=== PATIENT | male | born 1945 | race Caucasian/White ===

== ENCOUNTER 2019-12-16 07:17 | Outpatient (CLI) | payer MEDICARE, SELFPAY ==
[2019-12-16 07:43] LABS: Basophils Absolute Auto 0.06 K/mm3 (0.00-0.10); Basophils Percent Auto 0.8 % (0.0-1.0); Eosinophils Absolute Auto 0.36 K/mm3 (0.02-0.50); Hematocrit 37.6 % (37.0-46.0); Hemoglobin 12.5 g/dL (12.4-15.3); Immature Granulocyte Absolute 0.04 K/mm3 (0.00-0.00); Immature Granulocyte Percent A 0.6 % (0.0-0.0); Lymphocytes Absolute Auto 1.31 K/mm3 (1.10-4.50); Lymphocytes Percent Auto 18.3 % (18.0-42.0); Mean Corpuscular HGB Conc 33.2 g/dL (32.0-36.0); Mean Corpuscular Hemoglobin 28.9 pg (27.0-31.0); Mean Platelet Volume 10.4 fl (8.7-11.0); Monocytes Percent Auto 9.8 % (2.0-11.0); Neutrophils Absolute Auto 4.7 K/mm3 (1.7-7.2); Neutrophils Percent Auto 65.5 % (50.0-70.0); Platelet Count Result 206 K/mm3 (150-420); Red Blood Count 4.32 M/mm3 (4.70-6.10); Red Cell Distribution Width 14.4 % (11.6-14.4); White Blood Count 7.2 K/mm3 (4.8-10.8)
[2019-12-16 08:23] LABS: Alanine Aminotransferase 27 U/L (16-63); Albumin Level 3.5 g/dL (3.4-5.0); Alkaline Phosphatase 86 U/L (46-116); Aspartate Amino Transferase 19 U/L (15-37); Bilirubin,Total 0.3 mg/dL (0.00-1.00); Blood Urea Nitrogen 47 mg/dL (7-18); Calcium 8.6 mg/dL (8.5-10.1); Carbon Dioxide 23 mmol/L (21-32); Chloride 109 mmol/L (98-108); Estimated Glomerular Filt Rate 30; Glucose 186 mg/dL (70-99); Osmolality Calculated 313 mOsm/kg (285-295); Sodium 143 mmol/L (136-145); Total Protein 6.4 g/dL (6.4-8.2)
[2019-12-16 09:16] LABS: Appearance Urine Clear (Clear); Bilirubin Urine Negative (Negative); Color Urine Yellow (Yellow); Glucose Urine UA Trace (Negative); Ketones Urine Negative (Negative); Leukocyte Esterase Ur Negative LEU/UL (Negative); Nitrate Urine Negative (Negative); Protein Urine 2+ (Negative); Specific Grav Ur 1.025 (1.010-1.020); Urobilinogen Urine 0.2 mg/dL (0.2-1.0)
[2019-12-16 09:22] LABS: Add Urine Microscopic? YES; Blood Urine Trace-Intact (Negative)
[2019-12-16 09:23] LABS: Bacteria Urine 1+ /hpf; Mucus Urine Few /lpf; RBC Urine 0-2 /hpf (0-2); Squamous Epithelial Cell Urine Occasional /hpf (Few); WBC Urine 0-3 /hpf (0-3)
== END 2019-12-16 07:18 | disposition home or self-care (01) ==
LOC: CHSLAB 07:20
PROVIDERS: PCP Internal Medicine; Visit Provider Internal Medicine
DX: I12.9 Hypertensive chronic kidney disease with stage 1 through stage 4 chronic kidney disease, or unspecified chronic kidney disease (principal); N18.9 Chronic kidney disease, unspecified
CPT/HCPCS: 36415; 80053; 81001; 85025

== ENCOUNTER 2020-01-06 15:14 | Outpatient (CLI) | payer MEDICARE, SELFPAY ==
--- NOTE | ~2020-01-06 | XR_ITS ---
EXAMINATION: XR wrist RT min 3V DATE: 01/06/2020 15:32 INDICATION: Right wrist pain and swelling. TECHNIQUE: 4 views of right wrist were obtained. COMPARISON: None. FINDINGS: Bone alignment is normal. No fracture. There is mild osteoarthritis of first carpometacarpa l joint. There are dystrophic calcifications in the radiocarpal compartment. IMPRESSION: 1. Mild osteoarthritis of first carpometacarpal joint. Reviewed, dictated and finalized at location A. GE SPECIALIST
== END 2020-01-06 15:15 | disposition home or self-care (01) ==
LOC: CHSIMG 15:16
PROVIDERS: PCP Internal Medicine; Visit Provider Internal Medicine
DX: M25.531 Pain in right wrist (principal); M25.431 Effusion, right wrist
CPT/HCPCS: 73110

== ENCOUNTER 2020-05-05 07:22 | Outpatient (CLI) | payer MEDICARE, SELFPAY ==
[2020-05-05 07:34] LABS: Basophils Absolute Auto 0.06 K/mm3 (0.00-0.10); Eosinophils Absolute Auto 0.33 K/mm3 (0.02-0.50); Eosinophils Percent Auto 5.3 % (1.0-6.0); Hematocrit 42.4 % (37.0-46.0); Immature Granulocyte Absolute 0.03 K/mm3 (0.00-0.00); Immature Granulocyte Percent A 0.5 % (0.0-0.0); Lymphocytes Absolute Auto 1.37 K/mm3 (1.10-4.50); Lymphocytes Percent Auto 22.1 % (18.0-42.0); Mean Corpuscular Hemoglobin 28.5 pg (27.0-31.0); Mean Corpuscular Volume 86.4 fL (78.0-102.0); Mean Platelet Volume 10.6 fl (8.7-11.0); Monocytes Absolute Auto 0.58 K/mm3 (0.10-0.90); Monocytes Percent Auto 9.3 % (2.0-11.0); Neutrophils Absolute Auto 3.8 K/mm3 (1.7-7.2); Neutrophils Percent Auto 61.8 % (50.0-70.0); Platelet Count Result 212 K/mm3 (150-420); Red Blood Count 4.91 M/mm3 (4.70-6.10); Red Cell Distribution Width 14.8 % (11.6-14.4); White Blood Count 6.2 K/mm3 (4.8-10.8)
[2020-05-05 08:23] LABS: Alanine Aminotransferase 45 U/L (16-63); Albumin Level 3.6 g/dL (3.4-5.0); Alkaline Phosphatase 93 U/L (46-116); Anion Gap 11.3 mmol/L (7-16); Aspartate Amino Transferase 30 U/L (15-37); Bilirubin,Total 0.3 mg/dL (0.00-1.00); Blood Urea Nitrogen 41 mg/dL (7-18); Calcium 8.8 mg/dL (8.5-10.1); Carbon Dioxide 27 mmol/L (21-32); Chloride 105 mmol/L (98-108); Cholesterol 134 mg/dL (0-200); Estimated Glomerular Filt Rate 30; Glucose 147 mg/dL (70-99); HDL Direct 35 mg/dL (40-60); LDL Cholesterol Calculated 80 mg/dL (<130); Osmolality Calculated 301 mOsm/kg (285-295); Potassium 4.3 mmol/L (3.5-5.1); Sodium 139 mmol/L (136-145); Total Protein 6.5 g/dL (6.4-8.2); Triglycerides 96 mg/dL (0-150)
== END 2020-05-05 07:23 | disposition home or self-care (01) ==
LOC: CHSLAB 07:24
PROVIDERS: PCP Internal Medicine; Visit Provider Internal Medicine
DX: E78.5 Hyperlipidemia, unspecified (principal); I10 Essential (primary) hypertension; E11.9 Type 2 diabetes mellitus without complications
CPT/HCPCS: 36415; 80053; 80061; 85025

== ENCOUNTER 2020-07-22 21:20 | Emergency (ER) | payer MEDICARE, SELFPAY ==
[2020-07-22 21:28] VITALS: BP 175/93; PULSE 79; RESP 20; TEMP 36.3; O2SAT 100
[2020-07-22 21:39] LABS: Glucose Point of Care 70 (65-105)
[2020-07-22 22:10] LABS: Appearance Urine Clear (Clear); Bilirubin Urine Negative (Negative); Color Urine Yellow (Yellow); Glucose Urine UA Negative (Negative); Ketones Urine Negative (Negative); Leukocyte Esterase Ur Negative (Negative); Nitrate Urine Negative (Negative); Protein Urine 2+ (Negative); Specific Grav Ur 1.015 (1.010-1.020); Urobilinogen Urine 0.2 mg/dL (0.2-1.0); pH Urine 5.5 (5.0-8.0)
[2020-07-22 22:13] LABS: Hematocrit 40.1 % (37.0-46.0); Hemoglobin 13.5 g/dL (12.4-15.3); Mean Corpuscular HGB Conc 33.7 g/dL (32.0-36.0); Mean Corpuscular Hemoglobin 29.9 pg (27.0-31.0); Mean Corpuscular Volume 88.9 fL (78.0-102.0); Mean Platelet Volume 10.4 fl (8.7-11.0); Platelet Count Result 229 K/mm3 (150-420); Red Blood Count 4.51 M/mm3 (4.70-6.10); Red Cell Distribution Width 14.6 % (11.6-14.4); White Blood Count 10.2 K/mm3 (4.8-10.8)
[2020-07-22 22:18] LABS: Add Urine Microscopic? YES; Blood Urine Trace-Intact (Negative); RBC Urine 0-2 /hpf (0-2); WBC Urine None seen /hpf (0-3)
[2020-07-22 22:19] LABS: Bacteria Urine None seen /hpf; Mucus Urine None seen /lpf; Squamous Epithelial Cell Urine Rare /hpf (Few)
[2020-07-22 22:32] VITALS: BP 173/92; PULSE 74; RESP 20; O2SAT 99
[2020-07-22 22:37] LABS: Alanine Aminotransferase 29 U/L (16-63); Alkaline Phosphatase 107 U/L (46-116); Anion Gap 11 mmol/L (8-16); Aspartate Amino Transferase 20 U/L (15-37); Bilirubin,Total 0.3 mg/dL (0.00-1.00); Blood Urea Nitrogen 56 mg/dL (7-18); Calcium 8.8 mg/dL (8.5-10.1); Carbon Dioxide 21 mmol/L (21-32); Chloride 105 mmol/L (98-108); Estimated CRCL calculation 25 ml/min; Estimated Glomerular Filt Rate 22; Glucose 101 mg/dL (70-99); Osmolality Calculated 299 mOsm/kg (285-295); Potassium 4.1 mmol/L (3.5-5.1); Sodium 137 mmol/L (136-145); Total Protein 7.5 g/dL (6.4-8.2)
--- NOTE | 2020-07-22 22:45 | ED.GENADULT ---
HPI - General Adult General Chief complaint: Altered Mental Status Stated complaint: confusion,low sugar Source: patient Mode of arrival: ambulatory Limitations: no limitations History of Present Illness HPI narrative: This is a 74-year-old male with a history of some diabetes on insulin, presents with a hypoglycemic episode with confusion initial blood sugar readings were in the 40s, was given glucose and brought up his blood glucose levels to 70. Currently no confusion has no nausea vomiting no shortness of breath no chest pain no fever chills no abdominal pain no diarrhea constipation. Patient with a history of diabetes, hypertension, and chronic kidney disease. Onset (ago): hour(s) Associated symptoms: denies other symptoms Related Data Home Medications Medication Instructions Recorded Confirmed allopurinol 100 mg tablet 100 mg PO BID tablet 03/17/20 07/22/20 amlodipine 10 mg tablet 15 mg PO QPM tablet 03/17/20 07/22/20 aspirin 81 mg tablet,delayed 81 mg PO QPM tablet 03/17/20 07/22/20 release carvedilol 25 mg tablet 25 mg PO BID tablet 03/17/20 07/22/20 finasteride 5 mg tablet 5 mg PO QAM tablet 03/17/20 07/22/20 furosemide 20 mg tablet 20 mg PO QAM tablet 03/17/20 07/22/20 insulin NPH-regular 70-30 U-100 See Rx Instructions SUB-Q DAILY ml 03/17/20 07/22/20 insulin 100 unit/mL subcutaneous pen lisinopril 20 1 tablet PO QAM tablet 03/17/20 07/22/20 mg-hydrochlorothiazide 25 mg tablet pravastatin 10 mg tablet 10 mg PO QPM tablet 03/17/20 07/22/20 Allergies Allergy/AdvReac Type Severity Reaction Status Date / Time oxycodone AdvReac Vomiting Verified 07/22/20 21:33 Review of Systems Review of Systems: All systems reviewed & are unremarkable except as noted in HPI and below PMFSH Past Medical History Medical History Chronic kidney disease (CKD) stage G3b/A3, moderately decreased glomerular filtration rate (GFR) between 30-44 mL/min/1.73 square meter and albuminuria creatinine ratio greater than 300 mg/g Diabetes mellitus type 2, controlled Essential hypertension Family History Family History Father Family history of diabetes mellitus in first degree relative Family history of heart disease in male family member before age 55 Sibling Family history of diabetes mellitus in first degree relative Social History Social History Smoking status: Former smoker Second hand tobacco smoke exposure: Yes Smoking end date: 11/05/00 Alcohol intake: current Drinks per week: 8 Substance use: never Additional living arrangements comments: ( feng) Additional occupation/education comments: [employer]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 [employer] Gender identity (if verbalized by the patient): Male Exam Const: General: no acute distress and alert Orientation/consciousness: patient oriented x3 HENMT: Head: normal to inspection Eyes: Conjunctivae: conjunctivae normal Pupils: Equal, round and reactive pupils present Neck: Neck: normal visual inspection, no lymphadenopathy and no meningeal signs Chest: Chest palpation & inspection: normal inspection of the chest and abnormal inspection of the chest Resp: Effort & Inspection: normal respiratory effort Auscultation: clear to auscultation bilaterally Cardio: Rate: regular rate Rhythm: regular rhythm GI: GI Palp: Yes Soft to palpation Auscultation: normal bowel sounds Back/Spine/Pelvis: Back: no CVA tenderness Skin: General skin exam: normal color Rashes: no rashes Neuro: General: patient oriented x3, moves all extremities and no meningeal signs Extrem: General: normal to inspection and no pedal edema Psych: Appearance: grossly normal Mental Status: mental status grossly normal Course Course Emergency Course: Patient received a.m. meal, sandwich along with some milk a
== END 2020-07-22 23:00 | disposition home or self-care (01) ==
PROVIDERS: Emergency Provider Emergency Medicine; PCP Internal Medicine
DX: E11.649 Type 2 diabetes mellitus with hypoglycemia without coma (principal); Z79.4 Long term (current) use of insulin; I12.9 Hypertensive chronic kidney disease with stage 1 through stage 4 chronic kidney disease, or unspecified chronic kidney disease; N18.3 Chronic kidney disease, stage 3 (moderate); Z87.891 Personal history of nicotine dependence
CPT/HCPCS: 36415; 80053; 81001; 85027; 99283

== ENCOUNTER 2021-01-03 07:34 | Outpatient (CLI) | payer MEDICARE, SELFPAY ==
[2021-01-03 08:01] LABS: Basophils Absolute Auto 0.09 K/mm3 (0.00-0.10); Basophils Percent Auto 1.4 % (0.0-1.0); Eosinophils Absolute Auto 0.32 K/mm3 (0.02-0.50); Eosinophils Percent Auto 4.8 % (1.0-6.0); Hematocrit 36.9 % (37.0-46.0); Hemoglobin 12.1 g/dL (12.4-15.3); Immature Granulocyte Absolute 0.05 K/mm3 (0.00-0.00); Immature Granulocyte Percent A 0.8 % (0.0-0.0); Lymphocytes Absolute Auto 1.52 K/mm3 (1.10-4.50); Mean Corpuscular HGB Conc 32.8 g/dL (32.0-36.0); Mean Corpuscular Hemoglobin 28.7 pg (27.0-31.0); Mean Corpuscular Volume 87.4 fL (78.0-102.0); Mean Platelet Volume 10.5 fl (8.7-11.0); Monocytes Absolute Auto 0.59 K/mm3 (0.10-0.90); Monocytes Percent Auto 8.9 % (2.0-11.0); Neutrophils Percent Auto 61.1 % (50.0-70.0); Platelet Count Result 184 K/mm3 (150-420); Red Blood Count 4.22 M/mm3 (4.70-6.10); Red Cell Distribution Width 14.6 % (11.6-14.4); White Blood Count 6.6 K/mm3 (4.8-10.8)
[2021-01-03 08:44] LABS: Alanine Aminotransferase 27 U/L (16-63); Albumin Level 3.5 g/dL (3.4-5.0); Alkaline Phosphatase 91 U/L (46-116); Anion Gap 11 mmol/L (8-16); Aspartate Amino Transferase 16 U/L (15-37); Bilirubin,Total 0.3 mg/dL (0.00-1.00); Blood Urea Nitrogen 54 mg/dL (7-18); Calcium 8.7 mg/dL (8.5-10.1); Carbon Dioxide 23 mmol/L (21-32); Chloride 106 mmol/L (98-108); Cholesterol 124 mg/dL (0-200); Estimated Glomerular Filt Rate 26; Glucose 178 mg/dL (70-99); HDL Direct 35 mg/dL (40-60); LDL Cholesterol Calculated 67 mg/dL (<130); Osmolality Calculated 308 mOsm/kg (285-295); Potassium 4.3 mmol/L (3.5-5.1); Sodium 140 mmol/L (136-145); Total Protein 6.2 g/dL (6.4-8.2); Triglycerides 109 mg/dL (0-150)
== END 2021-01-03 07:35 | disposition home or self-care (01) ==
LOC: CHSLAB 07:36
PROVIDERS: PCP Internal Medicine; Visit Provider Internal Medicine
DX: E11.9 Type 2 diabetes mellitus without complications (principal); I10 Essential (primary) hypertension; Z12.5 Encounter for screening for malignant neoplasm of prostate
CPT/HCPCS: 36415; 80053; 80061; 84153; 85025; G0103

== ENCOUNTER 2021-01-04 10:49 | Outpatient (CLI) | payer MEDICARE, SELFPAY ==
[2021-01-04 11:05] LABS: Hematocrit 39.9 % (37.0-46.0); Hemoglobin 13.4 g/dL (12.4-15.3); Immature Reticulocyte Fraction 13.4 % (2.0-16.52); Reticulocyte Hemoglobin Conten 33.5 pg (28.0-35.0); Reticulocyte Percent 1.99 % (0.50-1.50); Reticulocytes Absolute 0.09 M/mm3 (0.02-0.1)
[2021-01-04 11:59] LABS: Ferritin 34 ng/mL (26-388); Iron 67 ug/dL (65-175); Lactate Dehydrogenase 194 U/L (85-227); Percent Iron Saturation 18 % (12-57)
[2021-01-04 12:00] LABS: CRP < 0.5 mg/dL (0.0-0.9)
[2021-01-06 17:30] LABS: Erythropoietin (EPO) 15.1 mIU/mL (2.6-18.5)
[2021-01-07 16:57] LABS: Methylmalonic Acid 662 nmol/L (87-318)
[2021-01-08 07:28] LABS: Red Blood Cell Folate 577 ng/mL RBC (>280)
== END 2021-01-04 10:50 | disposition home or self-care (01) ==
LOC: CHSLAB 10:51
PROVIDERS: PCP Internal Medicine; Visit Provider Internal Medicine
DX: D64.9 Anemia, unspecified (principal)
CPT/HCPCS: 36415; 82668; 82728; 82747; 83540; 83550; 83615; 83921; 85014; 85018; 85046; 86140

== ENCOUNTER → 2021-02-28 04:11 | Outpatient (CLI) | payer MEDICARE, SELFPAY ==
[2021-02-28 19:57] LABS: SARS-CoV-2 RNA PCR Negative
== END ==
PROVIDERS: PCP Internal Medicine; Visit Provider Internal Medicine Gastroenterology
DX: Z01.812 Encounter for preprocedural laboratory examination (principal); Z20.822 Contact with and (suspected) exposure to COVID-19
CPT/HCPCS: C9803; U0003; U0005

== ENCOUNTER 2021-03-03 01:58 | Day surgery (SDC) | payer MEDICARE, SELFPAY ==
[2021-02-17 14:28] VITALS: BMI 30.7
--- NOTE | 2021-03-02 11:23 | WPDANESEPPF ---
Anes - Initial Pre Proc Eval Procedure: Operation Date: 03/03/21 08:45 Proposed Procedures p Colonoscopy - Brandon Edge MD Date/Time: 03/02/21 11:23 Surgeon: Brandon Edge MD Pre Op Diagnosis: positive cologuard Patient Data Age: 75 Gender: M Height: 1.8 m Weight: 100 kg Allergies Allergy/AdvReac Type Severity Reaction Status Date / Time oxycodone AdvReac Vomiting Verified 03/03/21 07:20 Home Medications Medication Instructions Recorded Confirmed Type allopurinol 100 mg tablet 100 mg PO BID tablet 03/17/20 02/17/21 History amlodipine 10 mg tablet 15 mg PO QPM tablet 03/17/20 02/17/21 History aspirin 81 mg tablet,delayed 81 mg PO QPM tablet 03/17/20 02/17/21 History release carvedilol 25 mg tablet 25 mg PO BID tablet 03/17/20 02/17/21 History finasteride 5 mg tablet 5 mg PO QAM tablet 03/17/20 02/17/21 History furosemide 20 mg tablet 20 mg PO QAM tablet 03/17/20 02/17/21 History lisinopril 20 1 tablet PO QAM tablet 03/17/20 02/17/21 History mg-hydrochlorothiazide 25 mg tablet pravastatin 10 mg tablet 10 mg PO QPM tablet 03/17/20 02/17/21 History blood sugar diagnostic #200 each 09/14/20 09/14/20 Rx lancets 28 gauge #200 each 09/14/20 09/14/20 Rx pen needle, diabetic 32 gauge x #200 each 09/21/20 Rx 5/32 insulin NPH-regular 70-30 U-100 See Rx Instructions SUB-Q DAILY 90 10/20/20 02/17/21 Rx insulin 100 unit/mL subcutaneous Days #60 ml pen B12 1,000 mcg PO DAILY 02/17/21 02/17/21 History Patient hx anesthesia problems: none Family hx anesthesia problems: none [facility] Past Medical History Medical History (Updated 03/02/21 @ 11:24 by Vj Rodriguez DO) Chronic kidney disease (CKD) stage G3b/A3, moderately decreased glomerular filtration rate (GFR) between 30-44 mL/min/1.73 square meter and albuminuria creatinine ratio greater than 300 mg/g Diabetes mellitus type 2, controlled Essential hypertension Hyperlipidemia Family History Family History Father Family history of diabetes mellitus in first degree relative Family history of heart disease in male family member before age 55 Sibling Family history of diabetes mellitus in first degree relative Social History Social History Smoking status: Former smoker Tobacco type: cigarettes Second hand tobacco smoke exposure: Yes Smoking end date: 11/05/00 Alcohol intake: current Drinks per week: 8 Alcohol use details: OCCATIONAL Substance use: never Living arrangements: with family Additional living arrangements comments: with his , Joselin 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s: No Anes - Eval Final PreProcedure Day of Procedure 03/02/21 11:23 Patient weight: obese Heart: regular rate and rhythm Lungs: clear to auscultation and normal air movement Airway: Mallampati scale class II Neurological: alert and oriented Last oral intake: >/= 8 hours ASA classification: III Emergent: no Anesthetic plan: proceed Anesthesia type and monitoring: general GIVS and standard monitoring Informed Consent: The patient's anesthetic plan and its attendant risks and benefits were discussed with the patient/family/POA. Questions were solicited and answers provided to the satisfaction of the patient/family/POA.
[2021-03-03 07:23] VITALS: BP 144/78; PULSE 84; RESP 18; TEMP 36.3; O2SAT 100; BMI 31.2
[2021-03-03] MEDS: LACTATED RINGERS 1,000 ML 150 ML IV CONT (07:39)
[2021-03-03 07:40] LABS: Glucose Point of Care 239 (65-105)
--- NOTE | 2021-03-03 08:11 | PM.HPGS ---
History of Present Illness History of Present Illness Consent: Risks, benefits, and alternatives have been discussed and questions answered. Patient agrees to proceed with procedure. Chief complaint: positive cologuard Narrative: Mert Corral is a 75 year old male Here for colon cancer screening. His last colonoscopy was 10 years ago. He recently did a cologuard test that was positive Review of Systems Review of Systems: All systems reviewed & are unremarkable except as noted in HPI and below PMFSH Past Medical History Medical History Chronic kidney disease (CKD) stage G3b/A3, moderately decreased glomerular filtration rate (GFR) between 30-44 mL/min/1.73 square meter and albuminuria creatinine ratio greater than 300 mg/g Diabetes mellitus type 2, controlled Essential hypertension Hyperlipidemia Family History Family History Father Family history of diabetes mellitus in first degree relative Family history of heart disease in male family member before age 55 Sibling Family history of diabetes mellitus in first degree relative Social History Social History Smoking status: Former smoker Tobacco type: cigarettes Second hand tobacco smoke exposure: Yes Smoking end date: 11/05/00 Alcohol intake: current Drinks per week: 8 Alcohol use details: OCCATIONAL Substance use: never Living arrangements: with family Additional living arrangements comments: with his Joselin 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s: No Meds Home Medications and Allergies Home Medications Medication Instructions Recorded Confirmed Type allopurinol 100 mg tablet 100 mg PO BID tablet 03/17/20 03/03/21 History amlodipine 10 mg tablet 15 mg PO QPM tablet 03/17/20 03/03/21 History aspirin 81 mg tablet,delayed 81 mg PO QPM tablet 03/17/20 03/03/21 History release carvedilol 25 mg tablet 25 mg PO BID tablet 03/17/20 03/03/21 History finasteride 5 mg tablet 5 mg PO QAM tablet 03/17/20 03/03/21 History furosemide 20 mg tablet 20 mg PO QAM tablet 03/17/20 03/03/21 History lisinopril 20 1 tablet PO QAM tablet 03/17/20 03/03/21 History mg-hydrochlorothiazide 25 mg tablet pravastatin 10 mg tablet 10 mg PO QPM tablet 03/17/20 03/03/21 History blood sugar diagnostic #200 each 09/14/20 09/14/20 Rx lancets 28 gauge #200 each 09/14/20 09/14/20 Rx pen needle, diabetic 32 gauge x #200 each 09/21/20 Rx 5/32 insulin NPH-regular 70-30 U-100 See Rx Instructions SUB-Q DAILY 90 10/20/20 03/03/21 Rx insulin 100 unit/mL subcutaneous Days #60 ml pen B12 1,000 mcg PO DAILY 02/17/21 03/03/21 History Allergies Allergy/AdvReac Type Severity Reaction Status Date / Time oxycodone AdvReac Vomiting Verified 03/03/21 07:20 Vital Signs Vital Signs - 24 hr 03/03/21 07:23 Temperature 36.3 C L Pulse Rate 84 Respiratory Rate 18 Blood Pressure 144/78 H Pulse Oximetry 100 Exam Const: General: alert Orientation/consciousness: patient oriented x3 Resp: Auscultation: clear to auscultation bilaterally Cardio: Rhythm: regular rhythm GI: GI Palp: Yes Soft to palpation and No Tenderness to palpation present (GI) Neuro: General: patient oriented x3 Assessment and Plan Assessment and plan (1) Positive colorectal cancer screening using Cologuard test: Code(s): R19.5 - Other fecal abnormalities Status: Acute Assessment and Plan: Colonoscopy with possible biopsy or polypectomy or cautery or injection of substances.
[2021-03-03 09:08] VITALS: BP 103/57; PULSE 60; RESP 25; O2SAT 93
[2021-03-03 09:18] VITALS: BP 113/57; PULSE 65; RESP 20; O2SAT 96
[2021-03-03 09:28] VITALS: BP 124/77; PULSE 71; RESP 20; O2SAT 98
[2021-03-03 09:29] LABS: Glucose Point of Care 243 (65-105)
== END 2021-03-03 09:47 | disposition home or self-care (01) ==
PROVIDERS: PCP Internal Medicine; Visit Provider Internal Medicine Gastroenterology
PROC: 0DJD8ZZ Inspection of Lower Intestinal Tract, Via Natural or Artificial Opening Endoscopic (ICD-10-PCS; CPT 45378; principal; 2021-03-03 08:45)
DX: Z12.11 Encounter for screening for malignant neoplasm of colon (principal); R19.5 Other fecal abnormalities; D12.2 Benign neoplasm of ascending colon; K63.5 Polyp of colon; D12.5 Benign neoplasm of sigmoid colon; Z79.82 Long term (current) use of aspirin; Z79.4 Long term (current) use of insulin; I12.9 Hypertensive chronic kidney disease with stage 1 through stage 4 chronic kidney disease, or unspecified chronic kidney disease; E78.5 Hyperlipidemia, unspecified; E11.22 Type 2 diabetes mellitus with diabetic chronic kidney disease; N18.32 Chronic kidney disease, stage 3b; Z87.891 Personal history of nicotine dependence; E66.9 Obesity, unspecified; Z68.31 Body mass index [BMI] 31.0-31.9, adult; K64.8 Other hemorrhoids; K57.30 Diverticulosis of large intestine without perforation or abscess without bleeding
CPT/HCPCS: 45385; 45381; 82948; 88305; J2704; J7120

== ENCOUNTER 2021-09-07 11:55 | Outpatient (CLI) | payer MEDICARE, SELFPAY ==
--- NOTE | ~2021-09-07 | XR_ITS ---
EXAMINATION: XR chest 2V DATE: 09/07/2021 12:44 INDICATION: Shortness of breath, systolic murmur TECHNIQUE: PA and lateral views of the chest are obtained. COMPARISON: 01/11/2017 FINDINGS: Cardiomegaly is noted. There is a mild diffuse interstitial pattern. Ragini B lines are not ed in the lung bases. Small pleural effusions are present. There is no pneumothorax. There are bridgi ng osteophytes at multiple levels in the spine, consistent with diffuse idiopathic skeletal hyperosto sis (DISH). IMPRESSION: 1. Cardiomegaly with mild pulmonary edema. Reviewed, dictated and finalized at location B.
[2021-09-07 12:13] LABS: Hematocrit 33.2 % (37.0-46.0); Hemoglobin 11.1 g/dL (12.4-15.3); Mean Corpuscular HGB Conc 33.4 g/dL (32.0-36.0); Mean Corpuscular Hemoglobin 28.1 pg (27.0-31.0); Mean Corpuscular Volume 84.1 fL (78.0-102.0); Mean Platelet Volume 10.2 fl (8.7-11.0); Platelet Count Result 198 K/mm3 (150-420); Red Blood Count 3.95 M/mm3 (4.70-6.10); Red Cell Distribution Width 14.8 % (11.6-14.4); White Blood Count 8.9 K/mm3 (4.8-10.8)
[2021-09-07 12:14] LABS: Add Urine Microscopic? NO; Appearance Urine Clear (Clear); Bilirubin Urine Negative (Negative); Blood Urine Negative (Negative); Color Urine Light Yellow (Yellow); Glucose Urine UA Negative (Negative); Ketones Urine Negative (Negative); Leukocyte Esterase Ur Negative (Negative); Nitrate Urine Negative (Negative); Protein Urine Negative (Negative); Specific Grav Ur 1.015 (1.010-1.020); Urobilinogen Urine 0.2 mg/dL (0.2-1.0); pH Urine 5.5 (5.0-8.0)
--- NOTE | 2021-09-07 12:25 | ECG_ITS ---
Measurements Intervals [place] Rate: 79 P: 24 MD: 255 QRS: -61 QRSD: 165 T: 99 QT: 441 QTc: 506 Interpretive Statements SINUS RHYTHM WITH FIRST DEGREE AV BLOCK VENTRICULAR COUPLET AND FREQUENT VENTRICULAR PREMATURE COMPLEXES RIGHT BUNDLE BRANCH BLOCK LEFT VENTRICULAR HYPERTROPHY AND ST-T CHANGE INFERIOR INFARCT, AGE INDETERMINATE BASELINE ARTIFACT- I, II, III, AVR, AVL, AVF, V4-V5 ABNORMAL ECG Electronically Signed On 09-07-2021 12:51:56 CDT by Jose Antonio Peralta D.O.
[2021-09-07 13:07] LABS: Alanine Aminotransferase 26 U/L (16-63); Albumin Level 3.1 g/dL (3.4-5.0); Alkaline Phosphatase 77 U/L (46-116); Anion Gap 14 mmol/L (8-16); Aspartate Amino Transferase 13 U/L (15-37); Bilirubin,Total 0.5 mg/dL (0.00-1.00); Blood Urea Nitrogen 70 mg/dL (7-18); Calcium 8.2 mg/dL (8.5-10.1); Carbon Dioxide 19 mmol/L (21-32); Chloride 105 mmol/L (98-108); Creatine Kinase 92 U/L (39-308); Estimated Glomerular Filt Rate 20; Glucose 189 mg/dL (70-99); NT Pro B Type Natriuretic Pept 13176 pg/mL (0-450); Osmolality Calculated 311 mOsm/kg (285-295); Potassium 4.4 mmol/L (3.5-5.1); Sodium 138 mmol/L (136-145); Thyroid Stimulating Hormone 6.76 uIU/mL (0.36-3.74); Total Protein 6.9 g/dL (6.4-8.2); Troponin I 23.1 ng/L (0.00-60.4)
== END 2021-09-07 11:56 | disposition home or self-care (01) ==
LOC: CHSLAB 11:59
PROVIDERS: PCP Internal Medicine; Visit Provider Internal Medicine
DX: R06.00 Dyspnea, unspecified (principal); R60.9 Edema, unspecified; R01.1 Cardiac murmur, unspecified
CPT/HCPCS: 36415; 71046; 80053; 81003; 82550; 82553; 83880; 84443; 84484; 85027; 93005

== ENCOUNTER 2021-09-09 07:32 | Outpatient (CLI) | payer MEDICARE, SELFPAY ==
[2021-09-09 08:53] LABS: Alanine Aminotransferase 21 U/L (16-63); Albumin Level 3.2 g/dL (3.4-5.0); Alkaline Phosphatase 73 U/L (46-116); Anion Gap 13 mmol/L (8-16); Aspartate Amino Transferase 11 U/L (15-37); Bilirubin,Total 0.5 mg/dL (0.00-1.00); Blood Urea Nitrogen 72 mg/dL (7-18); Calcium 8.8 mg/dL (8.5-10.1); Carbon Dioxide 20 mmol/L (21-32); Chloride 108 mmol/L (98-108); Estimated Glomerular Filt Rate 22; Glucose 98 mg/dL (70-99); NT Pro B Type Natriuretic Pept 12595 pg/mL (0-450); Osmolality Calculated 313 mOsm/kg (285-295); Potassium 4.3 mmol/L (3.5-5.1); Sodium 141 mmol/L (136-145); Total Protein 6.1 g/dL (6.4-8.2)
== END 2021-09-09 07:33 | disposition home or self-care (01) ==
LOC: CHSLAB 07:35
PROVIDERS: PCP Internal Medicine; Visit Provider Internal Medicine
DX: I50.9 Heart failure, unspecified (principal)
CPT/HCPCS: 36415; 80053; 83880

== ENCOUNTER 2021-09-13 10:29 | Outpatient (CLI) | payer MEDICARE, SELFPAY ==
[2021-09-13 10:44] LABS: Occult Blood Negative (Negative)
[2021-09-13 10:44] LABS: Occult Blood Negative (Negative)
[2021-09-13 10:44] LABS: Occult Blood Positive (Negative)
== END 2021-09-13 10:30 | disposition home or self-care (01) ==
LOC: CHSLAB 10:31
PROVIDERS: PCP Internal Medicine; Visit Provider Internal Medicine
DX: D64.9 Anemia, unspecified (principal); I50.9 Heart failure, unspecified
CPT/HCPCS: 82272

== ENCOUNTER 2021-09-15 07:34 | Outpatient (CLI) | payer MEDICARE, SELFPAY ==
[2021-09-15 07:47] LABS: Basophils Absolute Auto 0.09 K/mm3 (0.00-0.10); Eosinophils Percent Auto 4.4 % (1.0-6.0); Hematocrit 36.5 % (37.0-46.0); Hemoglobin 11.8 g/dL (12.4-15.3); Immature Granulocyte Absolute 0.06 K/mm3 (0.00-0.00); Immature Granulocyte Percent A 0.7 % (0.0-0.0); Lymphocytes Absolute Auto 0.96 K/mm3 (1.10-4.50); Lymphocytes Percent Auto 10.6 % (18.0-42.0); Mean Corpuscular HGB Conc 32.3 g/dL (32.0-36.0); Mean Corpuscular Hemoglobin 27.6 pg (27.0-31.0); Mean Corpuscular Volume 85.3 fL (78.0-102.0); Mean Platelet Volume 10.3 fl (8.7-11.0); Monocytes Absolute Auto 0.69 K/mm3 (0.10-0.90); Monocytes Percent Auto 7.6 % (2.0-11.0); Neutrophils Absolute Auto 6.9 K/mm3 (1.7-7.2); Neutrophils Percent Auto 75.7 % (50.0-70.0); Platelet Count Result 304 K/mm3 (150-420); Red Blood Count 4.28 M/mm3 (4.70-6.10); Red Cell Distribution Width 15.1 % (11.6-14.4); White Blood Count 9.1 K/mm3 (4.8-10.8)
[2021-09-15 09:15] LABS: Alanine Aminotransferase 30 U/L (16-63); Albumin Level 3.5 g/dL (3.4-5.0); Alkaline Phosphatase 100 U/L (46-116); Anion Gap 12 mmol/L (8-16); Aspartate Amino Transferase 15 U/L (15-37); Bilirubin,Total 0.4 mg/dL (0.00-1.00); Blood Urea Nitrogen 60 mg/dL (7-18); Calcium 8.9 mg/dL (8.5-10.1); Carbon Dioxide 22 mmol/L (21-32); Chloride 106 mmol/L (98-108); Estimated Glomerular Filt Rate 27; Glucose 164 mg/dL (70-99); NT Pro B Type Natriuretic Pept 11299 pg/mL (0-450); Osmolality Calculated 310 mOsm/kg (285-295); Potassium 4.4 mmol/L (3.5-5.1); Sodium 140 mmol/L (136-145); Total Protein 6.6 g/dL (6.4-8.2)
== END 2021-09-15 07:35 | disposition home or self-care (01) ==
LOC: CHSLAB 07:37
PROVIDERS: PCP Internal Medicine; Visit Provider Internal Medicine
DX: D64.9 Anemia, unspecified (principal); I50.9 Heart failure, unspecified
CPT/HCPCS: 36415; 80053; 83880; 85025

== ENCOUNTER 2021-09-20 12:09 | Outpatient (CLI) | payer MEDICARE, SELFPAY ==
[2021-09-20 12:56] LABS: Alanine Aminotransferase 20 U/L (16-63); Albumin Level 3.6 g/dL (3.4-5.0); Alkaline Phosphatase 89 U/L (46-116); Anion Gap 13 mmol/L (8-16); Aspartate Amino Transferase 13 U/L (15-37); Bilirubin,Total 0.5 mg/dL (0.00-1.00); Blood Urea Nitrogen 51 mg/dL (7-18); Calcium 9.2 mg/dL (8.5-10.1); Carbon Dioxide 23 mmol/L (21-32); Chloride 104 mmol/L (98-108); Estimated Glomerular Filt Rate 24; Glucose 147 mg/dL (70-99); NT Pro B Type Natriuretic Pept 10003 pg/mL (0-450); Osmolality Calculated 306 mOsm/kg (285-295); Potassium 3.8 mmol/L (3.5-5.1); Sodium 140 mmol/L (136-145); Total Protein 7.3 g/dL (6.4-8.2)
[2021-09-20 16:44] LABS: CRP < 0.5 mg/dL (0.0-0.9)
== END 2021-09-20 12:10 | disposition home or self-care (01) ==
LOC: CHSLAB 12:12
PROVIDERS: PCP Internal Medicine; Visit Provider Internal Medicine
DX: N18.30 Chronic kidney disease, stage 3 unspecified (principal); I50.9 Heart failure, unspecified; R06.00 Dyspnea, unspecified; R60.9 Edema, unspecified; R01.1 Cardiac murmur, unspecified
CPT/HCPCS: 36415; 80053; 83880; 86140

== ENCOUNTER 2021-09-28 07:46 | Outpatient (CLI) | payer MEDICARE, SELFPAY ==
[2021-09-28 08:48] LABS: Anion Gap 12 mmol/L (8-16); Blood Urea Nitrogen 57 mg/dL (7-18); Calcium 8.9 mg/dL (8.5-10.1); Carbon Dioxide 23 mmol/L (21-32); Chloride 107 mmol/L (98-108); Estimated Glomerular Filt Rate 22; Glucose 121 mg/dL (70-99); Osmolality Calculated 310 mOsm/kg (285-295); Potassium 4.5 mmol/L (3.5-5.1); Sodium 142 mmol/L (136-145)
[2021-09-30 09:08] LABS: Creatine Kinase 114 U/L (39-308)
== END 2021-09-28 07:47 | disposition home or self-care (01) ==
LOC: CHSLAB 07:48
PROVIDERS: PCP Internal Medicine; Visit Provider Internal Medicine Cardiovascular Disease
DX: I50.9 Heart failure, unspecified (principal)
CPT/HCPCS: 36415; 80048; 82550

== ENCOUNTER 2021-10-06 12:40 | Outpatient (CLI) | payer MEDICARE, SELFPAY ==
[2021-10-06 13:25] LABS: Anion Gap 12 mmol/L (8-16); Blood Urea Nitrogen 63 mg/dL (7-18); Calcium 8.4 mg/dL (8.5-10.1); Carbon Dioxide 22 mmol/L (21-32); Chloride 107 mmol/L (98-108); Estimated Glomerular Filt Rate 22; Glucose 208 mg/dL (70-99); Osmolality Calculated 316 mOsm/kg (285-295); Potassium 4.7 mmol/L (3.5-5.1); Sodium 141 mmol/L (136-145)
== END 2021-10-06 12:41 | disposition home or self-care (01) ==
LOC: CHSLAB 12:42
PROVIDERS: PCP Internal Medicine; Visit Provider Nurse Practitioner Adult Health
DX: I42.9 Cardiomyopathy, unspecified (principal)
CPT/HCPCS: 36415; 80048

== ENCOUNTER 2021-10-21 07:38 | Outpatient (CLI) | payer MEDICARE, SELFPAY ==
[2021-10-21 08:32] LABS: Alanine Aminotransferase 23 U/L (16-63); Albumin Level 3.6 g/dL (3.4-5.0); Alkaline Phosphatase 92 U/L (46-116); Anion Gap 11 mmol/L (8-16); Aspartate Amino Transferase 12 U/L (15-37); Bilirubin,Total 0.4 mg/dL (0.00-1.00); Blood Urea Nitrogen 65 mg/dL (7-18); Calcium 9.1 mg/dL (8.5-10.1); Carbon Dioxide 24 mmol/L (21-32); Chloride 105 mmol/L (98-108); Estimated Glomerular Filt Rate 22; Glucose 151 mg/dL (70-99); Osmolality Calculated 311 mOsm/kg (285-295); Potassium 4.1 mmol/L (3.5-5.1); Sodium 140 mmol/L (136-145); Total Protein 6.5 g/dL (6.4-8.2)
[2021-10-21 09:19] LABS: Thyroid Stimulating Hormone Reflex 12.45 u/IU/mL (0.36-3.74)
[2021-10-21 09:20] LABS: Free T4 Free Thyroxine Reflex 0.95 ng/dL (0.76-1.46)
== END 2021-10-21 07:39 | disposition home or self-care (01) ==
PROVIDERS: PCP Internal Medicine; Visit Provider Internal Medicine Cardiovascular Disease
DX: I50.42 Chronic combined systolic (congestive) and diastolic (congestive) heart failure (principal); I49.3 Ventricular premature depolarization
CPT/HCPCS: 36415; 80053; 84439; 84443

== ENCOUNTER 2021-11-02 14:41 | Outpatient (CLI) | payer MEDICARE, SELFPAY ==
[2021-11-02 16:03] LABS: Influenza A QL RT-PCR Negative (Negative); Influenza B QL RT-PCR Negative (Negative); SARS-CoV-2 RNA PCR Negative (Negative)
== END 2021-11-02 14:42 | disposition home or self-care (01) ==
LOC: CHSLAB 14:42
PROVIDERS: PCP Internal Medicine; Visit Provider Internal Medicine
DX: J06.9 Acute upper respiratory infection, unspecified (principal); Z20.822 Contact with and (suspected) exposure to COVID-19
CPT/HCPCS: 87502; C9803; U0003; U0005

== ENCOUNTER 2021-11-28 11:20 | Outpatient (CLI) | payer MEDICARE, SELFPAY ==
[2021-11-28 12:59] LABS: Free T3 1.88 pg/mL (2.18-3.98); Free T4 Free Thyroxine 0.86 ng/dL (0.76-1.46); Thyroid Stimulating Hormone 28.51 uIU/mL (0.36-3.74); Vitamin B12 1822 pg/mL (193-986)
[2021-11-30 15:42] LABS: Vitamin D 25 Hydroxy 13 ng/mL (30-100)
[2021-12-02 06:03] LABS: Thyroid Peroxidase Antibodies <1 IU/mL (<9)
== END 2021-11-28 11:21 | disposition home or self-care (01) ==
LOC: CHSLAB 11:23
PROVIDERS: PCP Internal Medicine; Visit Provider Nurse Practitioner Family
DX: E11.9 Type 2 diabetes mellitus without complications (principal); R79.89 Other specified abnormal findings of blood chemistry; Z79.899 Other long term (current) drug therapy
CPT/HCPCS: 36415; 82306; 82607; 84439; 84443; 84481; 86376

== ENCOUNTER 2022-01-18 08:14 | Outpatient (CLI) | payer MEDICARE, SELFPAY ==
[2022-01-18 09:50] LABS: Free T4 Free Thyroxine 1.52 ng/dL (0.76-1.46); Thyroid Stimulating Hormone 8.77 uIU/mL (0.36-3.74)
[2022-01-18 10:36] LABS: Alanine Aminotransferase 31 U/L (16-63); Albumin Level 3.5 g/dL (3.4-5.0); Alkaline Phosphatase 107 U/L (46-116); Anion Gap 13 mmol/L (8-16); Aspartate Amino Transferase 22 U/L (15-37); Bilirubin,Total 0.4 mg/dL (0.00-1.00); Blood Urea Nitrogen 52 mg/dL (7-18); Calcium 8.9 mg/dL (8.5-10.1); Carbon Dioxide 25 mmol/L (21-32); Chloride 104 mmol/L (98-108); Estimated Glomerular Filt Rate 19; Glucose 107 mg/dL (70-99); Osmolality Calculated 308 mOsm/kg (285-295); Sodium 142 mmol/L (136-145); Total Protein 6.5 g/dL (6.4-8.2)
== END 2022-01-18 08:15 | disposition home or self-care (01) ==
PROVIDERS: PCP Internal Medicine; Visit Provider Nurse Practitioner Family
DX: I50.23 Acute on chronic systolic (congestive) heart failure (principal); I34.0 Nonrheumatic mitral (valve) insufficiency; R06.02 Shortness of breath; R79.89 Other specified abnormal findings of blood chemistry
CPT/HCPCS: 36415; 80053; 84439; 84443

== ENCOUNTER 2022-03-02 09:00 | Outpatient (CLI) | payer MEDICARE, SELFPAY ==
[2022-03-02 09:47] LABS: Cholesterol 110 mg/dL (0-200); Free T4 Free Thyroxine 1.65 ng/dL (0.76-1.46); HDL Direct 44 mg/dL (40-60); LDL Cholesterol Calculated 48 mg/dL (<130); Thyroid Stimulating Hormone 4.36 uIU/mL (0.36-3.74); Triglycerides 88 mg/dL (0-150)
[2022-03-02 11:05] LABS: Creatinine Urine 78.93 mg/dL (40-278); Microalbumin Urine Random 243.9 mg/L
== END 2022-03-02 09:01 | disposition home or self-care (01) ==
LOC: CHSLAB 09:04
PROVIDERS: PCP Internal Medicine; Visit Provider Nurse Practitioner Family
DX: E03.9 Hypothyroidism, unspecified (principal); E11.9 Type 2 diabetes mellitus without complications
CPT/HCPCS: 36415; 80061; 82043; 84439; 84443

== ENCOUNTER 2022-03-27 07:21 | Outpatient (CLI) | payer MEDICARE, SELFPAY ==
--- NOTE | ~2022-03-27 | US_ITS ---
US retroperitoneal comp 03/27/2022 08:10 Procedure: Realtime transabdominal ultrasound of the kidneys and bladder. Indication: Chronic kidney disease stage IV Comparison: CT dated 10/28/2015 Findings: Renal echotexture is diffusely increased bilaterally with decreased cortical medullary diff erentiation, consistent with chronic medical renal disease. There are bilateral renal cysts the large st on the right measuring 3 cm in largest on the left measures 2.9 cm. The right kidney measures 9.9 cm and left kidney measures 10.3 cm. Bladder within normal limits. Impression: 1: Increased renal cortical echotexture with decreased corticomedullary differentiation, consistent w ith chronic renal disease. 2: Bilateral renal cysts. Reviewed, dictated and finalized at location A. Impression: 1: Increased renal cortical echotexture with decreased corticomedullary differe ntiation, consistent with chronic renal disease. 2: Bilateral renal cysts.
== END 2022-03-27 07:22 | disposition home or self-care (01) ==
LOC: CHSIMG 07:27
PROVIDERS: PCP Internal Medicine; Visit Provider Internal Medicine Nephrology
DX: N18.4 Chronic kidney disease, stage 4 (severe) (principal)
CPT/HCPCS: 76770

== ENCOUNTER 2022-03-28 09:17 | Outpatient (CLI) | payer MEDICARE, SELFPAY ==
[2022-03-28 09:42] LABS: Basophils Absolute Auto 0.07 K/mm3 (0.00-0.10); Basophils Percent Auto 0.8 % (0.0-1.0); Eosinophils Absolute Auto 0.26 K/mm3 (0.02-0.50); Eosinophils Percent Auto 2.8 % (1.0-6.0); Hematocrit 39.6 % (37.0-46.0); Hemoglobin 12.6 g/dL (12.4-15.3); Immature Granulocyte Absolute 0.04 K/mm3 (0.00-0.00); Immature Granulocyte Percent A 0.4 % (0.0-0.0); Lymphocytes Absolute Auto 0.86 K/mm3 (1.10-4.50); Lymphocytes Percent Auto 9.3 % (18.0-42.0); Mean Corpuscular HGB Conc 31.8 g/dL (32.0-36.0); Mean Corpuscular Hemoglobin 26.5 pg (27.0-31.0); Mean Corpuscular Volume 83.4 fL (78.0-102.0); Mean Platelet Volume 11.1 fl (8.7-11.0); Monocytes Absolute Auto 0.95 K/mm3 (0.10-0.90); Monocytes Percent Auto 10.3 % (2.0-11.0); Neutrophils Percent Auto 76.4 % (50.0-70.0); Platelet Count Result 234 K/mm3 (150-420); Red Blood Count 4.75 M/mm3 (4.70-6.10); Red Cell Distribution Width 16.9 % (11.6-14.4); White Blood Count 9.2 K/mm3 (4.8-10.8)
[2022-03-28 10:45] LABS: Albumin Level 3.7 g/dL (3.4-5.0); Anion Gap 12 mmol/L (8-16); Blood Urea Nitrogen 65 mg/dL (7-18); Calcium 9.1 mg/dL (8.5-10.1); Carbon Dioxide 24 mmol/L (21-32); Chloride 102 mmol/L (98-108); Estimated Glomerular Filt Rate 15; Glucose 162 mg/dL (70-99); Osmolality Calculated 308 mOsm/kg (285-295); Phosphorus 4.9 mg/dL (2.6-4.7); Potassium 4.2 mmol/L (3.5-5.1); Sodium 138 mmol/L (136-145)
[2022-03-28 11:08] LABS: Erythrocyte Sedimentation Rate 20 mm/hr (0-20)
[2022-03-28 11:25] LABS: Total Protein Urine Random 46.7 mg/dL (0.0-11.9); Ur Ttl Prot Creatinine Ratio 0.54 mg/mg (0-0.20)
[2022-03-28 11:28] LABS: Appearance Urine Clear (Clear); Bilirubin Urine Negative (Negative); Color Urine Light Yellow (Yellow); Glucose Urine UA 3+ (Negative); Ketones Urine Negative (Negative); Leukocyte Esterase Ur Negative LEU/UL (Negative); Nitrate Urine Negative (Negative); Protein Urine 1+ (Negative); Urobilinogen Urine 0.2 mg/dL (0.2-1.0)
[2022-03-28 11:32] LABS: Add Urine Microscopic? YES; Bacteria Urine None seen /hpf; Blood Urine Trace-Intact (Negative); RBC Urine None seen /hpf (0-2); WBC Urine None seen /hpf (0-3)
[2022-03-30 19:32] LABS: Kappa\\Lambda Light Chains 2.12 (0.26-1.65); Lambda Light Chain 32.8 mg/L (5.7-26.3)
[2022-03-31 10:47] LABS: Total Volume 24 Hour Urine 2400 ml; Urea Nitrogen 24 Hour Urine 0.3 g/Day (7-20)
[2022-03-31 12:01] LABS: Complement C3 118 mg/dL (82-185)
[2022-03-31 13:13] LABS: Parathyroid Intact 97 pg/mL (14-64)
[2022-03-31 19:17] LABS: Complement Total CH50 >60 U/mL (31-60)
[2022-04-09 08:57] LABS: Hepatitis B Surface Antibody Nonreactive
[2022-04-10 13:28] LABS: Albumin 68 %; Measured Kappa Chains 2.31 mg/dL (<2.00); Measured Lambda Chains <1.00 mg/dL (<2.00); Pro/Creat Ratio 578 mg/g creat (<=114); Total Kappa Chains 55.44 mg/24 h
[2022-04-13 13:58] LABS: Creat 24 Hr 1.79
== END 2022-03-28 09:18 | disposition home or self-care (01) ==
LOC: CHSLAB 09:20
PROVIDERS: PCP Internal Medicine; Visit Provider Internal Medicine Nephrology
DX: N18.4 Chronic kidney disease, stage 4 (severe) (principal)
CPT/HCPCS: 36415; 80069; 81001; 81050; 82570; 83883; 83970; 84156; 84540; 85025; 85652; 86038; 86160; 86162; 86334; 86335; 86706; 86790

== ENCOUNTER 2022-05-26 07:46 | Outpatient (CLI) | payer MEDICARE, SELFPAY ==
[2022-05-26 08:18] LABS: Basophils Percent Auto 1.3 % (0.0-1.0); Eosinophils Absolute Auto 0.29 K/mm3 (0.02-0.50); Eosinophils Percent Auto 3.7 % (1.0-6.0); Hematocrit 36.2 % (37.0-46.0); Hemoglobin 11.6 g/dL (12.4-15.3); Immature Granulocyte Absolute 0.03 K/mm3 (0.00-0.00); Immature Granulocyte Percent A 0.4 % (0.0-0.0); Lymphocytes Absolute Auto 1.13 K/mm3 (1.10-4.50); Lymphocytes Percent Auto 14.3 % (18.0-42.0); Mean Corpuscular Hemoglobin 26.4 pg (27.0-31.0); Mean Corpuscular Volume 82.5 fL (78.0-102.0); Mean Platelet Volume 11.4 fl (8.7-11.0); Monocytes Absolute Auto 0.83 K/mm3 (0.10-0.90); Monocytes Percent Auto 10.5 % (2.0-11.0); Neutrophils Absolute Auto 5.5 K/mm3 (1.7-7.2); Neutrophils Percent Auto 69.8 % (50.0-70.0); Platelet Count Result 211 K/mm3 (150-420); Red Blood Count 4.39 M/mm3 (4.70-6.10); Red Cell Distribution Width 16.6 % (11.6-14.4); White Blood Count 7.9 K/mm3 (4.8-10.8)
[2022-05-26 08:42] LABS: Albumin Level 3.5 g/dL (3.4-5.0); Anion Gap 9 mmol/L (8-16); Blood Urea Nitrogen 57 mg/dL (7-18); Calcium 8.8 mg/dL (8.5-10.1); Carbon Dioxide 26 mmol/L (21-32); Chloride 106 mmol/L (98-108); Estimated Glomerular Filt Rate 15; Free T4 Free Thyroxine 1.99 ng/dL (0.76-1.46); Glucose 109 mg/dL (70-99); Osmolality Calculated 308 mOsm/kg (285-295); Phosphorus 4.6 mg/dL (2.6-4.7); Potassium 4.2 mmol/L (3.5-5.1); Sodium 141 mmol/L (136-145); Thyroid Stimulating Hormone 2.37 uIU/mL (0.36-3.74)
== END 2022-05-26 07:47 | disposition home or self-care (01) ==
LOC: CHSLAB 07:48
PROVIDERS: PCP Internal Medicine; Visit Provider Nurse Practitioner Family
DX: N18.4 Chronic kidney disease, stage 4 (severe) (principal); E03.9 Hypothyroidism, unspecified
CPT/HCPCS: 36415; 80069; 84439; 84443; 85025

== ENCOUNTER 2022-06-24 08:37 | Emergency (ER) | payer MEDICARE, SELFPAY ==
[2022-06-24] VITALS (9 sets, daily range): BP systolic 139–163; BP diastolic 57–73; PULSE 46–61; RESP 18–22; TEMP 36.4–36.7; O2SAT 94–100
--- NOTE | ~2022-06-24 | XR_ITS ---
EXAMINATION: XR knee RT 2V DATE: 06/24/2022 09:19 INDICATION: Right knee injury and pain. TECHNIQUE: 2 views of right knee were obtained. COMPARISON: Right knee radiographs 02/26/2018 FINDINGS: Bone alignment is normal. No fracture. There is mild osteoarthritis of medial and patellofe moral compartments. There is chondrocalcinosis of the menisci. No knee joint effusion. IMPRESSION: 1. Mild right knee osteoarthritis. Reviewed, dictated and finalized at location A.
--- NOTE | ~2022-06-24 | XR_ITS ---
EXAMINATION: XR chest 1V portable DATE: 06/24/2022 09:19 INDICATION: Shortness of breath. TECHNIQUE: A single frontal view of the chest was obtained on 2 radiographs. COMPARISON: Chest 2 views 09/07/2021, CT abdomen and pelvis 10/28/2015 FINDINGS: There are airspace opacities in the lower lung zones. No pleural effusion or pneumothorax. The heart size is normal. IMPRESSION: 1. Airspace opacities in the lower lung zones, consistent with atelectasis versus pneumonia. Reviewed, dictated and finalized at location A. IMPRESSION: 1. Airspace opacities in the lower lung zones, consistent with atelectasis vers us pneumonia.
[2022-06-24 08:48] LABS: Glucose Point of Care 237 mg/dl (65-105)
--- NOTE | 2022-06-24 08:55 | ECG_ITS ---
Measurements Intervals [place] Rate: 49 P: 170 MI: 248 QRS: -60 QRSD: 174 T: 80 QT: 537 QTc: 490 Interpretive Statements SINUS BRADYCARDIA WITH FIRST DEGREE AV BLOCK RIGHT BUNDLE BRANCH BLOCK [120+ ms QRS DURATION, UPRIGHT V1, 40+ ms S IN I/aVL/V4/V5/V6] LEFT VENTRICULAR HYPERTROPHY AND ST-T CHANGE [VOLTAGE CRITERIA PLUS ST/T ABNORMALITY] INFERIOR MYOCARDIAL INFARCTION , PROBABLY OLD [40+ ms Q WAVE AND/OR ST/T ABNORMALITY IN II/aVF] COMPARED TO ECG 09/07/2021 12:31:09 SINUS BRADYCARDIA NOW PRESENT Electronically Signed On 06-24-2022 13:45:25 CDT by Chrissy Olsen M.D.
[2022-06-24] MEDS: FUROSEMIDE INJ 40 MG/4 ML VIAL IV PUSH (09:13)
[2022-06-24 09:27] LABS: Basophils Absolute Auto 0.07 K/mm3 (0.00-0.10); Eosinophils Absolute Auto 0.25 K/mm3 (0.02-0.50); Eosinophils Percent Auto 3.4 % (1.0-6.0); Hematocrit 29.6 % (37.0-46.0); Hemoglobin 9.5 g/dL (12.4-15.3); Immature Granulocyte Absolute 0.02 K/mm3 (0.00-0.00); Immature Granulocyte Percent A 0.3 % (0.0-0.0); Lymphocytes Absolute Auto 0.72 K/mm3 (1.10-4.50); Lymphocytes Percent Auto 9.8 % (18.0-42.0); Mean Corpuscular HGB Conc 32.1 g/dL (32.0-36.0); Mean Corpuscular Hemoglobin 26.6 pg (27.0-31.0); Mean Corpuscular Volume 82.9 fL (78.0-102.0); Mean Platelet Volume 11.3 fl (8.7-11.0); Monocytes Absolute Auto 0.91 K/mm3 (0.10-0.90); Monocytes Percent Auto 12.4 % (2.0-11.0); Neutrophils Absolute Auto 5.4 K/mm3 (1.7-7.2); Neutrophils Percent Auto 73.1 % (50.0-70.0); Platelet Count Result 192 K/mm3 (150-420); Red Blood Count 3.57 M/mm3 (4.70-6.10); Red Cell Distribution Width 17.2 % (11.6-14.4); White Blood Count 7.4 K/mm3 (4.8-10.8)
[2022-06-24 09:42] LABS: Partial Thromboplastin Time 28.1 SEC (23.90-30.70); Prothrombin Time 11.4 Seconds (9.50-12.10)
[2022-06-24 09:44] LABS: D Dimer 1.66 mg/L (0.19-0.50)
[2022-06-24 09:48] LABS: Lactic Acid Reflex 1.1 mmol/L (0.4-2.0)
[2022-06-24 09:49] LABS: Alanine Aminotransferase 43 U/L (16-63); Albumin Level 3.2 g/dL (3.4-5.0); Alkaline Phosphatase 99 U/L (46-116); Anion Gap 10 mmol/L (8-16); Aspartate Amino Transferase 19 U/L (15-37); Bilirubin,Total 0.5 mg/dL (0.00-1.00); Blood Urea Nitrogen 64 mg/dL (7-18); Calcium 8.6 mg/dL (8.5-10.1); Carbon Dioxide 21 mmol/L (21-32); Chloride 103 mmol/L (98-108); Estimated CRCL calculation 17 ml/min; Estimated Glomerular Filt Rate 14; Glucose 261 mg/dL (70-99); Magnesium 2.2 mg/dL (1.8-2.4); NT Pro B Type Natriuretic Pept 6562 pg/mL (0-450); Osmolality Calculated 305 mOsm/kg (285-295); Potassium 3.9 mmol/L (3.5-5.1); Sodium 134 mmol/L (136-145); Total Protein 6.3 g/dL (6.4-8.2); Troponin I 18.5 ng/L (0.00-60.4)
[2022-06-24 09:56] LABS: Occult Blood Negative (Negative)
--- NOTE | 2022-06-24 10:00 | ED.SOB ---
HPI - SOB/Dyspnea General Chief Complaint: Shortness of Breath/Dyspnea Stated Complaint: trouble breathing Time Seen by Provider: 06/24/22 08:40 Source: patient and family Mode of arrival: ambulatory Limitations: no limitations History of Present Illness HPI Narrative: this is a 76-year-old gentleman with a history of CHF chronic kidney disease hypertension diabetes and hypothyroidism, presents with his after he has been increasingly short of breath, the patient states that shortness of breath started approximately 1 week ago but has increased over the last 24hours and worsened over the last few hours. The patient denies having any chest pain there is no nausea vomiting no abdominal pain, no black tardy stools no diarrhea or constipation no fever chills. Patient has chronic kidney disease and has been following with Nephrology, had some blood test with his lambda light chains which showed that they were elevated. MD elicited complaint: shortness of breath Pertinent past history: congestive heart failure Onset (ago): day(s) Context: occurred during exertion Timing: constant Severity: moderate Exacerbating factors: lying flat and exertion Relieving factors: rest Known history of: congestive heart failure Associated symptoms: denies other symptoms Related Data Home Medications Medication Instructions Recorded Confirmed allopurinol 100 mg tablet 100 mg PO BID 03/17/20 06/24/22 aspirin 81 mg tablet,delayed 81 mg PO QPM 03/17/20 06/24/22 release (Adult Aspirin Regimen) finasteride 5 mg tablet 5 mg PO QAM 03/17/20 06/24/22 sacubitril 97 mg-valsartan 103 mg 1 tablet PO BID 11/28/21 06/24/22 tablet (Entresto) amiodarone 200 mg tablet 200 mg PO BID 02/28/22 06/24/22 amlodipine 5 mg tablet 5 mg PO .at bedtime 02/28/22 06/24/22 atorvastatin 40 mg tablet 40 mg PO DAILY 02/28/22 06/24/22 furosemide 20 mg tablet 20 mg PO .COMPLEX 02/28/22 06/24/22 insulin NPH-regular 70-30 U-100 22 unit subcut BIDWMEAL 05/30/22 06/24/22 insulin 100 unit/mL subcutaneous pen (Novolin 70-30 FlexPen U-100 Insulin) levothyroxine 150 mcg tablet 125 mcg PO DAILY 06/24/22 06/24/22 (Synthroid) Allergies Allergy/AdvReac Type Severity Reaction Status Date / Time oxycodone AdvReac Vomiting Verified 06/24/22 08:58 Review of Systems Review of Systems: All systems reviewed & are unremarkable except as noted in HPI and below PMFSH Past Medical History Medical History CHF (congestive heart failure) Chronic kidney disease (CKD) stage G3b/A3, moderately decreased glomerular filtration rate (GFR) between 30-44 mL/min/1.73 square meter and albuminuria creatinine ratio greater than 300 mg/g Diabetes mellitus type 2, controlled Essential hypertension Hyperlipidemia Hypothyroid Positive colorectal cancer screening using Cologuard test Type 2 diabetes mellitus Surgical History Surgical History History of foot surgery left spur Family History Family History Father Family history of diabetes mellitus in first degree relative Family history of heart disease in male family member before age 55 Sibling Family history of diabetes mellitus in first degree relative Social History Social History Smoking packs per day: 0.5 Smoking cigarettes per day: 10.0 Years smoked: 30 Smoking pack-years: 15.00 Smoking status: Former smoker Tobacco type: cigarettes Second hand tobacco smoke exposure: Yes Smoking end date: 11/05/00 Alcohol intake: current Alcohol use details: 2 beers 3-4 times per week Substance use: never Additional living arrangements comments: with his , Joselin 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
[2022-06-24 10:03] LABS: SARS-CoV-2 RNA PCR Negative (Negative)
[2022-06-24 10:48] LABS: Add Urine Microscopic? NO; Appearance Urine Clear (Clear); Bilirubin Urine Negative (Negative); Blood Urine Negative (Negative); Color Urine Light Yellow (Yellow); Glucose Urine UA Negative (Negative); Ketones Urine Negative (Negative); Leukocyte Esterase Ur Negative (Negative); Nitrate Urine Negative (Negative); Protein Urine Negative (Negative); Urobilinogen Urine 0.2 mg/dL (0.2-1.0)
== END 2022-06-24 12:25 | disposition short-term general hospital (02) ==
PROVIDERS: Emergency Provider Emergency Medicine; PCP Internal Medicine
DX: N17.9 Acute kidney failure, unspecified (principal); I50.9 Heart failure, unspecified; D64.9 Anemia, unspecified; Z20.822 Contact with and (suspected) exposure to COVID-19; M17.11 Unilateral primary osteoarthritis, right knee; E11.9 Type 2 diabetes mellitus without complications; I10 Essential (primary) hypertension; E78.5 Hyperlipidemia, unspecified; E03.9 Hypothyroidism, unspecified; Z87.891 Personal history of nicotine dependence
CPT/HCPCS: 36415; 71045; 73560; 80053; 81003; 82948; 83605; 83735; 83880; 84484; 85025; 85380; 85610; 85730; 93005; 96372; 99285; C9803; J1940; U0003; U0005

== ENCOUNTER 2022-06-24 14:54 | Inpatient (IN) | payer MEDICARE, SELFPAY ==
--- NOTE | ~2022-06-24 | US_ITS ---
EXAMINATION: US venous doppler [facility] DATE: 06/25/2022 08:54 INDICATION: Lower limb edema. TECHNIQUE: Grayscale ultrasound images without and with compression and Doppler ultrasound images of the bilateral lower extremity veins were obtained. COMPARISON: None. FINDINGS: The visualized portions of right common femoral vein, profunda (deep) femoral vein, femoral vein, pop liteal vein, peroneal veins, posterior tibial veins, and greater saphenous vein outflow are patent. The visualized portions of left common femoral vein, profunda femoral vein, femoral vein, popliteal v ein, peroneal veins, posterior tibial veins, and greater saphenous vein outflow are patent. IMPRESSION: 1. No deep venous thrombosis. Reviewed, dictated and finalized at location A.
--- NOTE | ~2022-06-24 | US_ITS ---
EXAMINATION: US renal BI DATE: 06/25/2022 08:54 INDICATION: Acute on chronic renal failure. TECHNIQUE: Multiple ultrasound grayscale images of the kidneys were obtained. COMPARISON: Ultrasound 03/27/2022 FINDINGS: The right kidney measures 9.0 x 6.2 x 5.0 cm. The left kidney measures 10.6 x 5.6 x 6.0 cm. The kidne ys demonstrate normal parenchymal echogenicity. There are cysts in the kidneys measuring up to 2.9 cm on the right. There is no hydronephrosis. The bladder is normal. IMPRESSION: 1. Normal kidney sizes. No hydronephrosis. Reviewed, dictated and finalized at location A.
--- NOTE | ~2022-06-24 | NM_ITS ---
EXAMINATION: NM pulmonary perfusion DATE: 06/26/2022 13:42 INDICATION: Shortness of breath. TECHNIQUE: 5.5 mCi Tc-99m MAA was administered intravenously for perfusion images. Scintigraphic shar ges of the chest were obtained. COMPARISON: Chest 2 views 06/26/2022 FINDINGS: Perfusion images show small defects. IMPRESSION: 1. Pulmonary embolism absent (low probability). Reviewed, dictated and finalized at location A.
--- NOTE | ~2022-06-24 | XR_ITS ---
EXAMINATION: XR chest 2V DATE: 06/26/2022 13:45 INDICATION: Shortness of breath. TECHNIQUE: Frontal and lateral views of the chest were obtained. COMPARISON: Chest single view 06/24/2022, chest 2 views 01/11/2017 FINDINGS: There is a diffuse interstitial pattern, consistent mild pulmonary edema. There are small p leural effusions. No pneumothorax. The heart size is normal. Partially visualized is a chronic sclero tic lesion in proximal left humerus, likely osteonecrosis or an enchondroma. IMPRESSION: 1. Mild pulmonary edema. 2. Small pleural effusions. Reviewed, dictated and finalized at location A.
--- NOTE | 2022-06-24 13:35 | ADMGEN ---
This patient, Mert Corral, was admitted to [address] [place] [address] Room 309-01. Patient/family oriented to hospital policies and general routines including ID bracelet, bed and alarms, visiting hours, pain management, procedures, bathroom and other care routines, personal items, smoking policy, room service/diet, and visiting hours. Information on how to activate the Rapid Response Team has been discussed. Patient/Family are encouraged to report perceived risks to care and to ask questions if they do not understand what they are told or what they should do.
[2022-06-24 14:00] VITALS: PULSE 49; O2SAT 97
[2022-06-24 14:10] VITALS: BMI 33.5
--- NOTE | 2022-06-24 14:51 | PM.IMHP ---
H&P: HPI History of Present Illness Date/Time: 06/24/22 14:51 Chief Complaint: Shortness of breath Narrative: This is a 76-year-old male patient has a history of hypertension, diabetes, congestive heart and chronic renal stage 3-4. The patient stated that he was just getting established with Dr. Nj saw him 2 months ago. Patient's chest x-ray was read as airspace opacities in the lower lung zones consistent with atelectasis versus pneumonia. The patient has no fever chills. Right knee x-ray was read as mild right knee osteoarthritis. D-dimers noted to be 1.66. His creatinine was noted to be 4.14 today a a month ago is 3.84. His GFR was 15 and now 14. Patient's blood sugar was 261 today. The patient stated that he ate a roll at home which may have caused m his sugar to spike. Last A1c was 6.8 on 05/30/2022. The patient stated that he was given Lasix and antibiotics at [facility]. The patient was a direct admit from [facility]. The patient is being admitted to inpatient status on 06/24/2022. Review of Systems Review of Systems: See HPI All systems reviewed & are unremarkable except as noted in HPI and below Constitutional: Constitutional: Reports as per HPI and Reports no additional constitutional complaints Eyes: Eyes: Reports as per HPI and Reports no additional eye complaints ENT: Reports system reviewed and no additional complaints, except as documented and Reports Normal hearing present Cardiovascular: Cardiovascular: Reports no additional cardiovascular complaints Respiratory: Respiratory: Reports no additional respiratory complaints and Reports no additional respiratory complaints Gastrointestinal: Gastrointestinal: Reports as per HPI and Reports no additional gastrointestinal complaints Musculoskeletal: Musculoskeletal: Reports no additional musculoskeletal complaints Integumentary/Breasts: Skin/Breast: Reports system reviewed and no additional complaints, except as docu and Reports as per HPI Neurologic: Reports system reviewed and no additional complaints, except as documented, Reports as per HPI and Reports Normal hearing present Psychiatric: Psychiatric: Reports no additional psychiatric complaints and Reports as per HPI Endocrine: Endocrine: Reports no additional endocrine complaints Hematologic/Lymphatic: Hematologic/Lymphatic: Reports no additional hematologic/lymphatic complaints Allergic/Immunologic: Allergic/Immunologic: Reports no additional allergic/immunologic complaints [facility] Past Medical History Medical History Abnormal thyroid blood test BPH (benign prostatic hyperplasia) CHF (congestive heart failure) Chronic kidney disease (CKD) stage G3b/A3, moderately decreased glomerular filtration rate (GFR) between 30-44 mL/min/1.73 square meter and albuminuria creatinine ratio greater than 300 mg/g Diabetes mellitus type 2, controlled Essential hypertension Hyperlipidemia Hypothyroid Positive colorectal cancer screening using Cologuard test Type 2 diabetes mellitus Surgical History Surgical History History of cataract extraction History of foot surgery left spur Family History Family History (Updated 06/24/22 @ 15:04 by Niharika Mendeita NP) Father Family history of diabetes mellitus in first degree relative Family history of heart disease in male family member before age 55 Sibling Family history of diabetes mellitus in first degree relative Mother Cancer Sibling No problems noted. Social History Social History (Updated 06/24/22 @ 15:17 by Niharika Mendieta NP) Social History: The patient lives with his Joselin who is the durable power surgical scrub technologist for healthcare. The patient has 3 children. The patient is retired from [employer]. The patient is a former smoker. He drinks 2-3 beers a day but does not drink every day. He does not use an
[2022-06-24 16:00] VITALS: BP 137/45; PULSE 49; RESP 20; TEMP 35.8; O2SAT 97
[2022-06-24 17:09] LABS: Immature Reticulocyte Fraction 27.2 % (3.0-15.9); Reticulocyte Hemoglobin Conten 27.5 pg (28.2-35.7); Reticulocyte Percent 2.28 % (0.7-4.3); Reticulocytes Absolute 0.08 B/L (32.2-175.7)
[2022-06-24 17:18] LABS: Bilirubin,Total 0.5 mg/dL (0.2-1.3); Lactate Dehydrogenase 200 U/L (120-246)
[2022-06-24 17:19] LABS: Iron 34 ug/dL (49-181)
[2022-06-24 17:23] LABS: Alanine Aminotransferase 41 U/L (6-50); Albumin Level 3.7 g/dL (3.5-5.1); Alkaline Phosphatase 97 U/L (38-126); Aspartate Amino Transferase 26 U/L (17-59); Bilirubin,Total 0.5 mg/dL (0.2-1.3); Creatine Kinase 113 U/L (55-170); Phosphorus 4.6 mg/dL (2.5-4.5)
[2022-06-24 17:29] LABS: Erythrocyte Sedimentation Rate 55 mm/hr (0-20)
[2022-06-24 17:50] LABS: Hepatitis B Surface Antigen Negative (Negative)
[2022-06-24 17:56] LABS: Hepatitis B Core IgM Result Negative (Negative)
[2022-06-24 17:58] VITALS: PULSE 54
[2022-06-24] MEDS: AMIODARONE HCL 200 MG TABLET PO (17:58)
[2022-06-24] MEDS: allopurinoL 100 MG TABLET PO (17:58)
[2022-06-24] MEDS: ASPIRIN 81 MG ENTERIC TABLET PO (17:58)
[2022-06-24] MEDS: FUROSEMIDE INJ 40 MG/4 ML VIAL IV PUSH (17:59)
[2022-06-24 18:01] LABS: HIV 1/2 Ab P24 Ag Result Negative (Negative)
[2022-06-24 18:03] LABS: Glucose Point of Care 151 mg/dl (65-105)
[2022-06-24 18:08] LABS: Hepatitis B Surface Anti Res Negative; Hepatitis C Virus Antibody Negative (Negative)
[2022-06-24 19:46] LABS: Complement C3 103 mg/dL (88-165); Percent Iron Saturation 9 % (20-50); Transferrin 245 mg/dL (206-381)
[2022-06-24 19:49] LABS: Folic Acid 9.2 ng/mL (2.76->20)
[2022-06-24 19:53] VITALS: BP 141/55; PULSE 53; RESP 17; TEMP 36.7; O2SAT 96
[2022-06-24 20:00] VITALS: PULSE 55
[2022-06-24] MEDS: amLODIPine BESYLATE 5 MG TABLET PO (20:52)
[2022-06-24 21:42] LABS: Creatinine Urine 33.8 mg/dL; Total Protein Urine Random 12 mg/dL; Ur Ttl Prot Creatinine Ratio 0.36 mg/mg (0-0.20)
[2022-06-24 21:46] LABS: Sodium Urine Random 94 meq/L
[2022-06-24 22:04] LABS: Eosinophil Urine None Seen % (None Seen)
[2022-06-24 23:33] VITALS: BP 142/51; PULSE 52; RESP 18; TEMP 37; O2SAT 95
[2022-06-25] VITALS (11 sets, daily range): BP systolic 137–158; BP diastolic 48–60; PULSE 53–62; RESP 18–22; TEMP 36.2–37.1; O2SAT 93–96
[2022-06-25] MEDS: LEVOTHYROXINE SODIUM 150 MCG TABLET PO (05:38)
[2022-06-25 06:03] LABS: Basophils Absolute Auto 0.1 K/mm3 (0.0-0.1); Eosinophils Absolute Auto 0.2 K/mm3 (0-0.3); Eosinophils Percent Auto 3.3 % (0-4.4); Hematocrit 30.4 % (42.0-52.0); Hemoglobin 9.5 g/dL (14.0-18.0); Immature Granulocyte Absolute 0.04 K/mm3 (0.00-0.031); Immature Granulocyte Percent A 0.6 % (0-0.5); Lymphocytes Absolute Auto 0.66 K/mm3 (0.9-3.2); Lymphocytes Percent Auto 9.2 % (18.3-44.2); Mean Corpuscular HGB Conc 31.3 g/dl (32-36); Mean Corpuscular Hemoglobin 26.1 pg (26-34); Mean Corpuscular Volume 83.5 fl (80-100); Mean Platelet Volume 11.9 fl (7.4-10.4); Monocytes Absolute Auto 0.7 K/mm3 (0.1-0.6); Monocytes Percent Auto 10.3 % (2.6-8.5); Neutrophils Absolute Auto 5.4 K/mm3 (1.3-6.7); Neutrophils Percent Auto 75.6 % (45.5-73.1); Platelet Count Result 203 k/mm3 (150-375); Red Blood Count 3.64 M/mm3 (4.6-6.20); Red Cell Distribution Width 17.4 % (11.5-14.5); White Blood Count 7.2 K/mm3 (4.5-10.0)
[2022-06-25 06:21] LABS: Alanine Aminotransferase 41 U/L (6-50); Albumin Level 3.3 g/dL (3.5-5.1); Alkaline Phosphatase 81 U/L (38-126); Anion Gap 9 mmol/L (8-16); Aspartate Amino Transferase 29 U/L (17-59); Bilirubin,Total 0.6 mg/dL (0.2-1.3); Blood Urea Nitrogen 62 mg/dL (9-20); Calcium 8.8 mg/dL (8.4-10.2); Carbon Dioxide 22 mmol/L (22-30); Chloride 105 mmol/L (98-107); Estimated CRCL calculation 18 ml/min; Estimated Glomerular Filt Rate 15; Glucose 167 mg/dL (65-110); Magnesium 2.1 mg/dL (1.6-2.3); Sodium 136 mmol/L (137-145)
[2022-06-25 06:26] LABS: Lactic Acid Reflex 0.6 mmol/L (0.7-2.0)
[2022-06-25 08:11] LABS: Glucose Point of Care 173 mg/dl (65-105)
[2022-06-25] MEDS: allopurinoL 100 MG TABLET PO ×2 (09:02→18:12)
[2022-06-25] MEDS: AMIODARONE HCL 200 MG TABLET PO ×2 (09:02→18:11)
[2022-06-25] MEDS: ATORVASTATIN 40 MG TABLET PO (09:04)
[2022-06-25] MEDS: ENOXAPARIN 30 MG/0.3 ML SYRINGE SUB-Q (09:04)
[2022-06-25] MEDS: CHOLECALCIFEROL 1,000 UNITS TABLET 5000 UNITS PO (09:04)
[2022-06-25] MEDS: FINASTERIDE 5 MG TABLET PO (09:04)
[2022-06-25] MEDS: FUROSEMIDE INJ 40 MG/4 ML VIAL IV PUSH ×2 (09:05→18:11)
[2022-06-25 10:04] LABS: IFOB Positive Control Positive; Immunochemical Fecal Occult Bl Negative (N)
--- NOTE | 2022-06-25 10:55 | PM.CNCAR ---
Assessment and Plan Assessment and plan (1) Congestive heart failure: Code(s): I50.9 - Heart failure, unspecified Status: Acute Assessment and Plan: Acute on chronic systolic and diastolic CHF. Nonischemic cardiomyopathy, EF 35-40% by PATRICE in October 2021. CXR did not look bad and pt not needing O2. No discrete aggravating factors, other than progressive cardiac and renal disease. Responding well to IV Lasix. Entresto had been titrated to the optimal dose, 97/103 mg b.i.d., now on hold due to some worsening of renal function. Hopefully that can be restarted Unfortunately the patient runs bradycardic so cannot add a beta-xavi. Cannot add spironolactone due to advanced chronic kidney disease. Farxiga may not be of much help with this degree of renal insufficiency. Perhaps can use the newer CHF agent, Verquvo? as OPT (2) Essential hypertension: Code(s): I10 - Essential (primary) hypertension Status: Acute Assessment and Plan: H/O HTN Running high here but off Entresto now. (3) Chronic kidney disease, stage 4 (severe): Code(s): N18.4 - Chronic kidney disease, stage 4 (severe) Status: Acute Assessment and Plan: Somewhat worse; Dr. Bowles seening pt. (4) Mitral regurgitation: Code(s): I34.0 - Nonrheumatic mitral (valve) insufficiency Status: Acute Assessment and Plan: H/O MR, thought to be only moderate by PATRICE 10/2021. (5) CAD (coronary artery disease): Code(s): I25.10 - Atherosclerotic heart disease of [place] coronary artery without angina pectoris Status: Acute Assessment and Plan: Mild CAD, asymptomatic. Cont ASA and atorvastatin. (6) PVCs (premature ventricular contractions): Code(s): I49.3 - Ventricular premature depolarization Status: Acute Assessment and Plan: H/O frequent PVCs, high PVC burden Improved w/ amiodarone Taking 200 mg BID, perhaps can reduce to 200 qd, will need to check w/ Dr. Hill (7) Bilateral carotid bruits: Code(s): R09.89 - Other specified symptoms and signs involving the circulatory and respiratory systems Status: Acute Assessment and Plan: Bilateral carotid bruits, asymptomatic. OPT carotid US? Cont ASA, atorvastatin. History of Present Illness History of Present Illness Consult date/time: 06/25/22 10:55 Reason For Visit: Acute on Chronic Renal Failure/CHF Narrative: Mert Corral is a 76-year-old male whom I was asked to see at the request of RUPALI Thornton for my advice and opinion regarding his CHF in consultation. He sees Dr. Hill for his chronic systolic and diastolic heart failure, cardiomyopathy EF 38%, mitral regurgitation, CAD. He was started on Entresto a few months ago. Mr Corral takes amiodarone for his frequent PVCs and significant PVC burden which may started in 2020. He also has CKD (Dr. Bowles), hypertension and diabetes and dyslipidemia. The patient has had progressive RODRÍGUEZ for the past week, [place] lower extremity edema and a 6 lb weight gain. He was transferred from [facility], for admission to [facility] 06/24/2022 with acute congestive heart failure. ProBNP was 6600, and his renal function was a bit worse, from a creatinine of 3.8 in May 06 4.1, and GFR of 14. He has been treated with furosemide 40 mg IV push b.i.d. with improvement of his dyspnea. His renal function has been stable. The patient states compliance with medications, low-salt diet, and no nonsteroidals. Denies any chest pain, palpitations, dizziness. The patient last saw Dr. Hill in April, with baseline RODRÍGUEZ. No changes were made with his medications. PATRICE in October 2021 showed EF 35-40%, mild LVH, mild to moderate LV enlargement, moderate MR. Cardiac catheterization in October 2021 showed mild to moderate CAD. Review of Systems Constitutional: Constitutional: Denies fever(s) Eyes: Eyes: Reports n
--- NOTE | 2022-06-25 11:19 | PM.IMPN ---
Progress Note: A&P Assessment and Plan (1) Systolic and diastolic CHF, acute on chronic: Code(s): I50.43 - Acute on chronic combined systolic (congestive) and diastolic (congestive) heart failure Status: Acute Assessment and Plan: 06/24: Admitted with suspected heart failure and worsening kidney failure, concerning for cardiorenal syndrome versus hypervolemia, started on IV diuresis 06/25: Cardiology consult pending, Nephrology consult pending, creatinine improving with diuresis, echo pending, continue IV diuresis, strict Is and Os, accurate daily standing weights (2) Chronic kidney disease, stage 4 (severe): Code(s): N18.4 - Chronic kidney disease, stage 4 (severe) Status: Acute Assessment and Plan: 06/24: Longstanding chronic kidney disease, baseline creatinine appears to be between 2 and 3, was admitted with a creatinine over 4 06/25: Improving with diuresis, creatinine down to 3.9 from 4.1 yesterday, suspect worsening renal failure was secondary to fluid overload, appreciate nephrology consultation, continue to hold Entresto for now (3) Anemia: Qualifiers: Anemia type: unspecified type Qualified Code(s): D64.9 - Anemia, unspecified Code(s): D64.9 - Anemia, unspecified Status: Inactive Assessment and Plan: 06/24: Hemoglobin 9.5, was 11.6 last month and 12.6 prior to that, fecal occult blood test was negative 06/25: Hemoglobin currently at 9.5 today which is the same as yesterday, unsure of etiology at this time-- ?renal failure, likely multifactorial, continue monitor (4) Diabetes mellitus type 2, controlled: Code(s): E11.9 - Type 2 diabetes mellitus without complications Status: Acute Assessment and Plan: 06/25: A1c was 6.8, fairly well controlled here, continue Accu-Cheks and sliding scale insulin (5) Essential hypertension: Code(s): I10 - Essential (primary) hypertension Status: Acute Assessment and Plan: 06/24: Norvasc, amiodarone, IV Lasix all given yesterday 06/25: Will hold Norvasc due to fluid overload and significant edema, continue amiodarone and IV Lasix (6) Hypothyroid: Code(s): E03.9 - Hypothyroidism, unspecified Status: Acute Assessment and Plan: Continue levothyroxine, TSH stable last month (7) Hyperlipidemia: Code(s): E78.5 - Hyperlipidemia, unspecified Status: Acute Assessment and Plan: Continue atorvastatin (8) BPH (benign prostatic hyperplasia): Code(s): N40.0 - Benign prostatic hyperplasia without lower urinary tract symptoms Status: Acute Assessment and Plan: Stable, continue finasteride Plan 06/24: Elevated D-dimer. I do a V/Q scan and venous Dopplers. Chest x-ray done in the ER did show opacities in lower lung zones concerning for atelectasis versus pneumonia, he was started on empiric antibiotics at [place]. These were not continued when patient was transferred [place]. Abnormality on chest x-ray was thought to be secondary to vascular congestion from heart failure. 06/25: Dopplers negative, V/Q scan pending. Do not suspect PE, suspect elevated D-dimer secondary to acute illness. Will continue to monitor off antibiotics. Additional Plan DVT prophylaxis with Lovenox GI prophylaxis not indicated Code status full code Subjective Date/time seen: 06/25/22 11:19 Review of Systems Review of Systems: All systems reviewed & are unremarkable except as noted in HPI and below Exam Narrative: General: No acute distress, alert and oriented per baseline HEENT: Atraumatic, normocephalic, mucous membranes moist CV: Regular rate and rhythm, S1, S2 Lungs: Clear to auscultation bilaterally, no rales or crackles noted, no wheezes, good air entry Abdomen: Soft, nontender, nondistended Extremities: Normal to inspection Skin: No rashes noted, no lesions or wounds seen Psych: Euthymic, normal affect Objective Data Vital Signs Vital Signs:
--- NOTE | 2022-06-25 11:30 | PM.CNNEP ---
Assessment and Plan Assessment and plan (1) Chronic kidney disease, stage 4 (severe): Code(s): N18.4 - Chronic kidney disease, stage 4 (severe) Status: Acute Assessment and Plan: the patient has chronic kidney disease. His creatinine has been elevated for years. In 2020 his creatinine was in the mid to high 2s. This year at his been in the threes. I saw him for the 1st time in March. We did screening tests look for other causes of kidney disease and serology plus immunofixation were all negative. Urinalysis is bland. Renal ultrasound was unremarkable. So it is felt that he has chronic kidney disease from diabetes and hypertension and possibly vascular disease as well. His creatinine seems to be about the same now as it was in March. Will continue low-protein diet, management of cholesterol, Arbs ( he is on entresto), blood pressure and sugar control. He also has avoiding large amounts of protein. (2) Diabetes mellitus type 2, controlled: Code(s): E11.9 - Type 2 diabetes mellitus without complications Status: Acute Assessment and Plan: Patient is on Accu-Cheks and sliding-scale insulin. this is being managed by the hospitalists. (3) Essential hypertension: Code(s): I10 - Essential (primary) hypertension Status: Acute Assessment and Plan: Blood pressure control is fair. His blood pressures ranging from 12/04 to about 150 for the most part. He is currently on amlodipine, and furosemide. His entresto was held. If this continues to be the case then perhaps a beta xavi might be a reasonable option. Robert inhibitor might be an option as well if his creatinine stays stable. His potassium has been okay. Consider getting rid of amlodipine because of his swelling. (4) Congestive heart failure: Code(s): I50.9 - Heart failure, unspecified Status: Acute Assessment and Plan: He is on diuretics. Cardiology is on the case. (5) Hypothyroid: Code(s): E03.9 - Hypothyroidism, unspecified Status: Acute Assessment and Plan: He is on levothyroxine (6) Hyperlipidemia: Code(s): E78.5 - Hyperlipidemia, unspecified Status: Acute Assessment and Plan: he was on atorvastatin as an outpatient. History of Present Illness Reason for Consult Consult date: 06/25/22 Chief Complaint Chief complaint: Acute on Chronic Renal Failure/CHF History of Present Illness Narrative: Mert is a very pleasant 76-year-old gentleman who has multiple medical problems including hypertension got diabetes, congestive heart failure, chronic kidney disease stage 4 with that GFR around 15, hypothyroidism, BPH, positive colo guard, and cataracts. The patient says he was well until about a week or 2 ago when he started noticing he was more short of breath. He also noted some swelling in his ankles. The shortness of breath continued and worsened as the week went by and also his swelling worsened this week as well. He said that he went out to mow his lawn and he was exhausted and short of breath after just the 1st strip so he stopped and rested. He then decided to come to the emergency room. He has diabetes. He does not have retinopathy. His sugars have been under pretty good control. His A1c was 6.8 last check. He has hypertension for a long time which has been under better pretty good control. he has a history of congestive heart failure. He has never had a heart attack. He sees Dr. Hill for this. Studies have shown mitral regurgitation, ejection fraction of 38%, and coronary disease. Review of Systems Constitutional: Constitutional: Reports no additional constitutional complaints Eyes: Eyes: Reports no additional eye complaints ENT: Reports system reviewed and no additional complaints, except as documented Cardiovascular: Cardiovascular: Reports no additional cardiovascular complaints Respiratory: Respiratory: Reports n
[2022-06-25 11:35] LABS: Glucose Point of Care 233 mg/dl (65-105)
[2022-06-25] MEDS: INSULIN ASPART (*BKC) 100 UNITS/ML SUB-Q (12:10)
[2022-06-25 16:17] LABS: Glucose Point of Care 178 mg/dl (65-105)
[2022-06-25] MEDS: ASPIRIN 81 MG ENTERIC TABLET PO (18:12)
[2022-06-25 20:27] LABS: Glucose Point of Care 206 mg/dl (65-105)
[2022-06-26] VITALS (9 sets, daily range): BP systolic 141–158; BP diastolic 55–76; PULSE 53–62; RESP 16–20; TEMP 36.4–37.1; O2SAT 93–96
--- NOTE | 2022-06-26 | ECHO_ITS ---
Patient Info Name: Mert Corral Age: 76 years : 1945 Gender: Male Ht: 71 in Wt: 240 lbs BSA: 2.37 m2 HR: 78 bpm BP: 158 / 72 mmHg Heart Rhythm: Bradycardia Technical Quality: Good Exam Date: 06/26/2022 10:30 AM Exam Location: [facility] Room: 309 Patient Status: Inpatient Admit Date: 06/24/2022 Staff Ordering Physician: Niharika Mendieta NP Credit Collection Specialist: Mayte Lopez RDCS Attending Provider: Zulma Aden DO Referring Physician: Anam PATHAK; Exam Type: CA echo doppler color flow Study Info Indications - chf sob Complete two-dimensional, color flow and Doppler transthoracic echocardiogram is performed. Summary 1. Complete two-dimensional, color flow and Doppler transthoracic echocardiogram is performed. 2. Left ventricular chamber dimension is moderately enlarged. 3. Left ventricular systolic function is moderately reduced, estimated at 35-40% with severe hypokinesis of the mid and basal inferior wall. 4. There is mildly increased left ventricular wall thickness. 5. Left ventricular septal wall motion is abnormal with septal motion related to bundle branch block. 6. The left ventricular diastolic function is grade II diastolic dysfunction. 7. Left atrial chamber dimension is severely enlarged. 8. There is no aortic valve stenosis. 9. There is mild to moderate mitral valve regurgitation. 10. There is moderate tricuspid valve regurgitation. 11. Severe pulmonary hypertension, estimated pulmonary arterial systolic pressure is 63 mmHg. Left Ventricle Left ventricular chamber dimension is moderately enlarged. Left ventricular systolic function is moderately reduced, estimated at 35-40% with severe hypokinesis of the mid and basal inferior wall. There is mildly increased left ventricular wall thickness. Left ventricular septal wall motion is abnormal with septal motion related to bundle branch block. The left ventricular diastolic function is grade II diastolic dysfunction. Right Ventricle Right ventricular chamber dimension is normal. Right ventricular systolic function is normal. Left Atria Left atrial chamber dimension is severely enlarged. Right Atria Right atrial chamber dimension is moderately enlarged. Aortic Valve The aortic valve is trileaflet. There is mild aortic valve sclerosis. There is no aortic valve stenosis. There is no aortic valve regurgitation. Pulmonic Valve The pulmonic valve is not well visualized. There is mild pulmonic regurgitation. Mitral Valve The mitral valve has normal leaflets. There is mild to moderate mitral valve regurgitation. The mitral valve annulus is mildly calcified. Tricuspid Valve The tricuspid valve leaflets are normal. There is moderate tricuspid valve regurgitation. Severe pulmonary hypertension, estimated pulmonary arterial systolic pressure is 63 mmHg. Pericardium/Pleural The pericardium appears normal. There is small pericardial effusion. Inferior Vena Cava Normal inferior vena cava with >50% collapse upon inspiration consistent with normal right atrial pressure, 5 mmHg. Aorta The aortic root size at the sinus of Valsalva is normal. Left Ventricular Outflow Tract Name Value Normal LVOT 2D
[2022-06-26] MEDS: LEVOTHYROXINE SODIUM 150 MCG TABLET PO (05:43)
[2022-06-26 06:58] LABS: Albumin Level 3.6 g/dL (3.5-5.1); Anion Gap 11 mmol/L (8-16); Blood Urea Nitrogen 60 mg/dL (9-20); Calcium 8.4 mg/dL (8.4-10.2); Carbon Dioxide 23 mmol/L (22-30); Chloride 104 mmol/L (98-107); Estimated CRCL calculation 18 ml/min; Estimated Glomerular Filt Rate 15; Glucose 200 mg/dL (65-110); Phosphorus 4.3 mg/dL (2.5-4.5); Potassium 3.6 mmol/L (3.4-5.0); Sodium 138 mmol/L (137-145)
--- NOTE | 2022-06-26 07:29 | PM.IMPN ---
Progress Note: A&P Assessment and Plan (1) Systolic and diastolic CHF, acute on chronic: Code(s): I50.43 - Acute on chronic combined systolic (congestive) and diastolic (congestive) heart failure Status: Acute Assessment and Plan: 06/24: Admitted with suspected heart failure and worsening kidney failure, concerning for cardiorenal syndrome versus hypervolemia, started on IV diuresis 06/25: Cardiology consult pending, Nephrology consult pending, creatinine improving with diuresis, echo pending, continue IV diuresis, strict Is and Os, accurate daily standing weights 06/26: Appreciate cardio recs re: diuresis and management of HF (2) Chronic kidney disease, stage 4 (severe): Code(s): N18.4 - Chronic kidney disease, stage 4 (severe) Status: Acute Assessment and Plan: 06/24: Longstanding chronic kidney disease, baseline creatinine appears to be between 2 and 3, was admitted with a creatinine over 4 06/25: Improving with diuresis, creatinine down to 3.9 from 4.1 yesterday, suspect worsening renal failure was secondary to fluid overload, appreciate nephrology consultation, continue to hold Entresto for now 06/26: Creat stable at 4 today (3) Anemia: Qualifiers: Anemia type: unspecified type Qualified Code(s): D64.9 - Anemia, unspecified Code(s): D64.9 - Anemia, unspecified Status: Inactive Assessment and Plan: 06/24: Hemoglobin 9.5, was 11.6 last month and 12.6 prior to that, fecal occult blood test was negative 06/25: Hemoglobin currently at 9.5 today which is the same as yesterday, unsure of etiology at this time-- ?renal failure, likely multifactorial, continue monitor 06/26: Hgb stable at 9.7 (4) Diabetes mellitus type 2, controlled: Code(s): E11.9 - Type 2 diabetes mellitus without complications Status: Acute Assessment and Plan: 06/25: A1c was 6.8, fairly well controlled here, continue Accu-Cheks and sliding scale insulin 06/26: Restart home 70/30 insulin at reduced dose, 22 at home, will restart at 15 u BIDWM, monitor, cont SSI (5) Essential hypertension: Code(s): I10 - Essential (primary) hypertension Status: Acute Assessment and Plan: 06/24: Norvasc, amiodarone, IV Lasix all given yesterday 06/25: Will hold Norvasc due to fluid overload and significant edema, continue amiodarone and IV Lasix 06/26: Cont to hold norvasc, would not restart at d/c due to edema and HF, BP still elevated, will defer to cardio + nephro for best regimen (6) Hypothyroid: Code(s): E03.9 - Hypothyroidism, unspecified Status: Acute Assessment and Plan: Continue levothyroxine, TSH stable last month (7) Hyperlipidemia: Code(s): E78.5 - Hyperlipidemia, unspecified Status: Acute Assessment and Plan: Continue atorvastatin (8) BPH (benign prostatic hyperplasia): Code(s): N40.0 - Benign prostatic hyperplasia without lower urinary tract symptoms Status: Acute Assessment and Plan: Stable, continue finasteride Plan 06/24: Elevated D-dimer. I do a V/Q scan and venous Dopplers. Chest x-ray done in the ER did show opacities in lower lung zones concerning for atelectasis versus pneumonia, he was started on empiric antibiotics at [place]. These were not continued when patient was transferred [place]. Abnormality on chest x-ray was thought to be secondary to vascular congestion from heart failure. 06/25: Dopplers negative, V/Q scan pending. Do not suspect PE, suspect elevated D-dimer secondary to acute illness. Will continue to monitor off antibiotics. 06/26: V/Q scan low probability for PE Additional Plan DVT prophylaxis with Lovenox GI prophylaxis not indicated Code status full code Subjective Date/time seen: 06/26/22 07:29 Interval history: at bedside, all questions answered. Patient states he feels much better than when he came in. Eager to go home soon. No overnight events noted. No chest pain
[2022-06-26 07:36] LABS: Glucose Point of Care 183 mg/dl (65-105)
[2022-06-26] MEDS: allopurinoL 100 MG TABLET PO ×2 (08:52→17:11)
[2022-06-26] MEDS: AMIODARONE HCL 200 MG TABLET PO ×2 (08:52→17:12)
[2022-06-26] MEDS: CHOLECALCIFEROL 1,000 UNITS TABLET 5000 UNITS PO (08:53)
[2022-06-26] MEDS: ENOXAPARIN 30 MG/0.3 ML SYRINGE SUB-Q (08:53)
[2022-06-26] MEDS: ATORVASTATIN 40 MG TABLET PO (08:53)
[2022-06-26] MEDS: FUROSEMIDE INJ 40 MG/4 ML VIAL IV PUSH ×2 (08:54→17:11)
[2022-06-26] MEDS: FINASTERIDE 5 MG TABLET PO (08:54)
[2022-06-26 09:25] LABS: Basophils Absolute Auto 0.1 K/mm3 (0.0-0.1); Basophils Percent Auto 0.9 % (0.2-1.2); Eosinophils Absolute Auto 0.2 K/mm3 (0-0.3); Eosinophils Percent Auto 2.6 % (0-4.4); Hematocrit 30.8 % (42.0-52.0); Hemoglobin 9.7 g/dL (14.0-18.0); Immature Granulocyte Absolute 0.04 K/mm3 (0.00-0.031); Immature Granulocyte Percent A 0.5 % (0-0.5); Lymphocytes Absolute Auto 0.66 K/mm3 (0.9-3.2); Lymphocytes Percent Auto 8.6 % (18.3-44.2); Mean Corpuscular HGB Conc 31.5 g/dl (32-36); Mean Corpuscular Hemoglobin 26.1 pg (26-34); Mean Corpuscular Volume 82.8 fl (80-100); Mean Platelet Volume 12.1 fl (7.4-10.4); Neutrophils Absolute Auto 5.7 K/mm3 (1.3-6.7); Neutrophils Percent Auto 74.4 % (45.5-73.1); Platelet Count Result 220 k/mm3 (150-375); Red Blood Count 3.72 M/mm3 (4.6-6.20); Red Cell Distribution Width 17.5 % (11.5-14.5); White Blood Count 7.7 K/mm3 (4.5-10.0)
[2022-06-26 09:38] LABS: Alanine Aminotransferase 43 U/L (6-50); Albumin Level 3.4 g/dL (3.5-5.1); Alkaline Phosphatase 88 U/L (38-126); Anion Gap 8 mmol/L (8-16); Aspartate Amino Transferase 28 U/L (17-59); Bilirubin,Total 0.6 mg/dL (0.2-1.3); Blood Urea Nitrogen 62 mg/dL (9-20); Calcium 8.5 mg/dL (8.4-10.2); Carbon Dioxide 24 mmol/L (22-30); Chloride 105 mmol/L (98-107); Estimated CRCL calculation 18 ml/min; Estimated Glomerular Filt Rate 15; Glucose 199 mg/dL (65-110); Potassium 3.6 mmol/L (3.4-5.0); Sodium 137 mmol/L (137-145)
[2022-06-26 11:16] LABS: Glucose Point of Care 278 mg/dl (65-105)
[2022-06-26] MEDS: INSULIN HUMAN ISOPHAN/REGULAR 70/30 (*BKC) 100 UNITS/ML 15 UNITS SUB-Q ×2 (11:41→17:13)
[2022-06-26] MEDS: INSULIN ASPART (*BKC) 100 UNITS/ML SUB-Q (11:42)
--- NOTE | 2022-06-26 13:15 | PCNSR ---
On 06/26/22, the student, Julia Schuler, provided care and completed [facility] documentation on this patient. I have reviewed the student's documentation and agree with the findings. Poornima Mars MS RD LDN
--- NOTE | 2022-06-26 13:16 | PM.PNCARD ---
Progress Note: A&P Assessment and Plan (1) Systolic and diastolic CHF, acute on chronic: Code(s): I50.43 - Acute on chronic combined systolic (congestive) and diastolic (congestive) heart failure Status: Acute Plan 76-year-old man with significant nonischemic cardiomyopathy presenting with shortness of breath and volume overload. He is breathing well now and has some mild rales that persist otherwise is not in any distress. Rather unfortunate that he has been taken off of Entresto which is a much more effective heart failure drug. I suppose I will start him on the combination of hydralazine and isosorbide today. Beta-xavi has been mention by his woodwind instrument repairer which would be reasonable if he was not so bradycardic. Prognosis is obviously adversely affected by the need to withdraw guideline directed medical therapy Christofer Frederick MD [facility] Subjective Date/time seen: Date of service: 06/26/22 13:16 Interval history: Follow-up visit in this 76-year-old man with significant nonischemic cardiomyopathy admitted with shortness of breath, volume overload and worsening renal function. Upon rounds today patient was sleeping head of the bed slightly elevated upon awakening he is feeling better and does not have any complaints. Long discussion with the patient about the decision to discontinue Entresto yesterday. He is more hypertensive now [address] Orta mention in her note it is difficult to see him tolerating a beta-xavi at this time given his bradycardia and conduction system disease. Exam Const: General: comfortable and no acute distress HENMT: Mouth: Yes moist mucous membranes Eyes: Sclera: sclerae normal Neck: Neck: supple and no JVD Resp: Effort & Inspection: normal respiratory effort Other: Fine crackles at the left base right hemithorax is clear Cardio: Rate: regular rate Rhythm: regular rhythm Other: PMI difficult to palpate no obvious cardiac murmur GI: GI Palp: Yes Soft to palpation Auscultation: normal bowel sounds Skin: General skin exam: normal color Neuro: Other: Alert and oriented x3 Extrem: Other: No significant pitting edema at this time Objective Data Vital Signs Vital Signs: Vital Signs - 24 hr 06/25/22 16:00 06/25/22 16:00 06/25/22 18:11 Temperature 36.2 C L Pulse Rate 55 L 56 L 57 L Respiratory Rate 20 Blood Pressure 150/57 H Pulse Oximetry 95 Oxygen Delivery 06/25/22 20:00 06/25/22 20:59 06/26/22 00:00 Temperature 36.7 C 37.1 C Pulse Rate 56 L 62 56 L Respiratory Rate 18 16 Blood Pressure 158/60 H 150/76 H Pulse Oximetry 96 96 Oxygen Delivery 06/26/22 00:00 06/26/22 04:17 06/26/22 04:00 Temperature 37.1 C Pulse Rate 58 L 62 53 L Respiratory Rate 18 Blood Pressure 158/72 H Pulse Oximetry 93 Oxygen Delivery 06/26/22 08:52 06/26/22 08:00 06/26/22 08:00 Temperature Pulse Rate 57 L 54 L Respiratory Rate Blood Pressure Pulse Oximetry Oxygen Delivery Room Air 06/26/22 12:00 Temperature Pulse Rate 61 Respiratory Rate Blood Pressure Pulse Oximetry Oxygen Delivery Intake/Output Intake/Output: Intake & Output 06/23/22 06/24/22 06/25/22 06/26/22 23:59 23:59 23:59 23:59 Intake Total 250 1750 990 Output Total 1350 2650 1150 Balance -1100 -900 -160 Meds/Results Medications: Active Medications Generic Name Dose Route Start Last Admin Trade Name Freq PRN Reason Stop Dose Admin Allopurinol 100 mg 06/24/22 17:00 06/26/22 08:52 Allopurinol 100 Mg Tablet PO 100 mg BID JOE Administration Amiodarone HCl 200 mg 06/24/22 17:00 06/26/22 08:52 Amiodarone Hcl 200 Mg Tablet PO 200 mg BID JOE Administration Aspirin 81 mg 06/24/22 18:00 06/25/22 18:12 Aspirin 81 Mg Enteric Tablet PO 81 mg QPM JOE Administration Atorvastatin Calcium 40 mg 06/25/22 09:00 06/26/22 08:53 Atorvastatin 40 Mg Tablet PO 40 mg DAILY S
--- NOTE | 2022-06-26 13:47 | PM.PNNEP ---
Progress Note: A&P Assessment and Plan (1) Chronic kidney disease, stage 4 (severe): Code(s): N18.4 - Chronic kidney disease, stage 4 (severe) Status: Acute Assessment and Plan: evidence of CKD that dates back for several years in 2020, his creatinine was running in the high 2ish range (2.7mg/dl) in January 2022, his creatinine was running in the 3.8mg/dl outpatient testing (renal ultrasound, urinalysis, serologies, SPE, UPE...etc) negative to date suspect etiology due to hypertension, diabetes, and possibly vascular disease. continue ongoing therapy as tolerated (low-protein diet, management of cholesterol, [place]-I/ARB therapy [on entresto], blood pressure and blood sugar control) (2) Congestive heart failure: Code(s): I50.9 - Heart failure, unspecified Status: Acute Assessment and Plan: Cardiology following on IV diuretics off entresto at this time (3) Essential hypertension: Code(s): I10 - Essential (primary) hypertension Status: Acute Assessment and Plan: fair control at this time follow trend of hemodynamics off entresto at this time substitute beta xavi versus attempt use of [place]/ARB (assuming kidney function and K+ stable) consider discontinuation of amlodipine given swelling issues (4) Diabetes mellitus type 2, controlled: Code(s): E11.9 - Type 2 diabetes mellitus without complications Status: Acute Assessment and Plan: on Accu-Cheks on SSI Will continue to follow. Subjective Date/time seen: 06/26/22 13:47 Chart reviewed - assuming care from Dr. Nj; no apparent distress voiced at the time of my visit; at bedside and we discussed the situation; overall, he feels significantly better than on admission; no issues/evetns overnight or earlier this morning. Exam Narrative: General: WD/WN male in NAD Heart: normal S1 and S2; no rub Lungs: clear to auscultation Abdomen: soft, nontender, nondistended, positive bowel sounds Extremities: no cyanosis or clubbing; no edema Skin: warm and dry Objective Data Vital Signs Vital Signs: Vital Signs Temp Pulse Resp BP Pulse Ox O2 Del Method 06/26/22 12:00 61 06/26/22 08:00 54 L 06/26/22 08:00 Room Air 06/26/22 08:52 57 L 06/26/22 04:00 53 L 06/26/22 04:17 37.1 C 62 18 158/72 H 93 06/26/22 00:00 58 L 06/26/22 00:00 37.1 C 56 L 16 150/76 H 96 06/25/22 20:59 36.7 C 62 18 158/60 H 96 06/25/22 20:00 56 L 06/25/22 18:11 57 L 06/25/22 16:00 36.2 C L 56 L 20 150/57 H 95 06/25/22 16:00 55 L Intake/Output Intake/Output: Intake & Output 06/23/22 06/24/22 06/25/22 06/26/22 23:59 23:59 23:59 23:59 Intake Total 250 1750 1290 Output Total 1350 2650 1350 Balance -1100 -900 -60 Meds/Results Medications: Active Medications Generic Name Dose Route Start Last Admin Trade Name Freq PRN Reason Stop Dose Admin Allopurinol 100 mg 06/24/22 17:00 06/26/22 08:52 Allopurinol 100 Mg Tablet PO 100 mg BID JOE Administration Amiodarone HCl 200 mg 06/24/22 17:00 06/26/22 08:52 Amiodarone Hcl 200 Mg Tablet PO 200 mg BID JOE Administration Aspirin 81 mg 06/24/22 18:00 06/25/22 18:12 Aspirin 81 Mg Enteric Tablet PO 81 mg QPM JOE Administration Atorvastatin Calcium 40 mg 06/25/22 09:00 06/26/22 08:53 Atorvastatin 40 Mg Tablet PO 40 mg DAILY JOE Administration Dextrose 12.5 gm 06/24/22 15:00 Dextrose 50% 25 Gm/50 Ml Syringe IV PUSH PRN PRN Hypoglycemia Protocol Enoxaparin Sodium 30 mg 06/25/22 09:00 06/26/22 08:53 Enoxaparin 30 Mg/0.3 Ml Syringe SUB-Q 30 mg DAILY JOE Administration Finasteride 5 mg 06/25/22 09:00 06/26/22 08:54 Finasteride 5 Mg Tablet PO 5 mg QAM JOE Administration Furosemide 40 mg 06/24/22 17:00 06/26/22 08:54 Furosemide Inj 40 Mg/4 Ml Vial IV PUSH 40 m
--- NOTE | 2022-06-26 13:47 | P.PNNP_ITS ---
Progress Note: A&P Assessment and Plan (1) Chronic kidney disease, stage 4 (severe): Code(s): N18.4 - Chronic kidney disease, stage 4 (severe) Status: Acute Assessment and Plan: * evidence of CKD that dates back for several years * in 2020, his creatinine was running in the high 2ish range (2.7mg/dl) * in January 2022, his creatinine was running in the 3.8mg/dl * outpatient testing (renal ultrasound, urinalysis, serologies, SPE, UPE...etc) negative to date * suspect etiology due to hypertension, diabetes, and possibly vascular disease. * continue ongoing therapy as tolerated (low-protein diet, management of ch olesterol, [place]-I/ARB therapy [on entresto], blood pressure and blood sugar control) (2) Congestive heart failure: Code(s): I50.9 - Heart failure, unspecified Status: Acute Assessment and Plan: * Cardiology following * on IV diuretics * off entresto at this time (3) Essential hypertension: Code(s): I10 - Essential (primary) hypertension Status: Acute Assessment and Plan: * fair control at this time * follow trend of hemodynamics * off entresto at this time * substitute beta xavi versus attempt use of [place]/ARB (assuming kidney function and K+ stable) * consider discontinuation of amlodipine given swelling issues (4) Diabetes mellitus type 2, controlled: Code(s): E11.9 - Type 2 diabetes mellitus without complications Status: Acute Assessment and Plan: * on Accu-Cheks * on SSI Will continue to follow. Subjective Date/time seen: 06/26/22 13:47 Chart reviewed - assuming care from Dr. Nj; no apparent distress voiced at the time of my visit; at bedside and we discussed the situation; overall, he feels significantly better than on admission; no issues/evetns overnight or earlier this morning. Exam 2 Narrative: General: WD/WN male in NAD Heart: normal S1 and S2; no rub Lungs: clear to auscultation Abdomen: soft, nontender, nondistended, positive bowel sounds Extremities: no cyanosis or clubbing; no edema Skin: warm and dry Objective Data Vital Signs Vital Signs: Vital Signs Temp Pulse Resp BP Pulse Ox O2 Del Method 06/26/22 12:00 61 06/26/22 08:00 54 L 06/26/22 08:00 Room Air 06/26/22 08:52 57 L 06/26/22 04:00 53 L 06/26/22 04:17 37.1 C 62 18 158/72 H 93 06/26/22 00:00 58 L 06/26/22 00:00 37.1 C 56 L 16 150/76 H 96 06/25/22 20:59 36.7 C 62 18 158/60 H 96 06/25/22 20:00 56 L 06/25/22 18:11 57 L 06/25/22 16:00 36.2 C L 56 L 20 150/57 H 95 06/25/22 16:00 55 L Intake/Output Intake/Output: Intake & Output 06/23/22 06/24/22 06/25/22 06/26/22 23:59 23:59 23:59 23:59 Intake Total 250 1750 1290 Output Total 1350 2650 1350 Balance -1100 -900 -60 Meds/Results Medications: Active Medications Generic Name Dose Route Start Last Admin Trade Name Jazmine PRN Reason Stop Dose Admin Allopurinol 100 mg 06/24/22 17:00 06/26/22 08:52 Allopurinol 100 Mg Tablet PO 100 mg BID JOE Administration Amiodarone HCl 200 mg 06/24/22 17:
[2022-06-26 16:21] LABS: Glucose Point of Care 193 mg/dl (65-105)
[2022-06-26] MEDS: hydrALAZINE HCL 25 MG TABLET PO ×2 (17:12→21:10)
[2022-06-26] MEDS: ASPIRIN 81 MG ENTERIC TABLET PO (17:13)
[2022-06-26 20:54] LABS: Glucose Point of Care 161 mg/dl (65-105)
[2022-06-27] VITALS (7 sets, daily range): BP systolic 132–170; BP diastolic 47–70; PULSE 58–63; RESP 18; TEMP 36.6–37.1; O2SAT 91–97
[2022-06-27] MEDS: LEVOTHYROXINE SODIUM 150 MCG TABLET PO (06:00)
[2022-06-27 06:40] LABS: Basophils Absolute Auto 0.1 K/mm3 (0.0-0.1); Eosinophils Absolute Auto 0.2 K/mm3 (0-0.3); Eosinophils Percent Auto 1.9 % (0-4.4); Hematocrit 33.6 % (42.0-52.0); Hemoglobin 10.5 g/dL (14.0-18.0); Immature Granulocyte Absolute 0.07 K/mm3 (0.00-0.031); Immature Granulocyte Percent A 0.7 % (0-0.5); Lymphocytes Absolute Auto 0.86 K/mm3 (0.9-3.2); Lymphocytes Percent Auto 8.2 % (18.3-44.2); Mean Corpuscular HGB Conc 31.3 g/dl (32-36); Mean Corpuscular Hemoglobin 25.7 pg (26-34); Mean Corpuscular Volume 82.4 fl (80-100); Mean Platelet Volume 11.5 fl (7.4-10.4); Monocytes Absolute Auto 1.1 K/mm3 (0.1-0.6); Neutrophils Absolute Auto 8.2 K/mm3 (1.3-6.7); Neutrophils Percent Auto 78.2 % (45.5-73.1); Platelet Count Result 250 k/mm3 (150-375); Red Blood Count 4.08 M/mm3 (4.6-6.20); Red Cell Distribution Width 17.4 % (11.5-14.5); White Blood Count 10.5 K/mm3 (4.5-10.0)
[2022-06-27 07:05] LABS: Albumin Level 3.9 g/dL (3.5-5.1); Anion Gap 12 mmol/L (8-16); Blood Urea Nitrogen 60 mg/dL (9-20); Calcium 9.4 mg/dL (8.4-10.2); Carbon Dioxide 24 mmol/L (22-30); Chloride 101 mmol/L (98-107); Estimated CRCL calculation 19 ml/min; Estimated Glomerular Filt Rate 16; Glucose 181 mg/dL (65-110); Phosphorus 4.2 mg/dL (2.5-4.5); Potassium 3.9 mmol/L (3.4-5.0); Sodium 137 mmol/L (137-145)
--- NOTE | 2022-06-27 07:42 | PM.IMPN ---
Progress Note: A&P Assessment and Plan (1) Systolic and diastolic CHF, acute on chronic: Code(s): I50.43 - Acute on chronic combined systolic (congestive) and diastolic (congestive) heart failure Status: Acute Assessment and Plan: Echo from 06/26 showed EF of 35-40%, severe hypokinesis mid and basal inferior wall, grade 2 diastolic dysfunction, severe pulmonary hypertension 06/24: Admitted with suspected heart failure and worsening kidney failure, concerning for cardiorenal syndrome versus hypervolemia, started on IV diuresis 06/25: Cardiology consult pending, Nephrology consult pending, creatinine improving with diuresis, echo pending, continue IV diuresis, strict Is and Os, accurate daily standing weights, Entresto discontinued due to renal failure 06/26: Appreciate cardio recs re: diuresis and management of HF 06/27: Continue amiodarone 200 mg p.o. twice daily, Lasix 40 mg IV twice daily, hydralazine 25 mg q.6 started yesterday, isosorbide 30 mg daily started yesterday, will discuss with nephrology requirements to safely be able to restart Entresto as this is the far better medication for his heart failure Update: Cardiology consultation states patient will be switched to oral Lasix today and anticipate discharge in the next 24-48 hours. Not able to safely restart Entresto at this point. Could continue to monitor kidney function on outpatient basis to evaluate if patient is stable enough to restart Entresto to lower dose in the future. . (2) Chronic kidney disease, stage 4 (severe): Code(s): N18.4 - Chronic kidney disease, stage 4 (severe) Status: Acute Assessment and Plan: 06/24: Longstanding chronic kidney disease, baseline creatinine appears to be between 2 and 3, was admitted with a creatinine over 4 06/25: Improving with diuresis, creatinine down to 3.9 from 4.1 yesterday, suspect worsening renal failure was secondary to fluid overload, appreciate nephrology consultation, continue to hold Entresto for now 06/26: Creat stable at 4 today 06/27: Creatinine improved to 3.8 today, BUN stable at 60, GFR consistently between 15 and 16, creatinine clearance between 17 and 19, will confirm with Nephrology whether we can restart Entresto safely at any point in the future . (3) Anemia: Qualifiers: Anemia type: unspecified type Qualified Code(s): D64.9 - Anemia, unspecified Code(s): D64.9 - Anemia, unspecified Status: Inactive Assessment and Plan: 06/24: Hemoglobin 9.5, was 11.6 last month and 12.6 prior to that, fecal occult blood test was negative 06/25: Hemoglobin currently at 9.5 today which is the same as yesterday, unsure of etiology at this time-- ?renal failure, likely multifactorial, continue monitor 06/26: Hgb stable at 9.7 . (4) Diabetes mellitus type 2, controlled: Code(s): E11.9 - Type 2 diabetes mellitus without complications Status: Acute Assessment and Plan: 06/25: A1c was 6.8, fairly well controlled here, continue Accu-Cheks and sliding scale insulin 06/26: Restart home 70/30 insulin at reduced dose, 22 at home, will restart at 15 u BIDWM, monitor, cont SSI 06/27: Controlled on slightly lower dose of insulin, will discharge on home dose expecting diet change . (5) Essential hypertension: Code(s): I10 - Essential (primary) hypertension Status: Acute Assessment and Plan: 06/24: Norvasc, amiodarone, IV Lasix all given yesterday 06/25: Will hold Norvasc due to fluid overload and significant edema, continue amiodarone and IV Lasix 06/26: Cont to hold norvasc, would not restart at d/c due to edema and HF, BP still elevated, will defer to cardio + nephro for best regimen 06/27: Continue IV diuresis, defer doses to Cardiology and Nephrology, continue amiodarone, cannot tolerate a beta-xavi, would like to restart Entresto if possible, started on Imdur and hydralazine yesterday . (6) Hypothyroid: Code(s): E03.9 - Hypothyroidism, unspec
[2022-06-27 07:57] LABS: Glucose Point of Care 202 mg/dl (65-105)
[2022-06-27] MEDS: allopurinoL 100 MG TABLET PO ×2 (08:22→17:07)
[2022-06-27] MEDS: AMIODARONE HCL 200 MG TABLET PO ×2 (08:22→17:07)
[2022-06-27] MEDS: ATORVASTATIN 40 MG TABLET PO (08:22)
[2022-06-27] MEDS: ENOXAPARIN 30 MG/0.3 ML SYRINGE SUB-Q (08:22)
[2022-06-27] MEDS: CHOLECALCIFEROL 1,000 UNITS TABLET 5000 UNITS PO (08:22)
[2022-06-27] MEDS: ISOSORBIDE MONONITRATE 30 MG TAB.ER.24H PO (08:23)
[2022-06-27] MEDS: FUROSEMIDE INJ 40 MG/4 ML VIAL IV PUSH (08:23)
[2022-06-27] MEDS: INSULIN ASPART (*BKC) 100 UNITS/ML SUB-Q ×3 (08:23→17:07)
[2022-06-27] MEDS: hydrALAZINE HCL 25 MG TABLET PO ×4 (08:23→22:03)
[2022-06-27] MEDS: FINASTERIDE 5 MG TABLET PO (08:23)
[2022-06-27] MEDS: INSULIN HUMAN ISOPHAN/REGULAR 70/30 (*BKC) 100 UNITS/ML 15 UNITS SUB-Q ×2 (08:24→17:07)
--- NOTE | 2022-06-27 09:18 | PM.PNCARD ---
Progress Note: A&P Assessment and Plan (1) Systolic and diastolic CHF, acute on chronic: Code(s): I50.43 - Acute on chronic combined systolic (congestive) and diastolic (congestive) heart failure Status: Acute Assessment and Plan: Significant nonischemic cardiomyopathy with EF 35 - 40%. Grade II diastolic dysfunction. Presenting with shortness of breath and volume overload. Improved with IV furosemide, will shift him to p.o. furosemide today May require higher maintenance dose of furosemide at time of discharge Unfortunately was taken off Entresto because of his renal function. He was shifted to a regimen of hydralazine and isosorbide as an alternative. Could add beta xavi if he were not so bradycardic. Consider addition of Verquvo as outpatient Low sodium diet Accurate intake and output Daily weights CHF counseling Anticipate d/c in 24 - 48 hours from cardiac standpoint. Subjective Date/time seen: 06/27/22 09:18 Cardiology follow up for CHF Feeling better today. His lower extremity edema has resolved. Still has some shortness of breath but this has improved significantly. Complaining of some nausea. Review of Systems Review of Systems: All systems reviewed & are unremarkable except as noted in HPI and below Exam Const: General: comfortable and no acute distress HENMT: Mouth: Yes moist mucous membranes Eyes: Sclera: sclerae normal Neck: Neck: supple and no JVD Resp: Effort & Inspection: normal respiratory effort Auscultation: crackles (base) on the left, no rales, no rhonchi and no wheezes Cardio: Rate: regular rate Rhythm: regular rhythm Heart sounds: no murmurs GI: Auscultation: normal bowel sounds Skin: General skin exam: normal color Neuro: Other: Alert and oriented x3 Extrem: Other: No significant pitting edema at this time Objective Data Vital Signs Vital Signs: Vital Signs - 24 hr 06/26/22 12:00 06/26/22 16:00 06/26/22 16:00 Temperature 36.4 C L Pulse Rate 61 56 L 53 L Respiratory Rate 18 Blood Pressure 141/56 H Pulse Oximetry 96 06/26/22 17:12 06/26/22 20:00 06/27/22 00:00 Temperature 36.7 C 37.1 C Pulse Rate 59 L 59 L 63 Respiratory Rate 20 18 Blood Pressure 157/55 H 132/47 L Pulse Oximetry 96 91 06/26/22 20:00 06/27/22 00:00 06/27/22 04:00 Temperature Pulse Rate 58 L 59 L 60 Respiratory Rate Blood Pressure Pulse Oximetry 06/27/22 04:00 Temperature 37.1 C Pulse Rate 63 Respiratory Rate 18 Blood Pressure 160/70 H Pulse Oximetry 97 Intake/Output Intake/Output: Intake & Output 06/24/22 06/25/22 06/26/22 06/27/22 23:59 23:59 23:59 23:59 Intake Total 250 1750 2130 650 Output Total 1350 2650 1550 1050 Balance -1100 -900 580 -400 Meds/Results Medications: Active Medications Generic Name Dose Route Start Last Admin Trade Name Freq PRN Reason Stop Dose Admin Allopurinol 100 mg 06/24/22 17:00 06/27/22 08:22 Allopurinol 100 Mg Tablet PO 100 mg BID JOE Administration Amiodarone HCl 200 mg 06/24/22 17:00 06/27/22 08:22 Amiodarone Hcl 200 Mg Tablet PO 200 mg BID JOE Administration Aspirin 81 mg 06/24/22 18:00 06/26/22 17:13 Aspirin 81 Mg Enteric Tablet PO 81 mg QPM JOE Administration Atorvastatin Calcium 40 mg 06/25/22 09:00 06/27/22 08:22 Atorvastatin 40 Mg Tablet PO 40 mg DAILY JOE Administration Dextrose 12.5 gm 06/24/22 15:00 Dextrose 50% 25 Gm/50 Ml Syringe IV PUSH PRN PRN Hypoglycemia Protocol Enoxaparin Sodium 30 mg 06/25/22 09:00 06/27/22 08:22 Enoxaparin 30 Mg/0.3 Ml Syringe SUB-Q 30 mg DAILY JOE Administration Finasteride 5 mg 06/25/22 09:00 06/27/22 08:23 Finasteride 5 Mg Tablet PO 5 mg QAM JOE Administration Furosemide 40 mg 06/24/22 17:00 06/27/22 08:23 Furosemide Inj 40 Mg/4 Ml Vial IV PUSH 40 mg BID JOE Administration Glucagon 1 mg 06/24/22 15:00 Glucagon For Inj
[2022-06-27 11:34] LABS: Glucose Point of Care 262 mg/dl (65-105)
[2022-06-27 15:13] LABS: Osmolality, Urine 312 mOsm/kg (50-1200)
[2022-06-27 15:53] LABS: Soluble Transferrin Receptor 2.74 mg/L (0.76-1.76)
[2022-06-27 16:31] LABS: Glucose Point of Care 239 mg/dl (65-105)
[2022-06-27] MEDS: ASPIRIN 81 MG ENTERIC TABLET PO (17:07)
[2022-06-27] MEDS: FUROSEMIDE 40 MG TABLET PO (17:07)
[2022-06-27 21:56] LABS: Albumin 3.1 g/dL (3.8-4.8); Albumin 3.2 g/dL (3.8-4.8); Alpha 1 Globulin 0.4 g/dL (0.2-0.3); Alpha 2 Globulin 0.8 g/dL (0.5-0.9); Beta 1 Globulin 0.4 g/dL (0.4-0.6); Gamma Globulin 0.6 g/dL (0.8-1.7); Protein, Total 5.6 g/dL (6.1-8.1)
[2022-06-27 23:36] LABS: Haptoglobin 168 mg/dL (43-212)
[2022-06-28] VITALS (11 sets, daily range): BP systolic 134–159; BP diastolic 46–64; PULSE 56–64; RESP 16–18; TEMP 36.3–37.2; O2SAT 93–97
[2022-06-28] MEDS: LEVOTHYROXINE SODIUM 150 MCG TABLET PO (06:52)
[2022-06-28 07:00] LABS: Basophils Absolute Auto 0.1 K/mm3 (0.0-0.1); Basophils Percent Auto 0.9 % (0.2-1.2); Eosinophils Absolute Auto 0.2 K/mm3 (0-0.3); Hematocrit 30.1 % (42.0-52.0); Hemoglobin 9.5 g/dL (14.0-18.0); Immature Granulocyte Absolute 0.04 K/mm3 (0.00-0.031); Immature Granulocyte Percent A 0.5 % (0-0.5); Lymphocytes Absolute Auto 0.65 K/mm3 (0.9-3.2); Lymphocytes Percent Auto 8.6 % (18.3-44.2); Mean Corpuscular HGB Conc 31.6 g/dl (32-36); Mean Corpuscular Hemoglobin 26.2 pg (26-34); Mean Corpuscular Volume 83.1 fl (80-100); Mean Platelet Volume 11.1 fl (7.4-10.4); Monocytes Absolute Auto 0.8 K/mm3 (0.1-0.6); Monocytes Percent Auto 10.7 % (2.6-8.5); Neutrophils Absolute Auto 5.8 K/mm3 (1.3-6.7); Neutrophils Percent Auto 76.3 % (45.5-73.1); Platelet Count Result 203 k/mm3 (150-375); Red Blood Count 3.62 M/mm3 (4.6-6.20); Red Cell Distribution Width 17.5 % (11.5-14.5); White Blood Count 7.6 K/mm3 (4.5-10.0)
[2022-06-28 07:09] LABS: Albumin Level 3.5 g/dL (3.5-5.1); Anion Gap 10 mmol/L (8-16); Blood Urea Nitrogen 58 mg/dL (9-20); Calcium 8.5 mg/dL (8.4-10.2); Carbon Dioxide 24 mmol/L (22-30); Chloride 104 mmol/L (98-107); Estimated CRCL calculation 21 ml/min; Estimated Glomerular Filt Rate 18; Glucose 163 mg/dL (65-110); Potassium 3.5 mmol/L (3.4-5.0); Sodium 138 mmol/L (137-145)
[2022-06-28] MEDS: INSULIN HUMAN ISOPHAN/REGULAR 70/30 (*BKC) 100 UNITS/ML 15 UNITS SUB-Q (08:21)
[2022-06-28 08:31] LABS: Glucose Point of Care 173 mg/dl (65-105)
[2022-06-28] MEDS: FINASTERIDE 5 MG TABLET PO (08:44)
[2022-06-28] MEDS: hydrALAZINE HCL 25 MG TABLET PO ×4 (08:45→20:39)
[2022-06-28] MEDS: ISOSORBIDE MONONITRATE 30 MG TAB.ER.24H PO (08:45)
[2022-06-28] MEDS: allopurinoL 100 MG TABLET PO ×2 (08:46→16:56)
[2022-06-28] MEDS: ENOXAPARIN 30 MG/0.3 ML SYRINGE SUB-Q (08:47)
[2022-06-28] MEDS: CHOLECALCIFEROL 1,000 UNITS TABLET 5000 UNITS PO (08:47)
[2022-06-28] MEDS: ATORVASTATIN 40 MG TABLET PO (08:47)
[2022-06-28] MEDS: AMIODARONE HCL 200 MG TABLET PO ×2 (08:48→16:56)
[2022-06-28] MEDS: FUROSEMIDE 40 MG TABLET PO ×2 (08:50→16:57)
--- NOTE | 2022-06-28 10:45 | P.PNNP_ITS ---
Progress Note: A&P Assessment and Plan (1) Chronic kidney disease, stage 4 (severe): Code(s): N18.4 - Chronic kidney disease, stage 4 (severe) Status: Acute Assessment and Plan: * stable at this time * evidence of CKD that dates back for several years * in 2020, his creatinine was running in the high 2ish range (2.7mg/dl) * in January 2022, his creatinine was running in the 3.8mg/dl * outpatient testing (renal ultrasound, urinalysis, serologies, SPE, UPE...etc) negative to date * suspect etiology due to hypertension, diabetes, and possibly vascular disease. * continue ongoing therapy as tolerated (low-protein diet, management of cholesterol, [place]-I/ARB therapy [if can tolerated], blood pressure and blood sugar control) (2) Congestive heart failure: Code(s): I50.9 - Heart failure, unspecified Status: Acute Assessment and Plan: * Cardiology following * on IV diuretics - switching to oral lasix today * off entresto at this time (3) Essential hypertension: Code(s): I10 - Essential (primary) hypertension Status: Acute Assessment and Plan: * fair control at this time * follow trend of hemodynamics * off entresto at this time * substitute beta xavi versus attempt use of [place]/ARB (assuming kidney function and K+ stable) * currently on hydralazine and nitrates (4) Diabetes mellitus type 2, controlled: Code(s): E11.9 - Type 2 diabetes mellitus without complications Status: Acute Assessment and Plan: * on Accu-Cheks * on SSI Will continue to follow. Subjective Date/time seen: 06/27/22 10:45 Seems to be doing reasonably well at the time of my visit; lower extremity edema significantly better but still reports some mild shortness of breath; no other acute issues/events overnight or earlier this morning; renal function remains relatively stable at this time. Exam Narrative: General: WD/WN male in NAD Heart: normal S1 and S2; no rub Lungs: clear to auscultation Abdomen: soft, nontender, nondistended, positive bowel sounds Extremities: no cyanosis or clubbing; no edema Skin: warm and dry Objective Data Vital Signs Vital Signs: Vital Signs Temp Pulse Resp BP Pulse Ox O2 Del Method 06/27/22 09:57 Room Air 06/27/22 04:00 37.1 C 63 18 160/70 H 97 06/27/22 04:00 60 06/27/22 00:00 59 L 06/26/22 20:00 58 L 06/27/22 00:00 37.1 C 63 18 132/47 L 91 06/26/22 20:00 36.7 C 59 L 20 157/55 H 96 06/26/22 17:12 59 L 06/26/22 16:00 53 L 06/26/22 16:00 36.4 C L 56 L 18 141/56 H 96 06/26/22 12:00 61 Intake/Output Intake/Output: Intake & Output 06/24/22 06/25/22 06/26/22 06/27/22 23:59 23:59 23:59 23:59 Intake Total 250 1750 2130 850 Output Total 1350 2650 1550 1050 Balance -1100 -900 580 -200 Meds/Results Medications: Active Medications Generic Name Dose Route Start Last Admin Trade Name Jazmine PRN Reason Stop Dose Admin Allopurinol 100 mg 06/24/22 17:00 06/27/22 08:22 Allopurinol 100 Mg Tablet PO 100 mg BID JOE Administration Amiodarone HCl 200 mg 06/24/22 17:00 06/27/22 08:22
--- NOTE | 2022-06-28 10:45 | PM.PNNEP ---
Progress Note: A&P Assessment and Plan (1) Chronic kidney disease, stage 4 (severe): Code(s): N18.4 - Chronic kidney disease, stage 4 (severe) Status: Acute Assessment and Plan: stable at this time evidence of CKD that dates back for several years in 2020, his creatinine was running in the high 2ish range (2.7mg/dl) in January 2022, his creatinine was running in the 3.8mg/dl outpatient testing (renal ultrasound, urinalysis, serologies, SPE, UPE...etc) negative to date suspect etiology due to hypertension, diabetes, and possibly vascular disease. continue ongoing therapy as tolerated (low-protein diet, management of cholesterol, OR[place]O-I/ARB therapy [if can tolerated], blood pressure and blood sugar control) (2) Congestive heart failure: Code(s): I50.9 - Heart failure, unspecified Status: Acute Assessment and Plan: Cardiology following on IV diuretics - switching to oral lasix today off entresto at this time (3) Essential hypertension: Code(s): I10 - Essential (primary) hypertension Status: Acute Assessment and Plan: fair control at this time follow trend of hemodynamics off entresto at this time substitute beta xavi versus attempt use of [place]/ARB (assuming kidney function and K+ stable) currently on hydralazine and nitrates (4) Diabetes mellitus type 2, controlled: Code(s): E11.9 - Type 2 diabetes mellitus without complications Status: Acute Assessment and Plan: on Accu-Cheks on SSI Will continue to follow. Subjective Date/time seen: 06/27/22 10:45 Seems to be doing reasonably well at the time of my visit; lower extremity edema significantly better but still reports some mild shortness of breath; no other acute issues/events overnight or earlier this morning; renal function remains relatively stable at this time. Exam Narrative: General: WD/WN male in NAD Heart: normal S1 and S2; no rub Lungs: clear to auscultation Abdomen: soft, nontender, nondistended, positive bowel sounds Extremities: no cyanosis or clubbing; no edema Skin: warm and dry Objective Data Vital Signs Vital Signs: Vital Signs Temp Pulse Resp BP Pulse Ox O2 Del Method 06/27/22 09:57 Room Air 06/27/22 04:00 37.1 C 63 18 160/70 H 97 06/27/22 04:00 60 06/27/22 00:00 59 L 06/26/22 20:00 58 L 06/27/22 00:00 37.1 C 63 18 132/47 L 91 06/26/22 20:00 36.7 C 59 L 20 157/55 H 96 06/26/22 17:12 59 L 06/26/22 16:00 53 L 06/26/22 16:00 36.4 C L 56 L 18 141/56 H 96 06/26/22 12:00 61 Intake/Output Intake/Output: Intake & Output 06/24/22 06/25/22 06/26/22 06/27/22 23:59 23:59 23:59 23:59 Intake Total 250 1750 2130 850 Output Total 1350 2650 1550 1050 Balance -1100 -900 580 -200 Meds/Results Medications: Active Medications Generic Name Dose Route Start Last Admin Trade Name Freq PRN Reason Stop Dose Admin Allopurinol 100 mg 06/24/22 17:00 06/27/22 08:22 Allopurinol 100 Mg Tablet PO 100 mg BID JOE Administration Amiodarone HCl 200 mg 06/24/22 17:00 06/27/22 08:22 Amiodarone Hcl 200 Mg Tablet PO 200 mg BID JOE Administration Aspirin 81 mg 06/24/22 18:00 06/26/22 17:13 Aspirin 81 Mg Enteric Tablet PO 81 mg QPM JOE Administration Atorvastatin Calcium 40 mg 06/25/22 09:00 06/27/22 08:22 Atorvastatin 40 Mg Tablet PO 40 mg DAILY JOE Administration Dextrose 12.5 gm 06/24/22 15:00 Dextrose 50% 25 Gm/50 Ml Syringe IV PUSH PRN PRN Hypoglycemia Protocol Enoxaparin Sodium 30 mg 06/25/22 09:00 06/27/22 08:22 Enoxaparin 30 Mg/0.3 Ml Syringe SUB-Q 30 mg DAILY JOE Administration Finasteride 5 mg 06/25/22 09:00 06/27/22 08:23 Finasteride 5 Mg Tablet PO 5 mg QAM JOE Administration Furosemide 40 mg 06/27/22 17:00 Furosemide 40 Mg Tablet PO BID [facility] Glucagon 1 mg 0
[2022-06-28 11:34] LABS: Glucose Point of Care 199 mg/dl (65-105)
[2022-06-28 12:58] LABS: Strep DNASE B Antibody <95
[2022-06-28 13:14] LABS: Complement Total CH50 >60 U/mL (31-60)
--- NOTE | 2022-06-28 13:26 | PM.PNNEP ---
Progress Note: A&P Assessment and Plan (1) Chronic kidney disease, stage 4 (severe): Code(s): N18.4 - Chronic kidney disease, stage 4 (severe) Status: Acute Assessment and Plan: stable if not better at this time evidence of CKD that dates back for several years in 2020, his creatinine was running in the high 2ish range (2.7mg/dl) in January 2022, his creatinine was running in the 3.8mg/dl outpatient testing (renal ultrasound, urinalysis, serologies, SPE, UPE...etc) negative to date suspect etiology due to hypertension, diabetes, and possibly vascular disease. continue ongoing therapy as tolerated (low-protein diet, management of cholesterol, [place]-I/ARB therapy [if can tolerated], blood pressure and blood sugar control) (2) Congestive heart failure: Code(s): I50.9 - Heart failure, unspecified Status: Acute Assessment and Plan: acute on chronic systolic dysfunction Cardiology following on oral diuretic therapy off entresto at this time (3) Essential hypertension: Code(s): I10 - Essential (primary) hypertension Status: Acute Assessment and Plan: fair control at this time follow trend of hemodynamics off entresto at this time consider substituting beta xavi versus attempt use of [place]/ARB (assuming kidney function and K+ stable) currently on hydralazine and nitrates (4) Diabetes mellitus type 2, controlled: Code(s): E11.9 - Type 2 diabetes mellitus without complications Status: Acute Assessment and Plan: on Accu-Cheks on SSI Will continue to follow. Subjective Date/time seen: 06/28/22 13:26 Continues to do well at the time of my visit; swelling/edema appears to have resolved and breathing continues to improve even after transitioning to oral diuretic therapy; no apparent distress voiced currently; no other complaints to report; at bedside and discussed the situation. Exam Narrative: General: WD/WN male in NAD Heart: normal S1 and S2; no rub Lungs: clear to auscultation Abdomen: soft, nontender, nondistended, positive bowel sounds Extremities: no cyanosis or clubbing; no edema Skin: warm and intact Objective Data Vital Signs Vital Signs: Vital Signs Temp Pulse Resp BP Pulse Ox O2 Del Method 06/28/22 08:00 Room Air 06/28/22 08:48 62 06/28/22 04:00 36.6 C 57 L 18 134/46 L 94 06/28/22 04:00 56 L 06/28/22 00:00 57 L 06/28/22 00:00 37.2 C 63 18 159/64 H 93 06/27/22 20:00 58 L 18 97 Room Air 06/27/22 20:00 59 L 06/27/22 20:00 36.6 C 58 L 18 147/57 H 97 Intake/Output Intake/Output: Intake & Output 06/25/22 06/26/22 06/27/22 06/28/22 23:59 23:59 23:59 23:59 Intake Total 1750 2130 1330 490 Output Total 2650 1550 1750 1680 Balance -900 295 -060 -6532 Meds/Results Medications: Active Medications Generic Name Dose Route Start Last Admin Trade Name Freq PRN Reason Stop Dose Admin Allopurinol 100 mg 06/24/22 17:00 06/28/22 16:56 Allopurinol 100 Mg Tablet PO 100 mg BID JOE Administration Amiodarone HCl 200 mg 06/24/22 17:00 06/28/22 16:56 Amiodarone Hcl 200 Mg Tablet PO 200 mg BID JOE Administration Aspirin 81 mg 06/24/22 18:00 06/28/22 16:58 Aspirin 81 Mg Enteric Tablet PO 81 mg QPM JOE Administration Atorvastatin Calcium 40 mg 06/25/22 09:00 06/28/22 08:47 Atorvastatin 40 Mg Tablet PO 40 mg DAILY JOE Administration Dextrose 12.5 gm 06/24/22 15:00 Dextrose 50% 25 Gm/50 Ml Syringe IV PUSH PRN PRN Hypoglycemia Protocol Enoxaparin Sodium 30 mg 06/25/22 09:00 06/28/22 08:47 Enoxaparin 30 Mg/0.3 Ml Syringe SUB-Q 30 mg DAILY JOE Administration Finasteride 5 mg 06/25/22 09:00 06/28/22 08:44 Finasteride 5 Mg Tablet PO 5 mg QAM JOE Administration Furosemide 40 mg 06/27/22 17:00 06/28/22 16:57 Furosemide 40 Mg Tablet PO 40 mg BID S
--- NOTE | 2022-06-28 13:26 | P.PNNP_ITS ---
Progress Note: A&P Assessment and Plan (1) Chronic kidney disease, stage 4 (severe): Code(s): N18.4 - Chronic kidney disease, stage 4 (severe) Status: Acute Assessment and Plan: * stable if not better at this time * evidence of CKD that dates back for several years * in 2020, his creatinine was running in the high 2ish range (2.7mg/dl) * in January 2022, his creatinine was running in the 3.8mg/dl * outpatient testing (renal ultrasound, urinalysis, serologies, SPE, UPE...etc) negative to date * suspect etiology due to hypertension, diabetes, and possibly vascular disease. * continue ongoing therapy as tolerated (low-protein diet, management of cholesterol, [place]-I/ARB therapy [if can tolerated], blood pressure and blood sugar control) (2) Congestive heart failure: Code(s): I50.9 - Heart failure, unspecified Status: Acute Assessment and Plan: * acute on chronic systolic dysfunction * Cardiology following * on oral diuretic therapy * off entresto at this time (3) Essential hypertension: Code(s): I10 - Essential (primary) hypertension Status: Acute Assessment and Plan: * fair control at this time * follow trend of hemodynamics * off entresto at this time * consider substituting beta xavi versus attempt use of [place]/ARB (assuming kidney function and K+ stable) * currently on hydralazine and nitrates (4) Diabetes mellitus type 2, controlled: Code(s): E11.9 - Type 2 diabetes mellitus without complications Status: Acute Assessment and Plan: * on Accu-Cheks * on SSI Will continue to follow. Subjective Date/time seen: 06/28/22 13:26 Continues to do well at the time of my visit; swelling/edema appears to have resolved and breathing continues to improve even after transitioning to oral diuretic therapy; no apparent distress voiced currently; no other complaints to report; at bedside and discussed the situation. Exam Narrative: General: WD/WN male in NAD Heart: normal S1 and S2; no rub Lungs: clear to auscultation Abdomen: soft, nontender, nondistended, positive bowel sounds Extremities: no cyanosis or clubbing; no edema Skin: warm and intact Objective Data Vital Signs Vital Signs: Vital Signs Temp Pulse Resp BP Pulse Ox O2 Del Method 06/28/22 08:00 Room Air 06/28/22 08:48 62 06/28/22 04:00 36.6 C 57 L 18 134/46 L 94 06/28/22 04:00 56 L 06/28/22 00:00 57 L 06/28/22 00:00 37.2 C 63 18 159/64 H 93 06/27/22 20:00 58 L 18 97 Room Air 06/27/22 20:00 59 L 06/27/22 20:00 36.6 C 58 L 18 147/57 H 97 Intake/Output Intake/Output: Intake & Output 06/25/22 06/26/22 06/27/22 06/28/22 23:59 23:59 23:59 23:59 Intake Total 1750 2130 1330 490 Output Total 2650 1550 1750 1680 Balance -900 421 -420 1190 Meds/Results Medications: Active Medications Generic Name Dose Route Start Last Admin Trade Name Freq PRN Reason Stop Dose Admin Allopurinol 100 mg 06/24/22 17:00 06/28/22 16:56 Allopurinol 100 Mg Tablet PO 100 mg BID JOE Administration Amiodarone HCl 200 mg 06/24/22 17:00 06/28/22 16:56
[2022-06-28 14:45] LABS: Anti Streptolysin O Screen <50 IU/mL (<200)
[2022-06-28 15:06] LABS: ANCA Screen Negative (Negative)
--- NOTE | 2022-06-28 15:51 | PM.IMPN ---
Progress Note: A&P Assessment and Plan (1) Systolic and diastolic CHF, acute on chronic: Code(s): I50.43 - Acute on chronic combined systolic (congestive) and diastolic (congestive) heart failure Status: Acute Assessment and Plan: Echo from 06/26 showed EF of 35-40%, severe hypokinesis mid and basal inferior wall, grade 2 diastolic dysfunction, severe pulmonary hypertension 06/24: Admitted with suspected heart failure and worsening kidney failure, concerning for cardiorenal syndrome versus hypervolemia, started on IV diuresis 06/25: Cardiology consult pending, Nephrology consult pending, creatinine improving with diuresis, echo pending, continue IV diuresis, strict Is and Os, accurate daily standing weights, Entresto discontinued due to renal failure 06/26: Appreciate cardio recs re: diuresis and management of HF 06/27: Continue amiodarone 200 mg p.o. twice daily, Lasix 40 mg IV twice daily, hydralazine 25 mg q.6 started yesterday, isosorbide 30 mg daily started yesterday, will discuss with nephrology requirements to safely be able to restart Entresto as this is the far better medication for his heart failure Update: Cardiology consultation states patient will be switched to oral Lasix today and anticipate discharge in the next 24-48 hours. Not able to safely restart Entresto at this point. Could continue to monitor kidney function on outpatient basis to evaluate if patient is stable enough to restart Entresto to lower dose in the future. . (2) Chronic kidney disease, stage 4 (severe): Code(s): N18.4 - Chronic kidney disease, stage 4 (severe) Status: Acute Assessment and Plan: 06/24: Longstanding chronic kidney disease, baseline creatinine appears to be between 2 and 3, was admitted with a creatinine over 4 06/25: Improving with diuresis, creatinine down to 3.9 from 4.1 yesterday, suspect worsening renal failure was secondary to fluid overload, appreciate nephrology consultation, continue to hold Entresto for now 06/26: Creat stable at 4 today 06/27: Creatinine improved to 3.8 today, BUN stable at 60, GFR consistently between 15 and 16, creatinine clearance between 17 and 19, will confirm with Nephrology whether we can restart Entresto safely at any point in the future 06/28: patient Cr 3.4 today, will continue to monitor to ensure further improvement prior to discharge (3) Anemia: Qualifiers: Anemia type: unspecified type Qualified Code(s): D64.9 - Anemia, unspecified Code(s): D64.9 - Anemia, unspecified Status: Inactive Assessment and Plan: 06/24: Hemoglobin 9.5, was 11.6 last month and 12.6 prior to that, fecal occult blood test was negative 06/25: Hemoglobin currently at 9.5 today which is the same as yesterday, unsure of etiology at this time-- ?renal failure, likely multifactorial, continue monitor 06/28: Hgb stable . (4) Diabetes mellitus type 2, controlled: Code(s): E11.9 - Type 2 diabetes mellitus without complications Status: Acute Assessment and Plan: 06/25: A1c was 6.8, fairly well controlled here, continue Accu-Cheks and sliding scale insulin 06/26: Restart home 70/30 insulin at reduced dose, 22 at home, will restart at 15 u BIDWM, monitor, cont SSI 06/27: Controlled on slightly lower dose of insulin, will discharge on home dose expecting diet change 06/28: slightly uncontrolled, will increase NPH to 18 BID. Check A1c (5) Essential hypertension: Code(s): I10 - Essential (primary) hypertension Status: Acute Assessment and Plan: 06/24: Norvasc, amiodarone, IV Lasix all given yesterday 06/25: Will hold Norvasc due to fluid overload and significant edema, continue amiodarone and IV Lasix 06/26: Cont to hold norvasc, would not restart at d/c due to edema and HF, BP still elevated, will defer to cardio + nephro for best regimen 06/27: Continue IV diuresis, defer doses to Cardiology and Nephrology, continue amiodarone, cannot tolerate a beta-block
--- NOTE | 2022-06-28 16:36 | PM.PNCARD ---
Progress Note: A&P Assessment and Plan (1) Systolic and diastolic CHF, acute on chronic: Code(s): I50.43 - Acute on chronic combined systolic (congestive) and diastolic (congestive) heart failure Status: Acute Assessment and Plan: Significant nonischemic cardiomyopathy with EF 35 - 40%. Grade II diastolic dysfunction. Presenting with shortness of breath and volume overload. Off Entresto due to advanced renal failure. He was shifted to a regimen of hydralazine and isosorbide as an alternative. Could add beta xavi if he were not so bradycardic. Consider addition of Verquvo as outpatient Low sodium diet Accurate intake and output Daily weights Patient doing well at this time. Responded diuretic therapy. Continue Lasix 40 mg p.o. b.i.d. Disposition per hospitalist service. Follow up as an outpatient within 2 weeks with Cardiology. (2) Chronic kidney disease, stage 4 (severe): Code(s): N18.4 - Chronic kidney disease, stage 4 (severe) Status: Acute Assessment and Plan: Acute on chronic renal failure. Appreciate Nephrology involvement and recommendations. Slow improvement overall. (3) CAD (coronary artery disease): Code(s): I25.10 - Atherosclerotic heart disease of elim ira coronary artery without angina pectoris Status: Acute Assessment and Plan: No anginal symptoms. Continue medical therapy. Aspirin, statin. (4) Essential hypertension: Code(s): I10 - Essential (primary) hypertension Status: Acute Assessment and Plan: Elevated but stable overall. (5) Diabetes mellitus type 2, controlled: Code(s): E11.9 - Type 2 diabetes mellitus without complications Status: Acute Assessment and Plan: Management per primary service. Subjective Date/time seen: Date of service: 06/28/22 16:36 Interval history: Follow-up visit in this 76-year-old man with significant nonischemic cardiomyopathy admitted with shortness of breath, volume overload and worsening renal function. Patient states he feels much better. Breathing much improved, denies dizziness lightheadedness with ambulation. Edema much improved as well. Denies chest pain, palpitations. at bedside. He has no specific complaints at this time. Review of Systems Review of Systems: All systems reviewed & are unremarkable except as noted in HPI and below Constitutional: Constitutional: Reports as per HPI and Reports no additional constitutional complaints Eyes: Eyes: Reports as per HPI and Reports no additional eye complaints ENT: Reports system reviewed and no additional complaints, except as documented and Reports as per HPI Cardiovascular: Cardiovascular: Reports as per HPI and Reports no additional cardiovascular complaints Respiratory: Respiratory: Reports as per HPI and Reports no additional respiratory complaints Gastrointestinal: Gastrointestinal: Reports as per HPI and Reports no additional gastrointestinal complaints Genitourinary: Genitourinary: Reports no additional male genitourinary complaints and Reports as per HPI Musculoskeletal: Musculoskeletal: Reports no additional musculoskeletal complaints and Reports as per HPI Integumentary/Breasts: Skin/Breast: Reports system reviewed and no additional complaints, except as docu and Reports as per HPI Neurologic: Reports system reviewed and no additional complaints, except as documented and Reports as per HPI Psychiatric: Psychiatric: Reports no additional psychiatric complaints and Reports as per HPI Endocrine: Endocrine: Reports no additional endocrine complaints and Reports as per HPI Hematologic/Lymphatic: Hematologic/Lymphatic: Reports no additional hematologic/lymphatic complaints and Reports as per HPI Allergic/Immunologic: Allergic/Immunologic: Reports no additional allergic/immunologic complaints and Reports as per HPI Exam Narrative: Alert and oriented x3, sitting upright in bed breathing comfort
[2022-06-28 16:46] LABS: SM Antibody <1.0; SM/RNP Antibody <1.0
[2022-06-28] MEDS: ASPIRIN 81 MG ENTERIC TABLET PO (16:58)
[2022-06-28] MEDS: INSULIN ASPART (*BKC) 100 UNITS/ML SUB-Q (17:00)
[2022-06-28] MEDS: INSULIN HUMAN ISOPHAN/REGULAR 70/30 (*BKC) 100 UNITS/ML 18 UNITS SUB-Q (17:01)
[2022-06-28 17:02] LABS: Glucose Point of Care 203 mg/dl (65-105)
[2022-06-28 19:09] LABS: Anti Glomerular Basement Memb <1.0 AI (<1.0)
[2022-06-29] VITALS: PULSE 58
[2022-06-29 04:00] VITALS: PULSE 62
[2022-06-29] MEDS: LEVOTHYROXINE SODIUM 150 MCG TABLET PO (05:38)
[2022-06-29 05:52] VITALS: BP 149/51; PULSE 66; RESP 16; TEMP 36.5; O2SAT 92
[2022-06-29 06:47] LABS: Basophils Absolute Auto 0.1 K/mm3 (0.0-0.1); Basophils Percent Auto 0.6 % (0.2-1.2); Eosinophils Absolute Auto 0.3 K/mm3 (0-0.3); Eosinophils Percent Auto 3.4 % (0-4.4); Hematocrit 30.7 % (42.0-52.0); Hemoglobin 9.7 g/dL (14.0-18.0); Immature Granulocyte Absolute 0.05 K/mm3 (0.00-0.031); Immature Granulocyte Percent A 0.6 % (0-0.5); Lymphocytes Absolute Auto 0.75 K/mm3 (0.9-3.2); Lymphocytes Percent Auto 9.4 % (18.3-44.2); Mean Corpuscular HGB Conc 31.6 g/dl (32-36); Mean Corpuscular Hemoglobin 26.4 pg (26-34); Mean Corpuscular Volume 83.4 fl (80-100); Monocytes Absolute Auto 0.8 K/mm3 (0.1-0.6); Neutrophils Absolute Auto 6.1 K/mm3 (1.3-6.7); Platelet Count Result 208 k/mm3 (150-375); Red Blood Count 3.68 M/mm3 (4.6-6.20); Red Cell Distribution Width 17.7 % (11.5-14.5)
[2022-06-29 07:07] LABS: Alanine Aminotransferase 76 U/L (6-50); Albumin Level 3.4 g/dL (3.5-5.1); Alkaline Phosphatase 86 U/L (38-126); Anion Gap 10 mmol/L (8-16); Aspartate Amino Transferase 40 U/L (17-59); Bilirubin,Total 0.6 mg/dL (0.2-1.3); Blood Urea Nitrogen 54 mg/dL (9-20); Calcium 8.9 mg/dL (8.4-10.2); Carbon Dioxide 25 mmol/L (22-30); Chloride 101 mmol/L (98-107); Estimated CRCL calculation 20 ml/min; Estimated Glomerular Filt Rate 17; Glucose 161 mg/dL (65-110); Hemoglobin A1C 6.9 % (<5.7); Potassium 3.4 mmol/L (3.4-5.0); Sodium 136 mmol/L (137-145)
[2022-06-29 08:00] VITALS: PULSE 66; RESP 16; O2SAT 92
[2022-06-29 08:58] LABS: Glucose Point of Care 174 mg/dl (65-105)
[2022-06-29] MEDS: CHOLECALCIFEROL 1,000 UNITS TABLET 5000 UNITS PO (10:01)
[2022-06-29] MEDS: ATORVASTATIN 40 MG TABLET PO (10:01)
[2022-06-29] MEDS: ISOSORBIDE MONONITRATE 30 MG TAB.ER.24H PO (10:01)
[2022-06-29] MEDS: AMIODARONE HCL 200 MG TABLET PO (10:01)
[2022-06-29] MEDS: hydrALAZINE HCL 25 MG TABLET PO (10:01)
[2022-06-29] MEDS: allopurinoL 100 MG TABLET PO (10:02)
[2022-06-29] MEDS: FUROSEMIDE 40 MG TABLET PO (10:02)
[2022-06-29] MEDS: ENOXAPARIN 30 MG/0.3 ML SYRINGE SUB-Q (10:02)
[2022-06-29] MEDS: FINASTERIDE 5 MG TABLET PO (10:02)
[2022-06-29] MEDS: INSULIN HUMAN ISOPHAN/REGULAR 70/30 (*BKC) 100 UNITS/ML 18 UNITS SUB-Q (10:04)
--- NOTE | 2022-06-29 10:25 | PM.DS ---
DS: Admitting Diagnosis Discharge Date 06/29/22 Admitting Diagnosis HF Exacerbation, MARTITA on CKD DS: Summary Hospital Course Reason for hospitalization: HF Exacerbation, MARTITA on CKD Hospital Course: 76 yo M history of hypertension, diabetes, congestive heart and chronic renal stage 3-4. Presented 06/24 as transfer from [place] due to HF vs PNA. Low suspicion of PNA, however HF was noted. PE ruled out with negative LE doppler study and V/Q scan showing low probablity of PE. Patient started on aggressive IV diuresis, cardiology consulted. ECHO done that showed EF of 35-40%, severe hypokinesis mid and basal inferior wall, grade 2 diastolic dysfunction, severe pulmonary hypertension. Due to patient current GFR, patient was switched off of his entresto and started on imdur and hydralazine, which he tolerated well. Patient had also presented with and MARTITA on CKD, which has improved and tapered off at around 3.4. 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 He was discharged with resolution of his HF exacerbation and improvement in renal function. Time Spent with Patient Time attestation: Total time spent providing and/or coordinating discharge services: Exam Const: General: comfortable and no acute distress HENMT: Mouth: Yes moist mucous membranes Eyes: Sclera: sclerae normal Neck: Neck: supple and no JVD Resp: Effort & Inspection: normal respiratory effort Auscultation: crackles (base) on the left, no rales, no rhonchi and no wheezes Cardio: Rate: regular rate Rhythm: regular rhythm Heart sounds: no murmurs GI: Auscultation: normal bowel sounds Skin: General skin exam: normal color Neuro: Other: Alert and oriented x3 Extrem: Other: No significant pitting edema at this time DS: Data Data Completed and Pending Labs on day of discharge: Labs from last 24 hours 06/29/22 06/29/22 06/29/22 08:15 06:21 06:21 WBC 8.0 RBC 3.68 L Hgb 9.7 L Hct 30.7 L MCV 83.4 MCH 26.4 MCHC 31.6 L RDW 17.7 H Plt Count 208 MPV 11.0 H Immature Gran % (Auto) 0.6 H Neut % (Auto) 76.0 H Lymph % (Auto) 9.4 L [place] % (Auto) 10.0 H Eos % (Auto) 3.4 Baso % (Auto) 0.6 Lymph # (Auto) 0.75 L [place] # (Auto) 0.8 H Eos # (Auto) 0.3 Baso # (Auto) 0.1 Abs Immat Gran (auto) 0.05 H Absolute Neuts (auto) 6.1 Absolute Nucleated RBC 0.0 Nucleated RBC % 0.0 Sodium Potassium Chloride Carbon Dioxide Anion Gap BUN Creatinine Estim Creat Clear Calc Estimated GFR Glucose POC Capillary Glucose 174 H Hemoglobin A1c 6.9 H Calcium Total Bilirubin AST ALT Alkaline Phosphatase Total Protein Albumin Serum Immunofixation ANCA Screen Sm ([place]) Antibody SM/STILL OPERATOR WHISKEY IgG Antibody [id number] Glomerular Base Memb Ab Tot Complement (CH50) Anti-Streptolysin Scrn 06/29/22 06/28/22 06/28/22 06:21 16:58 11:25 WBC RBC Hgb Hct MCV MCH MCHC RDW Plt Count MPV Immature Gran % (Auto) Neut % (Auto) Lymph % (Auto) [place] % (Auto) Eos % (Auto) Baso % (Auto) Lymph # (Auto) [place] # (Auto) Eos # (Auto) Baso # (Auto) Abs Immat Gran (auto) Absolute Neuts (auto) Absolute Nucleated RBC Nucleated RBC % Sodium 136 L Potassium 3.4 Chloride 101 Carbon Dioxide 25 Anion Gap 10 BUN 54 H Creatinine 3.60 H Estim Creat Clear Calc 20 Estimated GFR 17 L Glucose 161 H POC Capillary Glucose 203 H 199 H Hemoglobin A1c Calcium 8.9 Total Bilirubin 0.6 AST 40 ALT 76 H Alkaline Phosphatase 86 Total Protein 6.0 L Albumin 3.4 L Serum Immunofixation ANCA Screen Sm ([place]) Antibody SM/STILL OPERATOR WHISKEY IgG Antibody [id number] Glomerular Base Memb Ab Tot Complement (CH50) Anti-Streptolysin Scrn 06/24/22 06/24/22 06/24/22 16:52 16
[2022-06-29 11:18] LABS: Glucose Point of Care 240 mg/dl (65-105)
[2022-06-29 13:09] LABS: Glucose Point of Care 208 mg/dl (65-105)
[2022-06-29 15:35] LABS: Chloride Rand Ur 101 mmol/L (32-290); Chloride/Creatinine Rand Ur 326 (23-275); Creatinine Random Urine 31 mg/dL (20-320)
[2022-06-30 04:27] LABS: Total Protein/Creatinine Ratio 226 mg/g creat (22-128)
[2022-06-30 14:55] LABS: Cryoglobulin, QL Negative (Negative)
== END 2022-06-29 12:01 | disposition home or self-care (01) | DRG 291 ==
PROVIDERS: Internal Medicine Nephrology; Nurse Practitioner; Admitting Provider Student in an Organized Health Care Education/Training Program; PCP Internal Medicine; Visit Provider Internal Medicine
DX: I13.0 Hypertensive heart and chronic kidney disease with heart failure and stage 1 through stage 4 chronic kidney disease, or unspecified chronic kidney disease (principal); I50.43 Acute on chronic combined systolic (congestive) and diastolic (congestive) heart failure; N18.4 Chronic kidney disease, stage 4 (severe); N17.9 Acute kidney failure, unspecified; E11.22 Type 2 diabetes mellitus with diabetic chronic kidney disease; M17.11 Unilateral primary osteoarthritis, right knee; N40.0 Benign prostatic hyperplasia without lower urinary tract symptoms; E78.5 Hyperlipidemia, unspecified; E03.9 Hypothyroidism, unspecified; D64.9 Anemia, unspecified; I42.8 Other cardiomyopathies; I34.0 Nonrheumatic mitral (valve) insufficiency; I25.10 Atherosclerotic heart disease of native coronary artery without angina pectoris; I49.3 Ventricular premature depolarization; R09.89 Other specified symptoms and signs involving the circulatory and respiratory systems; Z87.891 Personal history of nicotine dependence
CPT/HCPCS: 36415; 71046; 76775; 78580; 80053; 80069; 80076; 82247; 82248; 82274; 82436; 82550; 82570; 82595; 82607; 82728; 82746; 82948; 83010; 83036; 83520; 83540; 83550; 83605; 83615; 83735; 83930; 83935; 84100; 84155; 84156; 84165; 84166; 84238; 84300; 84443; 84466; 85025; 85046; 85652; 85999; 86036; 86038; 86060; 86140; 86160; 86162; 86215; 86225; 86235; 86334; 86335; 86703; 86705; 86706; 86803; 86880; 87077; 87086; 87088; 87186; 87340; 93306; 93970; 97161; A9270; A9540; G0432; J1650; J1815; J1940

== ENCOUNTER 2022-07-06 12:11 | Outpatient (CLI) | payer MEDICARE, SELFPAY ==
[2022-07-06 12:28] LABS: Basophils Absolute Auto 0.08 K/mm3 (0.00-0.10); Basophils Percent Auto 0.9 % (0.0-1.0); Eosinophils Absolute Auto 0.27 K/mm3 (0.02-0.50); Hematocrit 34.9 % (37.0-46.0); Hemoglobin 11.2 g/dL (12.4-15.3); Immature Granulocyte Absolute 0.04 K/mm3 (0.00-0.00); Immature Granulocyte Percent A 0.5 % (0.0-0.0); Lymphocytes Absolute Auto 0.75 K/mm3 (1.10-4.50); Lymphocytes Percent Auto 8.4 % (18.0-42.0); Mean Corpuscular HGB Conc 32.1 g/dL (32.0-36.0); Mean Corpuscular Hemoglobin 26.1 pg (27.0-31.0); Mean Corpuscular Volume 81.4 fL (78.0-102.0); Mean Platelet Volume 10.7 fl (8.7-11.0); Monocytes Absolute Auto 1.04 K/mm3 (0.10-0.90); Monocytes Percent Auto 11.7 % (2.0-11.0); Neutrophils Absolute Auto 6.7 K/mm3 (1.7-7.2); Neutrophils Percent Auto 75.5 % (50.0-70.0); Platelet Count Result 269 K/mm3 (150-420); Red Blood Count 4.29 M/mm3 (4.70-6.10); Red Cell Distribution Width 17.2 % (11.6-14.4); White Blood Count 8.9 K/mm3 (4.8-10.8)
[2022-07-06 12:52] LABS: Alanine Aminotransferase 87 U/L (16-63); Albumin Level 3.7 g/dL (3.4-5.0); Alkaline Phosphatase 128 U/L (46-116); Anion Gap 11 mmol/L (8-16); Aspartate Amino Transferase 47 U/L (15-37); Bilirubin,Total 0.5 mg/dL (0.00-1.00); Blood Urea Nitrogen 51 mg/dL (7-18); Calcium 9.4 mg/dL (8.5-10.1); Carbon Dioxide 26 mmol/L (21-32); Chloride 94 mmol/L (98-108); Estimated Glomerular Filt Rate 17; Glucose 147 mg/dL (70-99); Magnesium 2.6 mg/dL (1.8-2.4); NT Pro B Type Natriuretic Pept 9635 pg/mL (0-450); Osmolality Calculated 288 mOsm/kg (285-295); Potassium 3.2 mmol/L (3.5-5.1); Sodium 131 mmol/L (136-145); Total Protein 7.4 g/dL (6.4-8.2)
== END 2022-07-06 12:12 | disposition home or self-care (01) ==
LOC: CHSLAB 12:14
PROVIDERS: PCP Internal Medicine; Visit Provider Internal Medicine
DX: I50.9 Heart failure, unspecified (principal); N18.4 Chronic kidney disease, stage 4 (severe)
CPT/HCPCS: 36415; 80053; 83735; 83880; 85025

== ENCOUNTER 2022-07-19 08:39 | Outpatient (CLI) | payer MEDICARE, SELFPAY ==
[2022-07-19 08:49] LABS: Basophils Absolute Auto 0.09 K/mm3 (0.00-0.10); Basophils Percent Auto 1.1 % (0.0-1.0); Eosinophils Absolute Auto 0.26 K/mm3 (0.02-0.50); Eosinophils Percent Auto 3.1 % (1.0-6.0); Hematocrit 34.9 % (37.0-46.0); Immature Granulocyte Absolute 0.07 K/mm3 (0.00-0.00); Immature Granulocyte Percent A 0.8 % (0.0-0.0); Lymphocytes Absolute Auto 1.14 K/mm3 (1.10-4.50); Lymphocytes Percent Auto 13.4 % (18.0-42.0); Mean Corpuscular HGB Conc 31.5 g/dL (32.0-36.0); Mean Corpuscular Hemoglobin 25.8 pg (27.0-31.0); Mean Corpuscular Volume 81.7 fL (78.0-102.0); Monocytes Absolute Auto 1.09 K/mm3 (0.10-0.90); Monocytes Percent Auto 12.9 % (2.0-11.0); Neutrophils Absolute Auto 5.8 K/mm3 (1.7-7.2); Neutrophils Percent Auto 68.7 % (50.0-70.0); Platelet Count Result 273 K/mm3 (150-420); Red Blood Count 4.27 M/mm3 (4.70-6.10); Red Cell Distribution Width 16.8 % (11.6-14.4); White Blood Count 8.5 K/mm3 (4.8-10.8)
[2022-07-19 09:02] LABS: Creatinine Urine 81.94 mg/dL (40-278); Total Protein Urine Random 78.7 mg/dL (0.0-11.9); Ur Ttl Prot Creatinine Ratio 0.96 mg/mg (0-0.20)
[2022-07-19 09:26] LABS: Albumin Level 3.6 g/dL (3.4-5.0); Anion Gap 10 mmol/L (8-16); Blood Urea Nitrogen 53 mg/dL (7-18); Calcium 9.3 mg/dL (8.5-10.1); Carbon Dioxide 27 mmol/L (21-32); Chloride 101 mmol/L (98-108); Estimated Glomerular Filt Rate 17; Glucose 152 mg/dL (70-99); Osmolality Calculated 303 mOsm/kg (285-295); Phosphorus 4.5 mg/dL (2.6-4.7); Potassium 3.7 mmol/L (3.5-5.1); Sodium 138 mmol/L (136-145)
[2022-07-23 11:52] LABS: Parathyroid Intact 123 pg/mL (14-64)
== END 2022-07-19 08:40 | disposition home or self-care (01) ==
PROVIDERS: PCP Internal Medicine; Visit Provider Internal Medicine Nephrology
DX: N18.4 Chronic kidney disease, stage 4 (severe) (principal)
CPT/HCPCS: 36415; 80069; 82570; 83970; 84156; 85025

== ENCOUNTER 2022-07-24 11:12 | Outpatient (CLI) | payer MEDICARE, SELFPAY ==
--- NOTE | ~2022-07-24 | XR_ITS ---
EXAMINATION: XR chest 2V 07/24/2022 11:32 INDICATION: Acute on chronic systolic CHF PROCEDURE: 2 view chest COMPARISON: Comparison to multiple prior studies sequentially, with oldest reviewed study dated 07/2017. FINDINGS: The lungs are clear. The cardiomediastinal silhouette is within normal limits. There are no pleural effusions. There is no pneumothorax suspected. There is diffuse idiopathic skeletal hyperostosis (DISH) of the thoracic spine. IMPRESSION: 1: NO ACUTE CARDIOPULMONARY DISEASE. Reviewed, dictated and finalized at location A.
== END 2022-07-24 11:13 | disposition home or self-care (01) ==
LOC: CHSIMG 11:16
PROVIDERS: PCP Internal Medicine; Visit Provider Nurse Practitioner Adult Health
DX: I50.23 Acute on chronic systolic (congestive) heart failure (principal); Z01.818 Encounter for other preprocedural examination
CPT/HCPCS: 71046

== ENCOUNTER 2022-09-08 14:09 | Outpatient (CLI) | payer MEDICARE, SELFPAY ==
--- NOTE | 2022-09-08 15:12 | ECHO_ITS ---
Patient Info Name: Mert Corral Age: 77 years : 1945 Gender: Male Ht: 71 in Wt: 215 lbs BSA: 2.23 m2 HR: 70 bpm BP: 154 / 67 mmHg Technical Quality: Good Exam Date: 09/08/2022 2:24 PM Exam Location: [facility] [place] Patient Status: Outpatient Admit Date: 09/08/2022 Staff Ordering Physician: Jerardo Hill MD Rib Sawyer: Neal Mcclure, TONI, RT Attending Provider: Jerardo Hill MD Exam Type: CA echo doppler color flow Study Info Indications I50.42 - Chronic combined systolic (congestive) and diastolic (congestive) heart failure Complete two-dimensional, color flow and Doppler transthoracic echocardiogram is performed. Strain analysis performed. Summary 1. Complete two-dimensional, color flow and Doppler transthoracic echocardiogram is performed. 2. Left ventricular chamber dimension is severely enlarged. 3. There is mildly increased left ventricular wall thickness. 4. Left ventricular systolic function is severely globally reduced, estimated at 25-30%. 5. Entire posterior wall and entire lateral wall are severely hypokinetic to akinetic. 6. The left ventricular diastolic function is grade III diastolic dysfunction. 7. E/e' 30 is significantly elevated. 8. Global longitudinal strain is abnormal at -7.5%. 9. Left atrial chamber dimension is moderately enlarged. 10. Right atrial chamber dimension is moderately enlarged. 11. There is moderate mitral valve regurgitation. 12. There is mild to moderate tricuspid valve regurgitation. 13. Severe pulmonary hypertension, estimated pulmonary arterial systolic pressure is 75 mmHg. 14. There is trace pulmonic regurgitation. 15. Dilated inferior vena cava with >50% collapse upon inspiration consistent with elevated right atrial pressure, 10 mmHg. 16. There is trivial pericardial effusion. Left Ventricle E/e' 30 is significantly elevated. Global longitudinal strain is abnormal at -7.5%. Left ventricular systolic function is severely globally reduced, estimated at 25-30%. Entire posterior wall and entire lateral wall are severely hypokinetic to akinetic. Left ventricular chamber dimension is severely enlarged. There is mildly increased left ventricular wall thickness. The left ventricular diastolic function is grade III diastolic dysfunction. Right Ventricle Right ventricular systolic function is normal and with normal TAPSE 1.8 cm. Right ventricular chamber dimension is normal. Left Atria Left atrial chamber dimension is moderately enlarged. Right Atria Right atrial chamber dimension is moderately enlarged. Aortic Valve The aortic valve is trileaflet. There is no aortic valve stenosis. There is no aortic valve regurgitation. Pulmonic Valve There is trace pulmonic regurgitation. Mitral Valve There is no mitral valve stenosis. There is moderate mitral valve regurgitation. Tricuspid Valve There is mild to moderate tricuspid valve regurgitation. Severe pulmonary hypertension, estimated pulmonary arterial systolic pressure is 75 mmHg. Pericardium/Pleural There is trivial pericardial effusion. Inferior Vena Cava Dilated inferior vena cava with >50% collapse upon inspiration consistent with elevated right atrial pressure, 10 mmHg. Aorta The aortic root size at the sinus of Valsalva is normal. Left Ventricular Outflow Tract Name Value Normal
== END 2022-09-08 14:10 | disposition home or self-care (01) ==
LOC: CHSIMG 14:12
PROVIDERS: PCP Internal Medicine; Visit Provider Internal Medicine Cardiovascular Disease
DX: I50.42 Chronic combined systolic (congestive) and diastolic (congestive) heart failure (principal); I34.0 Nonrheumatic mitral (valve) insufficiency
CPT/HCPCS: 93306

== ENCOUNTER 2022-09-19 09:59 | Emergency (ER) | payer MEDICARE, SELFPAY ==
--- NOTE | ~2022-09-19 | XR_ITS ---
EXAMINATION: XR chest 1V portable DATE: 09/19/2022 10:41 INDICATION: Shortness of breath TECHNIQUE: Portable AP upright view of the chest was obtained. COMPARISON: 07/24/2022 FINDINGS: Increasing opacities in the bilateral lower lung zones. No pneumothorax or definitive pleural effusio n. The cardiomediastinal silhouette is within normal limits for AP technique. There are bridging oste ophytes at multiple levels in the spine, consistent with diffuse idiopathic skeletal hyperostosis (DI SH). IMPRESSION: 1. Opacities in the bilateral lower lung zones which could represent atelectasis, pneumonia, pulmonar y edema or small bilateral posterior layering pleural effusions. Reviewed, dictated and finalized at location B. 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 Opacities in the bilateral lower lung zones which could represent atelectasi s, pneumonia, pulmonary edema or small bilateral posterior layering pleural eff usions.
[2022-09-19 10:00] VITALS: BP 146/70; PULSE 67; RESP 28; TEMP 36.6; O2SAT 97
[2022-09-19 10:10] VITALS: PULSE 67
--- NOTE | 2022-09-19 10:16 | ED.SOB ---
HPI - SOB/Dyspnea General Chief Complaint: Shortness of Breath/Dyspnea Stated Complaint: SOB Time Seen by Provider: 09/19/22 10:08 Source: patient History of Present Illness HPI Narrative: 77-year-old male with a history of diabetes mellitus, hypothyroidism, gout, BPH, CKD, coronary artery disease systolic and diastolic CHF with an EF of 25-30%, mitral regurgitation, PVCs, pulmonary hypertension presents to the ER with -- worsening shortness of breath for the past 1 week. no paroxysmal nocturnal dyspnea. -- increasing leg swelling -- weight gain of 1 lb MD elicited complaint: shortness of breath Pertinent past history: congestive heart failure and diabetes Onset (ago): day(s) ( started 7 days ago) Severity: moderate Exacerbating factors: nothing Relieving factors: nothing Known history of: congestive heart failure and diabetes Treatment prior to arrival: none Related Data Home Medications Medication Instructions Recorded Confirmed allopurinol 100 mg tablet 100 mg PO BID 03/17/20 09/19/22 aspirin 81 mg tablet,delayed 81 mg PO QPM 03/17/20 09/19/22 release (Adult Aspirin Regimen) finasteride 5 mg tablet 5 mg PO QAM 03/17/20 09/19/22 amiodarone 200 mg tablet 200 mg PO BID 02/28/22 09/19/22 atorvastatin 40 mg tablet 40 mg PO DAILY 02/28/22 09/19/22 insulin NPH-regular 70-30 U-100 20 unit subcut BIDWMEAL 07/18/22 09/19/22 insulin 100 unit/mL subcutaneous pen (Novolin 70-30 FlexPen U-100 Insulin) carvedilol 25 mg tablet 25 mg PO DAILY 09/19/22 09/19/22 vericiguat 5 mg tablet (Verquvo) 5 mg PO DAILY 09/19/22 09/19/22 Allergies Allergy/AdvReac Type Severity Reaction Status Date / Time latex Allergy Rash Verified 09/19/22 11:29 oxycodone AdvReac Vomiting Verified 09/12/22 13:25 Review of Systems Review of Systems: All systems reviewed & are unremarkable except as noted in HPI and below Constitutional: Constitutional: Reports as per HPI and Reports no additional constitutional complaints Eyes: Eyes: Reports as per HPI and Reports no additional eye complaints ENT: Reports system reviewed and no additional complaints, except as documented and Reports as per HPI Cardiovascular: Cardiovascular: Reports as per HPI and Reports no additional cardiovascular complaints Respiratory: Respiratory: Reports as per HPI and Reports dyspnea Gastrointestinal: Gastrointestinal: Reports as per HPI and Reports no additional gastrointestinal complaints Genitourinary: Genitourinary: Reports no additional male genitourinary complaints and Reports as per HPI Musculoskeletal: Musculoskeletal: Reports no additional musculoskeletal complaints and Reports as per HPI Integumentary/Breasts: Skin/Breast: Reports system reviewed and no additional complaints, except as docu and Reports as per HPI Neurologic: Reports system reviewed and no additional complaints, except as documented and Reports as per HPI Psychiatric: Psychiatric: Reports no additional psychiatric complaints and Reports as per HPI Endocrine: Endocrine: Reports no additional endocrine complaints and Reports as per HPI Hematologic/Lymphatic: Hematologic/Lymphatic: Reports no additional hematologic/lymphatic complaints and Reports as per HPI Allergic/Immunologic: Allergic/Immunologic: Reports no additional allergic/immunologic complaints and Reports as per HPI [facility] Past Medical History Medical History Abnormal thyroid blood test BPH (benign prostatic hyperplasia) CHF (congestive heart failure) Chronic kidney disease (CKD) stage G3b/A3, moderately decreased glomerular filtration rate (GFR) between 30-44 mL/min/1.73 square meter and albuminuria creatinine ratio greater than 300 mg/g Chronic kidney disease, stage 4 (severe) Congestive heart failure Diabetes mellitus type 2, controlled Essential hypertension Hyperlipidemia Hypothyroid Positive colorectal cancer screening using Cologuard test Type 2 diabetes mellitus
--- NOTE | 2022-09-19 10:31 | ECG_ITS ---
Measurements Intervals [place] Rate: 61 P: 26 KS: 249 QRS: -64 QRSD: 192 T: 101 QT: 498 QTc: 503 Interpretive Statements SINUS RHYTHM WITH FIRST DEGREE AV BLOCK LEFT AXIS DEVIATION RIGHT BUNDLE BRANCH BLOCK LEFT VENTRICULAR HYPERTROPHY AND ST-T CHANGE INFERIOR INFARCT, AGE INDETERMINATE ABNORMAL ECG COMPARED TO ECG 06/24/2022 09:02:48 SINUS RHYTHM NOW PRESENT Electronically Signed On 09-19-2022 10:44:13 PLUGMAN by Jose Antonio Peralta D.O.
[2022-09-19 10:51] LABS: Basophils Absolute Auto 0.05 K/mm3 (0.00-0.10); Basophils Percent Auto 0.7 % (0.0-1.0); Eosinophils Absolute Auto 0.15 K/mm3 (0.02-0.50); Eosinophils Percent Auto 2.1 % (1.0-6.0); Hematocrit 30.6 % (37.0-46.0); Hemoglobin 9.1 g/dL (12.4-15.3); Immature Granulocyte Absolute 0.03 K/mm3 (0.00-0.00); Immature Granulocyte Percent A 0.4 % (0.0-0.0); Lymphocytes Absolute Auto 0.53 K/mm3 (1.10-4.50); Lymphocytes Percent Auto 7.3 % (18.0-42.0); Mean Corpuscular HGB Conc 29.7 g/dL (32.0-36.0); Mean Corpuscular Hemoglobin 22.8 pg (27.0-31.0); Mean Corpuscular Volume 76.5 fL (78.0-102.0); Mean Platelet Volume 10.8 fl (8.7-11.0); Monocytes Absolute Auto 0.71 K/mm3 (0.10-0.90); Monocytes Percent Auto 9.7 % (2.0-11.0); Neutrophils Absolute Auto 5.8 K/mm3 (1.7-7.2); Neutrophils Percent Auto 79.8 % (50.0-70.0); Platelet Count Result 235 K/mm3 (150-420); Red Cell Distribution Width 17.4 % (11.6-14.4); White Blood Count 7.3 K/mm3 (4.8-10.8)
[2022-09-19 11:00] VITALS: BP 132/66; PULSE 62; PULSE 68; RESP 20; O2SAT 97
[2022-09-19 11:05] LABS: INR 1.1
[2022-09-19 11:23] LABS: Alanine Aminotransferase 58 U/L (16-63); Albumin Level 2.9 g/dL (3.4-5.0); Alkaline Phosphatase 103 U/L (46-116); Anion Gap 12 mmol/L (8-16); Aspartate Amino Transferase 33 U/L (15-37); Bilirubin,Total 0.6 mg/dL (0.00-1.00); Blood Urea Nitrogen 48 mg/dL (7-18); Calcium 8.9 mg/dL (8.5-10.1); Carbon Dioxide 25 mmol/L (21-32); Chloride 105 mmol/L (98-108); Estimated Glomerular Filt Rate 17; Glucose 149 mg/dL (70-99); NT Pro B Type Natriuretic Pept 19323 pg/mL (0-450); Osmolality Calculated 309 mOsm/kg (285-295); Potassium 3.1 mmol/L (3.5-5.1); Sodium 142 mmol/L (136-145); Thyroid Stimulating Hormone 0.47 uIU/mL (0.36-3.74); Total Protein 6.4 g/dL (6.4-8.2); Troponin I 32.3 ng/L (0.00-60.4); Uric Acid 6.1 mg/dL (3.5-7.2)
[2022-09-19 11:27] LABS: Influenza A QL RT-PCR Negative (Negative); Influenza B QL RT-PCR Negative (Negative); SARS-CoV-2 RNA PCR Negative (Negative)
[2022-09-19 11:36] LABS: Appearance Urine Clear (Clear); Bilirubin Urine Negative (Negative); Blood Urine Negative (Negative); Glucose Urine UA Negative (Negative); Ketones Urine Negative (Negative); Leukocyte Esterase Ur Negative (Negative); Nitrate Urine Negative (Negative); Protein Urine Trace (Negative); Urobilinogen Urine 0.2 mg/dL (0.2-1.0)
[2022-09-19 11:41] LABS: Add Urine Microscopic? YES; Bacteria Urine None seen /hpf; Color Urine Light Yellow (Yellow); RBC Urine None seen /hpf (0-2); Squamous Epithelial Cell Urine Rare /hpf (Few); WBC Urine None seen /hpf (0-3)
[2022-09-19 11:42] VITALS: BP 148/60; PULSE 60; PULSE 71; RESP 20; TEMP 36.2; O2SAT 98
[2022-09-19] MEDS: POTASSIUM CHLORIDE 20 MEQ TABLET 40 MEQ PO (12:27)
[2022-09-19] MEDS: FUROSEMIDE INJ 20 MG/2 ML VIAL IV PUSH (12:29)
[2022-09-19 12:41] VITALS: BP 131/60; PULSE 74; RESP 18; TEMP 36.5; O2SAT 97
== END 2022-09-19 12:50 | disposition home or self-care (01) ==
PROVIDERS: Emergency Provider Internal Medicine Critical Care Medicine; PCP Internal Medicine
DX: E87.70 Fluid overload, unspecified (principal); I50.9 Heart failure, unspecified; N18.9 Chronic kidney disease, unspecified; Z20.822 Contact with and (suspected) exposure to COVID-19; E11.9 Type 2 diabetes mellitus without complications; I12.9 Hypertensive chronic kidney disease with stage 1 through stage 4 chronic kidney disease, or unspecified chronic kidney disease; E03.9 Hypothyroidism, unspecified; Z87.891 Personal history of nicotine dependence
CPT/HCPCS: 36415; 71045; 80053; 81001; 83735; 83880; 84443; 84484; 84550; 85025; 85610; 87636; 93005; 96374; 99284; A9270; J1940

== ENCOUNTER 2022-09-25 14:15 | Outpatient (CLI) | payer MEDICARE, SELFPAY ==
[2022-09-25 14:28] LABS: Basophils Absolute Auto 0.07 K/mm3 (0.00-0.10); Basophils Percent Auto 0.9 % (0.0-1.0); Eosinophils Absolute Auto 0.17 K/mm3 (0.02-0.50); Eosinophils Percent Auto 2.2 % (1.0-6.0); Hemoglobin 9.7 g/dL (12.4-15.3); Immature Granulocyte Absolute 0.04 K/mm3 (0.00-0.00); Immature Granulocyte Percent A 0.5 % (0.0-0.0); Lymphocytes Absolute Auto 0.81 K/mm3 (1.10-4.50); Lymphocytes Percent Auto 10.3 % (18.0-42.0); Mean Corpuscular HGB Conc 29.4 g/dL (32.0-36.0); Mean Corpuscular Hemoglobin 22.2 pg (27.0-31.0); Mean Corpuscular Volume 75.7 fL (78.0-102.0); Mean Platelet Volume 10.3 fl (8.7-11.0); Monocytes Absolute Auto 0.84 K/mm3 (0.10-0.90); Monocytes Percent Auto 10.7 % (2.0-11.0); Neutrophils Percent Auto 75.4 % (50.0-70.0); Platelet Count Result 246 K/mm3 (150-420); Red Blood Count 4.36 M/mm3 (4.70-6.10); Red Cell Distribution Width 17.6 % (11.6-14.4); White Blood Count 7.9 K/mm3 (4.8-10.8)
[2022-09-25 16:10] LABS: Alanine Aminotransferase 47 U/L (16-63); Albumin Level 3.3 g/dL (3.4-5.0); Alkaline Phosphatase 122 U/L (46-116); Anion Gap 11 mmol/L (8-16); Aspartate Amino Transferase 26 U/L (15-37); Bilirubin,Total 0.5 mg/dL (0.00-1.00); Blood Urea Nitrogen 50 mg/dL (7-18); Calcium 8.8 mg/dL (8.5-10.1); Carbon Dioxide 28 mmol/L (21-32); Chloride 104 mmol/L (98-108); Estimated Glomerular Filt Rate 16; Glucose 215 mg/dL (70-99); Magnesium 2.1 mg/dL (1.8-2.4); Osmolality Calculated 315 mOsm/kg (285-295); Phosphorus 3.9 mg/dL (2.6-4.7); Potassium 4.4 mmol/L (3.5-5.1); Sodium 143 mmol/L (136-145); Total Protein 6.5 g/dL (6.4-8.2)
[2022-09-26 09:21] LABS: Immature Reticulocyte Fraction 35.1 % (2.0-16.52); Reticulocyte Hemoglobin Conten 21.5 pg (28.0-35.0); Reticulocyte Percent 1.64 % (0.50-1.50); Reticulocytes Absolute 0.07 M/mm3 (0.02-0.1)
[2022-09-26 10:20] LABS: Ferritin 25 ng/mL (26-388); Iron 18 ug/dL (65-175); Percent Iron Saturation 4 % (12-57)
== END 2022-09-25 14:16 | disposition home or self-care (01) ==
LOC: CHSLAB 14:18
PROVIDERS: PCP Internal Medicine; Visit Provider Internal Medicine
DX: I50.9 Heart failure, unspecified (principal); D64.9 Anemia, unspecified
CPT/HCPCS: 36415; 80053; 82728; 83540; 83550; 83735; 83880; 84100; 85025; 85046

== ENCOUNTER 2022-09-29 11:03 | Outpatient (CLI) | payer MEDICARE, SELFPAY ==
[2022-09-29 11:18] LABS: Occult Blood Negative (Negative)
[2022-09-29 11:19] LABS: Occult Blood Positive (Negative)
[2022-09-29 11:19] LABS: Occult Blood Negative (Negative)
== END 2022-09-29 11:04 | disposition home or self-care (01) ==
LOC: CHSLAB 11:06
PROVIDERS: PCP Internal Medicine; Visit Provider Internal Medicine
DX: D64.9 Anemia, unspecified (principal)
CPT/HCPCS: 82272

== ENCOUNTER 2022-10-03 08:20 | Outpatient (CLI) | payer MEDICARE, SELFPAY ==
[2022-10-03] MEDS: IRON SUCROSE COMPLEX 500 MG in SODIUM CHLORIDE 0.9% IV 250 ML 62.5 MG IVPB (08:30)
[2022-10-03 08:41] VITALS: BMI 29.9
[2022-10-03 08:44] VITALS: BP 135/67; PULSE 78; RESP 14; TEMP 36.3; O2SAT 96
--- NOTE | 2022-10-03 12:32 | PC.NURSE ---
Patient here for IV Venofer infusion. Education given. All concerns voiced. IV Venofer administered. SEE MAR. Tolerated well. Safe exit of hospital.
== END 2022-10-03 08:21 | disposition home or self-care (01) ==
LOC: CHSTREATRM 08:23
PROVIDERS: PCP Internal Medicine; Visit Provider Internal Medicine
DX: D50.9 Iron deficiency anemia, unspecified (principal)
CPT/HCPCS: 96365; 96366; J1756; J7050

== ENCOUNTER 2022-10-16 07:34 | Outpatient (CLI) | payer MEDICARE, SELFPAY ==
[2022-10-16 08:03] LABS: Hematocrit 33.5 % (37.0-46.0); Hemoglobin 9.8 g/dL (12.4-15.3); Immature Platelet Fraction Pct 2.6 % (1.0-7.0); Mean Corpuscular HGB Conc 29.3 g/dL (32.0-36.0); Mean Corpuscular Hemoglobin 22.1 pg (27.0-31.0); Mean Corpuscular Volume 75.6 fL (78.0-102.0); Mean Platelet Volume 10.8 fl (8.7-11.0); Platelet Count Result 192 K/mm3 (150-420); Red Blood Count 4.43 M/mm3 (4.70-6.10); Red Cell Distribution Width 21.6 % (11.6-14.4); White Blood Count 5.1 K/mm3 (4.8-10.8)
[2022-10-16 08:13] LABS: Creatinine Urine 43.11 mg/dL (40-278); Total Protein Urine Random 15.9 mg/dL (0.0-11.9); Ur Ttl Prot Creatinine Ratio 0.37 mg/mg (0-0.20)
[2022-10-16 08:29] LABS: Band Neutrophils Percent 0 % (0-6); Eosinophils Absolute Manual 0.05 K/mm3 (0.02-0.5); Eosinophils Percent Manual 1 % (1-6); Lymphocytes Absolute Manual 0.61 K/mm3 (1.1-4.5); Lymphocytes Percent Manual 12 % (18-44); Monocytes Absolute Manual 0.56 K/mm3 (0.1-0.90); Monocytes Percent Manual 11 % (3-9); Neutrophils Absolute Manual 3.87 K/mm3 (1.3-6.7); Neutrophils Percent Manual 76 % (46-73); Platelet Estimate Adequate (Adequate); Total Cells Counted 100
[2022-10-16 08:36] LABS: Alanine Aminotransferase 69 U/L (16-63); Albumin Level 3.1 g/dL (3.4-5.0); Alkaline Phosphatase 124 U/L (46-116); Anion Gap 10 mmol/L (8-16); Aspartate Amino Transferase 50 U/L (15-37); Bilirubin,Total 0.6 mg/dL (0.00-1.00); Blood Urea Nitrogen 62 mg/dL (7-18); Calcium 9.1 mg/dL (8.5-10.1); Carbon Dioxide 30 mmol/L (21-32); Chloride 101 mmol/L (98-108); Estimated Glomerular Filt Rate 15; Glucose 100 mg/dL (70-99); NT Pro B Type Natriuretic Pept 29014 pg/mL (0-450); Osmolality Calculated 309 mOsm/kg (285-295); Phosphorus 4.8 mg/dL (2.6-4.7); Potassium 3.2 mmol/L (3.5-5.1); Sodium 141 mmol/L (136-145)
[2022-10-21 15:02] LABS: Parathyroid Intact 96 pg/mL (14-64)
== END 2022-10-16 07:35 | disposition home or self-care (01) ==
PROVIDERS: PCP Internal Medicine; Visit Provider Internal Medicine Nephrology
DX: I50.43 Acute on chronic combined systolic (congestive) and diastolic (congestive) heart failure (principal)
CPT/HCPCS: 36415; 80053; 82570; 83880; 83970; 84100; 84156; 85025; 85055

== ENCOUNTER 2022-11-02 08:16 | Outpatient (CLI) | payer MEDICARE, SELFPAY ==
[2022-11-02 08:25] VITALS: BMI 29.9
[2022-11-02 08:34] VITALS: BP 154/63; PULSE 64; RESP 14; TEMP 36.4; O2SAT 97
[2022-11-02] MEDS: ACETAMINOPHEN 325 MG TABLET 650 MG PO (08:44)
[2022-11-02] MEDS: diphenhydrAMINE HCl INJ 50 MG/ML VIAL 25 MG IV PUSH (08:44)
--- NOTE | 2022-11-02 09:27 | PC.NURSE ---
Patient here for IV Iron infusion. Education given. All Concerns answered. Pre meds and IV Iron infusion administered see MAR. Tolerated well. Safe exit of hospital with .
[2022-11-03 06:12] LABS: Occult Blood Positive (Negative)
== END 2022-11-02 08:17 | disposition home or self-care (01) ==
PROVIDERS: PCP Internal Medicine; Visit Provider Internal Medicine Cardiovascular Disease
DX: D50.9 Iron deficiency anemia, unspecified (principal)
CPT/HCPCS: 82272; 96365; 96375; A9270; J1200; J1439; J7050

== ENCOUNTER 2022-11-08 10:01 | Outpatient (CLI) | payer MEDICARE, SELFPAY ==
[2022-11-08 10:28] LABS: Creatinine Urine 102.25 mg/dL (40-278); Total Protein Urine Random 28.9 mg/dL (0.0-11.9); Ur Ttl Prot Creatinine Ratio 0.28 mg/mg (0-0.20)
[2022-11-08 10:42] LABS: Albumin Level 3.3 g/dL (3.4-5.0); Anion Gap 6 mmol/L (8-16); Blood Urea Nitrogen 97 mg/dL (7-18); Calcium 9.2 mg/dL (8.5-10.1); Carbon Dioxide 35 mmol/L (21-32); Chloride 95 mmol/L (98-108); Estimated Glomerular Filt Rate 14; Glucose 181 mg/dL (70-99); Osmolality Calculated 317 mOsm/kg (285-295); Phosphorus 4.1 mg/dL (2.6-4.7); Sodium 136 mmol/L (136-145)
[2022-11-08 11:09] LABS: Basophils Absolute Auto 0.06 K/mm3 (0.00-0.10); Basophils Percent Auto 0.7 % (0.0-1.0); Eosinophils Absolute Auto 0.18 K/mm3 (0.02-0.50); Eosinophils Percent Auto 2.2 % (1.0-6.0); Hematocrit 39.6 % (37.0-46.0); Hemoglobin 12.2 g/dL (12.4-15.3); Immature Granulocyte Percent A 1.2 % (0.0-0.0); Immature Platelet Fraction Pct 2.9 % (1.0-7.0); Lymphocytes Absolute Auto 0.85 K/mm3 (1.10-4.50); Lymphocytes Percent Auto 10.2 % (18.0-42.0); Mean Corpuscular HGB Conc 30.8 g/dL (32.0-36.0); Mean Corpuscular Hemoglobin 23.2 pg (27.0-31.0); Mean Corpuscular Volume 75.4 fL (78.0-102.0); Monocytes Absolute Auto 0.91 K/mm3 (0.10-0.90); Neutrophils Absolute Auto 6.2 K/mm3 (1.7-7.2); Neutrophils Percent Auto 74.7 % (50.0-70.0); Platelet Count Result 237 K/mm3 (150-420); Red Blood Count 5.25 M/mm3 (4.70-6.10); Red Cell Distribution Width 23.5 % (11.6-14.4); White Blood Count 8.3 K/mm3 (4.8-10.8)
[2022-11-08 13:36] LABS: Potassium 2.3 mmol/L (3.5-5.1)
[2022-11-08 16:16] LABS: Alanine Aminotransferase 424 U/L (16-63); Alkaline Phosphatase 163 U/L (46-116); Aspartate Amino Transferase 201 U/L (15-37); Bilirubin Direct 0.6 mg/dL (0-0.2); Total Protein 6.4 g/dL (6.4-8.2)
[2022-11-10 20:19] LABS: Parathyroid Intact 110 pg/mL (14-64)
== END 2022-11-08 10:02 | disposition home or self-care (01) ==
PROVIDERS: PCP Internal Medicine; Visit Provider Internal Medicine Nephrology
DX: N18.4 Chronic kidney disease, stage 4 (severe) (principal)
CPT/HCPCS: 36415; 80069; 80076; 82570; 83970; 84156; 85025; 85055

== ENCOUNTER 2022-11-10 09:24 | Outpatient (CLI) | payer MEDICARE, SELFPAY ==
[2022-11-10 10:14] LABS: Alanine Aminotransferase 292 U/L (16-63); Albumin Level 3.1 g/dL (3.4-5.0); Alkaline Phosphatase 151 U/L (46-116); Anion Gap 7 mmol/L (8-16); Aspartate Amino Transferase 119 U/L (15-37); Bilirubin,Total 0.8 mg/dL (0.00-1.00); Blood Urea Nitrogen 88 mg/dL (7-18); Carbon Dioxide 34 mmol/L (21-32); Chloride 94 mmol/L (98-108); Estimated Glomerular Filt Rate 15; Glucose 230 mg/dL (70-99); Magnesium 2.3 mg/dL (1.8-2.4); NT Pro B Type Natriuretic Pept 9950 pg/mL (0-450); Osmolality Calculated 313 mOsm/kg (285-295); Phosphorus 3.7 mg/dL (2.6-4.7); Potassium 2.8 mmol/L (3.5-5.1); Sodium 135 mmol/L (136-145); Total Protein 6.1 g/dL (6.4-8.2)
== END 2022-11-10 09:25 | disposition home or self-care (01) ==
LOC: CHSLAB 09:27
PROVIDERS: PCP Internal Medicine; Visit Provider Internal Medicine
DX: I50.9 Heart failure, unspecified (principal); N18.30 Chronic kidney disease, stage 3 unspecified; D64.9 Anemia, unspecified
CPT/HCPCS: 36415; 80053; 83735; 83880; 84100

== ENCOUNTER 2022-11-14 07:14 | Outpatient (CLI) | payer MEDICARE, SELFPAY ==
--- NOTE | ~2022-11-14 | US_ITS ---
EXAMINATION: US right upper quadrant DATE: 11/14/2022 07:45 INDICATION: Abnormal liver function tests. TECHNIQUE: Multiple grayscale and Doppler ultrasound images of the abdomen were obtained. COMPARISON: CT abdomen and pelvis 10/28/2015 FINDINGS: The pancreas is obscured by bowel gas. The liver is normal without focal lesion. There is n ormal flow in main portal vein. The gallbladder is normal in size and contains gallstones. No gallbla dder wall thickening or sonographic Mcclure sign. The common duct is normal and measures 6 mm. There i s a 2.1 cm cyst in right kidney. IMPRESSION: 1. Cholelithiasis. No evidence of acute cholecystitis. 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
[2022-11-14 07:33] LABS: Basophils Absolute Auto 0.04 K/mm3 (0.00-0.10); Basophils Percent Auto 0.5 % (0.0-1.0); Eosinophils Absolute Auto 0.15 K/mm3 (0.02-0.50); Eosinophils Percent Auto 1.9 % (1.0-6.0); Hematocrit 37.7 % (37.0-46.0); Hemoglobin 11.7 g/dL (12.4-15.3); Immature Granulocyte Absolute 0.09 K/mm3 (0.00-0.00); Immature Granulocyte Percent A 1.1 % (0.0-0.0); Immature Platelet Fraction Pct 2.6 % (1.0-7.0); Lymphocytes Absolute Auto 0.91 K/mm3 (1.10-4.50); Lymphocytes Percent Auto 11.3 % (18.0-42.0); Mean Corpuscular Hemoglobin 24.2 pg (27.0-31.0); Mean Corpuscular Volume 78.1 fL (78.0-102.0); Mean Platelet Volume 11.5 fl (8.7-11.0); Monocytes Absolute Auto 1.01 K/mm3 (0.10-0.90); Monocytes Percent Auto 12.6 % (2.0-11.0); Neutrophils Absolute Auto 5.8 K/mm3 (1.7-7.2); Neutrophils Percent Auto 72.6 % (50.0-70.0); Platelet Count Result 203 K/mm3 (150-420); Red Blood Count 4.83 M/mm3 (4.70-6.10); Red Cell Distribution Width 25.4 % (11.6-14.4)
[2022-11-14 08:32] LABS: Alanine Aminotransferase 132 U/L (16-63); Albumin Level 3.1 g/dL (3.4-5.0); Alkaline Phosphatase 139 U/L (46-116); Anion Gap 9 mmol/L (8-16); Aspartate Amino Transferase 50 U/L (15-37); Bilirubin,Total 0.8 mg/dL (0.00-1.00); Blood Urea Nitrogen 66 mg/dL (7-18); Calcium 8.9 mg/dL (8.5-10.1); Carbon Dioxide 31 mmol/L (21-32); Chloride 98 mmol/L (98-108); Estimated Glomerular Filt Rate 20; Glucose 131 mg/dL (70-99); NT Pro B Type Natriuretic Pept 14397 pg/mL (0-450); Osmolality Calculated 307 mOsm/kg (285-295); Sodium 138 mmol/L (136-145); Total Protein 6.1 g/dL (6.4-8.2)
== END 2022-11-14 07:15 | disposition home or self-care (01) ==
LOC: CHSIMG 07:16
PROVIDERS: PCP Internal Medicine; Visit Provider Internal Medicine
DX: R79.89 Other specified abnormal findings of blood chemistry (principal); I50.9 Heart failure, unspecified; N18.30 Chronic kidney disease, stage 3 unspecified; D64.9 Anemia, unspecified; K80.20 Calculus of gallbladder without cholecystitis without obstruction
CPT/HCPCS: 36415; 76705; 80053; 83735; 83880; 85025; 85055

== ENCOUNTER 2022-11-20 07:48 | Outpatient (CLI) | payer MEDICARE, SELFPAY ==
[2022-11-20 08:45] LABS: SARS-CoV-2 RNA PCR Negative (Negative)
[2022-11-20 08:54] LABS: Albumin Level 2.7 g/dL (3.4-5.0); Anion Gap 12 mmol/L (8-16); Blood Urea Nitrogen 44 mg/dL (7-18); Calcium 8.7 mg/dL (8.5-10.1); Carbon Dioxide 27 mmol/L (21-32); Chloride 101 mmol/L (98-108); Estimated Glomerular Filt Rate 22; Glucose 105 mg/dL (70-99); Osmolality Calculated 301 mOsm/kg (285-295); Phosphorus 3.9 mg/dL (2.6-4.7); Potassium 3.6 mmol/L (3.5-5.1); Sodium 140 mmol/L (136-145)
[2022-11-20 16:25] LABS: Alanine Aminotransferase 56 U/L (16-63); Alkaline Phosphatase 97 U/L (46-116); Aspartate Amino Transferase 23 U/L (15-37); Bilirubin Direct 0.3 mg/dL (0-0.2); Bilirubin,Total 0.6 mg/dL (0.00-1.00); Total Protein 5.8 g/dL (6.4-8.2)
== END 2022-11-20 07:49 | disposition home or self-care (01) ==
PROVIDERS: Internal Medicine Cardiovascular Disease; PCP Internal Medicine; Visit Provider Internal Medicine Nephrology
DX: N18.4 Chronic kidney disease, stage 4 (severe) (principal); Z01.812 Encounter for preprocedural laboratory examination; Z20.822 Contact with and (suspected) exposure to COVID-19
CPT/HCPCS: 36415; 80069; 80076; U0003; U0005

== ENCOUNTER 2022-11-27 15:49 | Outpatient (CLI) | payer MEDICARE, SELFPAY ==
[2022-11-27 16:04] LABS: Basophils Absolute Auto 0.06 K/mm3 (0.00-0.10); Eosinophils Absolute Auto 0.15 K/mm3 (0.02-0.50); Eosinophils Percent Auto 2.5 % (1.0-6.0); Hematocrit 37.6 % (37.0-46.0); Hemoglobin 11.4 g/dL (12.4-15.3); Immature Granulocyte Absolute 0.04 K/mm3 (0.00-0.00); Immature Granulocyte Percent A 0.7 % (0.0-0.0); Lymphocytes Percent Auto 11.4 % (18.0-42.0); Mean Corpuscular HGB Conc 30.3 g/dL (32.0-36.0); Mean Corpuscular Hemoglobin 25.1 pg (27.0-31.0); Mean Corpuscular Volume 82.8 fL (78.0-102.0); Mean Platelet Volume 10.2 fl (8.7-11.0); Monocytes Absolute Auto 0.62 K/mm3 (0.10-0.90); Monocytes Percent Auto 10.1 % (2.0-11.0); Neutrophils Absolute Auto 4.6 K/mm3 (1.7-7.2); Neutrophils Percent Auto 74.3 % (50.0-70.0); Platelet Count Result 221 K/mm3 (150-420); Red Blood Count 4.54 M/mm3 (4.70-6.10); Red Cell Distribution Width 28.4 % (11.6-14.4); White Blood Count 6.1 K/mm3 (4.8-10.8)
[2022-11-27 16:51] LABS: Alanine Aminotransferase 28 U/L (16-63); Albumin Level 2.9 g/dL (3.4-5.0); Alkaline Phosphatase 103 U/L (46-116); Anion Gap 10 mmol/L (8-16); Aspartate Amino Transferase 18 U/L (15-37); Bilirubin,Total 0.4 mg/dL (0.00-1.00); Blood Urea Nitrogen 34 mg/dL (7-18); Calcium 8.5 mg/dL (8.5-10.1); Carbon Dioxide 26 mmol/L (21-32); Chloride 106 mmol/L (98-108); Estimated Glomerular Filt Rate 21; Glucose 158 mg/dL (70-99); Magnesium 1.9 mg/dL (1.8-2.4); NT Pro B Type Natriuretic Pept > 35000 pg/mL (0-450); Osmolality Calculated 304 mOsm/kg (285-295); Potassium 4.1 mmol/L (3.5-5.1); Prostate Specific Antigen 3.1 ng/mL (< OR = 4.0); Sodium 142 mmol/L (136-145); Total Protein 5.9 g/dL (6.4-8.2)
== END 2022-11-27 15:50 | disposition home or self-care (01) ==
LOC: CHSLAB 15:51
PROVIDERS: Internal Medicine; PCP Internal Medicine; Visit Provider Internal Medicine
DX: N39.0 Urinary tract infection, site not specified (principal); I50.9 Heart failure, unspecified; N18.4 Chronic kidney disease, stage 4 (severe); N40.1 Benign prostatic hyperplasia with lower urinary tract symptoms
CPT/HCPCS: 36415; 80053; 83735; 83880; 84153; 85025

== ENCOUNTER 2022-12-04 02:34 | Day surgery (SDC) | payer MEDICARE, SELFPAY ==
[2022-11-21 10:18] VITALS: BMI 28.5
--- NOTE | 2022-12-01 15:18 | PM.HPGS ---
History of Present Illness History of Present Illness Consent: Risks, benefits, and alternatives have been discussed and questions answered. Patient agrees to proceed with procedure. Chief complaint: NEHA Narrative: Mert Corral is a 77 year old male Referred for investigation of iron deficiency anemia. Because iron level was down to 18, he has recently received 2 iron infusions. He denies indigestion nausea or vomiting or other gastrointestinal symptoms at this time Review of Systems Review of Systems: All systems reviewed & are unremarkable except as noted in HPI and below PMFSH Past Medical History Medical History Abnormal thyroid blood test BPH (benign prostatic hyperplasia) CHF (congestive heart failure) Chronic kidney disease (CKD) stage G3b/A3, moderately decreased glomerular filtration rate (GFR) between 30-44 mL/min/1.73 square meter and albuminuria creatinine ratio greater than 300 mg/g Chronic kidney disease, stage 4 (severe) Congestive heart failure Diabetes mellitus type 2, controlled Essential hypertension Hyperlipidemia Hypothyroid Positive colorectal cancer screening using Cologuard test Type 2 diabetes mellitus Surgical History Surgical History History of cataract extraction History of foot surgery left spur Family History Family History Father Family history of diabetes mellitus in first degree relative Family history of heart disease in male family member before age 55 Sibling Family history of diabetes mellitus in first degree relative Mother Cancer Sibling No problems noted. Social History Social History Social History: The patient lives with his Joselin who is the durable power patent attorney for healthcare. The patient has 3 children. The patient is retired from [employer]. The patient is a former smoker. He drinks 2-3 beers a day but does not drink every day. He does not use any marijuana or illicit drugs. 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s: No Meds Home Medications and Allergies Home Medications Medication Instructions Recorded Confirmed Type allopurinol 100 mg tablet 100 mg PO BID 03/17/20 11/21/22 History aspirin 81 mg tablet,delayed 81 mg PO QPM 03/17/20 11/21/22 History release (Adult Aspirin Regimen) finasteride 5 mg tablet 5 mg PO QAM 03/17/20 11/21/22 History lancets 28 gauge (TRUEplus Lancets) #200 ea 07/25/21 11/02/22 Rx cholecalciferol (vitamin D3) 125 125 mcg PO DAILY #90 caps 02/28/22 11/21/22 Rx mcg (5,000 unit) capsule insulin NPH-regular 70-30 U-100 20 unit subcut BIDWMEAL 07/18/22 11/21/22 History insulin 100 unit/mL subcutaneous pen (Novolin 70-30 FlexPen U-100 Insulin) levothyroxine 150 mcg tablet 150 mcg PO DAILY 90 days #90 tabs 08/31/22 11/21/22 Rx (Synthroid) pen needle, diabetic 32 gauge x #200 ea 09/04/22 11/02/22 Rx 5/32 (Pen Needle) vericiguat 5 mg tablet (Verquvo) 10 mg PO DAILY 09/19/22 11/21/22 History blood sugar diagnostic (True #200 ea 11/02/22 Rx Metrix Glucose Test Strip) carvedilol 6.25 mg tablet 6.25 mg PO BID 11/21/22 11/21/22 History doc
[2022-12-04 09:08] VITALS: BP 167/70; PULSE 66; RESP 18; TEMP 36.2; O2SAT 99; BMI 29.1
[2022-12-04] MEDS: LACTATED RINGERS 1,000 ML 150 ML IV CONT (09:20)
[2022-12-04 09:26] LABS: Glucose Point of Care 120 mg/dl (65-105)
--- NOTE | 2022-12-04 10:01 | WPDANESEPPF ---
Anes - Initial Pre Proc Eval Procedure: Operation Date: 12/04/22 10:30 Proposed Procedures p Esophagogastroduodenoscopy - Brandon Edge MD Date/Time: 12/04/22 10:01 Surgeon: Brandon Edge MD Pre Op Diagnosis: NEHA Patient Data Age: 77 Gender: M Height: 1.8 m Weight: 94.7 kg Last Vital Signs Temp 97.1 F L 12/04/22 09:08 Pulse 66 12/04/22 09:08 Resp 18 12/04/22 09:08 BP 167/70 H 12/04/22 09:08 Pulse Ox 99 12/04/22 09:08 O2 Del Method Room Air 12/04/22 09:08 Allergies Allergy/AdvReac Type Severity Reaction Status Date / Time latex Allergy Rash Verified 11/21/22 10:19 oxycodone AdvReac Vomiting Verified 11/21/22 10:19 Home Medications Medication Instructions Recorded Confirmed Type allopurinol 100 mg tablet 100 mg PO BID 03/17/20 11/21/22 History aspirin 81 mg tablet,delayed 81 mg PO QPM 03/17/20 11/21/22 History release (Adult Aspirin Regimen) finasteride 5 mg tablet 5 mg PO QAM 03/17/20 11/21/22 History lancets 28 gauge (TRUEplus Lancets) #200 ea 07/25/21 11/02/22 Rx cholecalciferol (vitamin D3) 125 125 mcg PO DAILY #90 caps 02/28/22 11/21/22 Rx mcg (5,000 unit) capsule insulin NPH-regular 70-30 U-100 20 unit subcut BIDWMEAL 07/18/22 11/21/22 History insulin 100 unit/mL subcutaneous pen (Novolin 70-30 FlexPen U-100 Insulin) levothyroxine 150 mcg tablet 150 mcg PO DAILY 90 days #90 tabs 08/31/22 11/21/22 Rx (Synthroid) pen needle, diabetic 32 gauge x #200 ea 09/04/22 11/02/22 Rx 5/32 (Pen Needle) vericiguat 5 mg tablet (Verquvo) 10 mg PO DAILY 09/19/22 11/21/22 History blood sugar diagnostic (True #200 ea 11/02/22 Rx Metrix Glucose Test Strip) carvedilol 6.25 mg tablet 6.25 mg PO BID 11/21/22 11/21/22 History docusate sodium 100 mg capsule 100 mg PO BID 11/21/22 11/21/22 History furosemide 40 mg tablet 40 mg PO DAILY 11/21/22 11/21/22 History isosorbide 20 mg-hydralazine 37.5 1 tablet PO TID 11/21/22 11/21/22 History mg tablet potassium chloride 10 mEq 10 meq PO BID 11/21/22 11/21/22 History tablet,extended release ciprofloxacin HCl 250 mg tablet 250 mg PO BID 12/04/22 12/04/22 History Laboratory Tests 12/04/22 09:19 POC Capillary Glucose 120 mg/dl H mg/dl (65-105) Patient hx anesthesia problems: none Family hx anesthesia problems: none Results Review: All pre-operative results and documents have been reviewed as part of the pre-operative evaluation. [facility] Past Medical History Medical History Abnormal thyroid blood test BPH (benign prostatic hyperplasia) CHF (congestive heart failure) Chronic kidney disease (CKD) stage G3b/A3, moderately decreased glomerular filtration rate (GFR) between 30-44 mL/min/1.73 square meter and albuminuria creatinine ratio greater than 300 mg/g Chronic kidney disease, stage 4 (severe) Congestive heart failure Diabetes mellitus type 2, controlled Essential hypertension Hyperlipidemia Hypothyroid Positive colorectal cancer screening using Cologuard test Type 2 diabetes mellitus Surgical History Surgical History History of cataract extraction History of foot surgery left spur Family History Family History Father Family history of diabetes mellitus in first degree relative Family history of heart disease in male family member before age 55 Sibling Family history of diabetes mellitus in first degree relative Mother Cancer Sibling No problems noted. Social History Social History Social History: The patient lives with his Joselin who is the durable power ip attorney for healthcare. The patient has 3 children. The patient is retired from [employer]. The patient is a former smoker. He drinks 2-3 beers a day but does not drink every day. He does
[2022-12-04] MEDS: BENZOCAINE (*SP) 60 ML SPRAY CAN (HURRICAINE) 1 SPRAY MUCOUS MEM (10:26)
[2022-12-04 10:39] VITALS: BP 149/85; PULSE 58; RESP 20; O2SAT 96
[2022-12-04 10:49] VITALS: BP 152/77; PULSE 59; RESP 23; O2SAT 96
[2022-12-04 10:59] VITALS: BP 152/68; PULSE 61; RESP 17; O2SAT 97
[2022-12-04 11:00] LABS: Glucose Point of Care 111 mg/dl (65-105)
== END 2022-12-04 11:12 | disposition home or self-care (01) ==
PROVIDERS: PCP Internal Medicine; Visit Provider Internal Medicine Gastroenterology
PROC: 0DJ08ZZ Inspection of Upper Intestinal Tract, Via Natural or Artificial Opening Endoscopic (ICD-10-PCS; CPT 43235; principal; 2022-12-04 10:30)
DX: D50.9 Iron deficiency anemia, unspecified (principal); K22.2 Esophageal obstruction; K29.70 Gastritis, unspecified, without bleeding; I13.0 Hypertensive heart and chronic kidney disease with heart failure and stage 1 through stage 4 chronic kidney disease, or unspecified chronic kidney disease; I50.9 Heart failure, unspecified; E11.22 Type 2 diabetes mellitus with diabetic chronic kidney disease; N18.4 Chronic kidney disease, stage 4 (severe); E78.5 Hyperlipidemia, unspecified; E03.9 Hypothyroidism, unspecified; N40.0 Benign prostatic hyperplasia without lower urinary tract symptoms; Z87.891 Personal history of nicotine dependence; E66.9 Obesity, unspecified; Z68.29 Body mass index [BMI] 29.0-29.9, adult; Z79.82 Long term (current) use of aspirin; Z79.4 Long term (current) use of insulin
CPT/HCPCS: 43239; 82948; 87081; 88305; J2704; J7120

== ENCOUNTER 2023-01-03 18:01 | Outpatient (CLI) | payer MEDICARE, SELFPAY ==
[2023-01-03 18:13] LABS: Basophils Absolute Auto 0.07 K/mm3 (0.00-0.10); Eosinophils Percent Auto 2.9 % (1.0-6.0); Hematocrit 39.4 % (37.0-46.0); Hemoglobin 12.3 g/dL (12.4-15.3); Immature Granulocyte Absolute 0.05 K/mm3 (0.00-0.00); Immature Granulocyte Percent A 0.7 % (0.0-0.0); Lymphocytes Absolute Auto 0.82 K/mm3 (1.10-4.50); Lymphocytes Percent Auto 11.9 % (18.0-42.0); Mean Corpuscular HGB Conc 31.2 g/dL (32.0-36.0); Mean Corpuscular Hemoglobin 26.6 pg (27.0-31.0); Mean Corpuscular Volume 85.1 fL (78.0-102.0); Mean Platelet Volume 10.7 fl (8.7-11.0); Monocytes Absolute Auto 0.62 K/mm3 (0.10-0.90); Neutrophils Absolute Auto 5.1 K/mm3 (1.7-7.2); Neutrophils Percent Auto 74.5 % (50.0-70.0); Platelet Count Result 202 K/mm3 (150-420); Red Blood Count 4.63 M/mm3 (4.70-6.10); Red Cell Distribution Width 21.8 % (11.6-14.4); White Blood Count 6.9 K/mm3 (4.8-10.8)
[2023-01-03 18:52] LABS: Alanine Aminotransferase 19 U/L (16-63); Albumin Level 3.1 g/dL (3.4-5.0); Alkaline Phosphatase 120 U/L (46-116); Anion Gap 9 mmol/L (8-16); Aspartate Amino Transferase 15 U/L (15-37); Bilirubin,Total 0.6 mg/dL (0.00-1.00); Blood Urea Nitrogen 45 mg/dL (7-18); Carbon Dioxide 29 mmol/L (21-32); Chloride 104 mmol/L (98-108); Estimated Glomerular Filt Rate 20; Glucose 201 mg/dL (70-99); Magnesium 1.9 mg/dL (1.8-2.4); NT Pro B Type Natriuretic Pept > 35000 pg/mL (0-450); Osmolality Calculated 311 mOsm/kg (285-295); Phosphorus 3.4 mg/dL (2.6-4.7); Potassium 3.8 mmol/L (3.5-5.1); Sodium 142 mmol/L (136-145); Thyroid Stimulating Hormone 0.85 uIU/mL (0.36-3.74); Total Protein 6.2 g/dL (6.4-8.2)
== END 2023-01-03 18:02 | disposition home or self-care (01) ==
LOC: CHSLAB 18:04
PROVIDERS: PCP Internal Medicine; Visit Provider Internal Medicine Endocrinology, Diabetes & Metabolism
DX: I50.9 Heart failure, unspecified (principal); E11.9 Type 2 diabetes mellitus without complications
CPT/HCPCS: 36415; 80053; 83735; 83880; 84100; 84439; 84443; 85025

== ENCOUNTER 2023-01-08 07:24 | Outpatient (CLI) | payer MEDICARE, SELFPAY ==
[2023-01-08 07:54] LABS: Basophils Absolute Auto 0.07 K/mm3 (0.00-0.10); Basophils Percent Auto 1.1 % (0.0-1.0); Eosinophils Absolute Auto 0.21 K/mm3 (0.02-0.50); Eosinophils Percent Auto 3.4 % (1.0-6.0); Hematocrit 38.1 % (37.0-46.0); Hemoglobin 12.1 g/dL (12.4-15.3); Immature Granulocyte Absolute 0.03 K/mm3 (0.00-0.00); Immature Granulocyte Percent A 0.5 % (0.0-0.0); Immature Platelet Fraction Pct 3.5 % (1.0-7.0); Lymphocytes Absolute Auto 0.91 K/mm3 (1.10-4.50); Lymphocytes Percent Auto 14.8 % (18.0-42.0); Mean Corpuscular HGB Conc 31.8 g/dL (32.0-36.0); Mean Platelet Volume 11.3 fl (8.7-11.0); Monocytes Absolute Auto 0.71 K/mm3 (0.10-0.90); Monocytes Percent Auto 11.5 % (2.0-11.0); Neutrophils Absolute Auto 4.2 K/mm3 (1.7-7.2); Neutrophils Percent Auto 68.7 % (50.0-70.0); Platelet Count Result 173 K/mm3 (150-420); Red Blood Count 4.48 M/mm3 (4.70-6.10); Red Cell Distribution Width 21.2 % (11.6-14.4); White Blood Count 6.2 K/mm3 (4.8-10.8)
[2023-01-08 08:39] LABS: Alanine Aminotransferase 8 U/L (16-63); Alkaline Phosphatase 111 U/L (46-116); Anion Gap 9 mmol/L (8-16); Aspartate Amino Transferase 21 U/L (15-37); Bilirubin,Total 0.7 mg/dL (0.00-1.00); Blood Urea Nitrogen 46 mg/dL (7-18); Carbon Dioxide 29 mmol/L (21-32); Chloride 103 mmol/L (98-108); Estimated Glomerular Filt Rate 19; Glucose 137 mg/dL (70-99); Osmolality Calculated 305 mOsm/kg (285-295); Phosphorus 3.8 mg/dL (2.6-4.7); Potassium 3.6 mmol/L (3.5-5.1); Sodium 141 mmol/L (136-145)
[2023-01-08 09:04] LABS: Creatinine Urine 89.26 mg/dL (40-278); Total Protein Urine Random 189.2 mg/dL (0.0-11.9); Ur Ttl Prot Creatinine Ratio 2.12 mg/mg (0-0.20)
[2023-01-12 13:56] LABS: Parathyroid Intact 144 pg/mL (14-64)
== END 2023-01-08 07:25 | disposition home or self-care (01) ==
PROVIDERS: PCP Internal Medicine; Visit Provider Internal Medicine Nephrology
DX: N18.4 Chronic kidney disease, stage 4 (severe) (principal); I10 Essential (primary) hypertension; D64.9 Anemia, unspecified; I50.9 Heart failure, unspecified
CPT/HCPCS: 36415; 80053; 82570; 83880; 83970; 84100; 84156; 85025; 85055

== ENCOUNTER 2023-01-16 08:25 | Outpatient (CLI) | payer MEDICARE, SELFPAY ==
[2023-01-16 09:25] LABS: Anion Gap 10 mmol/L (8-16); Blood Urea Nitrogen 52 mg/dL (7-18); Carbon Dioxide 33 mmol/L (21-32); Chloride 101 mmol/L (98-108); Estimated Glomerular Filt Rate 17; Glucose 105 mg/dL (70-99); NT Pro B Type Natriuretic Pept > 35000 pg/mL (0-450); Osmolality Calculated 312 mOsm/kg (285-295); Potassium 3.6 mmol/L (3.5-5.1); Sodium 144 mmol/L (136-145)
[2023-01-16 10:57] LABS: Calcium 9.3 mg/dL (8.5-10.1)
== END 2023-01-16 08:26 | disposition home or self-care (01) ==
LOC: CHSLAB 08:28
PROVIDERS: PCP Internal Medicine; Visit Provider Nurse Practitioner Adult Health
DX: I50.23 Acute on chronic systolic (congestive) heart failure (principal)
CPT/HCPCS: 36415; 80048; 83880

== ENCOUNTER 2023-03-20 07:25 | Outpatient (CLI) | payer MEDICARE, SELFPAY ==
[2023-03-20 08:30] LABS: Anion Gap 11 mmol/L (8-16); Blood Urea Nitrogen 58 mg/dL (7-18); Calcium 9.1 mg/dL (8.5-10.1); Carbon Dioxide 27 mmol/L (21-32); Chloride 101 mmol/L (98-108); Estimated Glomerular Filt Rate 16; Glucose 160 mg/dL (70-99); Osmolality Calculated 307 mOsm/kg (285-295); Potassium 4.1 mmol/L (3.5-5.1); Sodium 139 mmol/L (136-145)
== END 2023-03-20 07:26 | disposition home or self-care (01) ==
LOC: CHSLAB 07:29
PROVIDERS: PCP Internal Medicine; Visit Provider Internal Medicine
DX: I42.9 Cardiomyopathy, unspecified (principal)
CPT/HCPCS: 36415; 80048

== ENCOUNTER 2023-04-03 09:06 | Outpatient (CLI) | payer MEDICARE, SELFPAY ==
[2023-04-03 09:24] LABS: Hematocrit 36.7 % (37.0-46.0); Hemoglobin 11.4 g/dL (12.4-15.3); Mean Corpuscular HGB Conc 31.1 g/dL (32.0-36.0); Mean Corpuscular Hemoglobin 25.9 pg (27.0-31.0); Mean Corpuscular Volume 83.2 fL (78.0-102.0); Mean Platelet Volume 10.5 fl (8.7-11.0); Platelet Count Result 153 K/mm3 (150-420); Red Blood Count 4.41 M/mm3 (4.70-6.10); Red Cell Distribution Width 19.2 % (11.6-14.4)
[2023-04-03 10:06] LABS: Albumin Level 3.2 g/dL (3.4-5.0); Anion Gap 12 mmol/L (8-16); Blood Urea Nitrogen 62 mg/dL (7-18); Calcium 8.9 mg/dL (8.5-10.1); Carbon Dioxide 25 mmol/L (21-32); Chloride 104 mmol/L (98-108); Estimated Glomerular Filt Rate 19; Glucose 200 mg/dL (70-99); Osmolality Calculated 315 mOsm/kg (285-295); Potassium 3.6 mmol/L (3.5-5.1); Sodium 141 mmol/L (136-145)
[2023-04-03 10:42] LABS: Free T4 Free Thyroxine 1.88 ng/dL (0.76-1.46); Thyroid Stimulating Hormone 0.74 uIU/mL (0.36-3.74); Vitamin B12 417 pg/mL (193-986)
[2023-04-03 11:16] LABS: Creatinine Urine 58.82 mg/dL (40-278); Total Protein Urine Random 78.6 mg/dL (0.0-11.9); Ur Ttl Prot Creatinine Ratio 1.34 mg/mg (0-0.20)
[2023-04-07 21:38] LABS: Parathyroid Intact 141 pg/mL (14-64)
[2023-04-08 05:19] LABS: Vitamin D 25 Hydroxy 97 ng/mL (30-100)
== END 2023-04-03 09:07 | disposition home or self-care (01) ==
PROVIDERS: Nurse Practitioner Family; PCP Internal Medicine; Visit Provider Internal Medicine Nephrology
DX: E55.9 Vitamin D deficiency, unspecified (principal); E11.9 Type 2 diabetes mellitus without complications; N18.4 Chronic kidney disease, stage 4 (severe); I10 Essential (primary) hypertension
CPT/HCPCS: 36415; 80069; 82306; 82570; 82607; 83970; 84156; 84439; 84443; 85027

== ENCOUNTER 2023-05-28 08:54 | Outpatient (CLI) | payer MEDICARE, SELFPAY ==
[2023-05-28 09:51] LABS: Prostate Specific Antigen 1.9 ng/mL (< OR = 4.0)
== END 2023-05-28 08:55 | disposition home or self-care (01) ==
LOC: CHSLAB 08:56
PROVIDERS: PCP Internal Medicine; Visit Provider Urology
DX: C61 Malignant neoplasm of prostate (principal)
CPT/HCPCS: 36415; 84153

== ENCOUNTER 2023-08-14 08:48 | Outpatient (CLI) | payer MEDICARE, SELFPAY ==
[2023-08-14 09:12] LABS: Hemoglobin 12.8 g/dL (12.4-15.3); Mean Corpuscular HGB Conc 30.5 g/dL (32.0-36.0); Mean Corpuscular Hemoglobin 26.8 pg (27.0-31.0); Mean Corpuscular Volume 88.1 fL (78.0-102.0); Mean Platelet Volume 11.4 fl (8.7-11.0); Platelet Count Result 173 K/mm3 (150-420); Red Blood Count 4.77 M/mm3 (4.70-6.10); Red Cell Distribution Width 17.3 % (11.6-14.4); White Blood Count 6.4 K/mm3 (4.8-10.8)
[2023-08-14 09:36] LABS: Albumin Level 3.9 g/dL (3.4-5.0); Anion Gap 15 mmol/L (8-16); Blood Urea Nitrogen 87 mg/dL (7-18); Calcium 9.5 mg/dL (8.5-10.1); Carbon Dioxide 21 mmol/L (21-32); Chloride 105 mmol/L (98-108); Estimated Glomerular Filt Rate 18; Glucose 89 mg/dL (70-99); Osmolality Calculated 317 mOsm/kg (285-295); Phosphorus 4.8 mg/dL (2.6-4.7); Potassium 3.8 mmol/L (3.5-5.1); Sodium 141 mmol/L (136-145)
[2023-08-14 12:46] LABS: Creatinine Urine 72.83 mg/dL (40-278); Total Protein Urine Random 28.7 mg/dL (0.0-11.9); Ur Ttl Prot Creatinine Ratio 0.39 mg/mg (0-0.20)
[2023-08-16 12:19] LABS: Vitamin D 25 Hydroxy 77 ng/mL (30-100)
[2023-08-16 19:35] LABS: Parathyroid Intact 141 pg/mL (14-64)
== END 2023-08-14 08:49 | disposition home or self-care (01) ==
LOC: CHSLAB 08:50
PROVIDERS: PCP Internal Medicine; Visit Provider Internal Medicine Nephrology
DX: E55.9 Vitamin D deficiency, unspecified (principal); N18.4 Chronic kidney disease, stage 4 (severe)
CPT/HCPCS: 36415; 80069; 82306; 82570; 83970; 84156; 85027

== ENCOUNTER 2023-10-17 09:43 | Outpatient (CLI) | payer MEDICARE, SELFPAY ==
[2023-10-17 10:44] LABS: Albumin Level 3.5 g/dL (3.4-5.0); Anion Gap 4 mmol/L (8-16); Blood Urea Nitrogen 66 mg/dL (7-18); Calcium 9.1 mg/dL (8.5-10.1); Carbon Dioxide 33 mmol/L (21-32); Chloride 101 mmol/L (98-108); Estimated Glomerular Filt Rate 18; Glucose 217 mg/dL (70-99); Osmolality Calculated 312 mOsm/kg (285-295); Phosphorus 5.2 mg/dL (2.6-4.7); Sodium 138 mmol/L (136-145)
== END 2023-10-17 09:44 | disposition home or self-care (01) ==
LOC: CHSLAB 09:45
PROVIDERS: PCP Internal Medicine; Visit Provider Internal Medicine Nephrology
DX: N18.4 Chronic kidney disease, stage 4 (severe) (principal)
CPT/HCPCS: 36415; 80069

== ENCOUNTER 2023-12-25 08:17 | Outpatient (CLI) | payer MEDICARE, SELFPAY ==
[2023-12-25 10:37] LABS: Hematocrit 44.5 % (37.0-46.0); Hemoglobin 13.6 g/dL (12.4-15.3); Mean Corpuscular HGB Conc 30.6 g/dL (32.0-36.0); Mean Corpuscular Hemoglobin 25.7 pg (27.0-31.0); Mean Platelet Volume 10.7 fl (8.7-11.0); Platelet Count Result 181 K/mm3 (150-420); Red Cell Distribution Width 16.2 % (11.6-14.4); White Blood Count 6.4 K/mm3 (4.8-10.8)
[2023-12-25 10:45] LABS: Albumin Level 3.3 g/dL (3.4-5.0); Anion Gap 12 mmol/L (8-16); Blood Urea Nitrogen 56 mg/dL (7-18); Calcium 9.2 mg/dL (8.5-10.1); Carbon Dioxide 27 mmol/L (21-32); Chloride 105 mmol/L (98-108); Estimated Glomerular Filt Rate 26; Glucose 136 mg/dL (70-99); Osmolality Calculated 315 mOsm/kg (285-295); Potassium 3.8 mmol/L (3.5-5.1); Sodium 144 mmol/L (136-145)
[2023-12-25 10:46] LABS: Creatinine Urine 51.96 mg/dL (40-278); Total Protein Urine Random 43.2 mg/dL (0.0-11.9); Ur Ttl Prot Creatinine Ratio 0.83 mg/mg (0-0.20)
[2023-12-28 14:57] LABS: Parathyroid Intact 241 pg/mL (14-64)
[2023-12-29 02:03] LABS: Vitamin D 25 Hydroxy 85 ng/mL (30-100)
== END 2023-12-25 08:18 | disposition home or self-care (01) ==
LOC: CHSLAB 08:18
PROVIDERS: PCP Internal Medicine; Visit Provider Internal Medicine Nephrology
DX: I10 Essential (primary) hypertension (principal); E55.9 Vitamin D deficiency, unspecified; N18.4 Chronic kidney disease, stage 4 (severe)
CPT/HCPCS: 36415; 80069; 82306; 82570; 83970; 84156; 85027

== ENCOUNTER 2024-04-25 07:48 | Outpatient (CLI) | payer MEDICARE, SELFPAY ==
[2024-04-25 07:59] LABS: Hematocrit 40.5 % (37.0-46.0); Hemoglobin 12.9 g/dL (12.4-15.3); Mean Corpuscular HGB Conc 31.9 g/dL (32-36); Mean Corpuscular Hemoglobin 26.3 pg (27.0-31.0); Mean Corpuscular Volume 82.7 fL (78.0-102.0); Mean Platelet Volume 9.6 fl (8.7-11.0); Platelet Count Result 169 K/mm3 (150-420); Red Cell Distribution Width 17.5 % (11.6-14.4)
[2024-04-25 08:26] LABS: Albumin Level 3.4 g/dL (3.4-5.0); Anion Gap 10 mmol/L (4-12); Blood Urea Nitrogen 55 mg/dL (7-18); Calcium 8.7 mg/dL (8.5-10.1); Carbon Dioxide 25 mmol/L (21-32); Chloride 106 mmol/L (98-108); Estimated Glomerular Filt Rate 23; Glucose 167 mg/dL (70-99); Osmolality Calculated 311 mOsm/kg (285-295); Phosphorus 5.2 mg/dL (2.6-4.7); Sodium 141 mmol/L (136-145)
[2024-04-25 10:18] LABS: Uric Acid 5.3 mg/dL (3.5-7.2)
[2024-04-26 11:13] LABS: Parathyroid Intact 380 pg/mL (16-77)
[2024-04-27 09:04] LABS: Vitamin D 25 Hydroxy 89 ng/mL (30-100)
== END 2024-04-25 07:49 | disposition home or self-care (01) ==
PROVIDERS: PCP Internal Medicine; Visit Provider Internal Medicine Nephrology
DX: N18.4 Chronic kidney disease, stage 4 (severe) (principal); E55.9 Vitamin D deficiency, unspecified
CPT/HCPCS: 36415; 80069; 82306; 83970; 84550; 85027

== ENCOUNTER 2024-09-01 07:56 | Outpatient (CLI) | payer MEDICARE, SELFPAY ==
[2024-09-01 08:40] LABS: Hematocrit 45.7 % (37.0-46.0); Hemoglobin 14.2 g/dL (12.4-15.3); Mean Corpuscular HGB Conc 31.1 g/dL (32-36); Mean Corpuscular Hemoglobin 25.3 pg (27.0-31.0); Mean Corpuscular Volume 81.5 fL (78.0-102.0); Mean Platelet Volume 10.8 fl (8.7-11.0); Platelet Count Result 180 K/mm3 (150-420); Red Blood Count 5.61 M/mm3 (4.70-6.10); Red Cell Distribution Width 19.5 % (11.6-14.4); White Blood Count 6.5 K/mm3 (4.8-10.8)
[2024-09-01 08:59] LABS: Creatinine Urine 55.74 mg/dL (40-278); Total Protein Urine Random 43.1 mg/dL (0.0-11.9); Ur Ttl Prot Creatinine Ratio 0.77 mg/mg (0-0.20)
[2024-09-01 09:14] LABS: Albumin Level 3.5 g/dL (3.4-5.0); Anion Gap 13 mmol/L (4-12); Blood Urea Nitrogen 54 mg/dL (7-18); Calcium 9.2 mg/dL (8.5-10.1); Carbon Dioxide 28 mmol/L (21-32); Chloride 103 mmol/L (98-108); Estimated Glomerular Filt Rate 27; Glucose 149 mg/dL (70-99); Osmolality Calculated 315 mOsm/kg (285-295); Phosphorus 5.2 mg/dL (2.6-4.7); Potassium 3.7 mmol/L (3.5-5.1); Sodium 144 mmol/L (136-145)
[2024-09-02 17:18] LABS: Parathyroid Intact 219 pg/mL (16-77)
[2024-09-03 08:03] LABS: Vitamin D 25 Hydroxy 104 ng/mL (30-100)
== END 2024-09-01 07:57 | disposition home or self-care (01) ==
PROVIDERS: PCP Internal Medicine; Visit Provider Internal Medicine Nephrology
DX: N18.4 Chronic kidney disease, stage 4 (severe) (principal); E55.9 Vitamin D deficiency, unspecified; Z68.31 Body mass index [BMI] 31.0-31.9, adult
CPT/HCPCS: 36415; 80069; 82306; 82570; 83970; 84156; 85027

== ENCOUNTER 2024-09-05 20:34 | Emergency (ER) | payer MEDICARE, SELFPAY ==
--- NOTE | ~2024-09-05 | CT_ITS ---
CT soft tissue neck wo con Ordering provider: Elvin Caba MD History: 79 years Male with . left neck LN (Renal Disease patient) LEFT SIDE NECK SWELLING . Comparison: None. Technique: CT soft tissues neck was performed without contrast. . Automated exposure control and ite rative reconstruction technique were employed. The dose-length product was 719.35 mGy-cm. Findings: LOWER HEAD: The visualized brain parenchyma, optic globes/orbits and mastoids are normal. The visua lized paranasal sinuses are well aerated. SALIVARY GLANDS: Enlarged left submandibular gland with a stones seen in the duct. Surrounding fat st randing is seen. Other Salivary glands are normal. THYROID: Normal. SUPRAHYOID DEEP SPACES: Parapharyngeal lymph nodes are noted with the largest measures 8 mm. CAROTID ARTERIES: Normal. JUGULAR VEINS: Normal. TONSILS: Normal. ORAL CAVITY: Partially obscured by dental amalgam but normal as visualized. PHARYNX, LARYNX AND TRACHEA: Patent and normal. No prevertebral soft tissue swelling. SUPERFICIAL SOFT TISSUES: Normal. No lymphadenopathy or neck mass. THORACIC INLET/VISUALIZED UPPER CHEST: Cardiomegaly. Large Right pleural effusion. Minimal left pleur al effusion. Tiny nodule in the right upper lobe. Minimal pericardial effusion. SKELETAL: Age appropriate degenerative changes. IMPRESSION: 1. two Stones in the left submandibular duct with inflammatory changes in the gland and with fat str anding around the gland suggestive of sialoadenitis.. 2. Cardiomegaly with bilateral pleural effusion and minimal pericardial effusion. Reviewed, dictated and finalized at location A. IMPRESSION: 1. two Stones in the left submandibular duct with inflammatory changes in the gland and with fat stranding around the gland suggestive of sialoadenitis.. 2. Cardiomegaly with bilateral pleural effusion and minimal pericardial effusi on.
[2024-09-05 20:45] VITALS: BP 155/87; PULSE 77; RESP 18; TEMP 36.6; O2SAT 98
--- NOTE | 2024-09-05 21:46 | ED.GENADULT ---
HPI - General Adult General Chief complaint: Skin/Abscess/Foreign Body Stated complaint: abscess unspecified Source: patient and family Mode of arrival: ambulatory Limitations: no limitations History of Present Illness HPI narrative: Patient is an 79-year-old male with a left neck mass felt this evening. He is not sure if it was there prior but he did feel it tonight while eating dinner. He came to the ER to see what that may be in his left neck area. Onset (ago): hour(s) (2) Location: neck ( Left side) Radiation: non-radiation Severity: mild Severity scale (1-10): 1 Quality: aching Pain Consistency: intermittent Relieving factors: none Exacerbating factors: movement Associated symptoms: denies other symptoms Treatments prior to arrival: none Related Data Home Medications Medication Instructions Recorded Confirmed allopurinol 100 mg tablet 100 mg PO BID 03/17/20 09/05/24 finasteride 5 mg tablet 5 mg PO QAM 03/17/20 09/05/24 vericiguat 5 mg tablet (Verquvo) 10 mg PO DAILY 09/19/22 09/05/24 isosorbide 20 mg-hydralazine 37.5 1 tablet PO TID 11/21/22 09/05/24 mg tablet furosemide 20 mg tablet 60 mg PO BID 04/10/23 09/05/24 potassium chloride 10 mEq 20 meq PO BID 04/10/23 09/05/24 tablet,extended release (Klor-Con) atorvastatin 40 mg tablet 40 mg PO HS 09/10/23 09/05/24 empagliflozin 10 mg tablet 10 mg PO DAILY 09/10/23 09/05/24 (Jardiance) vit C 250 mg-E 90 mg-zinc 40 1 tablet PO QAM AND QPM 12/20/23 09/05/24 mg-copper 1 ge-brffrs-ucqbor chew tablet (PreserVision AREDS-2) cholecalciferol (vitamin D3) 125 125 mcg PO DAILY 09/05/24 09/05/24 mcg (5,000 unit) tablet (Vitamin D3) insulin aspar prot-insulin aspart 22 unit subcut BID 09/05/24 09/05/24 100 unit/mL (70-30) subcutaneous pen (Novolog Mix 70-30FlexPen U-100) Allergies Allergy/AdvReac Type Severity Reaction Status Date / Time latex Allergy Rash Verified 07/16/24 09:28 oxycodone AdvReac Vomiting Verified 07/16/24 09:28 Review of Systems Review of Systems: All systems reviewed & are unremarkable except as noted in HPI and below Constitutional: Constitutional: Reports no additional constitutional complaints Eyes: Eyes: Reports no additional eye complaints ENT: Reports system reviewed and no additional complaints, except as documented Cardiovascular: Cardiovascular: Reports no additional cardiovascular complaints Respiratory: Respiratory: Reports no additional respiratory complaints Gastrointestinal: Gastrointestinal: Reports no additional gastrointestinal complaints Genitourinary: Genitourinary: Reports no additional male genitourinary complaints Musculoskeletal: Musculoskeletal: Reports no additional musculoskeletal complaints Integumentary/Breasts: Skin/Breast: Reports system reviewed and no additional complaints, except as docu Neurologic: Reports system reviewed and no additional complaints, except as documented Psychiatric: Psychiatric: Reports no additional psychiatric complaints Endocrine: Endocrine: Reports no additional endocrine complaints Hematologic/Lymphatic: Hematologic/Lymphatic: Reports no additional hematologic/lymphatic complaints Allergic/Immunologic: Allergic/Immunologic: Reports no additional allergic/immunologic complaints PMFSH Past Medical History Medical History Abnormal thyroid blood test BPH (benign prostatic hyperplasia) CHF (congestive heart failure) Chronic kidney disease (CKD) stage G3b/A3, moderately decreased glomerular filtration rate (GFR) between 30-44 mL/min/1.73 square meter and albuminuria creatinine ratio greater than 300 mg/g Chronic kidney disease, stage 4 (severe) Congestive heart failure Diabetes mellitus type 2, controlled Essential hypertension Eye problem 2022, blood behind something Hyperlipidemia Hypothyroid Positive colorectal cancer screening using Cologuard test Type 2 diabetes mellitus Surgical History Surgical History History of cataract extraction History of foot surgery left spur Family History Family History Father Family history of diabetes mellitus in first degree relative Family history of heart disease in male family member before age 55 Sibling Family history of diabetes mellitus in first degree relative Mother Cancer Sibling No problems noted. Social History Social History Social History: The patient lives with his Joselin who is the durable power regulatory attorney for healthcare. The patient has 3 children. The patient is retired from [employer]. The patient is a former smoker. He drinks 2-3 beers a day but does not drink every day. He does not use any marijuana or illicit drugs. Code status full code Smoking packs per day: 0.5 Smoking cigarettes per day: 10.0 Years smoked: 30 Smoking pack-years: 15.00 Smoking status: Former smoker Tobacco type: cigarettes Second hand tobacco smoke exposure: Yes Alcohol intake: former Alcohol use details: 2 beers 3-4 times per week. Last drink June 29, 2022. 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s: No Exam Const: General: healthy appearing Nutritional Appearance: well nourished Orientation/consciousness: patient oriented x3 HENMT: Head: normal to inspection Ears: external ears normal Face/Nose/Sinus: Normal external nose present Eyes: Conjunctivae: conjunctivae normal Pupils: Equal, round and reactive pupils present EOM: EOMs intact bilaterally Neck: Neck: normal visual inspection, lymphadenopathy noted, no meningeal signs and lymphadenopathy Other: left submandibular area has a moderately sized lymph node that is slightly tender but appears to be fixed in space Chest: Chest palpation & inspection: normal inspection of the chest Resp: Effort & Inspection: normal respiratory effort and not labored Auscultation: clear to auscultation bilaterally and no crackles Cardio: Rate: regular rate Rhythm: regular rhythm Heart sounds: no murmurs GI: Inspection: non-distended GI Palp: Yes Soft to palpation and No Tenderness to palpation present (GI) Auscultation: normal bowel sounds : General: Yes bladder normal to palpation Back/Spine/Pelvis: Back: no CVA tenderness Skin: General skin exam: normal color Rashes: no rashes Wounds: no wounds Neuro: General: patient oriented x3 Cranial nerves: Yes Nystagmus not present Speech: normal speech Gait exam (Neuro): Normal gait present Extrem: General: normal to inspection Psych: Mental Status: mental status grossly normal Affect: normal affect Attitude: cooperative Course Vital Signs Vital signs: Vital Signs Temperature 36.6 C 09/05/24 20:45 Pulse Rate 77 09/05/24 20:45 Respiratory Rate 18 09/05/24 20:45 Blood Pressure 155/87 H 09/05/24 20:45 Pulse Oximetry 98 09/05/24 20:45 Oxygen Delivery Room Air 09/05/24 20:45 Temperature 36.6 C 09/05/24 20:45 Pulse Rate 98 09/05/24 21:49 Respiratory Rate 18 09/05/24 21:49 Blood Pressure 146/73 H 09/05/24 21:49 Pulse Oximetry 98 09/05/24 21:49 Oxygen Delivery Room Air 09/05/24 21:49 Medical Decision Making MDM Narrative Medical decision making narrative: patient is an 79-year-old male with a left neck mass. We will go ahead and do a CT scan plain as he is a renal patient and we cannot use dye. He is going to need an ultrasound as an outpatient to further evaluate this area. Vital Signs Vital Signs: Vital Signs Temperature 36.6 C 09/05/24 20:45 Pulse Rate 77 09/05/24 20:45 Respiratory Rate 18 09/05/24 20:45 Blood Pressure 155/87 H 09/05/24 20:45 Pulse Oximetry 98 09/05/24 20:45 Oxygen Delivery Room Air 09/05/24 20:45 Temperature 36.6 C 09/05/24 20:45 Pulse Rate 98 09/05/24 21:49 Respiratory Rate 18 09/05/24 21:49 Blood Pressure 146/73 H 09/05/24 21:49 Pulse Oximetry 98 09/05/24 21:49 Oxygen Delivery Room Air 09/05/24 21:49 Imaging Data Attestation: I personally reviewed and interpreted this imaging study as follows: Radiologist's impression: CT scan of the soft tissue neck without contrast shows IMPRESSION: 1. two Stones in the left submandibular duct with inflammatory changes in the gland and with fat stranding around the gland suggestive of sialoadenitis.. 2. Cardiomegaly with bilateral pleural effusion and minimal pericardial effusion. (KNOWN CHF patient) Discharge Plan Discharge Clinical Impression: Sialoadenitis Patient Disposition: Home, Self-Care Condition: Stable Instructions: Antibiotic Form, Sialoadenitis (ED) Additional Instructions: please follow-up with primary doctor in the next week. Please use sour candies to stimulate secretions orally. This will help move the stones. Prescriptions: New amoxicillin-pot clavulanate [Augmentin] 500-125 mg tablet 1 tablet PO BID 10 Days Qty: 20 0RF No Action Verquvo 5 mg Tablet 10 mg PO DAILY Rx Instructions: must administer with a meal/food cholecalciferol (vitamin D3) [Vitamin D3] 125 mcg (5,000 unit) Tablet 125 mcg PO DAILY insulin asp prt-insulin aspart [Novolog Mix 70-30FlexPen U-100] 100 unit/mL (70-30) insulin pen 22 unit subcut BID allopurinol 100 mg tablet 100 mg PO BID finasteride 5 mg tablet 5 mg PO QAM furosemide 20 mg tablet 60 mg PO BID potassium chloride [Klor-Con 10] 10 mEq tablet extended release 20 meq PO BID Jardiance 10 mg tablet 10 mg PO DAILY atorvastatin 40 mg tablet 40 mg PO HS PreserVision AREDS-2 250-90-40-1 mg tablet,chewable 1 tablet PO QAM AND QPM isosorbide-hydralazine 20-37.5 mg tablet 1 tablet PO TID (DME) pen needle, diabetic [Pen Needle] 32 gauge x 5/32 needle See Rx Instructions .ROUTE .MEDSUPPLY Qty: 200 1RF Rx Instructions: Use with insulin (Novolin 70/30) injections 2 times daily (DME) lancets [TRUEplus Lancets] 28 gauge misc See Rx Instructions .ROUTE .MEDSUPPLY Qty: 300 3RF Rx Instructions: Use to check BS 3 times daily (DME) True Metrix Glucose Test Strip Strip See Rx Instructions .ROUTE .MEDSUPPLY Qty: 300 3RF Rx Instructions: Use to check BS 3 times daily levothyroxine [Synthroid] 150 mcg tablet 150 mcg PO DAILY 90 Days Qty: 90 1RF carvedilol 12.5 mg tablet 12.5 mg PO Q12H Qty: 180 3RF Rx Instructions: must administer with a meal/food Follow-up/Referrals: Robert Taylor MD [Primary Care Provider] - Time of Disposition: 23:34
[2024-09-05 21:49] VITALS: BP 146/73; PULSE 98; RESP 18; O2SAT 98
[2024-09-05] MEDS: AMOXICILLIN/CLAVULANATE K 875-125 MG TAB 1 TABLET PO (23:33)
[2024-09-05 23:41] VITALS: BP 140/86; PULSE 74; RESP 18; TEMP 36.6; O2SAT 98
== END 2024-09-05 23:41 | disposition home or self-care (01) ==
PROVIDERS: Emergency Provider Emergency Medicine; PCP Internal Medicine
DX: K11.20 Sialoadenitis, unspecified (principal); I13.0 Hypertensive heart and chronic kidney disease with heart failure and stage 1 through stage 4 chronic kidney disease, or unspecified chronic kidney disease; I50.9 Heart failure, unspecified; N18.32 Chronic kidney disease, stage 3b; E11.22 Type 2 diabetes mellitus with diabetic chronic kidney disease; E03.9 Hypothyroidism, unspecified; Z79.899 Other long term (current) drug therapy; Z79.4 Long term (current) use of insulin; Z87.891 Personal history of nicotine dependence
CPT/HCPCS: 70490; 99284; A9270

== ENCOUNTER 2024-12-31 08:08 | Outpatient (CLI) | payer MEDICARE, SELFPAY ==
--- OUTSIDE RECORDS SUMMARY | 2024-12-31 08:20 | XMS_ITS | Referral Summary ---
Author Organization [facility] [address] [place] [address] [address] [facility] [address] [place] [address] Care Team Providers Care Senior Software Development Engineer Name Role Phone Robert Taylor MD Primary Care Provider [phone] Jerardo Hill MD Unavailable Joan Villalta RN Unavailable Unavaila ble Encounters Date Type Department Care Team Description 12/15/2024 Documentation [facility] Medical [facility] Cardiology [address] [facility] [address] [place] [address] Katia Butler MA 12/05/2024 Telephone [facility] Cardiology [address] [place] [address] [address] [place] [address] Jerardo Hill MD Prior Auth 10/08/2024 9:45 AM HOME HEALTH CARE PHYSICIAN Office Visit [facility] Cardiology [address] [place] [address] [address] [place] [address] Jerardo Hill MD Chronic combined systolic and diastolic congestive heart failure (CMS/HCC) ([facility]) (Primary Dx); Nonrheumatic mitral valve regurgitation; Mild CAD; CKD (chronic kidney disease) stage 4, GFR 15-29 ml/min (CMS/HCC) (HCC) from Last 3 Months Allergies Active Allergy Reactions Criticality Noted Date Comments Latex Rash Medium 08/04/2022 Oxycodone Other (See comments) Low 09/14/2021 makes me crazy Medications allopurinoL (ZYLOPRIM) 100 mg tablet Take 1 tablet (100 mg total) by mouth 2 (two) times a day 06/21/20 21 Active finasteride (PROSCAR) 5 mg tablet Take 1 tablet (5 mg total) by mouth daily 08/06/20 21 Active insulin NPH-insulin regular 70/30 (HumuLIN 70/30,NovoLIN 70/30) 100 unit/mL vial for injection Inject under the skin 18 units a.m. and 16 units p.m. Active True Metrix Glucose Test Strip strip 09/30/20 21 Active TRUEplus Lancets 28 gauge misc 08/11/20 21 Active BD Natalia 2nd Gen Pen Needle 32 gauge x 5/32 needle 07/25/20 21 Active cholecalciferol (VITAMIN D-3) 5,000 unit capsule TAKE 1 CAPSULE BY MOUTH EVERY DAY. START AFTER FINISHED WITH WEEKLY DOSING 02/29/20 22 Active levothyroxine (SYNTHROID) 150 mcg tablet Take 1 tablet (150 mcg total) by mouth daily 01/20/20 22 Active metOLazone (ZAROXOLYN) 2.5 mg tabletIndicatio ns:Acute on chronic systolic congestive heart failure (CMS/HCC) (HCC) Take 1 tablet (2.5 mg total) by mouth daily Take 30-60 minutes before morning dose of furosemide. 90 tablet 01/13/20 23 Active carvediloL (COREG) 12.5 mg tablet Take 1 tablet (12.5 mg total) by mouth 2 (two) times a day with meals Active Verquvo 10 mg tablet TAKE 1 TABLET BY MOUTH EVERY DAY 90 tablet 3 04/28/20 24 Active potassium chloride ER 20 mEq CR tablet TAKE 1 TABLET BY MOUTH TWICE A DAY 180 tablet 3 04/28/20 24 Active furosemide (LASIX) 20 mg tabletIndicatio ns:Cardiomyopat hy, unspecified type (HCC) Take 3 tablets (60 mg total) by mouth 2 (two) times a day 540 tablet 1 07/14/20 24 025 Active vit A/vit C/vit E/zinc/copper (ICAPS AREDS ORAL) Take by mouth Active calcitRIOL (ROCALTROL) 0.25 mcg capsule Take by mouth daily 09/17/20 24 Active aspirin 81 mg enteric coated tablet Take 1 tablet (81 mg total) by mouth daily 30 tablet 11 10/08/20 24 025 Active isosorbide-hydr ALAZINE (BIDIL) 20-37.5 mg per tablet TAKE 1 TABLET BY MOUTH THREE TIMES A DAY 270 tablet 3 10/14/20 24 Active atorvastatin (LIPITOR) 40 mg tablet TAKE 1 TABLET BY MOUTH IN THE EVENING 90 tablet 3 12/01/19 25 Active Jardiance 10 mg tablet TAKE 1 TABLET BY MOUTH EVERY DAY 30 tablet 9 12/25/19 25 Active empagliflozin (JARDIANCE) 10 mg tablet Take 1 tablet (10 mg total) by mouth daily 30 tablet 11 09/05/20 23 025 Discontinued Hospital, Clinic, or Other Facility Administered Medication Ordered Dose Route Frequency Start Date End Date Status perflutren protein-a (OPTISON) 3 mL in sodium chloride 0.9% 8 mL syringe 1 - 8 mL IV Once in imaging 02/13/2023 Active Active Problems Problem Noted Date Diagnosed Date CKD stage 4 due to type 2 diabetes mellitus ([facility]) 02/15/2023 Shortness of breath 10/06/2021 Acute on chronic systolic co ngestive heart failure ([facility]) 10/06/2021 Overview (10/07/2021): Added automatically from request for surgery [id number] Nonrheumatic mitral valve regurgitation 10/06/20 Overview (10/07/2021): Added automatically from request for surgery [id number] Social History Tobacco Use Types Packs/Day Years Used Date Smoking Tobacco: Former Cigarettes Smokeless Tobacco: Never Tobacco Cessation:Counseling Given: Not Answered AUDIT-C Answer Date Recorded Q1: How often do you have a drink containing alcohol? Never 11/23/2022 Q2: How many drinks containi ng alcohol do you have on a typical day when you are drinking? Patient does not drink Q3: How often do you have si x or more drinks on one occasion? Never 11/23/2022 Personal Safety Answer Date Recorded Getting School Help Needed Denies 10/25 Sex and Gender Information Value Date Recorded Sex Assigned at Not on file Legal Sex Male 12:20 AM HOME HEALTH CARE PHYSICIAN Gender Identity Not on file Sexual Orientation Not on file Last Filed Vital Signs Vital Sign Reading Time Taken Comments Blood Pressure 134/82 10/08/2024 9:28 AM HOME HEALTH CARE PHYSICIAN Pulse 74 10/08/2024 9:28 AM HOME HEALTH CARE PHYSICIAN Temperature 36.7 C (98 F) 11/23/2022 9:20 AM HOME HEALTH CARE PHYSICIAN Respiratory Rate 98 06/21/2023 9:54 AM CDT Oxygen Saturation 99% 10/08/2024 9:28 AM HOME HEALTH CARE PHYSICIAN Inhaled Oxygen Concentration - - Weight 93.8 kg (206 lb 12.8 oz) 10/08/2024 9:28 AM HOME HEALTH CARE PHYSICIAN Height 180.3 cm (5' 11 ) 10/08/2024 9:28 AM HOME HEALTH CARE PHYSICIAN Body Mass Index 28.84 10/08/2024 9:28 AM HOME HEALTH CARE PHYSICIAN Plan of Treatment Not on file Procedures Procedure Name Priority Date/Time Associated Diagnosis Comments POCT LIPID PANEL Routine 2023 1:12 PM CDT Lipid screening EGFR Routine 02/13/2023 10:01 AM CDT Nonrheumatic mitral valve regurgitation HEMOGLOBIN A1C Routine 02/13/2023 10:01 AM CDT Nonrheumatic mitral valve regurgitation Anemia, unspecified type History of anemia from Last 3 Months or Most Recently Relevant to Health Maintenance Results * POCT lipid panel (2023 1:12 PM CDT) Cholesterol, POC 117 mg/dL HDL, POC 37 mg/dL Triglycerides, POC 71 mg/dL LDL Cholesterol POC 65 mg/dL Chol/HDL Ratio, POC 1.8 Non-HDL Cholesterol, POC 80 mg/dL Cholesterol Total, POC 117 mg/dL Capillary blood 2023 1 :12 PM CDT us Jerardo Hill MD POINT OF CARE TEST ORDERABLES Fi nal Result * eGFR (02/13/2023 10:01 AM CDT) eGFR 19 mL/min/1. 73 m2 SHANDA TANG Comment: Interpretive Data Reference Interval Normal >/= 90 mL/min/1.73m2 Mildly decreased* 60 - 89 mL/min/1.73m2 Mildly to moderately decreased 45 - 59 mL/min/1.73m2 Moderately to severely decreased 30 - 44 mL/min/1.73m2 Severely decreased 15 - 29 mL/min/1.73m2 Kidney Failure < 15 mL/min/1.73m2 *Relative to young adult level Estimated glomerular filtration rate is determined by the 2020 CKD-EPI equation recommended by the National Kidney Foundation (A Unifying Approach to GFR Estimation: Recommendations of the NKF-ASK Task Force on Reassessing the Inclusion of Race in Diagnosing Kidney Disease, JASN 2020). The CKD-EPI equation should not be used for patients with unstable renal function and has not been validated in children and those over 70. Current interpretive data was last reviewed 2021. Blood 02/13/2023 10:0 1 AM CDT 02/13/2023 1:03 PM CDT Amada Ramos MD LAB BLOOD ORDERABLES Final Res ult Performing Organization Address [facility] de Phone Number [facility] [address] [place], [place] [phone] * (ABNORMAL) Hemoglobin A1c (02/13/2023 10:01 AM CDT) Hgb A1C 6.8(H) 4.0 - 5.6 % SHANDA TANG Estimated Average Glucose 148 mg/dL SHANDA TANG Comment: The ADA recommends reporting an estimated Average Glucose (eAG) with all Hemoglobin A1c results using the equation derived from a study of 507 normal and diabetic adults. Minority populations were underrepresented and children were not included. (Diabetes Care 31:3062-4524, 2008). The eAG is not equivalent to a fasting glucose. Blood 02/13/2023 10:0 1 AM CDT 02/13/2023 1:03 PM CDT Amada Ramos MD LAB BLOOD ORDERABLES Final Res ult Performing Organization Address [facility] Co de Phone Number [facility] [address] [place], [place] [phone] from Last 3 Months or Most Recently Relevant to Health Maintenance Insurance MEDICARE [facility] MEDICARE [facility] MEDICARE BLUE CROSS MEDICARE SUPPLEMENT [facility] MEDICARE Advance Directives For more information, please contact: [phone] * Full Code (Latest Code Status on File) Date Activated Date Inactivated Comments 10/06/2021 11:50 PM 10/08/2021 11:18 PM Care Teams Senior Software Development Engineer Relationship Specialty Start Date End Date Robert Taylor MD PCP - General Internal Medicine 09/09/21 Jerardo Hill MD [address] [facility] [address] [place], [place] [id number] Consulting Physician Cardiology 01/19/23 Joan Villalta, glass block bender Failure Coordinator 03/13/23
--- OUTSIDE RECORDS SUMMARY | 2024-12-31 08:20 | XMS_ITS | Clinical Summary ---
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 (CMS /HCC) 02/15/2023 Shortness of breath 10/06/2021 Acute on chronic systolic co ngestive heart failure (CMS/HCC) 10/06/2021 Overview (10/07/2021): Added automatically from request for surgery [id number] Nonrheumatic mitral valve regurgitation 10/06/20 Overview (10/07/2021): Added automatically from request for surgery [id number] Encounters Date Type Department Care Team Description 12/15/2024 Documentation [facility] Medical [facility] Cardiology [address] [place] [phone] Katia Butler MA 12/05/2024 Telephone [facility] Cardiology [address] [facility] [address] [place] [phone] Jerardo Hill MD Prior Auth 10/08/2024 9:45 AM DIRECT CARE SPECIALIST Office Visit [facility] Cardiology [address] [facility] [address] [place] [phone] Jerardo Hill MD Chronic combined systolic and diastolic congestive heart failure (CMS/HCC) (HCC) (Primary Dx); Nonrheumatic mitral valve regurgitation; Mild CAD; CKD (chronic kidney disease) stage 4, GFR 15-29 ml/min (CMS/HCC) (HCC) from Last 3 Months Surgical History Surgery Date Site/Laterality Comments COLONOSCOPY FOOT SURGERY CATARACT EXTRACTION Medical History Medical History Date Comments Hypertension Obese Heart murmur Heart failure (HCC) Diabetes (HCC) Enlarged prostate Cancer (CMS/HCC) (HCC) Prostate HLD (hyperlipidemia) CKD (chronic kidney disease) stage 4, GFR 15-29 ml/min (CMS/HCC) (HCC) Family History Medical History Relation Name Comments Cancer Brother Diabetes Brother Heart attack Brother Hypertension Brother Hypertension Daughter Diabetes Father Happy Heart attack Father Happy Sudden Cardiac Father Happy Cancer Mother Sweetheart Hypertension Mother Sweetheart Cancer Sister Diabetes Sister Heart attack Sister Hypertension Sister Hypertension Son Relation Name Status Comments Brother Daughter Father Happy Mother Sweetheart Sister Son Social History Tobacco Use Types Packs/Day Years [...] on file Legal Sex Male 12:20 AM DIRECT CARE SPECIALIST Gender Identity Not on file Sexual Orientation Not on file Obstetrics History Last Filed Vital Signs Vital Sign Reading Time Taken Comments Blood Pressure 134/82 10/08/2024 9:28 AM DIRECT CARE SPECIALIST Pulse 74 10/08/2024 9:28 AM DIRECT CARE SPECIALIST Temperature 36.7 C (98 F) 11/23/2022 9:20 AM DIRECT CARE SPECIALIST Respiratory Rate 98 06/21/2023 9:54 AM CDT Oxygen Saturation 99% 10/08/2024 9:28 AM DIRECT CARE SPECIALIST Inhaled Oxygen Concentration - - Weight 93.8 kg (206 lb 12.8 oz) 10/08/2024 9:28 AM DIRECT CARE SPECIALIST Height 180.3 cm (5' 11 ) 10/08/2024 9: 28 AM DIRECT CARE SPECIALIST Body Mass Index 28.84 10/08/2024 9:28 AM DIRECT CARE SPECIALIST Plan of Treatment Health Maintenance Due Date Last Done Comments Albumin Creatinine Ratio, Urine 1944 Depression Screening 1945 Dilated Eye Exam 1944 Foot Exam 1944 Hepatitis B Screening 1962 Well Visit 65+ 2009 DTaP/Tdap/Td Vaccine (2 - Td or Tdap) 05/29/2023 05/29/2013 Hemoglobin A1C 08/15/2023 02/13/2023 Fall Risk Assessment 11/23/2023 11/23/2022 eGFR 02/14/2024 02/13/2023, 0302/2023, 10/21/2021, Additional history exists Covid-19 Vaccine ( - 2023-2 5 season) 2024 08/05/2021, 12/28/2020, 12/07/2020 Influenza Vaccine (#1) 2024 2, 09/02/2021, 07/20/2020, Additional history exists Lipid Panel 2024 2023, 12/0 05/2022, 09/14/2021 Zoster Vaccine Completed 10/13/2019, 07/15/2019 Pneumococcal vaccine 65+ Completed 020, 07/27/2016, 12/05/2012 Procedures Procedure Name Priority Date/Time Associated Diagnosis [...] Capillary blood 2023 1 :12 PM CDT Jerardo Hill MD POINT OF CARE TEST [...] ORDERABLES Final Res ult Performing Organization Address [facility] Co de Phone Number SHANDA FLORESCH [phone] [address] [address] * (ABNORMAL) Hemoglobin A1c (02/13/2023 10:01 AM CDT) Hgb A1C 6.8(H) 4.0 - 5.6 % SHANDA TANG Estimated Average Glucose 148 mg/dL SHANDA TANG Comment: The ADA recommends reporting an estimated Average Glucose (eAG) with all Hemoglobin A1c results using the equation derived from a study of 507 normal and diabetic adults. Minority populations were underrepresented and children were not included. (Diabetes Care 31:7207-5599, 2008). The eAG is not equivalent to a fasting glucose. Blood 02/13/2023 10:0 1 AM CDT 02/13/2023 1:03 PM CDT Amada Ramos MD LAB BLOOD ORDERABLES Final Res ult Performing Organization Address [facility] Co de Phone Number SHANDA FLORESCH [phone] [address] [place], [place] [phone] from Last 3 Months or Most Recently Relevant to Health Maintenance Insurance MEDICARE [facility] MEDICARE [facility] MEDICARE BLUE CROSS MEDICARE SUPPLEMENT [facility] MEDICARE Advance Directives For more information, please contact: [phone] * Full Code (Latest Code Status on File) Date Activated Date Inactivated Comments 10/06/2021 11:50 PM 10/08/2021 11:18 PM Care Teams Concessions Manager Relationship Specialty Start Date End Date Robert Taylor MD PCP - General Internal Medicine 09/09/21 Jerardo Hill MD [address] [place] [phone] Consulting Physician Cardiology 01/19/23 Joan Villalta, basket maker Failure Coordinator 03/13/23
--- OUTSIDE RECORDS SUMMARY | 2024-12-31 08:20 | XMS_ITS | Encounter Summary ---
Author Organization [facility] Healthcare Address [address] [place] [address] Care Team Providers Care Spares Scheduler Name Role Phone Robert Taylor MD Primary Care Provider [phone] Jerardo Hill MD Unavailable Joan Villalta RN Unavailable Unavaila ble Encounter Details Date Type Department Care Team (Late st Contact Info) Description 12/25/2023 Orders Only [facility] Health Information Management [address] [place] [phone] Scanning, Provider Social History Tobacco Use Types Packs/Day Years Used Date Smoking Tobacco: Former Cigarettes Smokeless Tobacco: Never AUDIT-C Answer Date Recorded Q1: How often [...] on file 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 Gender Identity Not on file Sexual Orientation Not on file documented as of this encounter Plan of Treatment Not on file documented as of this encounter Procedures Procedure Name Priority Date/Time Associated Diagnosis Comments SCAN - LABS 12/25/2023 documented in this encounter Results * SCAN - LABS (12/25/2023) us Provider Scanning Final Result documented in this encounter Visit Diagnoses Not on filedocumented in this encounter Care Teams Spares Scheduler Relationship Specialty Start Date End Date Robert Taylor MD PCP - General Internal Medicine 09/09/21 Jerardo Hill MD [address] [facility] [address] [place] [address] Consulting Physician Cardiology 01/19/23 Joan Villalta, thermal technician Failure Coordinator 03/13/23 documented as of this encounter
--- OUTSIDE RECORDS SUMMARY | 2024-12-31 08:20 | XMS_ITS | Clinical Summary ---
Author Organization [facility] Address [address] [place] [phone] Phone Care Team Providers Care Granulator Machine Operator Name Role Phone Robert Taylor MD Primary Care Provider [phone] Allergies Active Allergy Reactions Criticality Noted Date Comments Oxycodone Other (see comments) Low 09/14/2021 unspecified Medications Medication Sig Dispensed Refills Start Date End Date Status allopurinol (ZYLOPRIM) 100 MG tablet 06/21/2021 Active amiodarone (PACERONE) 200 MG tablet Take 200 mg by mouth 2 (two) times a day 01/22/2022 Active aspirin (ST HARVEY) 81 MG EC tablet Take 81 mg by mouth daily Active atorvastatin (LIPITOR) 40 MG tablet TAKE 1 TABLET BY MOUTH EVERY DAY AT NIGHT 01/25/2022 Active Cholecalciferol (Vitamin D3) 125 MCG (5000 UT) capsule TAKE 1 CAPSULE BY MOUTH EVERY DAY. START AFTER FINISHED WITH WEEKLY DOSING 02/28/2022 Active finasteride (PROSCAR) 5 MG tablet Take 5 mg by mouth 1 (one) time each day 02/09/2022 Active True Metrix Blood Glucose Test test strip USE TO CHECK BLOOD SUGAR TWICE DAILY 01/02/2022 Active insulin NPH-insulin regular (NovoLIN) (70-30) 100 UNIT/ML injection Inject under the skin Active Insulin Pen Needle (BD Pen Needle Natalia 2nd Gen) 32G X 4 MM misc 07/25/2021 Active TRUEplus Lancets 28G misc 08/11/2021 Active carvedilol (COREG) 6.25 MG tablet Take 6.25 mg by mouth 2 (two) times a day with meals 07/18/2022 Active furosemide (LASIX) 40 MG tablet Take 40 mg by mouth 2 (two) times a day 07/16/2022 Active levothyroxine (SYNTHROID) 150 MCG tablet Take 150 mcg by mouth 1 (one) time each day 07/06/2022 Active potassium chloride (KLOR-CON) 10 MEQ CR tablet Take 10 mEq by mouth 1 (one) time each day 10/19/2022 Active isosorbide-hydrALAZIN E (BIDIL) 20-37.5 MG per tablet Take 1 tablet by mouth in the morning and 1 tablet at noon and 1 tablet in the evening. 10/12/2022 Active Vericiguat 10 MG tablet Take by mouth Active metOLazone (ZAROXOLYN) 2.5 MG tablet Take 2.5 mg by mouth 1 (one) time each day Active Active Problems Problem Noted Date Diagnosed Date Chronic kidney disease, Stage IV (severe) 2021 Acute on chronic systolic congestive heart failu re 10/06/2021 Overview (03/16/2022): Added automatically from request for surgery [id number] Immunizations Name Administration Dates Next Due Influenza TIV (IM) 09/04/2022 Pneumococcal Conjugate 07/06/2020 Family History Medical History Relation Comments Kidney disease Sister Relation Status Comments Sister Social History Tobacco Use Types Packs/Day Years Used Date Smoking Tobacco: Former Smokeless Tobacco: Never Alcohol Use Standard Drinks/Week Comments Yes 14 (1 standard drink = 0.6 oz pu re alcohol) Sex and Gender Information Value Date Recorded Sex Assigned at Not on file Gender Identity Not on file Sexual Orientation Not on file Last Filed Vital Signs Vital Sign Reading Time Taken Comments Blood Pressure 142/70 10/25/2022 11:42 AM TALENT SOLUTIONS MANAGER Pulse 72 10/25/2022 11:42 AM TALENT SOLUTIONS MANAGER Temperature 36.7 C (98 F) 10/25/2022 11:42 AM TALENT SOLUTIONS MANAGER Respiratory Rate - - Oxygen Saturation - - Inhaled Oxygen Concentration - - Weight 93.9 kg (207 lb) 10/25/2022 11:42 AM TALENT SOLUTIONS MANAGER Height 180.3 cm (5' 11 ) 10/25/2022 11:42 AM TALENT SOLUTIONS MANAGER Body Mass Index 28.87 10/25/2022 11:42 AM TALENT SOLUTIONS MANAGER Plan of Treatment Health Maintenance Due Date Last Done Comments Pneumococcal PPSV23/PCV13 65 + Years / High and Highest Risk (1 of 4 - PCV) 1950 Influenza Vaccine (#1) 2024 09/04/2022 Care Teams Granulator Machine Operator Relationship Specialty Start Date End Date Robert Taylor MD [address] [place] [address] PCP - General Internal Medicine 03/23/22
--- OUTSIDE RECORDS SUMMARY | 2024-12-31 08:20 | XMS_ITS | Clinical Summary ---
Author Organization [facility] Address [address] [place] [address] Care Team Providers Care Locker Attendant Name Role Phone Robert Taylor MD Primary Care Provider [phone] Allergies Active Allergy Reactions Criticality Noted Date Comments Latex Rash Low 08/04/2022 Oxycodone Other (see comment) 08/04/2022 makes me crazy Medications allopurinol (ZYLOPRIM) 100 MG tabletIndication s:Gout Take 100 mg by mouth 2 (two) times daily. Indications: Gout Active amiodarone (PACERONE) 200 MG tabletIndication s:Atrial Fibrillation Take 200 mg by mouth 2 (two) times daily. Indications: Atrial Fibrillation Active atorvastatin (LIPITOR) 40 MG tabletIndication s:Hyperlipidemia Take 40 mg by mouth nightly at bedtime. Indications: High Amount of Fats in the Blood Active hydrALAZINE (APRESOLINE) 25 MG tabletIndication s:Altered Blood Pressure Take 25 mg by mouth 4 (four) times daily. Indications: Changes in Blood Pressure Active isosorbide mononitrate ER (IMDUR) 30 MG 24 hr tabletIndication s:Altered Blood Pressure Take 30 mg by mouth daily. Indications: Changes in Blood Pressure Active furosemide (LASIX) 40 MG tabletIndication s:Diuretic Therapy Take 40 mg by mouth 2 (two) times daily. Indications: Treatment with Diuretic Therapy Active finasteride (PROSCAR) 5 MG tabletIndication s:Benign Prostatic Hypertrophy Take 5 mg by mouth daily. Indications: Benign Enlargement of Prostate Active aspirin EC (ECOTRIN) 81 MG tabletIndication s:Anticoagulant Therapy Take 81 mg by mouth daily. Indications: Anticoagulant Therapy On hold for surgery Active levothyroxine (SYNTHROID) 150 MCG tabletIndication s:Hypothyroidism Take 150 mcg by mouth every morning. Indications: Underactive Thyroid Active cholecalciferol (VITAMIN D3) 125 MCG (5000 UT) TabIndications:N utritional Support Take 5,000 Units by mouth daily. Indications: Nutritional Support Active carvedilol (COREG) 6.25 MG tabletIndication s:Altered Blood Pressure Take 6.25 mg by mouth 2 (two) times daily. Indications: Changes in Blood Pressure Active insulin NPH-insulin regular (NOVOLIN/HUMULIN 70/30) (70-30) 100 UNIT/ML injectionIndicat ions:Diabetes Mellitus Inject into the skin see administration instructions. Indications: Diabetes 20 units in am and 20 units in pm Active Active Problems No known active problems Family History Medical History Relation Comments Heart Disease Father Cancer Mother Relation Status Comments Father Mother Social History Tobacco Use Types Packs/Day Years Used Date Smoking Tobacco: Former Cigarettes Q uit: 1994 Smokeless Tobacco: Never Alcohol Use Standard Drinks/Week Comments Yes 0 (1 standard drink = 0.6 oz pur e alcohol) rarely Sex and Gender Information Value Date Recorded Sex Assigned at Not on file Legal Sex Male 9:48 AM CDT Gender Identity Not on file Sexual Orientation Not on file Last Filed Vital Signs Vital Sign Reading Time Taken Comments Blood Pressure 166/73 08/04/2022 9:00 AM CDT Pulse 58 08/04/2022 9:00 AM CDT Temperature 36.5 C (97.7 F) 08/04/2022 8:05 AM CDT Respiratory Rate 18 08/04/2022 9:00 AM CDT Oxygen Saturation 97% 08/04/2022 9:00 AM CDT Inhaled Oxygen Concentration - - Weight 97.5 kg (215 lb) 07/31/2022 2:42 PM CDT Height 180.3 cm (5' 11 ) 07/31/2022 2:42 PM CDT Body Mass Index 29.99 07/31/2022 2:42 PM CDT Plan of Treatment Health Maintenance Due Date Last Done Comments Annual Medicare Wellness Visit 2009 RSV Immunization or 60+ Years (1 - 1-dose 75+ series) 2019 DTaP, Tdap and Td Vaccines (2 - Td or Tdap) 05/29/2023 05/29/2013 COVID-19 Vaccine (5 - 2024-25 season) 2024 07/25/2022, 08/05/2021, 12/28/2020, Additional history exists Influenza Adult (#1) 2024 07/20/2020, 08/07/2019, 07/16/2017, Additional history exists Pneumococcal Vaccine: 65+ Years Completed 07/27/2016, 12/05/2012 Zoster Vaccines Completed 10/13/2019, 07/15/2019 Meningococcal B Vaccine Aged Out No l onger eligible based on patient's age to complete this topic Meningococcal Vaccine Aged Out No layla jose eligible based on patient's age to complete this topic RSV Immunizations Under 20 Months Aged Out No longer eligible based on patient's age to complete this topic Insurance MEDICARE [facility] Care Teams Locker Attendant Relationship Specialty Start Date End Date Robert Taylor MD [address] [place] [phone] PCP - General INTERNAL MEDICINE 08/03/22
--- OUTSIDE RECORDS SUMMARY | 2024-12-31 08:20 | XMS_ITS | Encounter Summary ---
Author Organization [facility] Healthcare Address [address] [place] [address] Care Team Providers Care Last Inserter Name Role Phone Robert Taylor MD Primary Care Provider [phone] Jerardo Hill MD Unavailable Joan Villalta RN Unavailable Unavaila ble Reason for Visit * Reason Onset Date Comments Prior Auth 12/05/2024 Encounter Details Date Type Department Care Team (Late st Contact Info) Description 12/05/2024 Telephone [facility] Medical Group Cardiology [address] [place] [address] Jerardo Hill MD [address] [place] [id number] Prior Auth Social History Tobacco Use Types Packs/Day Years [...] on file Legal Sex 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 Please advise. Thank you. MAKER documented in this encounter Plan of Treatment Not on file documented as of this encounter Visit Diagnoses Not on filedocumented in this encounter Care Teams Last Inserter Relationship Specialty Start Date End Date Robert Taylor MD PCP - General Internal Medicine 09/09/21 Jerardo Hill MD [address] [facility] [address] [place] [address] Consulting Physician Cardiology 01/19/23 Joan Villalta, plastic tile setter Failure Coordinator 03/13/23 documented as of this encounter
[2024-12-31 08:36] LABS: Hemoglobin 13.7 g/dL (12.4-15.3); Mean Corpuscular HGB Conc 31.9 g/dL (32-36); Mean Corpuscular Hemoglobin 27.3 pg (27.0-31.0); Mean Corpuscular Volume 85.8 fL (78.0-102.0); Mean Platelet Volume 11.4 fl (8.7-11.0); Platelet Count Result 155 K/mm3 (150-420); Red Blood Count 5.01 M/mm3 (4.70-6.10); Red Cell Distribution Width 18.4 % (11.6-14.4); White Blood Count 6.8 K/mm3 (4.8-10.8)
[2024-12-31 09:47] LABS: Alanine Aminotransferase 40 U/L (16-63); Albumin Level 3.4 g/dL (3.4-5.0); Alkaline Phosphatase 140 U/L (46-116); Anion Gap 15 mmol/L (4-12); Aspartate Amino Transferase 24 U/L (15-37); Bilirubin,Total 0.7 mg/dL (0.00-1.00); Blood Urea Nitrogen 74 mg/dL (7-18); Calcium 9.2 mg/dL (8.5-10.1); Carbon Dioxide 24 mmol/L (21-32); Chloride 104 mmol/L (98-108); Cholesterol 82 mg/dL (0-200); Estimated Glomerular Filt Rate 20; Free T4 Free Thyroxine 1.45 ng/dL (0.76-1.46); Glucose 151 mg/dL (70-99); HDL Direct 39 mg/dL (40-60); LDL Cholesterol Calculated 29 mg/dL (<130); Osmolality Calculated 320 mOsm/kg (285-295); Phosphorus 6.2 mg/dL (2.6-4.7); Potassium 3.8 mmol/L (3.5-5.1); Sodium 143 mmol/L (136-145); Thyroid Stimulating Hormone 0.04 uIU/mL (0.36-3.74); Total Protein 6.3 g/dL (6.4-8.2); Triglycerides 70 mg/dL (0-150); Vitamin B12 450 pg/mL (193-986)
[2024-12-31 12:07] LABS: Creatinine Urine 28.51 mg/dL (40-278); Total Protein Urine Random 36.4 mg/dL (0.0-11.9); Ur Ttl Prot Creatinine Ratio 1.28 mg/mg (0-0.20)
[2024-12-31 12:17] LABS: Creatinine Urine 29.81 mg/dL (40-278)
[2024-12-31 12:18] LABS: MALB Creatinine Ratio 386.1 mg/g (0-30); Microalbumin Urine Random 115.1 mg/L
[2025-01-02 14:28] LABS: Parathyroid Intact 258 pg/mL (16-77)
== END 2024-12-31 08:09 | disposition home or self-care (01) ==
LOC: CHSLAB 08:10
PROVIDERS: Internal Medicine Nephrology; PCP Internal Medicine; Visit Provider Nurse Practitioner Family
DX: E55.9 Vitamin D deficiency, unspecified (principal); E11.22 Type 2 diabetes mellitus with diabetic chronic kidney disease; N18.4 Chronic kidney disease, stage 4 (severe); I10 Essential (primary) hypertension; Z68.31 Body mass index [BMI] 31.0-31.9, adult
CPT/HCPCS: 36415; 80053; 80061; 82043; 82306; 82570; 82607; 83970; 84100; 84156; 84439; 84443; 85027

== ENCOUNTER 2025-05-12 06:52 | Outpatient (CLI) | payer MEDICARE, SELFPAY ==
--- OUTSIDE RECORDS SUMMARY | 2025-05-12 06:55 | XMS_ITS | Clinical Summary ---
Author Organization [facility] Address [address] [place] [phone] Phone Care Team Providers Care Handbell Choir Director Name Role Phone Robert Taylor MD Primary Care Provider [phone] Allergies Active Allergy Reactions Criticality Noted Date Comments Oxycodone Other (see comments) Low 09/14/2021 unspecified Medications allopurinol (ZYLOPRIM) 100 MG tablet 06/21/2021 Active [...] 1 (one) time each day 10/19/2022 Active isosorbide-hydr ALAZINE (BIDIL) 20-37.5 MG per tablet Take 1 [...] (03/16/2022): Added automatically from request for surgery [id number] Immunizations Immunization Administration Dates Next Due Influenza TIV (IM) [...] at Not on file Legal Sex Male 1:21 PM MDT Gender Identity Not on file Sexual Orientation Not on file Last Filed Vital Signs Vital Sign Reading Time Taken Comments Blood Pressure 142/70 10/25/2022 11:42 AM PAPER ROLLER Pulse 72 10/25/2022 11:42 AM PAPER ROLLER Temperature 36.7 C (98 F) 10/25/2022 11:42 AM PAPER ROLLER Respiratory Rate - - Oxygen Saturation - - Inhaled Oxygen Concentration - - Weight 93.9 kg (207 lb) 10/25/2022 11:42 AM PAPER ROLLER Height 180.3 cm (5' 11) 10/25/2022 11:42 AM PAPER ROLLER Body Mass Index 28.87 10/25/2022 11:42 AM PAPER ROLLER Plan of Treatment Health Maintenance Due Date Last Done Comments Pneumococcal PPSV23/PCV13 65 + Years / Low and Medium Risk (1 of 2 - PCV) 1994 Influenza Vaccine (#1) 2025 09/04/2022 Insurance MEDICARE [facility] Care Teams Handbell Choir Director Relationship Specialty Start Date End Date Robert Taylor MD [address] [place] [phone] PCP - General Internal Medicine 03/23/22
--- OUTSIDE RECORDS SUMMARY | 2025-05-12 06:55 | XMS_ITS | Clinical Summary ---
Author Organization [facility] Address [address] [place] [address] Care Team Providers Care Associate Professor Of Theology Name Role Phone Robert Taylor MD Primary Care Provider [phone] Allergies Active Allergy Reactions Criticality Noted Date [...] 2:42 PM CDT Height 180.3 cm (5' 11) 07/31/2022 2:42 PM CDT Body Mass Index 29.99 07/31/2022 2:42 PM CDT Plan of Treatment Health Maintenance Due Date Last Done Comments Annual Medicare Wellness Visit 2009 RSV Immunization or 60+ Years (1 - 1-dose 75+ series) 2019 DTaP, Tdap and Td Vaccines (2 - Td or Tdap) 05/29/2023 05/29/2013 COVID-19 Vaccine (5 - 2024-25 season) 2024 07/25/2022, 08/05/2021, 12/28/2020, Additional history exists Pneumococcal Vaccine: 50+ Years Completed 07/27/2016, 12/05/2012 Zoster Vaccines Completed 10/13/2019, 07/15/2019 Meningococcal B Vaccine Aged Out No l onger eligible based on patient's age to complete this topic Meningococcal Vaccine Aged Out No layla jose eligible based on patient's age to complete this topic RSV Immunizations Under 20 Months Aged Out No longer eligible based on patient's age to complete this topic Insurance MEDICARE [facility] Care Teams Associate Professor Of Theology Relationship Specialty Start Date End Date Robert Taylor MD [address] [place] [address] PCP - General INTERNAL MEDICINE 08/03/22
--- OUTSIDE RECORDS SUMMARY | 2025-05-12 06:55 | XMS_ITS | Clinical Summary ---
Author Organization [facility] Address [address] [place] [address] Care Team Providers Care Photographic Enlarger Operator Name Role Phone Robert Taylor MD Primary Care Provider [phone] Source Comments [facility],non-owned Affiliates and Associated Physician Practices is amultiple site organization consisting of ambulatory clinics and hospital sitesin [place], [place], [place] and [place]. This disclosure is being madepursuant to the Care Everywhere program and may not contain all information available regarding this patient. Last updated 18.[facility] Allergies Active Allergy Reactions Criticality Noted Date Comments Latex Rash Medium 08/04/2022 Oxycodone Other,Vomiting Low 09/14/2021 unspecified makes me crazy Medications * Be aware that medications may not be up to date on this document. Alwaysverify current medications with the patient. allopurinol (Zyloprim) 100 MG tablet Take 1 (one) tablet by mouth 2 times daily Active atorvastatin (Lipitor) 40 MG tablet Take 1 (one) tablet by mouth every evening Active calcitriol (Rocaltrol) 0.25 MCG capsule Take 1 (one) capsule by mouth once daily Active Jardiance 10 MG tablet Take 1 (one) tablet by mouth once daily 5 Active finasteride (Proscar) 5 MG tablet Take 1 (one) tablet by mouth once daily Active carvedilol (Coreg) 12.5 MG tablet Take 1 (one) tablet by mouth 2 times daily with morning and evening meal Active Cholecalcifero l 125 MCG (5000 UT) Take 1 (one) tablet by mouth once daily Active isosorbide-hyd rALAZINE (Bidil) 20-37.5 MG tablet Take 1 (one) tablet by mouth 3 times daily Active levothyroxine (Synthroid) 150 MCG tablet Take 1 (one) tablet by mouth daily before breakfast Active potassium chloride ER (K-TAB) 20 MEQ tablet Take 1 (one) tablet by mouth 2 times daily Active Verquvo 10 MG TABS Take 1 tablet by mouth once daily Active insulin isophane & reg, human, 70/30 (HumuLIN;NovoL IN 70/30) vial Inject 22 (twenty two) Units subcutaneously 2 times daily, before breakfast and supper Inject under the skin 22 units a.m. and 22 units p.m Active furosemide (Lasix) 20 MG tablet Take 6 (six) tablets by mouth once daily Takes three tablets in the morning and three at noon Active Multiple Vitamins-[place] als (EYE HEALTH AREDS 2 PO) Take 1 tablet by mouth 2 times daily Active Encounters Date Type Department Care Team Description 05/07/2025 Orders Only [facility] - ENT [address] [place] [phone] Demarcus Fung MD Squamous cell carcinoma, ear, right 05/07/2025 Telephone [facility] - Dermatology [address], [facility] [address] [place] [phone] Tegan Davey MD Appointment 05/06/2025 Telephone [facility] [address] [place] [phone] Demarcus Fung MD Question 04/28/2025 3:00 PM CDT Office Visit [facility] [address] [place] [phone] Demarcus Fung MD Squamous cell carcinoma, ear, right (Primary Dx) 04/28/2025 Travel 04/17/2025 Telephone [facility] - ENT [address] [place] [phone] Tereso Vaca MD Referral from Last 3 Months Immunizations Immunization Administration Dates Next Due INFLUENZA VACCINE, TRIV. (AF LURIA, FLUZONE TRIVALENT; 6MO+) (IIV3) 09/04/2022 COVID PFIZER BIVALENT 12Y+ 30mcg/0.3ML Covid Pfizer primary monoval ent 12+ yr 0.3mL Purple cap 08/05/2021,12/28/2020,12/07/2020 INFLUENZA VACCINE, ADJUVANTE D, QUADR. (FLUAD QUADRIVALENT; 65Y+) (AIIV4) 10/05/2023,08/13/2022 INFLUENZA VACCINE, ADJUVANTE D, TRIV. (FLUAD TRIVALENT; 65Y+) (AIIV3) 12/26/2024 INFLUENZA VACCINE, HIGH-DOSE , QUADR. (FLUZONE HIGH-DOSE QUADRIVALENT; 65Y+), 0.7 ML (HD-IIV4) 09/02/2021 INFLUENZA VACCINE, HIGH-DOSE , TRIV. (FLUZONE HIGH-DOSE TRIVALENT; 65Y+) (HD-IIV3) 08/26/2013,08/23/2012 INFLUENZA VACCINE, QUADR. (A FLURIA, FLUZONE QUADRIVALENT; 6MO+) (IIV4) 07/16/2017,08/26/2015,08/29/2014 INFLUENZA VACCINE, QUADR. (F LUZONE; FLULAVAL; FLUARIX; AFLURIA QUADRIVALENT; 6MO+), 0.5 ML (IIV4) 07/20/2020,08/07/2019,08/17/2016 PNEUMOCOCCAL PCV20 CONJ VAC IM 01/12/2025 PNEUMOCOCCAL PCV7 CONJ, PEDS 07/06/2020 PNEUMOCOCCAL PPV VACCINE 12/05/2012 Pneumococcal Pcv13 Conj 07/27/2016 RSV AREXVY 60YR+ 0.5ML 01/22/2024 TDAP, HISTORIC VACCINE 12/26/2024,01/22/2024, Zoster Hzv Vacc Recombinant Inj Im 10/13/2019, Social History Tobacco Use Types Packs/Day Years Used Date Smoking Tobacco: Never Smokeless Tobacco: Never Tobacco Cessation:Counseling Given: Not Answered Alcohol Use Standard Drinks/Week Comments Never 0 (1 standard drink = 0.6 oz pur e alcohol) Sex and Gender Information Value Date Recorded Sex Assigned at Not on file Legal Sex Male 10:45 AM CDT Gender Identity Not on file Sexual Orientation Not on file Last Filed Vital Signs Vital Sign Reading Time Taken Comments Blood Pressure 137/73 04/28/2025 2:13 PM CDT Pulse 74 04/28/2025 2:13 PM CDT Temperature - - Respiratory Rate - - Oxygen Saturation - - Inhaled Oxygen Concentration - - Weight 91.2 kg (201 lb) 04/28/2025 2:13 PM CDT Height 180.3 cm (5' 11) 04/28/2025 2:13 PM CDT Body Mass Index 28.03 04/28/2025 2:13 PM CDT Plan of Treatment Health Maintenance Due Date Last Done Comments MEDICARE AWV 12 MONTHS 1945 COVID-19 VACCINE ( season) 2024 07/25/2022, 08/05/2021, 12/28/2020, Additional history exists DEPRESSION SCREENING 11/05/2024 INFLUENZA VACCINE (#1) 2025 , 10/05/2023, 09/04/2022, Additional history exists DTAP/TDAP/TD VACCINES (4 - Td or Tdap) 12/26/2034 12/26/2024, 01/22/2024, 05/29/2013 ZOSTER VACCINE Completed 10/13/2019, 07/15/2019 Respiratory Syncytial Virus (RSV) Vaccine Pt: or over 60 yrs Completed 01/22/2024 PNEUMOCOCCAL VACCINE 50+ Completed 025, 07/27/2016, 12/05/2012 HEPATITIS B VACCINE Aged Out No longe r eligible based on patient's age to complete this topic HIB VACCINE Aged Out No longer eligi ble based on patient's age to complete this topic HPV VACCINE Aged Out No longer eligi ble based on patient's age to complete this topic MENINGOCOCCAL (Group B) VACCINE SHARED DECISION-MAKING Aged Out No longer eligible based on patient's age to complete this topic MENINGOCOCCAL GROUPS A/C/Y/W VACCINE Aged Out No longer eligible based on patient's age to complete this topic Insurance MEDICARE [facility] Care Teams Photographic Enlarger Operator Relationship Specialty Start Date End Date Robert Taylor MD [address] [place] [address] PCP - General 04/28/21
--- OUTSIDE RECORDS SUMMARY | 2025-05-12 06:55 | XMS_ITS | Clinical Summary ---
Author Organization [facility] [address] Address [address] [place] [address] Care Team Providers Care Education Specialist Name Role Phone Robert Taylor MD Primary Care Provider [phone] Jerardo Hill MD Unavailable Joan Villalta RN Unavailable Unavaila ble Allergies Active Allergy Reactions Criticality Noted Date Comments Latex Rash Medium 08/04/2022 Oxycodone Other (See comments) Low 09/14/2021 makes me crazy Medications allopurinoL (ZYLOPRIM) 100 mg tablet Take 1 tablet (100 mg total) by mouth 2 (two) times a day 1 Active finasteride (PROSCAR) 5 mg tablet Take 1 tablet (5 mg total) by mouth daily 1 Active True Metrix Glucose Test Strip strip 1 Active TRUEplus Lancets 28 gauge misc 1 Active BD Natalia 2nd Gen Pen Needle 32 gauge x 5/32 needle 1 Active cholecalciferol (VITAMIN D-3) 5,000 unit capsule TAKE 1 CAPSULE BY MOUTH EVERY DAY. START AFTER FINISHED WITH WEEKLY DOSING 2 Active levothyroxine (SYNTHROID) 150 mcg tablet Take 1 tablet (150 mcg total) by mouth daily 2 Active metOLazone (ZAROXOLYN) 2.5 mg tabletIndicatio ns:Acute on chronic systolic congestive heart failure (HCC) Take 1 tablet (2.5 mg total) by mouth daily Take 30-60 minutes before morning dose of furosemide. 90 tablet 3 Active Additional Information Patient not taking.Reported on 05/06/2025 carvediloL (COREG) 12.5 mg tablet Take 1 tablet (12.5 mg total) by mouth 2 (two) times a day with meals Active Verquvo 10 mg tablet TAKE 1 TABLET BY MOUTH EVERY DAY 90 tablet 3 4 Active potassium chloride ER 20 mEq CR tablet TAKE 1 TABLET BY MOUTH TWICE A DAY 180 tablet 3 4 Active vit A/vit C/vit E/zinc/copper (ICAPS AREDS ORAL) Take by mouth Active calcitRIOL (ROCALTROL) 0.25 mcg capsule Take by mouth daily 4 Active isosorbide-hydr ALAZINE (BIDIL) 20-37.5 mg per tablet TAKE 1 TABLET BY MOUTH THREE TIMES A DAY 270 tablet 3 4 Active atorvastatin (LIPITOR) 40 mg tablet TAKE 1 TABLET BY MOUTH IN THE EVENING 90 tablet 3 5 Active Jardiance 10 mg tablet TAKE 1 TABLET BY MOUTH EVERY DAY 30 tablet 9 5 Active furosemide (LASIX) 20 mg tabletIndicatio ns:Cardiomyopat hy, unspecified type (HCC) TAKE 3 TABLETS BY MOUTH 2 TIMES A DAY. 540 tablet 1 5 Active insulin NPH-insulin regular 70/30 (HumuLIN 70/30,NovoLIN 70/30) 100 unit/mL vial for injection Inject under the skin Active aspirin 81 mg enteric coated tablet Take 1 tablet (81 mg total) by mouth daily 30 tablet 11 5 026 Active insulin NPH-insulin regular 70/30 (HumuLIN 70/30,NovoLIN 70/30) 100 unit/mL vial for injection Inject under the skin 18 units a.m. and 16 units p.m. 025 Discontin ued(Patie nt Reported) aspirin 81 mg enteric coated tablet Take 1 tablet (81 mg total) by mouth daily 30 tablet 11 4 025 Discontin ued(Alter cathy therapy) Hospital, Clinic, or Other Facility Administered Medication Ordered Dose Route Frequency Start Date End Date Status perflutren protein-a (OPTISON) 3 mL in sodium chloride 0.9% 8 mL syringe 1 - 8 mL IV Once in imaging 02/13/2023 Active Active Problems Problem Noted Date Diagnosed Date CKD stage 4 due to type 2 diabetes mellitus 02/03 Shortness of breath 10/06/2021 Acute on chronic systolic congestive heart failu re 10/06/2021 Overview (10/07/2021): Added automatically from request for surgery [id number] Nonrheumatic mitral valve regurgitation 10/06/20 Overview (10/07/2021): Added automatically from request for surgery [id number] Encounters Date Type Department Care Team Description 05/06/2025 11:00 AM CDT Office Visit [facility] Cardiology [address] [place] [address] Jerardo Hill MD Chronic combined systolic and diastolic congestive heart failure (HCC) (Primary Dx); Nonrheumatic mitral valve regurgitation; Mild CAD; CKD (chronic kidney disease) stage 4, GFR 15-29 ml/min (HCC) from Last 3 Months Surgical History Surgery Date Site/Laterality Comments COLONOSCOPY FOOT SURGERY CATARACT EXTRACTION Medical History Medical History Date Comments Hypertension Obese Heart murmur Heart failure (HCC) Diabetes (HCC) Enlarged prostate Cancer (HCC) Prostate HLD (hyperlipidemia) CKD (chronic kidney disease) stage 4, GFR 15-29 ml/min (HCC) Family History Medical History Relation Name [...] on file Legal Sex Male 12:20 AM FITTING ROOM ATTENDANT Gender Identity Not on file Sexual Orientation Not on file Obstetrics History Last Filed Vital Signs Vital Sign Reading Time Taken Comments Blood Pressure 134/70 05/06/2025 11:08 AM CDT Pulse 72 05/06/2025 11:08 AM CDT Temperature 36.7 C (98 F) 11/23/2022 9:20 AM FITTING ROOM ATTENDANT Respiratory Rate 98 06/21/2023 9:54 AM CDT Oxygen Saturation 98% 05/06/2025 11:08 AM CDT Inhaled Oxygen Concentration - - Weight 91.7 kg (202 lb 1.6 oz) 05/06/2025 11:08 AM CDT Height 180.3 cm (5' 11) 05/06/2025 11:08 AM CDT Body Mass Index 28.19 05/06/2025 11:08 AM CDT Plan of Treatment Health Maintenance Due Date Last Done Comments Albumin Creatinine Ratio, Urine 1945 Depression Screening 1945 Dilated Eye Exam 1944 Foot Exam 1945 Hepatitis B Screening 1962 Well Visit 65+ 2009 Hemoglobin A1C 08/15/2023 02/13/2023 Fall Risk Assessment 11/23/2023 11/23/2022 eGFR 02/14/2024 02/13/2023, 01/03, 10/21/2021, Additional history exists Covid-19 Vaccine (4 - 2023-2 5 season) 2024 08/05/2021, 12/28/2020, 12/07/2020 Lipid Panel 2024 2023, 12/0 05/2022, 09/14/2021 Influenza Vaccine (#1) 2025 , 09/04/2022, 09/02/2021, Additional history exists DTaP/Tdap/Td Vaccine (4 - Td or Tdap) 12/26/2034 12/26/2024, 01/22/2024, 05/29/2013 Zoster Vaccine Completed 10/13/2019, 07/15/2019 Pneumococcal vaccine [...] Ramos MD LAB BLOOD ORDERABLES Final Res t Performing Organization Address [facility] de Phone Number [facility] [address] [facility] [employer] [place] [address] * (ABNORMAL) Hemoglobin A1c (02/13/2023 10:01 AM CDT) Hgb A1C 6.8(H) 4.0 - 5.6 % SHANDA TANG Estimated Average Glucose 148 mg/dL SHANDA TANG Comment: The ADA recommends reporting an estimated Average Glucose (eAG) with all Hemoglobin A1c results using the equation derived from a study of 507 normal and diabetic adults. Minority populations were underrepresented and children were not included. (Diabetes Care 31:2574-0003, 2008). The eAG is not equivalent to a fasting glucose. Blood 02/13/2023 10:0 1 AM CDT 02/13/2023 1:03 PM CDT Amada Ramos MD LAB BLOOD ORDERABLES Final Res t Performing Organization Address [facility] Phone [facility] [address] [facility] [employer] [place] [address] from Last 3 Months or Most Recently Relevant to Health Maintenance Insurance MEDICARE [facility] MEDICARE [facility] MEDICARE BLUE CROSS MEDICARE SUPPLEMENT [facility] MEDICARE Advance Directives For more information, please contact: [phone] * Full Code (Latest Code Status on File) Date Activated Date Inactivated Comments 10/06/2021 11:50 PM 10/08/2021 11:18 PM Care Teams Education Specialist Relationship Specialty Start Date End Date Robert Taylor MD PCP - General Internal Medicine 09/09/21 Jerardo Hill MD [address] [address] Consulting Physician Cardiology 01/19/23 Joan Villalta, jewelry salesperson Failure Coordinator 03/13/23
--- OUTSIDE RECORDS SUMMARY | 2025-05-12 06:55 | XMS_ITS | Referral Summary ---
Author Organization [facility] [address] [facility] [address] Address [address] [place] [address] Care Team Providers Care Field Service Representative Name Role Phone Robert Taylor MD Primary Care Provider [phone] Jerardo Hill MD Unavailable Joan Villalta RN Unavailable Unavaila ble Encounters Date Type Department Care Team Description 05/06/2025 11:00 AM CDT Office Visit [facility] Cardiology [address] [place] [address] Jerardo Hill MD Chronic combined systolic and diastolic congestive heart failure (HCC) (Primary Dx); Nonrheumatic mitral valve regurgitation; Mild CAD; CKD (chronic kidney disease) stage 4, GFR 15-29 ml/min (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 Gender Identity Not on file Sexual Orientation Not on file Last Filed Vital Signs Vital Sign Reading Time Taken Comments Blood Pressure 134/70 05/06/2025 11:08 AM CDT Pulse 72 05/06/2025 11:08 AM CDT Temperature 36.7 C (98 F) 11/23/2022 9:20 AM FOOTWEAR SALES REPRESENTATIVE Respiratory Rate 98 06/21/2023 9:54 AM CDT Oxygen Saturation 98% 05/06/2025 11:08 AM CDT Inhaled Oxygen Concentration - - Weight 91.7 kg (202 lb 1.6 oz) 05/06/2025 11:08 AM CDT Height 180.3 cm (5' 11) 05/06/2025 11:08 AM CDT Body Mass Index 28.19 05/06/2025 11:08 AM CDT Plan of Treatment Not on file Procedures [...] CDT) eGFR 19 mL/min/1. 73 m2 SHANDA FLORESWCH Comment: Interpretive Data Reference Interval Normal >/= [...] of Race in Diagnosing Kidney Disease, JASN 202). The CKD-EPI equation should not be used for patients with unstable renal function and has not been validated in children and those over 70. Current interpretive data was last reviewed 2021. Blood 02/13/2023 10:0 1 AM CDT 02/13/2023 1:03 PM CDT Amada Ramos MD LAB BLOOD ORDERABLES Final Res ult Performing Organization Address [facility] de Phone Number SHANDA FLORESCH [address] [email or web address] [address] * (ABNORMAL) Hemoglobin A1c (02/13/2023 [...] and children were not included. (Diabetes Care 31:8523-2107, 2008). The eAG is not equivalent to a fasting glucose. Blood 02/13/2023 10:0 1 AM CDT 02/13/2023 1:03 PM CDT us Amada Ramos MD LAB BLOOD ORDERABLES Final Res ult Performing Organization Address [facility] Co de Phone Number SHANDA FLORESCH [address] [email or web address] [place], [place] [id number] from Last 3 Months or Most Recently Relevant to Health Maintenance Insurance [facility]IC[facility] MEDICARE BLUE CROSS MEDICARE SUPPLEMENT [facility] [place] [address] Advance Directives For more information, please contact: [phone] * Full Code (Latest Code Status on File) Date Activated Date Inactivated Comments 10/06/2021 11:50 PM 10/08/2021 11:18 PM Care Teams Field Service Representative Relationship Specialty Start Date End Date Robert Taylor MD PCP - General Internal Medicine 09/09/21 Jerardo Hill MD [address] [facility] [address] [place] [address] Consulting Physician Cardiology 01/19/23 Joan Villalta, chronic manager Failure Coordinator 03/13/23
[2025-05-12 07:15] LABS: Hematocrit 42.1 % (37.0-46.0); Hemoglobin 13.4 g/dL (12.4-15.3); Mean Corpuscular HGB Conc 31.8 g/dL (32-36); Mean Corpuscular Hemoglobin 28.0 pg (27.0-31.0); Mean Corpuscular Volume 87.9 fL (78.0-102.0); Platelet Count Result 168 K/mm3 (150-420); Red Blood Count 4.79 M/mm3 (4.70-6.10); White Blood Count 7.1 K/mm3 (4.8-10.8)
[2025-05-12 07:21] LABS: Total Protein Urine Random 40 mg/dL; Ur Ttl Prot Creatinine Ratio 0.74 mg/mg (0-0.20)
[2025-05-12 07:50] LABS: Albumin Level 3.8 g/dL (3.5-5.1); Anion Gap 9 mmol/L (4-12); Blood Urea Nitrogen 56 mg/dL (9-20); Calcium 9.3 mg/dL (8.4-10.2); Carbon Dioxide 24 mmol/L (22-30); Chloride 106 mmol/L (98-107); Estimated Glomerular Filt Rate 22; Glucose 85 mg/dL (65-110); Osmolality Calculated 302 mOsm/kg (285-295); Potassium 3.6 mmol/L (3.4-5.0); Sodium 139 mmol/L (137-145)
== END 2025-05-12 06:53 | disposition home or self-care (01) ==
LOC: CHSLAB 06:54
PROVIDERS: PCP Internal Medicine; Visit Provider Internal Medicine Nephrology
DX: E55.9 Vitamin D deficiency, unspecified (principal); N18.4 Chronic kidney disease, stage 4 (severe)
CPT/HCPCS: 36415; 80069; 82306; 82570; 84156; 85027

== ENCOUNTER 2025-09-08 08:34 | Outpatient (CLI) | payer MEDICARE, SELFPAY ==
[2025-09-08 08:56] LABS: Hematocrit 39.9 % (37.0-46.0); Hemoglobin 12.5 g/dL (12.4-15.3); Mean Corpuscular HGB Conc 31.3 g/dL (32-36); Mean Corpuscular Hemoglobin 27.2 pg (27.0-31.0); Mean Corpuscular Volume 86.7 fL (78.0-102.0); Platelet Count Result 167 K/mm3 (150-420); Red Blood Count 4.60 M/mm3 (4.70-6.10); White Blood Count 7.2 K/mm3 (4.8-10.8)
--- OUTSIDE RECORDS SUMMARY | 2025-09-08 09:01 | XMS_ITS | Clinical Summary ---
Author Organization [facility] Address [address] [place] [address] Phone Care Team Providers Care Mobile Homes Repairer Name Role Phone Robert Taylor MD Primary Care Provider [phone] Allergies Active Allergy Reactions Criticality Noted Date [...] (03/16/2022): Added automatically from request for surgery [id number] Immunizations Immunization Administration Dates Next Due Influenza [...] Comments Blood Pressure 142/70 10/25/2022 11:42 AM LEGAL ADVISOR Pulse 72 10/25/2022 11:42 AM LEGAL ADVISOR Temperature 36.7 C (98 F) 10/25/2022 11:42 AM LEGAL ADVISOR Respiratory Rate - - Oxygen Saturation - - Inhaled Oxygen Concentration - - Weight 93.9 kg (207 lb) 10/25/2022 11:42 AM LEGAL ADVISOR Height 180.3 cm (5' 11) 10/25/2022 11:42 AM LEGAL ADVISOR Body Mass Index 28.87 10/25/2022 11:42 AM LEGAL ADVISOR Plan of Treatment Health Maintenance Due Date Last Done Comments Pneumococcal PPSV23/PCV13 65 + Years / Low and Medium Risk (1 of 2 - PCV) 1994 Influenza Vaccine (#1) 2025 09/04/2022 Insurance MEDICARE [facility] Care Teams Mobile Homes Repairer Relationship Specialty Start Date End Date Robert Taylor MD [address] [place] [id number] PCP - General Internal Medicine 03/23/22
--- OUTSIDE RECORDS SUMMARY | 2025-09-08 09:01 | XMS_ITS | Clinical Summary ---
Author Organization [facility] Address [address] [place] [address] Care Team Providers Care Web Project Manager Name Role Phone Robret Taylor MD Primary Care Provider [phone] Source Comments [facility],non-owned Affiliates and Associated Physician Practices is amultiple site organization consisting of ambulatory clinics and hospital sitesin [place], [place], [place] and [place]. This disclosure is being madepursuant to the Care Everywhere program and may not contain all information available regarding this patient. Last updated 18.[facility] Allergies Active Allergy Reactions Criticality Noted Date [...] in the morning and three at noon 5 Active Multiple Vitamins-[place] als (EYE HEALTH AREDS 2 PO) Take 1 tablet by mouth 2 times daily Active Immunizations Immunization Administration Dates Next Due INFLUENZA VACCINE, TRIV. (AF LURIA, FLUZONE TRIVALENT; 6MO+) (IIV3) 09/04/2022 COVDartfish BIVALENT 12Y+ 30mcg/0.3ML 2 CovTeamwork Retail primary monoval ent 12+ yr 0.3mL Purple [...] Done Comments MEDICARE AWV 12 MONTHS 1945 DEPRESSION SCREENING 11/05/2024 COVID-19 VACCINE (2024- season) 2025 07/25/2022, 08/05/2021, 12/28/2020, Additional history exists INFLUENZA VACCINE (#1) 2025 , 10/05/2023, 09/04/2022, [...] age to complete this topic Insurance MEDICARE [facility] ([address] [address] Care Teams Web Project Manager Relationship Specialty Start Date End Date Robert Taylor MD [address] [place] [address] PCP - General 04/28/21
--- OUTSIDE RECORDS SUMMARY | 2025-09-08 09:01 | XMS_ITS | Clinical Summary ---
Author Organization [facility] [address] Address [address] [place] [address] Care Team Providers Care Information Clerk Brokerage Name Role Phone Robert Taylor MD Primary Care Provider [phone] Jerardo Hill MD Unavailable Joan Villalta RN Unavailable Unavaila Kristi Lazcano Unavailable Unavailable Allergies Active Allergy Reactions Criticality Noted Date [...] daily 2 Active metOLazone (ZAROXOLYN) 2.5 mg tabletIndication s:Acute on chronic systolic congestive heart failure (HCC) Take 1 tablet (2.5 mg total) by mouth daily Take 30-60 minutes before morning dose of furosemide. 90 tablet 3 Active Additional Information Patient not taking.Reported on 05/06/2025 carvediloL (COREG) 12.5 mg tablet Take 1 tablet (12.5 mg total) by mouth 2 (two) times a day with meals Active vit A/vit C/vit E/zinc/copper (ICAPS AREDS ORAL) Take by mouth Active calcitRIOL (ROCALTROL) 0.25 mcg capsule Take by mouth daily 4 Active atorvastatin (LIPITOR) 40 mg tablet TAKE 1 TABLET BY MOUTH IN THE EVENING 90 tablet 3 5 Active Jardiance 10 mg tablet TAKE 1 TABLET BY MOUTH EVERY DAY 30 tablet 9 5 Active insulin NPH-insulin regular 70/30 (HumuLIN 70/30,NovoLIN 70/30) 100 unit/mL vial for injection Inject under the skin Active aspirin 81 mg enteric coated tablet Take 1 tablet (81 mg total) by mouth daily 30 tablet 11 5 05/06/20 26 Active potassium chloride ER 20 mEq CR tablet Take 1 tablet (20 mEq total) by mouth 2 (two) times a day 180 tablet 3 5 Active Verquvo 10 mg tablet TAKE 1 TABLET BY MOUTH EVERY DAY 90 tablet 3 5 Active furosemide (LASIX) 20 mg tabletIndication s:Cardiomyopathy , unspecified type (HCC) TAKE 3 TABLETS BY MOUTH 2 TIMES A DAY. 540 tablet 1 5 Active isosorbide-hydrA LAZINE (BIDIL) 20-37.5 mg per tablet TAKE 1 TABLET BY MOUTH THREE TIMES A DAY 270 tablet 3 5 Active Hospital, Clinic, or Other Facility Administered Medication [...] (10/07/2021): Added automatically from request for surgery [id number] Nonrheumatic mitral valve regurgitation 10/06/20 21 Overview (10/07/2021): Added automatically from request for surgery [id number] Surgical History Surgery Date Site/Laterality Comments COLONOSCOPY FOOT SURGERY CATARACT EXTRACTION Medical History Medical History Date Comments Hypertension Obese Heart murmur Heart failure Diabetes Enlarged prostate Cancer (HCC) Prostate HLD (hyperlipidemia) [...] on file Legal Sex Male 12:20 AM 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 Gender Identity Not on file Sexual Orientation Not on file Last Filed Vital Signs Vital Sign Reading Time Taken Comments Blood Pressure 134/70 05/06/2025 11:08 AM CDT Pulse 72 05/06/2025 11:08 AM CDT Temperature 36.7 C (98 F) 11/23/2022 9:20 AM 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 Respiratory Rate 98 06/21/2023 9:54 AM CDT [...] 02/14/2024 02/13/2023, 01/03, 10/21/2021, Additional history exists Lipid Panel 2024 2023, 05/2022, 09/14/2021 Covid-19 Vaccine ( - 2024-2 6 season) 2025 08/05/2021, 12/28/2020, 12/07/2020 Influenza Vaccine (#1) 2025 , 09/04/2022, 09/02/2021, [...] MD LAB BLOOD ORDERABLES Final Res ult SHANDA FLORESCH [address] [facility]. Department [place] [employer] [place] [address] * (ABNORMAL) Hemoglobin A1c (02/13/2023 [...] and children were not included. (Diabetes Care 31:4121-2834, 2008). The eAG is not equivalent to a fasting glucose. Blood 02/13/2023 10:0 1 AM CDT 02/13/2023 1:03 PM CDT us Amada Ramos MD LAB BLOOD ORDERABLES Final Res ult [facility]ANDA FLORESW[facility] [address] [facility]. [facility] [place] [address] from Last 3 Months or Most Recently Relevant to Health Maintenance Insurance MEDICARE [facility], 1928–1983 MEDICARE FORMERLY [facility], 1928–1983 MEDICARE BLUE CROSS MEDICARE SUPPLEMENT FORMERLY [facility], 1928–1983 MEDICARE Advance Directives For more information, please contact: [phone] * Full Code (Latest Code Status on File) Date Activated Date Inactivated Comments 10/06/2021 11:50 PM 10/08/2021 11:18 PM Care Teams Information Clerk Brokerage Relationship Specialty Start Date End Date Robert Taylor MD PCP - General Internal Medicine 09/09/21 Jerardo Hill MD [address] [facility] [address] [place] [address] Consulting Physician Cardiology 01/19/23 Joan Villalta, screening specialist Failure Coordinator 03/13/23 Kristi Odom Primary Cigarette Stamper 07/23/25
[2025-09-08 09:21] LABS: Albumin Level 4.1 g/dL (3.5-5.1); Anion Gap 11 mmol/L (4-12); Blood Urea Nitrogen 63 mg/dL (9-20); Calcium 9.8 mg/dL (8.4-10.2); Carbon Dioxide 25 mmol/L (22-30); Chloride 105 mmol/L (98-107); Estimated Glomerular Filt Rate 16; Glucose 172 mg/dL (65-110); Osmolality Calculated 314 mOsm/kg (285-295); Potassium 4.0 mmol/L (3.4-5.0); Sodium 141 mmol/L (137-145)
[2025-09-08 10:33] LABS: Total Protein Urine Random 100 mg/dL; Ur Ttl Prot Creatinine Ratio 1.54 mg/mg (0-0.20)
[2025-09-09 08:34] LABS: Parathyroid Intact 195.8 (7.5-53.5)
== END 2025-09-08 08:35 | disposition home or self-care (01) ==
PROVIDERS: PCP Internal Medicine; Visit Provider Internal Medicine Nephrology
DX: N18.4 Chronic kidney disease, stage 4 (severe) (principal); I12.9 Hypertensive chronic kidney disease with stage 1 through stage 4 chronic kidney disease, or unspecified chronic kidney disease
CPT/HCPCS: 36415; 80069; 82570; 83970; 84156; 85027

== ENCOUNTER 2025-10-21 16:40 | Emergency (ER) | payer MEDICARE, SELFPAY ==
[2025-10-21] VITALS (51 sets, daily range): BP systolic 113–175; BP diastolic 67–108; PULSE 41–88; RESP 18–32; TEMP 36.1–36.4; O2SAT 89–98
--- NOTE | ~2025-10-21 | XR_ITS ---
EXAMINATION: XR chest 1V portable COMPARISON: No comparisons available. HISTORY: Shortness of breath FINDINGS: Moderate pulmonary venous congestion Small basilar infiltrates No pneumothorax. Moderate cardiomegaly. Mediastinal and hilar contours are within normal limits. Bony thorax no acute abnormality. Miscellaneous: None Impression: CHF Reviewed, dictated and finalized at location [facility] Impression: CHF
--- NOTE | 2025-10-21 17:01 | ED.SOB ---
HPI - SOB/Dyspnea General Chief Complaint: Shortness of Breath/Dyspnea Stated Complaint: Shortness of breath Time Seen by Provider: 10/21/25 17:01 Source: patient and family Mode of arrival: ambulatory Limitations: no limitations History of Present Illness HPI Narrative: 80 years old white male came from home by private car with his complaining of chronic intermittent shortness of breath got worse today worse with exertion, better laying still. He denies any fever chills nausea vomiting diarrhea constipation or chest pain. Patient had similar symptoms secondary to congestive heart failure. History of diabetes hypertension hyperlipidemia CHF and leaking valve. Currently on baby aspirin once a day. Patient does not smoke or drink or use drugs. Related Data Home Medications ?Medication ?Instructions ?Recorded ?Confirmed ?Last Taken ?Type allopurinol 100 mg tablet 100 mg PO BID 03/17/20 10/22/25 10/21/25 History finasteride 5 mg tablet 5 mg PO QAM 03/17/20 10/22/25 10/21/25 History vericiguat 5 mg tablet (Verquvo) 10 mg PO DAILY 09/19/22 10/22/25 10/21/25 History isosorbide 20 mg-hydralazine 37.5 1 tablet PO TID 11/21/22 10/22/25 10/21/25 History mg tablet furosemide 20 mg tablet 60 mg PO BID 04/10/23 10/22/25 10/21/25 History atorvastatin 40 mg tablet 40 mg PO HS 09/10/23 10/22/25 10/21/25 History empagliflozin 10 mg tablet 10 mg PO DAILY 09/10/23 10/22/25 10/21/25 History (Jardiance) vit C 250 mg-E 90 mg-zinc 40 1 tablet PO QAM AND QPM 12/20/23 10/22/25 10/21/25 History mg-copper 1 we-mnahvc-ubtuyv chew tablet (PreserVision AREDS-2) cholecalciferol (vitamin D3) 125 125 mcg PO DAILY 09/05/24 10/22/25 10/21/25 History mcg (5,000 unit) tablet (Vitamin D3) insulin aspar prot-insulin aspart 22 unit subcut BID 09/05/24 10/22/25 10/21/25 History 100 unit/mL (70-30) subcutaneous pen (Novolog Mix 70-30FlexPen U-100) aspirin 81 mg tablet 81 mg PO DAILY 05/19/25 10/22/25 10/21/25 History potassium chloride 20 mEq 20 meq PO BID 10/21/25 10/22/25 10/22/25 History tablet,extended release(part/cryst) vericiguat 10 mg tablet (Verquvo) 10 mg PO DAILY 10/21/25 10/22/25 10/21/25 History Allergies Allergy/AdvReac Type Severity Reaction Status Date / Time latex Allergy Rash Verified 10/22/25 00:03 oxycodone AdvReac Vomiting Verified 10/22/25 00:03 Review of Systems Review of Systems: All systems reviewed & are unremarkable except as noted in HPI and below PMFSH Past Medical History Medical History (Updated 10/22/25 @ 11:48 by Alia Villa MD) Chronic kidney disease, stage 4 (severe) Dietary counseling and surveillance Dietary counseling and surveillance Neoplasm of ear Eye problem 2022, blood behind something Congestive heart failure Chronic kidney disease, stage 4 (severe) BPH (benign prostatic hyperplasia) CHF (congestive heart failure) Type 2 diabetes mellitus Hypothyroid Abnormal thyroid blood test Positive colorectal cancer screening using Cologuard test Hyperlipidemia Chronic kidney disease (CKD) stage G3b/A3, moderately decreased glomerular filtration rate (GFR) between 30-44 mL/min/1.73 square meter and albuminuria creatinine ratio greater than 300 mg/g Diabetes mellitus type 2, controlled Essential hypertension Surgical History Surgical History History of ear surgery right ear History of cataract extraction History of foot surgery left spur Family History Family History Father Family history of diabetes mellitus in first degree relative Family history of heart disease in male family member before age 55 Sibling Family history of diabetes mellitus in first degree relative Mother Cancer Sibling No problems noted. Social History Social History Social History: The patient lives with his Joselin who is the durable power attorney at law for healthcare. The patient has 3 children. The patient is retired from [employer]. The patient is a former smoker. He drinks 2-3 beers a day but does not drink every day. He does not use any marijuana or illicit drugs. Code status full code Smoking packs per day: 0.5 Smoking cigarettes per day: 10.0 Years smoked: 30 Smoking pack-years: 15.00 Smoking status: Former smoker Tobacco type: cigarettes Second hand tobacco smoke exposure: No Smoking end date: 10/05/00 Alcohol intake: former Alcohol use details: 2 beers 3-4 times per week. Last drink June 29, 2022. 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s: No Exam Narrative: General appearance: Well-developed, well-nourished, slight labored breathing Skin: Normal color Head: Normocephalic, nontraumatic Eyes: Clear conjunctiva ENT: Oropharynx normal, ears normal, nose normal Neck: Supple, nontender Chest and respiratory: Airway patent, slight labored breathing, no accessory muscle use, slight diminution of air entry bilaterally Heart: Regular rate/rhythm Abdomen: Soft, nontender, no organomegaly, quiet bowel sounds Musculoskeletal: Normal range of motion, nontender back Neurologic: Alert and oriented ?3, PHOTOENGRAVER APPRENTICE is normal as tested, no gross motor deficit Course Consultations Hospitalist: Time of Consult: 21:16 I have discussed the care of this patient with the following provider: Niharika/nurse practitioner/hospitalist. Accepted patient transfer Vital Signs Vital signs: Vital Signs Temperature 36.4 C 10/21/25 17:02 Pulse Rate 41 L 10/21/25 17:02 Respiratory Rate 28 H 10/21/25 17:02 Blood Pressure 155/97 H 10/21/25 17:02 Pulse Oximetry 98 10/21/25 17:02 Oxygen Delivery Room Air 10/21/25 17:02 Temperature 36.1 C L 10/21/25 22:46 Pulse Rate 85 10/21/25 22:54 Respiratory Rate 24 H 10/21/25 21:46 Blood Pressure 173/98 H 10/21/25 22:46 Pulse Oximetry 95 10/21/25 22:46 Oxygen Delivery Room Air 10/21/25 22:46 MDM MDM Narrative Medical decision making narrative: Patient came with shortness of breath similar to his previous history of congestive heart failure Vital signs: Blood pressure 155/97, heart rate 41, respiration 28 otherwise within normal limit Physical examination: Slight labored breathing, diminution of air entry bilaterally at the bases Differential diagnosis: Congestive heart failure, pneumonia, pleural effusion, coronary artery disease, electrolyte imbalance, dehydration Blood workup today includes CBC, CMP, coags, troponin showed a BUN 62, creatinine 3.7, magnesium 2.6, troponin 0.069, pro BnP more than 30,000 Chest x-ray showed CHF EKG showed Differential Diagnosis Differential Diagnosis: As above Medical Records I have reviewed the following patient records and this information was taken into consideration when formulating the assessment and plan.: previous labs, previous ER visits, previous hospitalizations and previous clinic visits Lab Data 10/21/25 17:19 10/21/25 17:19 Labs: Lab Results 10/21/25 10/21/25 10/21/25 Range/Units 17:19 21:48 22:11 WBC 8.3 (4.8-10.8) K/mm3 RBC 4.76 (4.70-6.10) M/mm3 Hgb 12.7 (12.4-15.3) g/dL Hct 41.0 (37.0-46.0) % MCV 86.1 (78.0-102.0) fL MCH 26.7 L (27.0-31.0) pg MCHC 31.0 L (32-36) g/dL RDW 18.6 H (11.6-14.4) % Plt Count 170 (150-420) K/mm3 MPV 11.5 H (8.7-11.0) fl Immature Gran % (Auto) 0.5 H (0.0-0.0) % Neut % (Auto) 79.3 H (50.0-70.0) % Lymph % (Auto) 6.0 L (18.0-42.0) % Pratt % (Auto) 12.7 H (2.0-11.0) % Eos % (Auto) 0.8 L (1.0-6.0) % Baso % (Auto) 0.7 (0.0-1.0) % Lymph # (Auto) 0.50 L (1.10-4.50) K/mm3 Pratt # (Auto) 1.05 H (0.10-0.90) K/mm3 Eos # (Auto) 0.07 (0.02-0.50) K/mm3 Baso # (Auto) 0.06 (0.00-0.10) K/mm3 Abs Immat Gran (auto) 0.04 H (0.00-0.00) K/mm3 Absolute Neuts (auto) 6.55 (1.70-7.20) K/mm3 Absolute Nucleated RBC 0.00 (0.00-0.00) K/mm3 Nucleated RBC % 0.0 (0-0.0) % PT 12.3 H (9.50-12.1) Seconds INR 1.1 APTT 28.1 (23.9-30.70) Sec Sodium 138 (137-145) mmol/L Potassium 4.4 (3.4-5.0) mmol/L Chloride 106 (98-107) mmol/L Carbon Dioxide 18 L (22-30) mmol/L Anion Gap 14 H (4-12) mmol/L BUN 62 H (9-20) mg/dL Creatinine 3.71 H (0.7-1.3) mg/dL Estim Creat Clear Calc 15 ml/min Estimated GFR 16 L (59 - ) Glucose 211 H (65-110) mg/dL POC Capillary Glucose 214 H (65-105) mg/dl Calculated Osmolality 309 H (285-295) mOsm/kg Calcium 9.7 (8.4-10.2) mg/dL Magnesium 2.6 H (1.6-2.3) mg/dL Total Bilirubin 0.9 (0.2-1.3) mg/dL AST 22 (17-59) U/L ALT 18 (6-50) U/L Alkaline Phosphatase 99 (38-126) U/L Troponin I 0.069 H* 0.084 H* D (0.000-0.034) ng/mL NT-Pro-B Natriuret Pep > 89800 H (19.9-100) pg/mL Total Protein 7.1 (6.3-8.2) g/dL Albumin 4.4 (3.5-5.1) g/dL ABG Data ABG results: 10/21/25 17:19 Puncture Site Right radial ABG pH 7.46 H ABG pCO2 27.6 L ABG pO2 69.3 L ABG HCO3 19.2 L ABG O2 Saturation 93.2 L ABG Base Excess -3.2 L Oxyhemoglobin 92.3 L O2 Delivery Device Room air O2 Liters/Min 0.0 Imaging Data Radiologist's impression: ITS Impressions Chest X-Ray 10/21/25 17:25 Impression: CHF ECG Data EKG #1: Attestation: I personally reviewed and interpreted this ECG as follows: ECG completion date: 10/21/25 Prior ECG tracings: not available for review Interpretation: Normal sinus rhythm at 76 beats per minute, premature complexes, interventricular conduction delay, left ventricular hypertrophy and ST-T changes, inferior infarct, age indeterminate, abnormal EKG, no previous EKG available for comparison Critical Care Time Critical Care Time Critical Care Time: Yes Time Type: Intermittent Initial evaluation, discuss w/ involved parties, attempting to gather old records: 10 minutes Documenting medical record: 5 minutes Review of results (EKG's, labs, imaging): 5 minutes Serial repeat bedside evaluation: 10 minutes Discussing case with multiple memebers of the care team and consultants: 5 minutes Total Critical Care Time: 35 Discharge Plan Discharge Clinical Impression: CHF (congestive heart failure), Non-STEMI (non-ST elevated myocardial infarction), CKD (chronic kidney disease) Patient Disposition: Acute Care [facility] Condition: Guarded Prognosis Additional Instructions: Transferred to [facility] Patient Language: Lithuanian Prescriptions: No Action Verquvo 5 mg Tablet 10 mg PO DAILY Rx Instructions: must administer with a meal/food cholecalciferol (vitamin D3) [Vitamin D3] 125 mcg (5,000 unit) Tablet 125 mcg PO DAILY insulin asp prt-insulin aspart [Novolog Mix 70-30FlexPen U-100] 100 unit/mL (70-30) insulin pen 22 unit subcut BID potassium chloride 20 mEq tablet,ER particles/crystals 20 meq PO BID Verquvo 10 mg tablet 10 mg PO DAILY allopurinol 100 mg tablet 100 mg PO BID finasteride 5 mg tablet 5 mg PO QAM furosemide 20 mg tablet 60 mg PO BID Jardiance 10 mg tablet 10 mg PO DAILY atorvastatin 40 mg tablet 40 mg PO HS aspirin 81 mg tablet 81 mg PO DAILY PreserVision AREDS-2 250-90-40-1 mg tablet,chewable 1 tablet PO QAM AND QPM sevelamer carbonate 800 mg tablet 800 mg PO TID Qty: 90 3RF Rx Instructions: must administer with a meal/food isosorbide-hydralazine 20-37.5 mg tablet 1 tablet PO TID (DME) lancets [TRUEplus Lancets] 28 gauge misc See Rx Instructions .ROUTE .MEDSUPPLY Qty: 300 3RF Rx Instructions: Use to check BS 3 times daily (DME) pen needle, diabetic [Pen Needle] 32 gauge x 5/32 needle See Rx Instructions .ROUTE .MEDSUPPLY Qty: 300 1RF Rx Instructions: Use with insulin (Novolin 70/30) injections 2 times daily (DME) True Metrix Glucose Test Strip Strip See Rx Instructions .ROUTE .MEDSUPPLY Qty: 300 3RF Rx Instructions: Use to check BS 3 times daily carvedilol 12.5 mg tablet See Rx Instructions .ROUTE .COMPLEX Qty: 180 3RF Dose Instruction: TAKE 1 TABLET BY MOUTH EVERY 12 HOURS WITH FOOD Rx Instructions: TAKE 1 TABLET BY MOUTH EVERY 12 HOURS WITH FOOD calcitriol 0.25 mcg capsule See Rx Instructions .ROUTE .COMPLEX Qty: 90 3RF Dose Instruction: TAKE 1 CAPSULE BY MOUTH EVERY DAY Rx Instructions: TAKE 1 CAPSULE BY MOUTH EVERY DAY calcium acetate(phosphat bind) 667 mg tablet See Rx Instructions .ROUTE .COMPLEX Qty: 270 3RF Dose Instruction: TAKE 1 TABLET 3 TIMES DAILY WITH MEALS Rx Instructions: TAKE 1 TABLET 3 TIMES DAILY WITH MEALS levothyroxine [Synthroid] 150 mcg tablet 150 mcg PO DAILY Qty: 90 1RF Rx Instructions: take 6 days a week skip Sundays Follow-up/Referrals: UNKNOWN,DOCTOR [Non-Staff]
--- NOTE | 2025-10-21 17:02 | ECG_ITS ---
Test Date: 2025-10-21 17:29:50 Measurements Intervals [place] Rate: 76 P: 165 FL: 225 QRS: -62 QRSD: 178 T: 118 QT: 440 QTc: 497 Interpretive Statements SINUS RHYTHM WITH MARKEDFIRST DEGREE AV BLOCK WITH OCCASIONAL ATRIAL PREMATURE COMPLEXES INTRAVENTRICULAR CONDUCTION DELAY LEFT VENTRICULAR HYPERTROPHY AND ST-T CHANGE INFERIOR INFARCT, AGE INDETERMINATE ABNORMAL ECG No previous ECG available for comparison Electronically Signed On 10-21-2025 18:26:22 CRIB TENDER by Jose Antonio Peralta D.O.
--- NOTE | 2025-10-21 17:05 | PC.NURSE ---
Cardio-pulmonary paged for EKG.
[2025-10-21 17:23] LABS: Hematocrit 41.0 % (37.0-46.0); Hemoglobin 12.7 g/dL (12.4-15.3); Immature Granulocyte Percent A 0.5 % (0.0-0.0); Lymphocytes Absolute Auto 0.50 K/mm3 (1.10-4.50); Mean Corpuscular HGB Conc 31.0 g/dL (32-36); Mean Corpuscular Hemoglobin 26.7 pg (27.0-31.0); Mean Corpuscular Volume 86.1 fL (78.0-102.0); Nucleated Red Blood Cells Absolute Auto 0.00 K/mm3 (0.00-0.00); Nucleated Red Blood Cells Perc 0.0 % (0-0.0); Platelet Count Result 170 K/mm3 (150-420); Red Blood Count 4.76 M/mm3 (4.70-6.10); White Blood Count 8.3 K/mm3 (4.8-10.8)
[2025-10-21 17:34] LABS: Alanine Aminotransferase 18 U/L (6-50); Albumin Level 4.4 g/dL (3.5-5.1); Alkaline Phosphatase 99 U/L (38-126); Anion Gap 14 mmol/L (4-12); Aspartate Amino Transferase 22 U/L (17-59); Bilirubin,Total 0.9 mg/dL (0.2-1.3); Blood Urea Nitrogen 62 mg/dL (9-20); Calcium 9.7 mg/dL (8.4-10.2); Carbon Dioxide 18 mmol/L (22-30); Chloride 106 mmol/L (98-107); Estimated CRCL calculation 15 ml/min; Estimated Glomerular Filt Rate 16; Glucose 211 mg/dL (65-110); Magnesium 2.6 mg/dL (1.6-2.3); Osmolality Calculated 309 mOsm/kg (285-295); Potassium 4.4 mmol/L (3.4-5.0); Sodium 138 mmol/L (137-145); Total Protein 7.1 g/dL (6.3-8.2)
[2025-10-21 17:37] LABS: INR 1.1; Partial Thromboplastin Time 28.1 Sec (23.9-30.70); Prothrombin Time 12.3 Seconds (9.50-12.1)
[2025-10-21 17:41] LABS: HCO3 ABG 19.2 mmol/L (23-29); Oxygen Saturation ABG 93.2 % (95-97); PCO2 ABG 27.6 mmHg (35-45); PO2 ABG 69.3 mmHg (75-85)
[2025-10-21 17:42] LABS: Liters per Minute 0.0 LPM; Modified Allen's Test Pass; Site Drawn RIGHT RADIAL
[2025-10-21 17:46] LABS: NT Pro B Type Natriuretic Pept > 30000 pg/mL (19.9-100)
[2025-10-21 17:48] LABS: Troponin I 0.069 ng/mL (0.000-0.034)
[2025-10-21] MEDS: FUROSEMIDE INJ 40 MG/4 ML VIAL 60 MG IV PUSH (18:00)
--- OUTSIDE RECORDS SUMMARY | 2025-10-21 18:27 | XMS_ITS | Clinical Summary ---
Author Organization [facility] Address [address] [place] [id number] Phone Care Team Providers Care Production Worker Name Role Phone Robert Taylor MD Primary Care Provider [phone] Allergies Active Allergy Reactions Criticality Noted Date [...] (03/16/2022): Added automatically from request for surgery [id number] Immunizations Immunization Administration Dates Next Due Influenza [...] Comments Blood Pressure 142/70 10/25/2022 11:42 AM ENGINEERING CONSULTANT Pulse 72 10/25/2022 11:42 AM ENGINEERING CONSULTANT Temperature 36.7 C (98 F) 10/25/2022 11:42 AM ENGINEERING CONSULTANT Respiratory Rate - - Oxygen Saturation - - Inhaled Oxygen Concentration - - Weight 93.9 kg (207 lb) 10/25/2022 11:42 AM ENGINEERING CONSULTANT Height 180.3 cm (5' 11) 10/25/2022 11:42 AM ENGINEERING CONSULTANT Body Mass Index 28.87 10/25/2022 11:42 AM ENGINEERING CONSULTANT Plan of Treatment Health Maintenance Due Date Last Done Comments Pneumococcal PPSV23/PCV13 65 + Years / Low and Medium Risk (1 of 2 - PCV) 1994 Influenza Vaccine (#1) 2025 09/04/2022 Insurance MEDICARE [facility] Care Teams Production Worker Relationship Specialty Start Date End Date Robert Taylor MD [address] [place] [id number] PCP - General Internal Medicine 03/23/22
--- OUTSIDE RECORDS SUMMARY | 2025-10-21 18:28 | XMS_ITS | Clinical Summary ---
Author Organization [facility] [address] Address [address] [place] [address] Care Team Providers Care Analytics Lead Name Role Phone Robert Taylor MD Primary Care Provider [phone] Jerardo Hill MD Unavailable Joan Villalta RN [...] total) by mouth daily 08/06/20 21 Active True Metrix Glucose Test Strip strip 09/30/20 21 Active TRUEplus Lancets 28 gauge misc 08/11/20 21 Active BD Natalia 2nd Gen Pen Needle 32 gauge x 32 needle 07/25/20 21 Active cholecalciferol (VITAMIN D-3) [...] of furosemide. 90 tablet 01/13/20 23 Active Additional Information Patient not taking.Reported on 05/06/2025 carvediloL (COREG) 12.5 mg tablet Take 1 tablet (12.5 mg total) by mouth 2 (two) times a day with meals Active vit A/vit C/vit E/zinc/copper (ICAPS AREDS ORAL) Take by mouth Active calcitRIOL (ROCALTROL) 0.25 mcg capsule Take by mouth daily 09/17/20 24 Active atorvastatin (LIPITOR) 40 mg tablet TAKE 1 TABLET BY MOUTH IN THE EVENING 90 tablet 3 12/01/19 25 Active Jardiance 10 mg tablet TAKE 1 TABLET BY MOUTH EVERY DAY 30 tablet 9 12/25/19 25 Active insulin NPH-insulin regular 70/30 (HumuLIN 70/30,NovoLIN 70/30) 100 unit/mL vial for injection Inject under the skin Active aspirin 81 mg enteric coated tablet Take 1 tablet (81 mg total) by mouth daily 30 tablet 11 05/06/20 25 026 Active potassium chloride ER 20 mEq CR tablet Take 1 tablet (20 mEq total) by mouth 2 (two) times a day 180 tablet 3 05/22/20 25 Active Verquvo 10 mg tablet TAKE 1 TABLET BY MOUTH EVERY DAY 90 tablet 3 06/15/20 25 Active isosorbide-hydr ALAZINE (BIDIL) 20-37.5 mg per tablet TAKE 1 TABLET BY MOUTH THREE TIMES A DAY 270 tablet 3 08/03/20 25 Active furosemide (LASIX) 20 mg tabletIndicatio ns:Cardiomyopat hy, unspecified type (HCC) TAKE 3 TABLETS BY MOUTH 2 TIMES A DAY. 540 tablet 1 10/07/20 25 Active furosemide (LASIX) 20 mg tabletIndicatio ns:Cardiomyopat hy, unspecified type (HCC) TAKE 3 TABLETS BY MOUTH 2 TIMES A DAY. 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 [address] [facility]. [place] [place] [address] * (ABNORMAL) Hemoglobin A1c (02/13/2023 10:01 AM CDT) Hgb A1C 6.8(H) 4.0 - 5.6 % SHANDA TANG Estimated Average Glucose 148 mg/dL SHANDA TANG Comment: The ADA recommends reporting an estimated Average Glucose (eAG) with all Hemoglobin A1c results using the equation derived from a study of 507 normal and diabetic adults. Minority populations were underrepresented and children were not included. (Diabetes Care 31:2227-9630, 2008). The eAG is not equivalent to a fasting glucose. Blood 02/13/2023 10:0 1 AM CDT 02/13/2023 1:03 PM CDT us Amada Ramos MD LAB BLOOD ORDERABLES Final Res ult SHANDA FLORESCH [address] [facility]. [place] [address] from Last 3 Months or Most Recently Relevant to Health Maintenance Insurance MEDICARE [facility] MEDICARE [facility] MEDICARE BLUE CROSS MEDICARE SUPPLEMENT [facility] MEDICARE Advance Directives For more information, please contact: [phone] * Full Code (Latest Code Status on File) Date Activated Date Inactivated Comments 10/06/2021 11:50 PM 10/08/2021 11:18 PM Care Teams Analytics Lead Relationship Specialty Start Date End Date Robert Taylor MD PCP - General Internal Medicine 09/09/21 Jerardo Hill MD [address] [facility] [address] [place] [address] Consulting Physician Cardiology 01/19/23 Joan Villalta, fish straightener Failure Coordinator 03/13/23 Kristi Odom Primary Sanding Machine Tender Automatic 07/23/25
--- OUTSIDE RECORDS SUMMARY | 2025-10-21 18:29 | XMS_ITS | Clinical Summary ---
Author Organization [facility] Address [address] [place] [address] Care Team Providers Care Frozen Meat Cutter Name Role Phone Robert Taylor MD Primary Care Provider [phone] Allergies Active Allergy Reactions Criticality Noted Date [...] Tdap) 05/29/2023 05/29/2013 COVID-19 Vaccine (5 - 2025-26 season) 2025 07/25/2022, 08/05/2021, 12/28/2020, Additional history exists Influenza Adult (#1) 2025 07/20/2020, 08/07/2019, 07/16/2017, Additional history exists Pneumococcal Vaccine: 50+ Years Completed 07/27/2016, 12/05/2012 Zoster Vaccines Completed 10/13/2019, 07/15/2019 Hepatitis A Vaccines Aged Out No long er eligible based on patient's age to complete this topic Meningococcal B Vaccine Aged Out No l onger eligible based on patient's age to complete this topic Meningococcal Vaccine Aged Out No layla jose eligible based on patient's age to complete this topic RSV Immunizations Under 20 Months Aged Out No longer eligible based on patient's age to complete this topic Insurance MEDICARE [facility] Care Teams Frozen Meat Cutter Relationship Specialty Start Date End Date Robert Taylor MD [address] [place] [address] PCP - General INTERNAL MEDICINE 08/03/22
--- OUTSIDE RECORDS SUMMARY | 2025-10-21 18:29 | XMS_ITS | Clinical Summary ---
Author Organization [facility] Address [address] [place] [address] Care Team Providers Care Document Restorer Name Role Phone Robert Taylor MD Primary Care Provider [phone] Source Comments [facility],non-owned Affiliates and Associated Physician Practices is amultiple site organization consisting of ambulatory clinics and hospital sitesin [place], [place], [place] and [place]. This disclosure is being madepursuant to the Care Everywhere program and may not contain all information available regarding this patient. Last updated 18.[facility] Allergies Active Allergy Reactions Criticality Noted [...] and three at noon 5 Active Multiple Vitamins-[place] als (EYE HEALTH AREDS 2 PO) Take 1 tablet by mouth 2 times daily Active Immunizations Immunization Administration Dates Next Due INFLUENZA VACCINE, TRIV. (AF LURIA, FLUZONE TRIVALENT; 6MO+) (IIV3) 09/04/2022 [email or web address] BIVALENT 12Y+ 30mcg/0.3ML 2 CovDestineer primary monoval ent 12+ yr 0.3mL Purple [...] to complete this topic Insurance MEDICARE [facility] Address: [facility] [id number] [place] [address] (Home[address] [id number] Care Teams Document Restorer Relationship Specialty Start Date End Date Robert Taylor MD [address] [place] [address] PCP - General 04/28/21
--- NOTE | 2025-10-21 19:07 | PC.NURSE ---
Handoff report given to JENNY Jacques.
--- NOTE | 2025-10-21 19:35 | PC.NURSE ---
PT AWAKE AND ALERT RESTING ON STRETCHER WITH FAMILY AT BEDSIDE. UPDATE PROVIDED. CALL LIGHT WITHIN REACH.
--- NOTE | 2025-10-21 21:25 | PC.NURSE ---
PT UPDATE PROVIDED. PT SPOUSE AND DAUGHTER REMAIN AT BEDSIDE HOWEVER HEADING HOME TO GET PT MED LIST FOR CONFIRMATION OF NIGHT TIME MEDICATIONS DUE.
--- NOTE | 2025-10-21 22:05 | ECG_ITS ---
Test Date: 2025-10-21 22:04:00 Measurements Intervals [place] Rate: 88 P: 158 CO: 208 QRS: -60 QRSD: 177 T: 123 QT: 444 QTc: 538 Interpretive Statements SINUS RHYTHM WITH MARKED FIRST DEGREE AV BLOCK WITH FREQUENT VENTRICULAR PREMATURE COMPLEXES WITH OCCASIONAL SUPRAVENTRICULAR PREMATURE COMPLEXES LEFT AXIS DEVIATION RIGHT BUNDLE BRANCH BLOCK LEFT VENTRICULAR HYPERTROPHY AND ST-T CHANGE INFERIOR INFARCT, AGE INDETERMINATE] CONSIDER ANTEROSEPTAL INFARCT, AGE INDETERMINATE BASELINE ARTIFACT- I, III, AVR ABNORMAL ECG Compared to ECG 10/21/2025 17:29:50 MORE ATRIAL AND VENTRICULAR PREMATURE COMPLEXES NOW PRESENT Electronically Signed On 10-22-2025 06:23:[address] PAINTER HELPER by Jose Antonio Peralta D.O.
[2025-10-21 22:18] LABS: Troponin I 0.084 ng/mL (0.000-0.034)
--- NOTE | 2025-10-21 22:37 | PC.NURSE ---
PT RESTING. UPDATE PROVIDED TO PT AND HIS FAMILY - SPOUSE AND DAUGHTER, BOTH AT BEDSIDE.
[2025-10-21] MEDS: POTASSIUM CHLORIDE 20 MEQ ER TABLET PO (22:55)
--- NOTE | 2025-10-22 02:25 | PM.IMHP2 ---
H&P: HPI History of Present Illness Date/Time: 10/22/25 02:25 Chief Complaint: Shortness of breath Narrative: This is an 80-year-old male patient who has a history of hyperlipidemia, CHF, hypertension, diabetes, and chronic kidney disease. The patient receives most his care from [facility]. The the patient went to [facility] via private vehicle. He stated that he felt that his abdomen was distended and that he was more short of breath with exertion over the last 2 days. Patient stated that he was more short of breath with minimal exertion. He denied any fever, chills, nausea, vomiting or diarrhea. His white count was within normal limits. His H&H was within normal limits. Platelets are within normal limits. ABGs shows some hypoxia. This is BUN was 62 creatinine 3.71 with a GFR of 16 which appears to be is baseline. His blood glucose was 211 and a point of care capillary glucose was 214. Magnesium was normal at 2.6. [facility] Past Medical History Medical History Neoplasm of ear Eye problem 2022, blood behind something Congestive heart failure Chronic kidney disease, stage 4 (severe) BPH (benign prostatic hyperplasia) CHF (congestive heart failure) Type 2 diabetes mellitus Hypothyroid Abnormal thyroid blood test Positive colorectal cancer screening using Cologuard test Hyperlipidemia Chronic kidney disease (CKD) stage G3b/A3, moderately decreased glomerular filtration rate (GFR) between 30-44 mL/min/1.73 square meter and albuminuria creatinine ratio greater than 300 mg/g Diabetes mellitus type 2, controlled Essential hypertension Surgical History Surgical History History of ear surgery right ear History of cataract extraction History of foot surgery left spur Family History Family History Father Family history of diabetes mellitus in first degree relative Family history of heart disease in male family member before age 55 Sibling Family history of diabetes mellitus in first degree relative Mother Cancer Sibling No problems noted. Social History Social History Social History: The patient lives with his Joselin who is the durable power bankruptcy attorney for healthcare. The patient has 3 children. The patient is retired from [employer]. The patient is a former smoker. He drinks 2-3 beers a day but does not drink every day. He does not use any marijuana or illicit drugs. Code status full code Smoking packs per day: 0.5 Smoking cigarettes per day: 10.0 Years smoked: 30 Smoking pack-years: 15.00 Smoking status: Former smoker Tobacco type: cigarettes Second hand tobacco smoke exposure: No Smoking end date: 10/05/00 Alcohol intake: former Alcohol use details: 2 beers 3-4 times per week. Last drink June 29, 2022. 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s: No Meds Home Medications and Allergies Home Medications ?Medication ?Instructions ?Recorded ?Confirmed ?Type allopurinol 100 mg tablet 100 mg PO BID 03/17/20 10/22/25 History finasteride 5 mg tablet 5 mg PO QAM 03/17/20 10/22/25 History vericiguat 5 mg tablet (Verquvo) 10 mg PO DAILY 09/19/22 10/22/25 History isosorbide 20 mg-hydralazine 37.5 1 tablet PO TID 11/21/22 10/22/25 History mg tablet furosemide 20 mg tablet 60 mg PO BID 04/10/23 10/22/25 History atorvastatin 40 mg tablet 40 mg PO HS 09/10/23 10/22/25 History empagliflozin 10 mg tablet 10 mg PO DAILY 09/10/23 10/22/25 History (Jardiance) lancets 28 gauge (TRUEplus Lancets) #300 ea 11/22/23 10/22/25 Rx vit C 250 mg-E 90 mg-zinc 40 1 tablet PO QAM AND QPM 12/20/23 10/22/25 History mg-copper 1 yl-oieuiw-eaiaps chew tablet (PreserVision AREDS-2) cholecalciferol (vitamin D3) 125 125 mcg PO DAILY 09/05/24 10/22/25 History mcg (5,000 unit) tablet (Vitamin D3) insulin aspar prot-insulin aspart 22 unit subcut BID 09/05/24 10/22/25 History 100 unit/mL (70-30) subcutaneous pen (Novolog Mix 70-30FlexPen U-100) pen needle, diabetic 32 gauge x #300 ea 10/13/24 10/22/25 Rx 5/32 (Pen Needle) blood sugar diagnostic (True #300 ea 01/14/25 10/22/25 Rx Metrix Glucose Test Strip) aspirin 81 mg tablet 81 mg PO DAILY 05/19/25 10/22/25 History carvedilol 12.5 mg tablet See Rx Instructions .Route 08/12/25 10/22/25 Rx .COMPLEX #180 tabs calcitriol 0.25 mcg capsule See Rx Instructions .Route 08/31/25 10/22/25 Rx .COMPLEX #90 caps calcium acetate(phosphat bind) 667 See Rx Instructions .Route 09/11/25 10/22/25 Rx mg tablet .COMPLEX #270 tabs sevelamer carbonate 800 mg tablet 800 mg PO TID #90 tabs 09/15/25 10/22/25 Rx levothyroxine 150 mcg tablet 150 mcg PO DAILY #90 tabs 10/07/25 10/22/25 Rx (Synthroid) potassium chloride 20 mEq 20 meq PO BID 10/21/25 10/22/25 History tablet,extended release(part/cryst) vericiguat 10 mg tablet (Verquvo) 10 mg PO DAILY 10/21/25 10/22/25 History Allergies Allergy/AdvReac Type Severity Reaction Status Date / Time latex Allergy Rash Verified 10/22/25 00:03 oxycodone AdvReac Vomiting Verified 10/22/25 00:03 Vital Signs Vital Signs - 24 hr 10/21/25 17:02 10/21/25 17:13 10/21/25 17:14 Temperature 97.6 F Pulse Rate 41 L 74 72 Respiratory Rate 28 H 27 H Blood Pressure 155/97 H Pulse Oximetry 98 97 Oxygen Delivery Room Air 10/21/25 17:14 10/21/25 17:15 10/21/25 17:30 Temperature Pulse Rate 76 75 Respiratory Rate 26 H 18 Blood Pressure Pulse Oximetry 96 93 Oxygen Delivery Room Air 10/21/25 17:45 10/21/25 18:00 10/21/25 18:03 Temperature Pulse Rate 74 76 74 Respiratory Rate 30 H 21 H 27 H Blood Pressure 158/82 H Pulse Oximetry 94 98 97 Oxygen Delivery 10/21/25 18:15 10/21/25 18:16 10/21/25 18:30 Temperature Pulse Rate 80 74 71 Respiratory Rate 20 28 H 30 H Blood Pressure 159/88 H Pulse Oximetry 97 98 97 Oxygen Delivery 10/21/25 18:32 10/21/25 18:45 10/21/25 18:46 Temperature Pulse Rate 77 77 77 Respiratory Rate 26 H 22 H 30 H Blood Pressure 162/96 H Pulse Oximetry 97 97 Oxygen Delivery 10/21/25 18:47 10/21/25 19:00 10/21/25 19:01 Temperature Pulse Rate 75 74 76 Respiratory Rate 21 H 32 H 30 H Blood Pressure 175/81 H Pulse Oximetry 96 95 92 Oxygen Delivery 10/21/25 19:15 10/21/25 19:17 10/21/25 19:30 Temperature Pulse Rate 75 71 76 Respiratory Rate 20 31 H 28 H Blood Pressure 162/93 H Pulse Oximetry 97 97 97 Oxygen Delivery 10/21/25 19:31 10/21/25 19:45 10/21/25 19:46 Temperature Pulse Rate 84 75 77 Respiratory Rate 28 H 25 H 27 H Blood Pressure 151/84 H 155/73 H Pulse Oximetry 96 96 95 Oxygen Delivery 10/21/25 20:00 10/21/25 20:01 10/21/25 20:15 Temperature Pulse Rate 77 79 75 Respiratory Rate 28 H 19 22 H Blood Pressure 164/67 H Pulse Oximetry 97 97 97 Oxygen Delivery 10/21/25 20:16 10/21/25 20:30 10/21/25 20:31 Temperature Pulse Rate 76 78 76 Respiratory Rate 30 H 27 H 25 H Blood Pressure 158/85 H 166/99 H Pulse Oximetry 98 97 96 Oxygen Delivery Room Air 10/21/25 20:32 10/21/25 20:45 10/21/25 20:46 Temperature Pulse Rate 78 82 83 Respiratory Rate 27 H 26 H 23 H Blood Pressure 156/89 H Pulse Oximetry 95 98 97 Oxygen Delivery 10/21/25 21:00 10/21/25 21:01 10/21/25 21:15 Temperature 97.4 F L Pulse Rate 78 78 79 Respiratory Rate 26 H 28 H 30 H Blood Pressure 167/72 H Pulse Oximetry 95 93 93 Oxygen Delivery Room Air 10/21/25 21:16 10/21/25 21:17 10/21/25 21:30 Temperature Pulse Rate 88 76 80 Respiratory Rate 23 H 31 H 29 H Blood Pressure 113/77 Pulse Oximetry 92 93 89 L Oxygen Delivery 10/21/25 21:32 10/21/25 21:45 10/21/25 21:46 Temperature Pulse Rate 77 78 80 Respiratory Rate 26 H 28 H 24 H Blood Pressure 166/88 H 158/86 H Pulse Oximetry 97 98 95 Oxygen Delivery 10/21/25 22:00 10/21/25 22:01 10/21/25 22:14 Temperature Pulse Rate 81 83 79 Respiratory Rate Blood Pressure 132/108 H 164/92 H Pulse Oximetry 98 96 Oxygen Delivery 10/21/25 22:15 10/21/25 22:16 10/21/25 22:30 Temperature Pulse Rate 82 81 83 Respiratory Rate Blood Pressure 169/81 H Pulse Oximetry 96 95 96 Oxygen Delivery 10/21/25 22:31 10/21/25 22:45 10/21/25 22:46 Temperature 97.0 F L Pulse Rate 81 78 80 Respiratory Rate Blood Pressure 156/83 H 173/98 H Pulse Oximetry 95 96 95 Oxygen Delivery Room Air 10/21/25 22:54 Temperature Pulse Rate 85 Respiratory Rate Blood Pressure Pulse Oximetry Oxygen Delivery Results Labs Labs: Short CBC 10/21/25 Range/Units 17:19 WBC 8.3 (4.8-10.8) K/mm3 Hgb 12.7 (12.4-15.3) g/dL Hct 41.0 (37.0-46.0) % Plt Count 170 (150-420) K/mm3 BMP 10/21/25 17:19 Sodium 138 Potassium 4.4 Chloride 106 Carbon Dioxide 18 L BUN 62 H Creatinine 3.71 H Glucose 211 H Calcium 9.7 Cardiac Enzymes 10/21/25 10/21/25 Range/Units 17:19 21:48 Troponin I 0.069 H* 0.084 H* D (0.000-0.034) ng/mL Liver Function 10/21/25 Range/Units 17:19 Total Bilirubin 0.9 (0.2-1.3) mg/dL AST 22 (17-59) U/L ALT 18 (6-50) U/L Alkaline Phosphatase 99 (38-126) U/L Albumin 4.4 (3.5-5.1) g/dL
== END 2025-10-21 23:05 | disposition short-term general hospital (02) ==
PROVIDERS: Emergency Provider Emergency Medicine; PCP Internal Medicine
DX: I21.4 Non-ST elevation (NSTEMI) myocardial infarction (principal); I13.0 Hypertensive heart and chronic kidney disease with heart failure and stage 1 through stage 4 chronic kidney disease, or unspecified chronic kidney disease; I50.9 Heart failure, unspecified; N18.32 Chronic kidney disease, stage 3b; E11.22 Type 2 diabetes mellitus with diabetic chronic kidney disease; E03.9 Hypothyroidism, unspecified; E78.5 Hyperlipidemia, unspecified; Z79.82 Long term (current) use of aspirin; Z87.891 Personal history of nicotine dependence
CPT/HCPCS: 36415; 36600; 71045; 80053; 82805; 82948; 83735; 83880; 84484; 85025; 85610; 85730; 93005; 96374; 99291; A9270; J1938

== ENCOUNTER 2025-10-22 02:32 | Inpatient (IN) | payer MEDICARE, SELFPAY ==
[2025-10-21 23:57] VITALS: BMI 28.5
[2025-10-22] VITALS (20 sets, daily range): BP systolic 120–159; BP diastolic 62–86; PULSE 70–105; RESP 18–20; TEMP 36.3–37.3; O2SAT 97–100
--- NOTE | 2025-10-22 | ECHO_ITS ---
Patient Info Name: Mert Corral Age: 80 years : 1945 Gender: Male Ht: 71 in Wt: 205 lbs BSA: 2.18 m2 HR: 73 bpm BP: 142 / 80 mmHg Technical Quality: Good Exam Date: 10/22/2025 11:45 AM Patient Status: I Admit Date: 10/22/2025 Exam Type: CA echo dop color flow w con Complete two-dimensional, color flow and Doppler transthoracic echocardiogram is performed with contrast to opacify the left ventricle and to improve the deliniation of the left ventricle endocardial borders. Bottle Feeder: Souleymane Flores III Attending Provider: Jose Rivera Contrast/Agitated Saline Contrast/Ag. Saline: Definity Amount: 2.00 ml Administered By: Souleymane Flores III Existing IV Access: Yes IV Access Condition: patent with no signs of infiltration Summary 1. Definity contrast administered improved wall motion interpretation. 2. Left ventricular chamber dimension is severely enlarged. 3. Left ventricular systolic function is severely globally reduced, estimated at 20-25. 4. The left ventricular diastolic function is abnormal. 5. E/e' 34 is significantly elevated. 6. Right ventricular chamber dimension is mildly enlarged. 7. Right ventricular systolic function is at least moderately reduced and with abnormal TAPSE 0.7 cm. 8. Left atrial chamber dimension is severely enlarged. 9. Right atrial chamber dimension is moderately enlarged. 10. There is mild aortic valve sclerosis. 11. There is mild aortic valve regurgitation. 12. There is moderate mitral valve regurgitation. 13. There is severe tricuspid valve regurgitation. 14. Severe pulmonary hypertension, estimated pulmonary arterial systolic pressure is 62 mmHg. 15. There is trace pulmonic regurgitation. 16. Dilated inferior vena cava with >50% collapse upon inspiration consistent with elevated right atrial pressure, 10 mmHg. 17. There is small circumferential pericardial effusion. Left Ventricle E/e' 34 is significantly elevated. Left ventricular chamber dimension is severely enlarged. Left ventricular systolic function is severely globally reduced, estimated at 20-25. The left ventricular diastolic function is abnormal. Definity contrast administered improved wall motion interpretation. Right Ventricle Right ventricular chamber dimension is mildly enlarged. Right ventricular systolic function is at least moderately reduced and with abnormal TAPSE 0.7 cm. Left Atria Left atrial chamber dimension is severely enlarged. Right Atria Right atrial chamber dimension is moderately enlarged. Aortic Valve The aortic valve is trileaflet. There is mild aortic valve sclerosis. There is no aortic valve stenosis. There is mild aortic valve regurgitation. Pulmonic Valve There is trace pulmonic regurgitation. Mitral Valve There is no mitral valve stenosis. There is moderate mitral valve regurgitation. Tricuspid Valve There is severe tricuspid valve regurgitation. Severe pulmonary hypertension, estimated pulmonary arterial systolic pressure is 62 mmHg. Pericardium/Pleural There is small circumferential pericardial effusion. No cardiac tamponade. Inferior Vena Cava Dilated inferior vena cava with >50% collapse upon inspiration consistent with elevated right atrial pressure, 10 mmHg. Aorta The aortic root size at the sinus of Valsalva is normal. Left Ventricular Outflow Tract Name Value Normal LVOT 2D LVOT Diameter 2.4 cm LVOT Doppler LVOT Peak Velocity 79 cm/s LVOT Peak Gradient 2 mmHg LVOT Mean Gradient 1 mmHg LVOT VTI 13 cm LVOT VTI/AV VTI Ratio 0.7 LVOT Stroke Volume 58 ml LVOT CO 5.2 l/min LVOT CI 2.4 l/min/m2 Pulmonic Valve Name Value Normal PV Doppler PV Peak Velocity 81 cm/s PV Peak Gradient 3 mmHg PV Mean Gradient 1 mmHg PV Regurgitation Doppler MD Peak End Diastolic Velocity 135 cm/s Mitral Valve Name Value Normal MV Doppler MV Peak Gradient 7 mmHg MV Mean Gradient 2 mmHg MV PHT 40 ms MV Area (PHT) 5.5 cm2 4.0-5.0 MV Area (Cont Eq VTI) 2.7 cm2 MV Regurgitation Doppler MR Peak Gradient 117 mmHg MV Diastolic Function MV E Peak Velocity 125 cm/s MV Decel Time (PW) 137 ms MV Annular TDI MV E/e' (Septal) 46.2 MV E/e' (Lateral) 27.4 MV E/e' (Average) 36.8 Tricuspid Valve Name Value Normal TV Regurgitation Doppler TR Peak Velocity 361 cm/s TR Peak Gradient 52 mmHg Estimated PAP/RSVP RA Pressure 10 mmHg <=5 PA Systolic Pressure 62 mmHg <36 RV Systolic Pressure 62 mmHg <36 Aortic Valve Name Value Normal AV Doppler AV Peak Velocity 108 cm/s AV Peak Gradient 5 mmHg AV Mean Gradient 3 mmHg AV VTI 18 cm AV Area (Cont Eq VTI) 3.2 cm2 >=3.0 AV Area (Cont Eq Wagner) 3.2 cm2 AV DI (Wagner) 0.73 AV Regurgitation 2D LVOT Area 4.4 cm2 Ventricles Name Value Normal LV Dimensions 2D/MM IVS Diastolic Thickness (2D) 1.3 cm 0.6-1.0 LVID Diastole (2D) 6.3 cm 4.2-5.8 LVIW Diastolic Thickness (2D) 0.6 cm 0.6-1.0 LVID Systole (2D) 5.8 cm 2.5-4.0 LVOT Diameter 2.4 cm LV Mass (2D Cubed) 253.32 g 88.00-224.00 LV Mass Index (2D Cubed) 116 g/m2 49-115 Relative Wall Thickness (2D) 0.19 <=0.42 LV Fractional Shortening/Ejection Fraction 2D/MM LV Fractional Shortening (2D) 10 % 25-43 LV EF (2D Teichholz) 18 % LV Diastolic Volume (4C MOD) 220 ml LV EF (4C MOD) 23 % LV Diastolic Volume (2C MOD) 274 ml LV EF (2C MOD) 18 % LV Diastolic Volume (BP MOD) 247 ml 62-150 LV Diastolic Volume Index (BP MOD) 113 ml/m2 34-74 LV Systolic Volume (BP MOD) 196 ml 21-61 LV Systolic Volume Index (BP MOD) 90 ml/m2 11-31 LV EF (BP MOD) 21 % 52-72 LV Diastolic Length (4C) 9.7 cm LV Systolic Length (4C) 8.9 cm LV Stroke Volume (4C MOD) 51 ml Atria Name Value Normal LA Dimensions LA Volume (4C A-L) 112 ml LA Volume (BP A-L) 115 ml RA Dimensions RA Systolic Major [place] Length (4C) 6.2 cm 2.1-2.7 RA Area (4C) 25.8 cm2 <=18.0 Report Signatures
--- NOTE | 2025-10-22 00:48 | ADMIMU ---
This patient, Mert Corral, was admitted to IMU status, and placed in IMU Room 207-01 at 2350. Patient/family oriented to hospital policies and general routines including ID bracelet, bed and alarms, visiting hours, pain management, procedures, bathroom and other care routines, personal items, smoking policy, room service/diet, and visiting hours. Valuables list has been completed. Information on how to activate the Rapid Response Team has been discussed. Patient/Family are encouraged to report perceived risks to care and to ask questions if they do not understand what they are told or what they should do.
--- NOTE | 2025-10-22 02:34 | ECG_ITS ---
Test Date: 2025-10-22 03:43:34 Measurements Intervals [place] Rate: 86 P: 175 IN: 229 QRS: -65 QRSD: 181 T: 113 QT: 442 QTc: 530 Interpretive Statements SINUS RHYTHM WITH FIRST DEGREE AV BLOCK WITH OCCASIONAL VENTRICULAR PREMATURE COMPLEXES LEFT AXIS DEVIATION RIGHT BUNDLE BRANCH BLOCK LEFT VENTRICULAR HYPERTROPHY AND ST-T CHANGE CANNOT R/O SEPTAL INFARCT, AGE INDETERMINATE INFERIOR INFARCT, AGE INDETERMINATE BASELINE WANDER- V4-V6 ABNORMAL ECG Compared to ECG 10/21/2025 22:04:00 ATRIAL AND VENTRICULAR PREMATURE COMPLEXES IMPROVED Electronically Signed On 10-22-2025 06:28:27 FIRMWARE DEVELOPER by Jose Antonio Peralta D.O.
--- NOTE | 2025-10-22 02:52 | PM.IMHP2 ---
H&P: HPI History of Present Illness Date/Time: 10/22/25 02:52 Chief Complaint: Shortness of breath Narrative: This is an 80-year-old patient who has a history of CHF, hypertension, diabetes, chronic kidney disease, and hyperlipidemia. The patient typically gets all of his care at [facility]. The patient endorses some abdominal distension and increased shortness of breath over the last 2 days. The patient endorses shortness of breath with minimal exertion. The patient arrived at [facility] via private vehicle. He denied any fever, chills, nausea, or vomiting. Chest x-ray was read as moderate pulmonary venous congestion small basilar infiltrates. No pneumothorax. His H&H is within normal limits and his white count within normal limits. Arterial blood gases reveal hypoxia. His BUN is 62 and creatinine 3.71 with a GFR of 16 which is his baseline. Blood sugar was 211 with the point of care capillary glucose of 214. Troponin 0.069 and repeat 0.84. EKG shows some ectopic atrial rhythm with frequent PVCs, right bundle-branch block, left ventricular hypertrophy and ST T-wave changes, inferior myocardial infarction possible acute. Possible anterior septal myocardial infarction. Of indeterminate age. His BNP is greater than 30,000 which was decreased from greater than 35,000 on 01/16/2023. The patient is being admitted to observation status on the date of service of 10/22/2025. Review of Systems Constitutional: Constitutional: Reports as per HPI and Reports no additional constitutional complaints Eyes: Eyes: Reports as per HPI and Reports no additional eye complaints ENT: Reports system reviewed and no additional complaints, except as documented and Reports Normal hearing present Cardiovascular: Cardiovascular: Reports no additional cardiovascular complaints Respiratory: Respiratory: Reports as per HPI and Reports no additional respiratory complaints Gastrointestinal: Gastrointestinal: Reports as per HPI and Reports no additional gastrointestinal complaints Musculoskeletal: Musculoskeletal: Reports no additional musculoskeletal complaints Integumentary/Breasts: Skin/Breast: Reports system reviewed and no additional complaints, except as docu Neurologic: Reports system reviewed and no additional complaints, except as documented and Reports Normal hearing present Psychiatric: Psychiatric: Reports no additional psychiatric complaints and Reports as per HPI Hematologic/Lymphatic: Hematologic/Lymphatic: Reports no additional hematologic/lymphatic complaints Allergic/Immunologic: Allergic/Immunologic: Reports no additional allergic/immunologic complaints [facility] Past Medical History Medical History (Updated 10/22/25 @ 03:48 by Niharika Mendieta APRN) Chronic kidney disease, stage 4 (severe) Dietary counseling and surveillance Dietary counseling and surveillance Neoplasm of ear Eye problem 2022, blood behind something Congestive heart failure Chronic kidney disease, stage 4 (severe) BPH (benign prostatic hyperplasia) CHF (congestive heart failure) Type 2 diabetes mellitus Hypothyroid Abnormal thyroid blood test Positive colorectal cancer screening using Cologuard test Hyperlipidemia Chronic kidney disease (CKD) stage G3b/A3, moderately decreased glomerular filtration rate (GFR) between 30-44 mL/min/1.73 square meter and albuminuria creatinine ratio greater than 300 mg/g Diabetes mellitus type 2, controlled Essential hypertension Surgical History Surgical History History of ear surgery right ear History of cataract extraction History of foot surgery left spur Family History Family History Father Family history of diabetes mellitus in first degree relative Family history of heart disease in male family member before age 55 Sibling Family history of diabetes mellitus in first degree relative Mother Cancer Sibling No problems noted. Social History Social History Social History: The patient lives with his Joselin who is the durable power sanitarian inspector for healthcare. The patient has 3 children. The patient is retired from [employer]. The patient is a former smoker. He drinks 2-3 beers a day but does not drink every day. He does not use any marijuana or illicit drugs. Code status full code Smoking packs per day: 0.5 Smoking cigarettes per day: 10.0 Years smoked: 30 Smoking pack-years: 15.00 Smoking status: Former smoker Tobacco type: cigarettes Second hand tobacco smoke exposure: No Smoking end date: 10/05/00 Alcohol intake: former Alcohol use details: 2 beers 3-4 times per week. Last drink June 29, 2022. 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s: No Meds Home Medications and Allergies Home Medications ?Medication ?Instructions ?Recorded ?Confirmed ?Type allopurinol 100 mg tablet 100 mg PO BID 03/17/20 10/22/25 History finasteride 5 mg tablet 5 mg PO QAM 03/17/20 10/22/25 History vericiguat 5 mg tablet (Verquvo) 10 mg PO DAILY 09/19/22 10/22/25 History isosorbide 20 mg-hydralazine 37.5 1 tablet PO TID 11/21/22 10/22/25 History mg tablet furosemide 20 mg tablet 60 mg PO BID 04/10/23 10/22/25 History atorvastatin 40 mg tablet 40 mg PO HS 09/10/23 10/22/25 History empagliflozin 10 mg tablet 10 mg PO DAILY 09/10/23 10/22/25 History (Jardiance) lancets 28 gauge (TRUEplus Lancets) #300 ea 11/22/23 10/22/25 Rx vit C 250 mg-E 90 mg-zinc 40 1 tablet PO QAM AND QPM 12/20/23 10/22/25 History mg-copper 1 [id number] chew tablet (PreserVision AREDS-2) cholecalciferol (vitamin D3) 125 125 mcg PO DAILY 09/05/24 10/22/25 History mcg (5,000 unit) tablet (Vitamin D3) insulin aspar prot-insulin aspart 22 unit subcut BID 09/05/24 10/22/25 History 100 unit/mL (70-30) subcutaneous pen (Novolog Mix 70-30FlexPen U-100) pen needle, diabetic 32 gauge x #300 ea 10/13/24 10/22/25 Rx 5/32 (Pen Needle) blood sugar diagnostic (True #300 ea 01/14/25 10/22/25 Rx Metrix Glucose Test Strip) aspirin 81 mg tablet 81 mg PO DAILY 05/19/25 10/22/25 History carvedilol 12.5 mg tablet See Rx Instructions .Route 08/12/25 10/22/25 Rx .COMPLEX #180 tabs calcitriol 0.25 mcg capsule See Rx Instructions .Route 08/31/25 10/22/25 Rx .COMPLEX #90 caps calcium acetate(phosphat bind) 667 See Rx Instructions .Route 09/11/25 10/22/25 Rx mg tablet .COMPLEX #270 tabs sevelamer carbonate 800 mg tablet 800 mg PO TID #90 tabs 09/15/25 10/22/25 Rx levothyroxine 150 mcg tablet 150 mcg PO DAILY #90 tabs 10/07/25 10/22/25 Rx (Synthroid) potassium chloride 20 mEq 20 meq PO BID 10/21/25 10/22/25 History tablet,extended release(part/cryst) vericiguat 10 mg tablet (Verquvo) 10 mg PO DAILY 10/21/25 10/22/25 History Allergies Allergy/AdvReac Type Severity Reaction Status Date / Time latex Allergy Rash Verified 10/22/25 00:03 oxycodone AdvReac Vomiting Verified 10/22/25 00:03 Vital Signs Vital Signs - 24 hr 10/22/25 00:00 10/22/25 00:00 Temperature 97.6 F Pulse Rate 88 Respiratory Rate 18 Blood Pressure 159/74 H Pulse Oximetry 99 Oxygen Delivery Room Air Exam Const: General: cooperative, healthy appearing, comfortable, no acute distress, well developed, awake, Physically active, average body habitus and well nourished Nutritional Appearance: average body habitus and well nourished Orientation/consciousness: oriented to person, oriented to place, oriented to time and patient oriented x3 Limitations: no limitations HENMT: Head: normal to inspection, No palpable skull fracture present, normocephalic, atraumatic and abrasion Ears: hearing grossly normal bilaterally Face/Nose/Sinus: Normal nares present Eyes: General: appearance normal, both eyes and all related structures Alignment and Position: alignment normal Periorbital: periorbital findings normal Eyelids: eyelids normal Conjunctivae: conjunctivae normal Pupils: Pupil accommodation reflex normal EOM: EOMs intact bilaterally Neck: Neck: normal visual inspection, full ROM, no lymphadenopathy and trachea midline Chest: Chest palpation & inspection: normal inspection of the chest Resp: Effort & Inspection: normal respiratory effort Auscultation: clear to auscultation bilaterally Cardio: Palpation: normal PMI Rate: regular rate Rhythm: regular rhythm Peripheral pulses: Peripheral pulses 2+ throughout GI: Inspection: normal to inspection Percussion: Yes normal to percussion Auscultation: normal bowel sounds Rectal Exam: deferred Back/Spine/Pelvis: Back: no CVA tenderness Cervical Spine: cervical ROM normal Skin: General skin exam: normal color Lesions: no lesions Rashes: no rashes Trauma: no lacerations or abrasions Wounds: no wounds Hair: normal Nails: normal Neuro: General: oriented to person, oriented to place, oriented to time and patient oriented x3 Cranial nerves: Yes Normal hearing present Cognition (Neuro): normal cognition Speech: normal speech Gait exam (Neuro): Normal gait present Motor exam (neuro): 5/5 motor strength present throughout Sensory Exam: normal sensation Extrem: General: normal to inspection Right upper extremity: normal to inspection and shoulder/upper arm Left upper extremity: normal to inspection and shoulder/upper arm Right lower extremity: normal to inspection Left lower extremity: normal to inspection Psych: Appearance: grossly normal Mental Status: mental status grossly normal Speech and movement: Normal speech and movement present Affect: normal affect Attitude: cooperative Thought process: Normal thought process present Thought content: Yes Normal thought content present Insight: Good insight present (Psych) Judgement: Good judgement present (Psych) Results ECG Interpretation: 88 FL 208 QRSd 177 QT 444 QTc 538 --[place]-- P 158 QRS -60 T 123 ECTOPIC ATRIAL RHYTHM WITH FREQUENT VENTRICULAR PREMATURE COMPLEXES WITH OCCASIONAL SUPRAVENTRICULAR PREMATURE COMPLEXES RIGHT BUNDLE BRANCH BLOCK [120+ ms QRS DURATION, UPRIGHT V1, 40+ ms S IN I/aVL/V4/V5/V6] LEFT VENTRICULAR HYPERTROPHY AND ST-T CHANGE [VOLTAGE CRITERIA PLUS ST/T ABNORMALITY] INFERIOR MYOCARDIAL INFARCTION , POSSIBLY ACUTE [40+ ms Q WAVE AND/OR ST/T ABNORMALITY IN II/aVF] POSSIBLE ANTEROSEPTAL MYOCARDIAL INFARCTION , OF INDETERMINATE AGE [30 ms Q WAVE IN V1-V4] ACUTE CT Compared to ECG 10/21/2025 17:29:50 Ectopic atrial rhythm now present Ventricular premature complex(es) now present Right bundle-branch block Imaging Chest x-ray: Radiologist's impression: Chest x-ray performed at [facility] impression was read as CHF per Radiology. Quality VTE Prophylaxis VTE prophylaxis: mechanical ordered Assessment and Plan Assessment and plan (1) Systolic and diastolic CHF, acute on chronic: Code(s): I50.43 - Acute on chronic combined systolic (congestive) and diastolic (congestive) heart failure Status: Acute Assessment and Plan: -the patient is on 60 mg of Lasix at home. However the patient may not be fully compliant with this Lasix at home. The patient stated that he hates to take at home because it makes him cramps so much. -Lasix has been changed to 60 mg IV b.i.d.. And continue with potassium supplement. -continue to monitor electrolytes and renal function closely with the Lasix. Continue with Lasix. -continue with Coreg and Jardiance. Verquvo is non formulary but may use from home. -an echo has been ordered. -cardiology consult greatly be appreciated. -last echo on 09/08/2022 estimated GF at 25-35%. With severe pulmonary hypertension, estimated pulmonary arterial systolic pressure is 75 mmHg. -continue with isosorbide (2) Cardiac enzymes elevated: Code(s): R74.8 - Abnormal levels of other serum enzymes Status: Acute Assessment and Plan: -troponins were mildly elevated 0.69 and 0.084 with a 3rd troponin is pending. -patient denies any chest pain at this time. -cardiology has been consulted. -this could be related to either the elevated hypertension, this CHF, chronic renal disease, demand ischemia, or coronary artery disease. (3) Essential hypertension: Code(s): I10 - Essential (primary) hypertension Status: Acute Assessment and Plan: -patient's blood pressure was initially elevated 173/98 and then come back down to 159/74. The patient was given his home medications at [facility]. -continue with Coreg if blood pressure allows. (4) Hyperlipidemia: Code(s): E78.5 - Hyperlipidemia, unspecified Status: Acute Assessment and Plan: -continue with atorvastatin (5) Diabetes mellitus type 2, controlled: Code(s): E11.9 - Type 2 diabetes mellitus without complications Status: Acute Assessment and Plan: -Accu-Cheks a.c. in H as was sliding scale insulin and hypoglycemic protocol -diabetic diet -continue with Jardiance -pharmacy to adjust 20% of home insulin -A1c 7.3 today with a previous A1c of 7.1 last month. Repeat A1c was performed as his last A1c was not therapeutic. (6) Hypothyroidism (acquired): Code(s): E03.9 - Hypothyroidism, unspecified Status: Acute Assessment and Plan: -continue levothyroxine (7) Chronic kidney disease, stage 4 (severe): Code(s): N18.4 - Chronic kidney disease, stage 4 (severe) Status: Acute Assessment and Plan: -nephrology has seen the patient in the past. May consider Nephrology consult if renal function worsens. -the patient is currently at baseline. BUN is 62, creatinine 3.71 with GFR of 16. -continue with Jardiance -continue with Renvela (8) BPH (benign prostatic hyperplasia): Code(s): N40.0 - Benign prostatic hyperplasia without lower urinary tract symptoms Status: Acute Assessment and Plan: -continue with finasteride
[2025-10-22 03:42] LABS: Hematocrit 38.9 % (42.0-52.0); Hemoglobin 12.3 g/dL (14.0-18.0); Immature Granulocyte Percent A 0.3 % (0-0.5); Lymphocytes Absolute Auto 0.55 K/mm3 (0.9-3.2); Mean Corpuscular HGB Conc 31.6 g/dl (32-36); Mean Corpuscular Hemoglobin 26.8 pg (26-34); Mean Corpuscular Volume 84.7 fl (80-100); Nucleated Red Blood Cells Absolute Auto 0.000 K/mm3 (0.0-0.012); Nucleated Red Blood Cells Perc 0.0 % (0.0-0.2); Platelet Count Result 129 k/mm3 (150-375); Red Blood Count 4.59 M/mm3 (4.6-6.20); White Blood Count 6.8 K/mm3 (4.5-10.0)
[2025-10-22 03:51] LABS: Hemoglobin A1C 7.3 % (<5.7)
[2025-10-22 04:08] LABS: Troponin I 0.119 ng/mL (0.000-0.034)
[2025-10-22 07:41] LABS: Anion Gap 13 mmol/L (4-12); Blood Urea Nitrogen 63 mg/dL (9-20); Calcium 9.7 mg/dL (8.4-10.2); Carbon Dioxide 19 mmol/L (22-30); Chloride 106 mmol/L (98-107); Estimated CRCL calculation 18 ml/min; Estimated Glomerular Filt Rate 19; Glucose 150 mg/dL (65-110); Potassium 4.3 mmol/L (3.4-5.0); Sodium 138 mmol/L (137-145)
--- NOTE | 2025-10-22 07:46 | PM.IMPN2 ---
Assessment and Plan Assessment and Plan (1) Systolic and diastolic CHF, acute on chronic: Code(s): I50.43 - Acute on chronic combined systolic (congestive) and diastolic (congestive) heart failure Status: Acute Assessment and Plan: -the patient is on 60 mg of Lasix at home. However the patient may not be fully compliant with this Lasix at home. The patient stated that he hates to take at home because it makes him cramps so much. -Lasix has been changed to 60 mg IV b.i.d.. And continue with potassium supplement. -continue to monitor electrolytes and renal function closely with the Lasix. Continue with Lasix. -continue with Coreg and Jardiance. Verquvo is non formulary but may use from home. -an echo has been ordered. -cardiology consult greatly be appreciated. -last echo on 09/08/2022 estimated GF at 25-35%. With severe pulmonary hypertension, estimated pulmonary arterial systolic pressure is 75 mmHg. -continue with isosorbide (2) Cardiac enzymes elevated: Code(s): R74.8 - Abnormal levels of other serum enzymes Status: Acute Assessment and Plan: -troponins were mildly elevated 0.69 and 0.084 with a 3rd troponin is pending. -patient denies any chest pain at this time. -cardiology has been consulted. -this could be related to either the elevated hypertension, this CHF, chronic renal disease, demand ischemia, or coronary artery disease. (3) Essential hypertension: Code(s): I10 - Essential (primary) hypertension Status: Acute Assessment and Plan: -patient's blood pressure was initially elevated 173/98 and then come back down to 159/74. The patient was given his home medications at [facility]. -continue with Coreg if blood pressure allows. (4) Hyperlipidemia: Code(s): E78.5 - Hyperlipidemia, unspecified Status: Acute Assessment and Plan: -continue with atorvastatin (5) Diabetes mellitus type 2, controlled: Code(s): E11.9 - Type 2 diabetes mellitus without complications Status: Acute Assessment and Plan: -Accu-Cheks a.c. in H as was sliding scale insulin and hypoglycemic protocol -diabetic diet -continue with Jardiance -pharmacy to adjust 20% of home insulin -A1c 7.3 today with a previous A1c of 7.1 last month. Repeat A1c was performed as his last A1c was not therapeutic. (6) Hypothyroidism (acquired): Code(s): E03.9 - Hypothyroidism, unspecified Status: Acute Assessment and Plan: -continue levothyroxine (7) Chronic kidney disease, stage 4 (severe): Code(s): N18.4 - Chronic kidney disease, stage 4 (severe) Status: Acute Assessment and Plan: -nephrology has seen the patient in the past. May consider Nephrology consult if renal function worsens. -the patient is currently at baseline. BUN is 62, creatinine 3.71 with GFR of 16. -continue with Jardiance -continue with Renvela (8) BPH (benign prostatic hyperplasia): Code(s): N40.0 - Benign prostatic hyperplasia without lower urinary tract symptoms Status: Acute Assessment and Plan: -continue with finasteride Subjective Date/time seen: 10/22/25 07:46 Interval history: Admitted in the setting of CHF exacerbation and severe pulmonary HTN. Echocardiogram performed on 09/08/2022 shows EF 25-30% and severe pulmonary hypertension.Patient reports he follows with . Has remote hx of cardiac cath but no stents placed. Review of Systems Constitutional: Constitutional: Reports as per HPI and Reports no additional constitutional complaints Eyes: Eyes: Reports as per HPI and Reports no additional eye complaints ENT: Reports system reviewed and no additional complaints, except as documented and Reports Normal hearing present Cardiovascular: Cardiovascular: Reports no additional cardiovascular complaints Respiratory: Respiratory: Reports as per HPI and Reports no additional respiratory complaints Gastrointestinal: Gastrointestinal: Reports as per HPI and Reports no additional gastrointestinal complaints Musculoskeletal: Musculoskeletal: Reports no additional musculoskeletal complaints Integumentary/Breasts: Skin/Breast: Reports system reviewed and no additional complaints, except as docu Neurologic: Reports system reviewed and no additional complaints, except as documented and Reports Normal hearing present Psychiatric: Psychiatric: Reports no additional psychiatric complaints and Reports as per HPI Hematologic/Lymphatic: Hematologic/Lymphatic: Reports no additional hematologic/lymphatic complaints Allergic/Immunologic: Allergic/Immunologic: Reports no additional allergic/immunologic complaints Exam Const: General: cooperative, healthy appearing, comfortable, no acute distress, well developed, awake, Physically active, average body habitus and well nourished Nutritional Appearance: average body habitus and well nourished Orientation/consciousness: oriented to person, oriented to place, oriented to time and patient oriented x3 Limitations: no limitations HENMT: Head: normal to inspection, No palpable skull fracture present, normocephalic, atraumatic and abrasion Ears: hearing grossly normal bilaterally Face/Nose/Sinus: Normal nares present Eyes: General: appearance normal, both eyes and all related structures Alignment and Position: alignment normal Periorbital: periorbital findings normal Eyelids: eyelids normal Conjunctivae: conjunctivae normal Pupils: Pupil accommodation reflex normal EOM: EOMs intact bilaterally Neck: Neck: normal visual inspection, full ROM, no lymphadenopathy and trachea midline Chest: Chest palpation & inspection: normal inspection of the chest Resp: Effort & Inspection: normal respiratory effort Auscultation: clear to auscultation bilaterally Cardio: Palpation: normal PMI Rate: regular rate Rhythm: regular rhythm Peripheral pulses: Peripheral pulses 2+ throughout GI: Inspection: normal to inspection Auscultation: normal bowel sounds Rectal Exam: deferred : General: Yes no CVA tenderness Back/Spine/Pelvis: Back: no CVA tenderness Cervical Spine: cervical ROM normal Skin: General skin exam: normal color Lesions: no lesions Rashes: no rashes Trauma: no lacerations or abrasions Wounds: no wounds Hair: normal Nails: normal Neuro: General: oriented to person, oriented to place, oriented to time and patient oriented x3 Cranial nerves: Yes Normal hearing present Cognition (Neuro): normal cognition Speech: normal speech Gait exam (Neuro): Normal gait present Motor exam (neuro): 5/5 motor strength present throughout Sensory Exam: normal sensation Extrem: General: normal to inspection Right upper extremity: normal to inspection and shoulder/upper arm Left upper extremity: normal to inspection and shoulder/upper arm Right lower extremity: normal to inspection Left lower extremity: normal to inspection Psych: Appearance: grossly normal Mental Status: mental status grossly normal Speech and movement: Normal speech and movement present Affect: normal affect Attitude: cooperative Thought process: Normal thought process present Insight: Good insight present (Psych) Judgement: Good judgement present (Psych) Objective Data Vital Signs Vital Signs: Vital Signs - 24 hr 10/22/25 00:00 10/22/25 00:00 10/22/25 00:00 Temperature 97.6 F Pulse Rate 88 82 Respiratory Rate 18 Blood Pressure 159/74 H Pulse Oximetry 99 Oxygen Delivery Room Air 10/22/25 02:00 10/22/25 03:53 10/22/25 03:55 Temperature 98.1 F Pulse Rate 90 84 Respiratory Rate 18 Blood Pressure 142/80 H Pulse Oximetry 97 Oxygen Delivery Room Air 10/22/25 04:00 10/22/25 06:00 10/22/25 07:45 Temperature 98.1 F Pulse Rate 83 73 79 Respiratory Rate 18 Blood Pressure 143/86 H Pulse Oximetry 97 Oxygen Delivery Intake/Output Intake/Output: Intake & Output 10/19/25 10/20/25 10/21/25 10/22/25 23:59 23:59 23:59 23:59 Intake Total 150 Output Total 700 Balance -550 Meds/Results Medications: Active Medications Generic Name Dose Route Start Last Admin Trade Name Freq PRN Reason Stop Dose Admin Acetaminophen 650 mg 10/22/25 02:31 Acetaminophen 325 Mg Tablet PO Q4H PRN Mild Pain (1-3) or Fever Allopurinol 100 mg 10/22/25 08:00 Allopurinol 100 Mg Tablet PO BIDWM [facility] Aspirin 81 mg 10/22/25 09:00 Aspirin 81 Mg Enteric Tablet PO QAM [facility] Atorvastatin Calcium 40 mg 10/22/25 21:00 Atorvastatin 40 Mg Tablet PO HS [facility] Calcitriol 0.25 mcg 10/22/25 09:00 Calcitriol 0.25 Mcg Capsule BY MOUTH QAM [facility] Calcium Acetate 667 mg 10/22/25 08:00 Calcium Acetate 667 Mg Tablet BY MOUTH TIDWM [facility] Carvedilol 12.5 mg 10/22/25 09:00 Carvedilol 12.5 Mg Tablet BY MOUTH Q12HR [facility] Dextrose 12.5 gm 10/22/25 02:35 Dextrose 50% 25 Gm/50 Ml Syringe IV PUSH PRN PRN Hypoglycemia Protocol Empagliflozin 10 mg 10/22/25 09:00 Empagliflozin 10 Mg Tablet PO DAILY [facility] Finasteride 5 mg 10/22/25 09:00 Finasteride 5 Mg Tablet PO QAM [facility] Furosemide 60 mg 10/22/25 09:00 Furosemide Inj 40 Mg/4 Ml Vial IV PUSH BID JOE Glucagon 1 mg 10/22/25 02:35 Glucagon For Inj 1 Mg Vial IM PRN PRN Hypoglycemia Protocol Glucose 15 gm 10/22/25 02:35 Glucose Oral Gel 15 Gm Of Glucse In 37.5 Gm Tube PO PRN PRN Hypoglycemia Protocol Hydralazine HCl 25 mg 10/22/25 09:00 Hydralazine Hcl 25 Mg Tablet PO TID [facility] Hydralazine HCl 12.5 mg 10/22/25 09:00 Hydralazine 12.5 Mg Tablet PO TID [facility] Dextrose 1,000 mls @ 100 mls/hr 10/22/25 02:35 Dextrose 5% 1,000 Ml IVPB PRN PRN Hypoglycemia Protocol Insulin Aspart 2 - 5 units 10/22/25 08:00 Insulin Aspart (*Bkc) 100 Units/Ml SUB-Q TIDWM JOE Protocol Insulin Aspart 17 units 10/22/25 08:00 Insulin Aspart Mix 70/30 100 Units/Ml SUB-Q BIDWM [facility] Isosorbide Dinitrate 20 mg 10/22/25 09:00 Isosorbide Dinitrate 20 Mg Tablet PO TID [facility] Levothyroxine Sodium 150 mcg 10/22/25 06:30 10/22/25 06:21 Levothyroxine Sodium 150 Mcg Tablet PO Not Given [email or web address] [facility] Miscellaneous Information 1 each 10/22/25 00:01 Vericiguat [Verquvo] 10 Mg Tablet Is Nonform, Please Send To Pharmacy For Verification Onc XX 11/21/25 00:00 CLARIFY [facility] Non-Formulary Medication 10 mg 10/22/25 09:00 Vericiguat [Verquvo] PO 11/21/25 08:59 DAILY [facility] Perflutren Lipid Microsphere 0 ml 10/22/25 02:36 Perflutren Lipid Microspheres 1.5 Ml Vial Diluted To 10 Ml Total Volume IV PUSH 10/25/25 02:37 ONCE PRN adequate visualization Protocol Potassium Chloride 20 meq 10/22/25 08:00 Potassium Chloride 20 Meq Er Tablet PO BIDWM [facility] Sevelamer Carbonate 800 mg 10/22/25 08:00 Sevelamer Carbonate 800 Mg Tablet PO TIDWM [facility] Vitamin D 125 mcg 10/22/25 09:00 Cholecalciferol (Vitamin D3) 125 Mcg (5,000 Units) Tablet PO DAILY [facility] Labs Labs: Laboratory Results - last 24 hr 10/22/25 10/22/25 03:36 07:15 WBC 6.8 RBC 4.59 L Hgb 12.3 L Hct 38.9 L MCV 84.7 MCH 26.8 MCHC 31.6 L RDW 19.1 H Plt Count 129 L MPV 10.1 Immature Gran % (Auto) 0.3 Neut % (Auto) 75.8 H Lymph % (Auto) 8.1 L [place] % (Auto) 15.0 H Eos % (Auto) 0.1 Baso % (Auto) 0.7 Lymph # (Auto) 0.55 L [place] # (Auto) 1.0 H Eos # (Auto) 0.0 Baso # (Auto) 0.1 Abs Immat Gran (auto) 0.02 Absolute Neuts (auto) 5.1 Absolute Nucleated RBC 0.000 Nucleated RBC % 0.0 Sodium 138 Potassium 4.3 Chloride 106 Carbon Dioxide 19 L Anion Gap 13 H BUN 63 H Creatinine 3.20 H Estim Creat Clear Calc 18 Estimated GFR 19 L Glucose 150 H Hemoglobin A1c 7.3 H Calcium 9.7 Troponin I 0.119 H* D Quality VTE Prophylaxis VTE prophylaxis: mechanical ordered Hospitalist MIPS Advance Care Plan I have confirmed that the patient's Advanced Care Plan is present, code status is documented, or surrogate decision maker is listed in patient medical record.: Yes Medication Reconciliation I have utilized all available resources to obtain, update and review the patients current medications (includes all prescriptions, OTC, herbals, cannabis, and nutritional supplements).: Yes
[2025-10-22 07:49] LABS: Troponin I 0.131 ng/mL (0.000-0.034)
[2025-10-22] MEDS: ASPIRIN 81 MG ENTERIC TABLET PO (09:11)
[2025-10-22] MEDS: POTASSIUM CHLORIDE 20 MEQ ER TABLET PO ×2 (09:11→16:47)
[2025-10-22] MEDS: SEVELAMER CARBONATE 800 MG TABLET PO ×3 (09:12→16:49)
[2025-10-22] MEDS: FINASTERIDE 5 MG TABLET PO (09:12)
[2025-10-22] MEDS: EMPAGLIFLOZIN 10 MG TABLET PO (09:13)
[2025-10-22] MEDS: CHOLECALCIFEROL (VITAMIN D3) 125 MCG (5,000 UNITS) TABLET PO (09:14)
[2025-10-22] MEDS: FUROSEMIDE INJ 40 MG/4 ML VIAL 60 MG IV PUSH ×2 (09:14→16:47)
[2025-10-22] MEDS: hydrALAZINE 12.5 MG TABLET PO ×3 (09:28→16:46)
[2025-10-22] MEDS: ISOSORBIDE DINITRATE 20 MG TABLET PO ×3 (09:28→16:46)
[2025-10-22] MEDS: INSULIN HUMAN ISOPHAN/REGULAR 70/30 (*BKC) 100 UNITS/ML 17 UNITS SUB-Q ×2 (10:28→16:48)
--- NOTE | 2025-10-22 11:28 | PM.CNCAR ---
Assessment and Plan Assessment and plan (1) Systolic and diastolic CHF, acute on chronic: Code(s): I50.43 - Acute on chronic combined systolic (congestive) and diastolic (congestive) heart failure Status: Acute (2) Mitral regurgitation: Code(s): I34.0 - Nonrheumatic mitral (valve) insufficiency Status: Acute (3) CAD (coronary artery disease): Code(s): I25.10 - Atherosclerotic heart disease of [place] coronary artery without angina pectoris Status: Acute (4) Elevated troponin: Code(s): R79.89 - Other specified abnormal findings of blood chemistry Status: Acute (5) Essential hypertension: Code(s): I10 - Essential (primary) hypertension Status: Acute (6) Hyperlipidemia: Code(s): E78.5 - Hyperlipidemia, unspecified Status: Acute Plan 80-year-old male with Acute on chronic systolic and diastolic heart failure-LVEF 25-30% 2021 Elevated troponin without chest pain-most likely secondary to stress of acute heart failure Moderate to severe mitral regurgitation- mild on last TTE 05/2025 Severe pulmonary hypertension- on Vericiguat Hypertension Hyperlipidemia Non obstructive CAD by cath in 2020 CKD stage 4 Plan: He is in fluid overload by exam. This is the most likely cause of elevated troponin. Diurese with IV Lasix 60 mg b.i.d. Check weights, ins and outs, renal function daily Check and replace electrolytes to keep potassium greater than 4 and magnesium greater than 2 Monitor on telemetry Continue guideline directed medical therapy with Coreg, empagliflozin, Imdur, hydralazine. Not on [place]-inhibitor/ARB/ARNI due to renal failure Trend troponin to peak Continue aspirin, statin TTE. If LVEF is not improved with guideline directed medical therapy, he will need EP evaluation for ICD History of Present Illness History of Present Illness Consult date/time: 10/22/25 11:28 Reason For Visit: NSTEMI; CHF Narrative: 80-year-old male with history of nonischemic cardiomyopathy with LVEF of 25-30%, moderate to severe MR, non obstructive CAD (40% stenosis in distal LCX, 20-40% stenosis mid RCA), hyperlipidemia, hypertension, diabetes mellitus type 2, CKD stage 4, hypothyroidism, benign prostatic hyperplasia presents with chief complaints of shortness of breath and abdominal distention. He states that he started having cough about a week ago productive of clear sputum. He then noticed worsening shortness of breath, abdominal distension, and some leg swelling and decided to come to the ER to be evaluated. He denies any chest pain, palpitations, dizziness, lightheadedness, presyncope, syncope. He has orthopnea. No PND. He states that he had a cardiac catheterization 2-3 years ago but did not need any stent. His father had an SD in his 50s and at age 62 of SD. patient does not smoke, drink alcohol, or use any illicit drugs. He is compliant with his medications and does not have any significant change in his dietary patterns recently. Troponin is elevated and increasing. NT proBNP is greater than 30,000. Cardiology is consulted for further recommendations for congestive heart failure. Workup: D-dimer 1.66 Creatinine 3.20 Troponin 0.069, 0.084, 0.119, 0.131 NT proBNP >30,000 EKG: Sinus rhythm, first-degree AV block, occasional PVCs, right bundle branch block, LVH and related ST-T change, septal infarct age indeterminate, inferior infarct age indeterminate Chest x-ray: Moderate pulmonary vascular congestion and small basilar infiltrates. Past workup: TTE in 05/2025: LVEF 30%, grade I diastolic dysfunction, mild MR and mild TR, RVSP 73mm Hg TTE in 2021: LVEF we are severely depressed at 25-30% are high, enter post [employer], a retired lateral severely hypo to akinetic to akinetic, grade 3 diastolic dysfunction, left atrium and right atrium are moderately enlarged, moderate mitral regurgitation, [id number] tricuspid regurgitation, severe pulmonary hypertension with PASP of 75 mm Hg Cardiac cath 2020: 40% stenosis in distal LCX, 20-40% stenosis mid RCA Review of Systems Review of Systems: A complete review of systems was performed and pertinent positives are reported in HPI. [facility] Past Medical History Medical History (Updated 10/22/25 @ 11:48 by Alia Villa MD) Chronic kidney disease, stage 4 (severe) Dietary counseling and surveillance Dietary counseling and surveillance Neoplasm of ear Eye problem 2022, blood behind something Congestive heart failure Chronic kidney disease, stage 4 (severe) BPH (benign prostatic hyperplasia) CHF (congestive heart failure) Type 2 diabetes mellitus Hypothyroid Abnormal thyroid blood test Positive colorectal cancer screening using Cologuard test Hyperlipidemia Chronic kidney disease (CKD) stage G3b/A3, moderately decreased glomerular filtration rate (GFR) between 30-44 mL/min/1.73 square meter and albuminuria creatinine ratio greater than 300 mg/g Diabetes mellitus type 2, controlled Essential hypertension Surgical History Surgical History History of ear surgery right ear History of cataract extraction History of foot surgery left spur Family History Family History Father Family history of diabetes mellitus in first degree relative Family history of heart disease in male family member before age 55 Sibling Family history of diabetes mellitus in first degree relative Mother Cancer Sibling No problems noted. Social History Social History Social History: The patient lives with his Joselin who is the durable power composite science teacher for healthcare. The patient has 3 children. The patient is retired from [employer]. The patient is a former smoker. He drinks 2-3 beers a day but does not drink every day. He does not use any marijuana or illicit drugs. Code status full code Smoking packs per day: 0.5 Smoking cigarettes per day: 10.0 Years smoked: 30 Smoking pack-years: 15.00 Smoking status: Former smoker Tobacco type: cigarettes Second hand tobacco smoke exposure: No Smoking end date: 10/05/00 Alcohol intake: former Alcohol use details: 2 beers 3-4 times per week. Last drink June 29, 2022. 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s: No Meds Home Medications and Allergies Home Medications ?Medication ?Instructions ?Recorded ?Confirmed ?Type allopurinol 100 mg tablet 100 mg PO BID 03/17/20 10/22/25 History finasteride 5 mg tablet 5 mg PO QAM 03/17/20 10/22/25 History vericiguat 5 mg tablet (Verquvo) 10 mg PO DAILY 09/19/22 10/22/25 History isosorbide 20 mg-hydralazine 37.5 1 tablet PO TID 11/21/22 10/22/25 History mg tablet furosemide 20 mg tablet 60 mg PO BID 04/10/23 10/22/25 History atorvastatin 40 mg tablet 40 mg PO HS 09/10/23 10/22/25 History empagliflozin 10 mg tablet 10 mg PO DAILY 09/10/23 10/22/25 History (Jardiance) lancets 28 gauge (TRUEplus Lancets) #300 ea 11/22/23 10/22/25 Rx vit C 250 mg-E 90 mg-zinc 40 1 tablet PO QAM AND QPM 12/20/23 10/22/25 History mg-copper 1 [id number]-[id number] chew tablet (PreserVision AREDS-2) cholecalciferol (vitamin D3) 125 125 mcg PO DAILY 09/05/24 10/22/25 History mcg (5,000 unit) tablet (Vitamin D3) insulin aspar prot-insulin aspart 22 unit subcut BID 09/05/24 10/22/25 History 100 unit/mL (70-30) subcutaneous pen (Novolog Mix 70-30FlexPen U-100) pen needle, diabetic 32 gauge x #300 ea 10/13/24 10/22/25 Rx 5/32 (Pen Needle) blood sugar diagnostic (True #300 ea 01/14/25 10/22/25 Rx Metrix Glucose Test Strip) aspirin 81 mg tablet 81 mg PO DAILY 05/19/25 10/22/25 History carvedilol 12.5 mg tablet See Rx Instructions .Route 08/12/25 10/22/25 Rx .COMPLEX #180 tabs calcitriol 0.25 mcg capsule See Rx Instructions .Route 08/31/25 10/22/25 Rx .COMPLEX #90 caps calcium acetate(phosphat bind) 667 See Rx Instructions .Route 09/11/25 10/22/25 Rx mg tablet .COMPLEX #270 tabs sevelamer carbonate 800 mg tablet 800 mg PO TID #90 tabs 09/15/25 10/22/25 Rx levothyroxine 150 mcg tablet 150 mcg PO DAILY #90 tabs 10/07/25 10/22/25 Rx (Synthroid) potassium chloride 20 mEq 20 meq PO BID 10/21/25 10/22/25 History tablet,extended release(part/cryst) vericiguat 10 mg tablet (Verquvo) 10 mg PO DAILY 10/21/25 10/22/25 History Allergies Allergy/AdvReac Type Severity Reaction Status Date / Time latex Allergy Rash Verified 10/22/25 00:03 oxycodone AdvReac Vomiting Verified 10/22/25 00:03 Vital Signs Vital Signs - 24 hr 10/22/25 00:00 10/22/25 00:00 10/22/25 00:00 Temperature 36.4 C Pulse Rate 88 82 Respiratory Rate 18 Blood Pressure 159/74 H Pulse Oximetry 99 Oxygen Delivery Room Air 10/22/25 02:00 10/22/25 03:53 10/22/25 03:55 Temperature 36.7 C Pulse Rate 90 84 Respiratory Rate 18 Blood Pressure 142/80 H Pulse Oximetry 97 Oxygen Delivery Room Air 10/22/25 04:00 10/22/25 06:00 10/22/25 07:45 Temperature 36.7 C Pulse Rate 83 73 79 Respiratory Rate 18 Blood Pressure 143/86 H Pulse Oximetry 97 Oxygen Delivery 10/22/25 09:12 Temperature Pulse Rate 84 Respiratory Rate Blood Pressure Pulse Oximetry Oxygen Delivery Exam Narrative: General: Alert oriented x3, no acute distress Neck: Supple, JVD + up to ear lobes Chest: Bibasilar crackles present, rhonchi Cardiac: S1, S2 +, regular rate, regular rhythm, no murmurs or rubs Extremities: Bilateral lower extremity edema 1+, no skin rash Neurologic: Alert and oriented x3, no focal neurological deficits Results Labs and Meds 10/22/25 03:36 10/22/25 07:15 Lab results: Cardiac Enzymes 10/22/25 10/22/25 Range/Units 03:36 07:15 Troponin I 0.119 H* D 0.131 H* (0.000-0.034) ng/mL CBC 10/22/25 Range/Units 03:36 WBC 6.8 (4.5-10.0) K/mm3 RBC 4.59 L (4.6-6.20) M/mm3 Hgb 12.3 L (14.0-18.0) g/dL Hct 38.9 L (42.0-52.0) % Plt Count 129 L (150-375) k/mm3 Lymph # (Auto) 0.55 L (0.9-3.2) K/mm3 [place] # (Auto) 1.0 H (0.1-0.6) K/mm3 Eos # (Auto) 0.0 (0-0.3) K/mm3 Baso # (Auto) 0.1 (0.0-0.1) K/mm3 Comprehensive Metabolic Panel 10/22/25 Range/Units 07:15 Sodium 138 (137-145) mmol/L Potassium 4.3 (3.4-5.0) mmol/L Chloride 106 (98-107) mmol/L Carbon Dioxide 19 L (22-30) mmol/L BUN 63 H (9-20) mg/dL Creatinine 3.20 H (0.7-1.3) mg/dL Glucose 150 H (65-110) mg/dL Calcium 9.7 (8.4-10.2) mg/dL Intake and Output 10/21/25 10/22/25 10/22/25 23:59 07:59 15:59 Intake Total 270 Output Total 1000 Balance -730 Intake: Oral 270 Output: Urine 1000 Other: Number of Bowel Movements Today 1 Patient Weight 10/22/25 23:59 Weight 93 kg
[2025-10-22] MEDS: PERFLUTREN LIPID MICROSPHERES 1.5 ML VIAL DILUTED TO 10 ML TOTAL VOLUME IV PUSH (12:35)
--- NOTE | 2025-10-22 12:35 | IVDEFINITY ---
Prior to administration of IV Definity the patient was educated on the risks and benefits of the imaging enhancing agent including potential adverse side effects. The patient verbalized understanding. Allergies were verified. No exclusion criteria were identified and at least one of the following inclusion criteria were met: 1) physician request, 2) patient technically difficult to image (per the [place] [employer]chocardi[employer] guidelines of two or more segments not discernable within the apical view), or 3) questionable left ventricular function. ?
[2025-10-22] MEDS: INSULIN ASPART (*BKC) 100 UNITS/ML SUB-Q (16:48)
[2025-10-22] MEDS: ATORVASTATIN 40 MG TABLET PO (20:49)
[2025-10-22] MEDS: BENZONATATE 100 MG CAPSULE PO (21:33)
[2025-10-23] VITALS (15 sets, daily range): BP systolic 114–141; BP diastolic 57–87; PULSE 59–78; RESP 16–20; TEMP 36.4–37.6; O2SAT 98–100
[2025-10-23 04:52] LABS: Hematocrit 35.9 % (42.0-52.0); Hemoglobin 11.2 g/dL (14.0-18.0); Mean Corpuscular HGB Conc 31.2 g/dl (32-36); Mean Corpuscular Hemoglobin 27.1 pg (26-34); Mean Corpuscular Volume 86.7 fl (80-100); Platelet Count Result 129 k/mm3 (150-375); Red Blood Count 4.14 M/mm3 (4.6-6.20); White Blood Count 5.7 K/mm3 (4.5-10.0)
[2025-10-23 05:14] LABS: Alanine Aminotransferase 23 U/L (6-50); Albumin Level 3.3 g/dL (3.5-5.1); Alkaline Phosphatase 79 U/L (38-126); Anion Gap 10 mmol/L (4-12); Aspartate Amino Transferase 31 U/L (17-59); Bilirubin,Total 0.6 mg/dL (0.2-1.3); Blood Urea Nitrogen 72 mg/dL (9-20); Calcium 9.1 mg/dL (8.4-10.2); Carbon Dioxide 21 mmol/L (22-30); Chloride 106 mmol/L (98-107); Estimated CRCL calculation 17 ml/min; Estimated Glomerular Filt Rate 18; Glucose 125 mg/dL (65-110); Potassium 3.7 mmol/L (3.4-5.0); Sodium 137 mmol/L (137-145); Total Protein 6.1 g/dL (6.3-8.2)
[2025-10-23] MEDS: LEVOTHYROXINE SODIUM 150 MCG TABLET PO (06:04)
[2025-10-23 08:59] LABS: Troponin I 0.119 ng/mL (0.000-0.034)
--- NOTE | 2025-10-23 09:13 | P.PNIM_ITS ---
Assessment and Plan Assessment and Plan (1) Systolic and diastolic CHF, acute on chronic: Code(s): I50.43 - Acute on chronic combined systolic (congestive) and diastolic (congestive) heart failure Status: Acute Assessment and Plan: -the patient is on 60 mg of Lasix at home. However the patient may not be fully compliant with this Lasix at home. The patient stated that he hates to take at home because it makes him cramps so much. -Lasix has been changed to 60 mg IV b.i.d.. And continue with potassium supplement. -continue to monitor electrolytes and renal function closely with the Lasix. Continue with Lasix. -continue with Coreg and Jardiance. Verquvo is non formulary but may use from home. -cardiology consult greatly be appreciated. -last echo on 09/08/2022 estimated GF at 25-35%. With severe pulmonary hypertension, estimated pulmonary arterial systolic pressure is 75 mmHg. -continue with isosorbide -Discussed with Cardiology and patient needs close follow up with EP,CTS for structural heart disease (severe TR), and ICD placement. -Patient also need close follow-up with the Nephrology. - Repeated echo 10/22/2025 shows: 1. Definity contrast administered improved wall motion interpretation. 2. Left ventricular chamber dimension is severely enlarged. 3. Left ventricular systolic function is severely globally reduced, estimated at 20-25. 4. The left ventricular diastolic function is abnormal. 5. E/e' 34 is significantly elevated. 6. Right ventricular chamber dimension is mildly enlarged. 7. Right ventricular systolic function is at least moderately reduced and with abnormal TAPSE 0.7 cm. 8. Left atrial chamber dimension is severely enlarged. 9. Right atrial chamber dimension is moderately enlarged. 10. There is mild aortic valve sclerosis. 11. There is mild aortic valve regurgitation. 12. There is moderate mitral valve regurgitation. 13. There is severe tricuspid valve regurgitation. 14. Severe pulmonary hypertension, estimated pulmonary arterial systolic pressure is 62 mmHg. 15. There is trace pulmonic regurgitation. 16. Dilated inferior vena cava with >50% collapse upon inspiration consistent with elevated right atrial pressure, 10 mmHg. 17. There is small circumferential pericardial effusion. (2) Cardiac enzymes elevated: Code(s): R74.8 - Abnormal levels of other serum enzymes Status: Acute Assessment and Plan: -troponins were mildly elevated 0.69 and 0.084 with a 3rd troponin is pending. -patient denies any chest pain at this time. -cardiology has been consulted. -this could be related to either the elevated hypertension, this CHF, chronic renal disease, demand ischemia, or coronary artery disease. (3) Essential hypertension: Code(s): I10 - Essential (primary) hypertension Status: Acute Assessment and Plan: -patient's blood pressure was initially elevated 173/98 and then come back down to 159/74. The patient was given his home medications at [facility] [place]. -continue with Coreg if blood pressure allows. (4) Hyperlipidemia: Code(s): E78.5 - Hyperlipidemia, unspecified Status: Acute Assessment and Plan: -continue with atorvastatin (5) Diabetes mellitus type 2, controlled: Code(s): E11.9 - Type 2 diabetes mellitus without complications Status: Acute Assessment and Plan: -Accu-Cheks a.c. in H as was sliding scale insulin and hypoglycemic protocol -diabetic diet -continue with Jardiance -pharmacy to adjust 20% of home insulin -A1c 7.3 today with a previous A1c of 7.1 last month. Repeat A1c was performed as his last A1c was not therapeutic. (6) Hypothyroidism (acquired): Code(s): E03.9 - Hypothyroidism, unspecified Status: Acute Assessment and Plan: -continue levothyroxine (7) Chronic kidney disease, stage 4 (severe): Code(s): N18.4 - Chronic kidney disease, stage 4 (severe) Status: Acute Assessment and Plan: -nephrology has seen the patient in the past. May consider Nephrology consult if renal function worsens. -the patient is currently at baseline. BUN is 62, creatinine 3.71 with GFR of 16. -continue with Jardiance -continue with Renvela (8) BPH (benign prostatic hyperplasia): Code(s): N40.0 - Benign prostatic hyperplasia without lower urinary tract symptoms Status: Acute Assessment and Plan: -continue with finasteride Subjective Date/time seen: 10/23/25 09:13 Interval history: Admitted in the setting of CHF exacerbation and severe pulmonary HTN. Echocardiogram performed on 09/08/2022 shows EF 25-30% and severe pulmonary hypertension.Patient reports he follows with . Has remote hx of cardiac cath but no stents placed. 10/22: Discussed with cardiology. Patient needs outpatient follow-up with EP and CTS for structural heart disease (severe TR), and ICD placement. Patient also need close follow-up with the Nephrology. Review of Systems Constitutional: Constitutional: Reports as per HPI and Reports no additional constitutional complaints Eyes: Eyes: Reports as per HPI and Reports no additional eye complaints ENT: Reports system reviewed and no additional complaints, except as documented and Reports Normal hearing present Cardiovascular: Cardiovascular: Reports no additional cardiovascular complaints Respiratory: Respiratory: Reports as per HPI and Reports no additional respiratory complaints Gastrointestinal: Gastrointestinal: Reports as per HPI and Reports no additional gastrointestinal complaints Musculoskeletal: Musculoskeletal: Reports no additional musculoskeletal complaints Integumentary/Breasts: Skin/Breast: Reports system reviewed and no additional complaints, except as docu Neurologic: Reports system reviewed and no additional complaints, except as documented and Reports Normal hearing present Psychiatric: Psychiatric: Reports no additional psychiatric complaints and Reports as per HPI Hematologic/Lymphatic: Hematologic/Lymphatic: Reports no additional hematologic/lymphatic complaints Allergic/Immunologic: Allergic/Immunologic: Reports no additional allergic/immunologic complaints Exam Const: General: cooperative, healthy appearing, comfortable, no acute distress, well developed, awake, Physically active, average body habitus and well nourished Nutritional Appearance: average body habitus and well nourished Orientation/consciousness: oriented to person, oriented to place, oriented to time and patient oriented x3 Limitations: no limitations HENMT: Head: normal to inspection, No palpable skull fracture present, normocephalic, atraumatic and abrasion Ears: hearing grossly normal bilaterally Face/Nose/Sinus: Normal nares present Eyes: General: appearance normal, both eyes and all related structures Alignment and Position: alignment normal Periorbital: periorbital findings normal Eyelids: eyelids normal Conjunctivae: conjunctivae normal Pupils: Pupil accommodation reflex normal EOM: EOMs intact bilaterally Neck: Neck: normal visual inspection, full ROM, no lymphadenopathy and trachea midline Chest: Chest palpation & inspection: normal inspection of the chest Resp: Effort & Inspection: normal respiratory effort Auscultation: clear to auscultation bilaterally Cardio: Palpation: normal PMI Rate: regular rate Rhythm: regular rhythm Peripheral pulses: Peripheral pulses 2+ throughout GI: Inspection: normal to inspection Auscultation: normal bowel sounds Rectal Exam: deferred : General: Yes no CVA tenderness Back/Spine/Pelvis: Back: no CVA tenderness Cervical Spine: cervical ROM normal Skin: General skin exam: normal color Lesions: no lesions Rashes: no rashes Trauma: no lacerations or abrasions Wounds: no wounds Hair: normal Nails: normal Neuro: General: oriented to person, oriented to place, oriented to time and patient oriented x3 Cranial nerves: Yes Normal hearing present Cognition (Neuro): normal cognition Speech: normal speech Gait exam (Neuro): Normal gait present Motor exam (neuro): 5/5 motor strength present throughout Sensory Exam: normal sensation Extrem: General: normal to inspection Right upper extremity: normal to inspection and shoulder/upper arm Left upper extremity: normal to inspection and shoulder/upper arm Right lower extremity: normal to inspection Left lower extremity: normal to inspection Psych: Appearance: grossly normal Mental Status: mental status grossly normal Speech and movement: Normal speech and movement present Affect: normal affect Attitude: cooperative Thought process: Normal thought process present Insight: Good insight present (Psych) Judgement: Good judgement present (Psych) Objective Data Vital Signs Vital Signs: Vital Signs - 24 hr 10/22/25 10:00 10/22/25 11:55 10/22/25 12:00 Temperature 97.4 F L Pulse Rate 86 94 Respiratory Rate 20 Blood Pressure 137/71 Pulse Oximetry 98 Oxygen Delivery Room Air 10/22/25 12:00 10/22/25 14:00 10/22/25 15:55 Temperature 98.4 F Pulse Rate 78 71 76 Respiratory Rate 20 Blood Pressure 147/76 H Pulse Oximetry 99 Oxygen Delivery 10/22/25 16:00 10/22/25 16:00 10/22/25 18:00 Temperature Pulse Rate 82 74 Respiratory Rate Blood Pressure Pulse Oximetry Oxygen Delivery Room Air 10/22/25 20:00 10/22/25 20:00 10/22/25 20:00 Temperature 97.9 F Pulse Rate 83 78 78 Respiratory Rate 20 20 Blood Pressure 144/80 H Pulse Oximetry 100 100 Oxygen Delivery Room Air 10/22/25 20:49 10/22/25 22:00 10/22/25 23:06 Temperature Pulse Rate 105 H 74 70 Respiratory Rate 20 Blood Pressure Pulse Oximetry 100 Oxygen Delivery Room Air 10/22/25 23:06 10/22/25 23:36 10/23/25 02:00 Temperature 99.2 F Pulse Rate 70 74 78 Respiratory Rate 20 Blood Pressure 120/62 Pulse Oximetry 100 Oxygen Delivery 10/23/25 04:00 10/23/25 04:00 10/23/25 04:00 Temperature 98.2 F Pulse Rate 59 L 59 L 62 Respiratory Rate 20 20 Blood Pressure 122/57 L Pulse Oximetry 100 98 Oxygen Delivery Room Air 10/23/25 06:00 10/23/25 07:43 Temperature 98.3 F Pulse Rate 74 72 Respiratory Rate 18 Blood Pressure 141/75 H Pulse Oximetry 100 Oxygen Delivery Intake/Output Intake/Output: Intake & Output 10/20/25 10/21/25 10/22/25 10/23/25 23:59 23:59 23:59 23:59 Intake Total 1100 550 Output Total 1275 900 Balance -175 -350 Meds/Results Medications: Active Medications Generic Name Dose Route Start Last Admin Trade Name Freq PRN Reason Stop Dose Admin Acetaminophen 650 mg 10/22/25 02:31 Acetaminophen 325 Mg Tablet PO Q4H PRN Mild Pain (1-3) or Fever Allopurinol 100 mg 10/22/25 08:00 10/22/25 16:45 Allopurinol 100 Mg Tablet PO 100 mg BIDWM JOE Administration Aspirin 81 mg 10/22/25 09:00 10/22/25 09:11 Aspirin 81 Mg Enteric Tablet PO 81 mg QAM JOE Administration Atorvastatin Calcium 40 mg 10/22/25 21:00 10/22/25 20:49 Atorvastatin 40 Mg Tablet PO 40 mg HS JOE Administration Benzonatate 100 mg 10/22/25 21:15 10/22/25 21:33 Benzonatate 100 Mg Capsule PO 100 mg Q8H PRN Administration Cough Calcitriol 0.25 mcg 10/22/25 09:00 10/22/25 09:11 Calcitriol 0.25 Mcg Capsule BY MOUTH 0.25 mcg QAM JOE Administration Calcium Acetate 667 mg 10/22/25 08:00 10/22/25 16:46 Calcium Acetate 667 Mg Tablet BY MOUTH Not Given TIDWM JOE Carvedilol 12.5 mg 10/22/25 09:00 10/22/25 20:49 Carvedilol 12.5 Mg Tablet BY MOUTH 12.5 mg Q12HR JOE Administration Dextrose 12.5 gm 10/22/25 02:35 Dextrose 50% 25 Gm/50 Ml Syringe IV PUSH PRN PRN Hypoglycemia Protocol Empagliflozin 10 mg 10/22/25 09:00 10/22/25 09:13 Empagliflozin 10 Mg Tablet PO 10 mg DAILY JOE Administration Finasteride 5 mg 10/22/25 09:00 10/22/25 09:12 Finasteride 5 Mg Tablet PO 5 mg QAM JOE Administration Furosemide 60 mg 10/22/25 09:00 10/22/25 16:47 Furosemide Inj 40 Mg/4 Ml Vial IV PUSH 60 mg BID JOE Administration Glucagon 1 mg 10/22/25 02:35 Glucagon For Inj 1 Mg Vial IM PRN PRN Hypoglycemia Protocol Glucose 15 gm 10/22/25 02:35 Glucose Oral Gel 15 Gm Of Glucse In 37.5 Gm Tube PO PRN PRN Hypoglycemia Protocol Hydralazine HCl 25 mg 10/22/25 09:00 10/22/25 16:46 Hydralazine Hcl 25 Mg Tablet PO 25 mg TID JOE Administration Hydralazine HCl 12.5 mg 10/22/25 09:00 10/22/25 16:46 Hydralazine 12.5 Mg Tablet PO 12.5 mg TID JOE Administration Dextrose 1,000 mls @ 100 mls/hr 10/22/25 02:35 Dextrose 5% 1,000 Ml IVPB PRN PRN Hypoglycemia Protocol Insulin Aspart 2 - 5 units 10/22/25 08:00 10/22/25 16:48 Insulin Aspart (*Bkc) 100 Units/Ml SUB-Q 2 units TIDWM JOE Administration Protocol Insulin Human Isoph/Insulin Regular 17 units 10/22/25 09:35 10/22/25 16:48 Insulin Human Isophan/Regular 70/30 (*Bkc) 100 Units/Ml SUB-Q 17 units BIDWM JOE Administration Isosorbide Dinitrate 20 mg 10/22/25 09:00 10/22/25 16:46 Isosorbide Dinitrate 20 Mg Tablet PO 20 mg TID JOE Administration Levothyroxine Sodium 150 mcg 10/22/25 06:30 10/23/25 06:04 Levothyroxine Sodium 150 Mcg Tablet PO 150 mcg [email or web address] JOE Administration Miscellaneous Information 1 each 10/22/25 00:01 Vericiguat [Verquvo] 10 Mg Tablet Is Nonform, Please Send To Pharmacy For Verification Onc XX 11/21/25 00:00 CLARIFY JOE Non-Formulary Medication 10 mg 10/22/25 09:00 Vericiguat [Verquvo] PO 11/21/25 08:59 DAILY JOE Potassium Chloride 20 meq 10/22/25 08:00 10/22/25 16:47 Potassium Chloride 20 Meq Er Tablet PO 20 meq BIDWM JOE Administration Sevelamer Carbonate 800 mg 10/22/25 08:00 10/22/25 16:49 Sevelamer Carbonate 800 Mg Tablet PO 800 mg TIDWM JOE Administration Vitamin D 125 mcg 10/22/25 09:00 10/22/25 09:14 Cholecalciferol (Vitamin D3) 125 Mcg (5,000 Units) Tablet PO 125 mcg DAILY JOE Administration Labs Labs: Laboratory Results - last 24 hr 10/22/25 10/22/25 10/22/25 11:39 15:39 20:00 WBC RBC Hgb Hct MCV MCH MCHC RDW Plt Count MPV Sodium Potassium Chloride Carbon Dioxide Anion Gap BUN Creatinine Estim Creat Clear Calc Estimated GFR Glucose POC Capillary Glucose 186 H 211 H 169 H Calcium Total Bilirubin AST ALT Alkaline Phosphatase Troponin I Total Protein Albumin 10/23/25 10/23/25 10/23/25 04:15 04:15 07:05 WBC 5.7 RBC 4.14 L Hgb 11.2 L Hct 35.9 L MCV 86.7 MCH 27.1 MCHC 31.2 L RDW 18.8 H Plt Count 129 L MPV 11.4 H Sodium 137 Potassium 3.7 Chloride 106 Carbon Dioxide 21 L Anion Gap 10 BUN 72 H Creatinine 3.31 H Estim Creat Clear Calc 17 Estimated GFR 18 L Glucose 125 H POC Capillary Glucose 145 H Calcium 9.1 Total Bilirubin 0.6 AST 31 ALT 23 Alkaline Phosphatase 79 Troponin I 0.119 H* Cancelled Total Protein 6.1 L Albumin 3.3 L Quality VTE Prophylaxis VTE prophylaxis: mechanical ordered Hospitalist MIPS Advance Care Plan I have confirmed that the patient's Advanced Care Plan is present, code status is documented, or surrogate decision maker is listed in patient medical record.: Yes Medication Reconciliation I have utilized all available resources to obtain, update and review the patients current medications (includes all prescriptions, OTC, herbals, cannabis, and nutritional supplements).: Yes
--- NOTE | 2025-10-23 09:17 | PM.PNCARD ---
Progress Note: A&P Assessment and Plan (1) Systolic and diastolic CHF, acute on chronic: Code(s): I50.43 - Acute on chronic combined systolic (congestive) and diastolic (congestive) heart failure Status: Acute Plan 80-year-old male with Acute on chronic systolic and diastolic heart failure-LVEF 25-30% 2021 Elevated troponin without chest pain-most likely secondary to stress of acute heart failure Moderate MR Severe TR Severe pulmonary hypertension- on Vericiguat Hypertension Hyperlipidemia Non obstructive CAD by cath in 2020 CKD stage 4 Plan: Continue IV diuresis with Lasix 60 mg b.i.d. Check weights, ins and outs, renal function daily Check and replace electrolytes to keep potassium greater than 4 and magnesium greater than 2 Monitor on telemetry Continue guideline directed medical therapy with Coreg, empagliflozin, Imdur, hydralazine. Not on [place]-inhibitor/ARB/ARNI due to renal failure Continue aspirin, statin TTE showed LVEF of 20-25%, LV diastolic dysfunction, moderate MR, severe TR, mild AR, small pericardial effusion Needs SHD evaluation for VHD given severe TR and moderate MR with low EF of 20-25% Subjective Date/time seen: 10/23/25 09:17 Interval history: Reason for encounter: Acute congestive heart failure Relevant history: 80-year-old male with history of nonischemic cardiomyopathy with LVEF of 25-30% in 05/2025, moderate to severe MR (mild MR in 05/2025), non obstructive CAD (40% stenosis in distal LCX, 20-40% stenosis mid RCA), hyperlipidemia, hypertension, diabetes mellitus type 2, CKD stage 4 with baseline creatinine around 3-3.5, hypothyroidism, benign prostatic hyperplasia presented with chief complaints of shortness of breath, leg swelling, and abdominal distention. Troponin elevated, NT proBNP >30,000. EKG showed sinus rhythm, first-degree AV block, occasional PVCs, right bundle branch block, LVH and related ST-T change, septal infarct age indeterminate, inferior infarct age indeterminate. Chest x-ray showed moderate pulmonary vascular congestion and small basilar infiltrates. Cardiology was consulted for further recommendations for congestive heart failure. Interval history: No chest pain. SOB, leg swelling, and abdominal distension is decreased. Not on any oxygen. Review of Systems Review of Systems: All systems reviewed & are unremarkable except as noted in HPI and below Exam Const: General: comfortable and no acute distress HENMT: Mouth: Yes moist mucous membranes Eyes: Sclera: sclerae normal Neck: Neck: supple and no JVD Resp: Effort & Inspection: normal respiratory effort Auscultation: crackles (base) bilateral, no rales, no rhonchi and no wheezes Cardio: Rate: regular rate Rhythm: regular rhythm Heart sounds: no murmurs GI: Auscultation: normal bowel sounds Skin: General skin exam: normal color Neuro: Other: Alert and oriented x3 Extrem: Other: No significant pitting edema at this time Objective Data Vital Signs Vital Signs: Vital Signs - 24 hr 10/22/25 10:00 10/22/25 11:55 10/22/25 12:00 Temperature 36.3 C L Pulse Rate 86 94 Respiratory Rate 20 Blood Pressure 137/71 Pulse Oximetry 98 Oxygen Delivery Room Air 10/22/25 12:00 10/22/25 14:00 10/22/25 15:55 Temperature 36.9 C Pulse Rate 78 71 76 Respiratory Rate 20 Blood Pressure 147/76 H Pulse Oximetry 99 Oxygen Delivery 10/22/25 16:00 10/22/25 16:00 10/22/25 18:00 Temperature Pulse Rate 82 74 Respiratory Rate Blood Pressure Pulse Oximetry Oxygen Delivery Room Air 10/22/25 20:00 10/22/25 20:00 10/22/25 20:00 Temperature 36.6 C Pulse Rate 83 78 78 Respiratory Rate 20 20 Blood Pressure 144/80 H Pulse Oximetry 100 100 Oxygen Delivery Room Air 10/22/25 20:49 10/22/25 22:00 10/22/25 23:06 Temperature Pulse Rate 105 H 74 70 Respiratory Rate 20 Blood Pressure Pulse Oximetry 100 Oxygen Delivery Room Air 10/22/25 23:06 10/22/25 23:36 10/23/25 02:00 Temperature 37.3 C Pulse Rate 70 74 78 Respiratory Rate 20 Blood Pressure 120/62 Pulse Oximetry 100 Oxygen Delivery 10/23/25 04:00 10/23/25 04:00 10/23/25 04:00 Temperature 36.8 C Pulse Rate 59 L 59 L 62 Respiratory Rate 20 20 Blood Pressure 122/57 L Pulse Oximetry 100 98 Oxygen Delivery Room Air 10/23/25 06:00 10/23/25 07:43 Temperature 36.8 C Pulse Rate 74 72 Respiratory Rate 18 Blood Pressure 141/75 H Pulse Oximetry 100 Oxygen Delivery Intake/Output Intake/Output: Intake & Output 10/20/25 10/21/25 10/22/25 10/23/25 23:59 23:59 23:59 23:59 Intake Total 1100 550 Output Total 1275 900 Balance -175 -350 Meds/Results Medications: Active Medications Generic Name Dose Route Start Last Admin Trade Name Freq PRN Reason Stop Dose Admin Acetaminophen 650 mg 10/22/25 02:31 Acetaminophen 325 Mg Tablet PO Q4H PRN Mild Pain (1-3) or Fever Allopurinol 100 mg 10/22/25 08:00 10/22/25 16:45 Allopurinol 100 Mg Tablet PO 100 mg BIDWM JOE Administration Aspirin 81 mg 10/22/25 09:00 10/22/25 09:11 Aspirin 81 Mg Enteric Tablet PO 81 mg QAM JOE Administration Atorvastatin Calcium 40 mg 10/22/25 21:00 10/22/25 20:49 Atorvastatin 40 Mg Tablet PO 40 mg HS JOE Administration Benzonatate 100 mg 10/22/25 21:15 10/22/25 21:33 Benzonatate 100 Mg Capsule PO 100 mg Q8H PRN Administration Cough Calcitriol 0.25 mcg 10/22/25 09:00 10/22/25 09:11 Calcitriol 0.25 Mcg Capsule BY MOUTH 0.25 mcg QAM JOE Administration Calcium Acetate 667 mg 10/22/25 08:00 10/22/25 16:46 Calcium Acetate 667 Mg Tablet BY MOUTH Not Given TIDWM JOE Carvedilol 12.5 mg 10/22/25 09:00 10/22/25 20:49 Carvedilol 12.5 Mg Tablet BY MOUTH 12.5 mg Q12HR JOE Administration Dextrose 12.5 gm 10/22/25 02:35 Dextrose 50% 25 Gm/50 Ml Syringe IV PUSH PRN PRN Hypoglycemia Protocol Empagliflozin 10 mg 10/22/25 09:00 10/22/25 09:13 Empagliflozin 10 Mg Tablet PO 10 mg DAILY JOE Administration Finasteride 5 mg 10/22/25 09:00 10/22/25 09:12 Finasteride 5 Mg Tablet PO 5 mg QAM JOE Administration Furosemide 60 mg 10/22/25 09:00 10/22/25 16:47 Furosemide Inj 40 Mg/4 Ml Vial IV PUSH 60 mg BID JOE Administration Glucagon 1 mg 10/22/25 02:35 Glucagon For Inj 1 Mg Vial IM PRN PRN Hypoglycemia Protocol Glucose 15 gm 10/22/25 02:35 Glucose Oral Gel 15 Gm Of Glucse In 37.5 Gm Tube PO PRN PRN Hypoglycemia Protocol Hydralazine HCl 25 mg 10/22/25 09:00 10/22/25 16:46 Hydralazine Hcl 25 Mg Tablet PO 25 mg TID JOE Administration Hydralazine HCl 12.5 mg 10/22/25 09:00 10/22/25 16:46 Hydralazine 12.5 Mg Tablet PO 12.5 mg TID JOE Administration Dextrose 1,000 mls @ 100 mls/hr 10/22/25 02:35 Dextrose 5% 1,000 Ml IVPB PRN PRN Hypoglycemia Protocol Insulin Aspart 2 - 5 units 10/22/25 08:00 10/22/25 16:48 Insulin Aspart (*Bkc) 100 Units/Ml SUB-Q 2 units TIDWM JOE Administration Protocol Insulin Human Isoph/Insulin Regular 17 units 10/22/25 09:35 10/22/25 16:48 Insulin Human Isophan/Regular 70/30 (*Bkc) 100 Units/Ml SUB-Q 17 units BIDWM JOE Administration Isosorbide Dinitrate 20 mg 10/22/25 09:00 10/22/25 16:46 Isosorbide Dinitrate 20 Mg Tablet PO 20 mg TID JOE Administration Levothyroxine Sodium 150 mcg 10/22/25 06:30 10/23/25 06:04 Levothyroxine Sodium 150 Mcg Tablet PO 150 mcg [email or web address] JOE Administration Miscellaneous Information 1 each 10/22/25 00:01 Vericiguat [Verquvo] 10 Mg Tablet Is Nonform, Please Send To Pharmacy For Verification Onc XX 11/21/25 00:00 CLARIFY JOE Non-Formulary Medication 10 mg 10/22/25 09:00 Vericiguat [Verquvo] PO 11/21/25 08:59 DAILY [facility] Potassium Chloride 20 meq 10/22/25 08:00 10/22/25 16:47 Potassium Chloride 20 Meq Er Tablet PO 20 meq BIDWM JOE Administration Sevelamer Carbonate 800 mg 10/22/25 08:00 10/22/25 16:49 Sevelamer Carbonate 800 Mg Tablet PO 800 mg TIDWM JOE Administration Vitamin D 125 mcg 10/22/25 09:00 10/22/25 09:14 Cholecalciferol (Vitamin D3) 125 Mcg (5,000 Units) Tablet PO 125 mcg DAILY JOE Administration Radiology Results: ITS Impressions Renal Ultrasound 06/25/22 09:07 IMPRESSION: 1. Normal kidney sizes. No hydronephrosis. Venous Doppler Study 06/25/22 09:08 IMPRESSION: 1. No deep venous thrombosis. Pulmonary Perfusion Imaging 06/26/22 13:47 IMPRESSION: 1. Pulmonary embolism absent (low probability). Chest X-Ray 06/26/22 13:50 IMPRESSION: 1. Mild pulmonary edema. 2. Small pleural effusions. Labs Labs: Laboratory Results - last 24 hr 10/22/25 10/22/25 10/22/25 11:39 15:39 20:00 WBC RBC Hgb Hct MCV MCH MCHC RDW Plt Count MPV Sodium Potassium Chloride Carbon Dioxide Anion Gap BUN Creatinine Estim Creat Clear Calc Estimated GFR Glucose POC Capillary Glucose 186 H 211 H 169 H Calcium Total Bilirubin AST ALT Alkaline Phosphatase Troponin I Total Protein Albumin 10/23/25 10/23/25 10/23/25 04:15 04:15 07:05 WBC 5.7 RBC 4.14 L Hgb 11.2 L Hct 35.9 L MCV 86.7 MCH 27.1 MCHC 31.2 L RDW 18.8 H Plt Count 129 L MPV 11.4 H Sodium 137 Potassium 3.7 Chloride 106 Carbon Dioxide 21 L Anion Gap 10 BUN 72 H Creatinine 3.31 H Estim Creat Clear Calc 17 Estimated GFR 18 L Glucose 125 H POC Capillary Glucose 145 H Calcium 9.1 Total Bilirubin 0.6 AST 31 ALT 23 Alkaline Phosphatase 79 Troponin I 0.119 H* Cancelled Total Protein 6.1 L Albumin 3.3 L Quality VTE Prophylaxis VTE prophylaxis: pharmacologic ordered
[2025-10-23] MEDS: FUROSEMIDE INJ 40 MG/4 ML VIAL 60 MG IV PUSH ×2 (09:25→17:14)
[2025-10-23] MEDS: POTASSIUM CHLORIDE 20 MEQ ER TABLET PO ×2 (09:25→17:15)
[2025-10-23] MEDS: ASPIRIN 81 MG ENTERIC TABLET PO (09:26)
[2025-10-23] MEDS: ISOSORBIDE DINITRATE 20 MG TABLET PO ×3 (09:26→17:15)
[2025-10-23] MEDS: hydrALAZINE 12.5 MG TABLET PO ×3 (09:26→17:15)
[2025-10-23] MEDS: FINASTERIDE 5 MG TABLET PO (09:26)
[2025-10-23] MEDS: EMPAGLIFLOZIN 10 MG TABLET PO (09:26)
[2025-10-23] MEDS: CHOLECALCIFEROL (VITAMIN D3) 125 MCG (5,000 UNITS) TABLET PO (09:26)
[2025-10-23] MEDS: SEVELAMER CARBONATE 800 MG TABLET PO ×3 (09:26→17:15)
[2025-10-23] MEDS: CALCIUM ACETATE 667 MG TABLET BY MOUTH ×3 (09:26→17:15)
[2025-10-23] MEDS: INSULIN HUMAN ISOPHAN/REGULAR 70/30 (*BKC) 100 UNITS/ML 17 UNITS SUB-Q ×2 (09:44→17:14)
[2025-10-23] MEDS: INSULIN ASPART (*BKC) 100 UNITS/ML SUB-Q ×2 (13:07→17:14)
--- NOTE | 2025-10-23 13:58 | PHAR ---
PT'S HOME MED VERQUVO (VERICIGUAT) 10 MG TABS VERIFIED BY PHARMACY
[2025-10-23] MEDS: BENZONATATE 100 MG CAPSULE PO (20:42)
[2025-10-23] MEDS: ATORVASTATIN 40 MG TABLET PO (20:42)
[2025-10-24] VITALS (14 sets, daily range): BP systolic 122–143; BP diastolic 48–90; PULSE 57–74; RESP 16–20; TEMP 36.3–36.9; O2SAT 94–100
[2025-10-24 04:29] LABS: Hematocrit 34.2 % (42.0-52.0); Hemoglobin 10.8 g/dL (14.0-18.0); Mean Corpuscular HGB Conc 31.6 g/dl (32-36); Mean Corpuscular Hemoglobin 26.6 pg (26-34); Mean Corpuscular Volume 84.2 fl (80-100); Platelet Count Result 119 k/mm3 (150-375); Red Blood Count 4.06 M/mm3 (4.6-6.20); White Blood Count 5.3 K/mm3 (4.5-10.0)
[2025-10-24 04:43] LABS: Alanine Aminotransferase 31 U/L (6-50); Albumin Level 3.3 g/dL (3.5-5.1); Alkaline Phosphatase 72 U/L (38-126); Anion Gap 8 mmol/L (4-12); Aspartate Amino Transferase 38 U/L (17-59); Bilirubin,Total 0.5 mg/dL (0.2-1.3); Blood Urea Nitrogen 75 mg/dL (9-20); Calcium 9.1 mg/dL (8.4-10.2); Carbon Dioxide 23 mmol/L (22-30); Chloride 105 mmol/L (98-107); Estimated CRCL calculation 18 ml/min; Estimated Glomerular Filt Rate 19; Glucose 86 mg/dL (65-110); Potassium 3.4 mmol/L (3.4-5.0); Sodium 136 mmol/L (137-145); Total Protein 6.0 g/dL (6.3-8.2)
[2025-10-24] MEDS: LEVOTHYROXINE SODIUM 150 MCG TABLET PO (06:15)
--- NOTE | 2025-10-24 06:15 | P.PNCA_ITS ---
Progress Note: A&P Assessment and Plan (1) Systolic and diastolic CHF, acute on chronic: Code(s): I50.43 - Acute on chronic combined systolic (congestive) and diastolic (congestive) heart failure Status: Acute (2) Elevated troponin: Code(s): R79.89 - Other specified abnormal findings of blood chemistry Status: Acute (3) CAD (coronary artery disease): Code(s): I25.10 - Atherosclerotic heart disease of [place] coronary artery without angina pectoris Status: Acute (4) Hyperlipidemia: Code(s): E78.5 - Hyperlipidemia, unspecified Status: Acute (5) Essential hypertension: Code(s): I10 - Essential (primary) hypertension Status: Acute (6) Mitral regurgitation: Code(s): I34.0 - Nonrheumatic mitral (valve) insufficiency Status: Acute (7) Tricuspid regurgitation: Code(s): I07.1 - Rheumatic tricuspid insufficiency Status: Acute Plan 80-year-old male with Acute on chronic systolic and diastolic heart failure- TTE showed LVEF of 20- 25%, LV diastolic dysfunction, moderate MR, severe TR, mild AR, small pericardial effusion Elevated troponin without chest pain-most likely secondary to stress of acute heart failure Moderate MR Severe TR Severe pulmonary hypertension- on Vericiguat Hypertension Hyperlipidemia Non obstructive CAD by cath in 2020 CKD stage 4 Plan: On exam, he appears close to euvolemicc. Recommend continue IV diuresis with Lasix 60 mg b.i.d. today. Switch to PO tomorrow to his home dose of 60 mg PO BID. Renal function elevated but at baseline Check weights, ins and outs, renal function daily Check and replace electrolytes to keep potassium greater than 4 and magnesium greater than 2 Continue guideline directed medical therapy with Coreg, empagliflozin, Imdur, hydralazine. Not on [place]-inhibitor/ARB/ARNI due to renal failure Continue aspirin, statin Recommend outpatient SHD evaluation for VHD given severe TR and moderate MR with low EF of 20-25% and EP consultation for ICD Thank you for allowing to pariticipate in the care of this patient. Cardiology will sign off. Please call us with any questions. Subjective Date/time seen: 10/24/25 06:15 Interval history: Reason for encounter: Acute congestive heart failure Relevant history: 80-year-old male with history of nonischemic cardiomyopathy with LVEF of 25-30% in 05/2025, moderate to severe MR (mild MR in 05/2025), non obstructive CAD (40% stenosis in distal LCX, 20-40% stenosis mid RCA), hyperlip idemia, hypertension, diabetes mellitus type 2, CKD stage 4 with baseline creatinine around 3-3.5, hypothyroidism, benign prostatic hyperplasia presented with chief complaints of shortness of breath, leg swelling, and abdominal distention. Troponin elevated, NT proBNP >30,000. EKG showed sinus rhythm, first-degree AV block, occasional PVCs, right bundle branch block, LVH and related ST-T change, septal infarct age indeterminate, inferior infarct age indeterminate. Chest x-ray showed moderate pulmonary vascular congestion and small basilar infiltrates. Cardiology was consulted for further recommendations for congestive heart failure. Interval history: No chest pain. SOB, leg swelling, and abdominal distension is decreased. Not on any oxygen. Review of Systems Review of Systems: All systems reviewed & are unremarkable except as noted in HPI and below Exam 2 Const: General: comfortable and no acute distress HENMT: Mouth: Yes moist mucous membranes Eyes: Sclera: sclerae normal Neck: Neck: supple and no JVD Resp: Effort & Inspection: normal respiratory effort Auscultation: crackles (base) bilateral, no rales, no rhonchi and no wheezes Cardio: Rate: regular rate Rhythm: regular rhythm Heart sounds: no murmurs GI: Auscultation: normal bowel sounds Skin: General skin exam: normal color Neuro: Other: Alert and oriented x3 Extrem: Other: No significant pitting edema at this time Objective Data Vital Signs Vital Signs: Vital Signs - 24 hr 10/23/25 07:43 10/23/25 08:00 10/23/25 08:00 Temperature 36.8 C Pulse Rate 72 71 74 Respiratory Rate 18 18 Blood Pressure 141/75 H Pulse Oximetry 100 100 Oxygen Delivery Room Air 10/23/25 09:26 10/23/25 10:00 10/23/25 11:30 Temperature 36.4 C Pulse Rate 71 72 68 Respiratory Rate 16 Blood Pressure 137/63 Pulse Oximetry 98 Oxygen Delivery 10/23/25 12:00 10/23/25 12:00 10/23/25 14:00 Temperature Pulse Rate 68 74 78 Respiratory Rate 16 Blood Pressure Pulse Oximetry 98 Oxygen Delivery Room Air 10/23/25 16:00 10/23/25 16:00 10/23/25 16:00 Temperature 36.5 C Pulse Rate 76 76 75 Respiratory Rate 18 18 Blood Pressure 140/66 Pulse Oximetry 99 99 Oxygen Delivery Room Air 10/23/25 20:00 10/23/25 20:00 10/23/25 20:00 Temperature 36.8 C Pulse Rate 76 66 66 Respiratory Rate 16 16 Blood Pressure 137/87 Pulse Oximetry 99 99 Oxygen Delivery Room Air 10/23/25 20:42 10/23/25 21:52 10/23/25 23:40 Temperature 37.6 C Pulse Rate 74 76 68 Respiratory Rate 16 Blood Pressure 114/59 L Pulse Oximetry 100 Oxygen Delivery 10/24/25 00:00 10/24/25 00:00 10/24/25 02:00 Temperature Pulse Rate 70 70 68 Respiratory Rate 16 Blood Pressure Pulse Oximetry 100 Oxygen Delivery Room Air 10/24/25 03:19 10/24/25 04:00 10/24/25 04:00 Temperature 36.9 C Pulse Rate 67 60 60 Respiratory Rate 16 16 Blood Pressure 143/90 H Pulse Oximetry 94 94 Oxygen Delivery Room Air Intake/Output Intake/Output: Intake & Output 10/21/25 10/22/25 10/23/25 10/24/25 23:59 23:59 23:59 23:59 Intake Total 1100 1580 Output Total 1275 1900 247 Balance -915 -130 -558 Meds/Results Medications: Active Medications Generic Name Dose Route Start Last Admin Trade Name Freq PRN Reason Stop Dose Admin Acetaminophen 650 mg 10/22/25 02:31 Acetaminophen 325 Mg Tablet PO Q4H PRN Mild Pain (1-3) or Fever Allopurinol 100 mg 10/22/25 08:00 10/23/25 17:15 Allopurinol 100 Mg Tablet PO 100 mg BIDWM JOE Administration Aspirin 81 mg 10/22/25 09:00 10/23/25 09:26 Aspirin 81 Mg Enteric Tablet PO 81 mg QAM JOE Administration Atorvastatin Calcium 40 mg 10/22/25 21:00 10/23/25 20:42 Atorvastatin 40 Mg Tablet PO 40 mg HS JOE Administration Benzonatate 100 mg 10/22/25 21:15 10/23/25 20:42 Benzonatate 100 Mg Capsule PO 100 mg Q8H PRN Administration Cough Calcitriol 0.25 mcg 10/22/25 09:00 10/23/25 09:25 Calcitriol 0.25 Mcg Capsule BY MOUTH 0.25 mcg QAM JOE Administration Calcium Acetate 667 mg 10/22/25 08:00 10/23/25 17:15 Calcium Acetate 667 Mg Tablet BY MOUTH 667 mg TIDWM JOE Administration Carvedilol 12.5 mg 10/22/25 09:00 10/23/25 20:42 Carvedilol 12.5 Mg Tablet BY MOUTH 12.5 mg Q12HR JOE Administration Dextrose 12.5 gm 10/22/25 02:35 Dextrose 50% 25 Gm/50 Ml Syringe IV PUSH PRN PRN Hypoglycemia Protocol Empagliflozin 10 mg 10/22/25 09:00 10/23/25 09:26 Empagliflozin 10 Mg Tablet PO 10 mg DAILY JOE Administration Finasteride 5 mg 10/22/25 09:00 10/23/25 09:26 Finasteride 5 Mg Tablet PO 5 mg QAM JOE Administration Furosemide 60 mg 10/22/25 09:00 10/23/25 17:14 Furosemide Inj 40 Mg/4 Ml Vial IV PUSH 60 mg BID JOE Administration Glucagon 1 mg 10/22/25 02:35 Glucagon For Inj 1 Mg Vial IM PRN PRN Hypoglycemia Protocol Glucose 15 gm 10/22/25 02:35 Glucose Oral Gel 15 Gm Of Glucse In 37.5 Gm Tube PO PRN PRN Hypoglycemia Protocol Hydralazine HCl 25 mg 10/22/25 09:00 10/23/25 17:15 Hydralazine Hcl 25 Mg Tablet PO 25 mg TID JOE Administration Hydralazine HCl 12.5 mg 10/22/25 09:00 10/23/25 17:15 Hydralazine 12.5 Mg Tablet PO 12.5 mg TID JOE Administration Dextrose 1,000 mls @ 100 mls/hr 10/22/25 02:35 Dextrose 5% 1,000 Ml IVPB PRN PRN Hypoglycemia Protocol Insulin Aspart 2 - 5 units 10/22/25 08:00 10/23/25 17:14 Insulin Aspart (*Bkc) 100 Units/Ml SUB-Q 2 units TIDWM JOE Administration Protocol Insulin Human Isoph/Insulin Regular 17 units 10/22/25 09:35 10/23/25 17:14 Insulin Human Isophan/Regular 70/30 (*Bkc) 100 Units/Ml SUB-Q 17 units BIDWM JOE Administration Isosorbide Dinitrate 20 mg 10/22/25 09:00 10/23/25 17:15 Isosorbide Dinitrate 20 Mg Tablet PO 20 mg TID JOE Administration Levothyroxine Sodium 150 mcg 10/22/25 06:30 10/24/25 06:15 Levothyroxine Sodium 150 Mcg Tablet PO 150 mcg Kitty@0630 JOE Administration Home Medication: 1 each 10/23/25 14:05 10/23/25 14:32 [place] (Vericiguat PO 11/22/25 14:04 1 each 10 Mg Oral Tablet) DAILY JOE Administration Potassium Chloride 20 meq 10/22/25 08:00 10/23/25 17:15 Potassium Chloride 20 Meq Er Tablet PO 20 meq BIDWM JOE Administration Sevelamer Carbonate 800 mg 10/22/25 08:00 10/23/25 17:15 Sevelamer Carbonate 800 Mg Tablet PO 800 mg TIDWM JOE Administration Vitamin D 125 mcg 10/22/25 09:00 10/23/25 09:26 Cholecalciferol (Vitamin D3) 125 Mcg (5,000 Units) Tablet PO 125 mcg DAILY JOE Administration Radiology Results: ITS Impressions Renal Ultrasound 06/25/22 09:07 IMPRESSION: 1. Normal kidney sizes. No hydronephrosis. Venous Doppler Study 06/25/22 09:08 IMPRESSION: 1. No deep venous thrombosis. Pulmonary Perfusion Imaging 06/26/22 13:47 IMPRESSION: 1. Pulmonary embolism absent (low probability). Chest X-Ray 06/26/22 13:50 IMPRESSION: 1. Mild pulmonary edema. 2. Small pleural effusions. Labs Labs: Laboratory Results - last 24 hr 10/23/25 10/23/25 10/23/25 04:15 04:15 07:05 WBC RBC Hgb Hct MCV MCH MCHC RDW Plt Count MPV Sodium Potassium Chloride Carbon Dioxide Anion Gap BUN Creatinine Estim Creat Clear Calc Estimated GFR Glucose POC Capillary Glucose 145 H Calcium Total Bilirubin AST ALT Alkaline Phosphatase Troponin I 0.119 H* Cancelled Total Protein Albumin 10/23/25 10/23/25 10/23/25 11:19 16:05 19:44 WBC RBC Hgb Hct MCV MCH MCHC RDW Plt Count MPV Sodium Potassium Chloride Carbon Dioxide Anion Gap BUN Creatinine Estim Creat Clear Calc Estimated GFR Glucose POC Capillary Glucose 206 H 210 H 154 H Calcium Total Bilirubin AST ALT Alkaline Phosphatase Troponin I Total Protein Albumin 10/24/25 04:14 WBC 5.3 RBC 4.06 L Hgb 10.8 L Hct 34.2 L MCV 84.2 MCH 26.6 MCHC 31.6 L RDW 18.7 H Plt Count 119 L MPV 10.9 H Sodium 136 L Potassium 3.4 Chloride 105 Carbon Dioxide 23 Anion Gap 8 BUN 75 H Creatinine 3.13 H Estim Creat Clear Calc 18 Estimated GFR 19 L Glucose 86 POC Capillary Glucose Calcium 9.1 Total Bilirubin 0.5 AST 38 ALT 31 Alkaline Phosphatase 72 Troponin I Total Protein 6.0 L Albumin 3.3 L Quality VTE Prophylaxis VTE prophylaxis: pharmacologic ordered
[2025-10-24] MEDS: FINASTERIDE 5 MG TABLET PO (08:34)
[2025-10-24] MEDS: FUROSEMIDE INJ 40 MG/4 ML VIAL 60 MG IV PUSH ×2 (08:34→17:16)
[2025-10-24] MEDS: EMPAGLIFLOZIN 10 MG TABLET PO (08:34)
[2025-10-24] MEDS: hydrALAZINE 12.5 MG TABLET PO ×3 (08:34→17:15)
[2025-10-24] MEDS: CHOLECALCIFEROL (VITAMIN D3) 125 MCG (5,000 UNITS) TABLET PO (08:34)
[2025-10-24] MEDS: ISOSORBIDE DINITRATE 20 MG TABLET PO ×3 (08:34→17:15)
[2025-10-24] MEDS: POTASSIUM CHLORIDE 20 MEQ ER TABLET PO ×2 (08:35→17:15)
[2025-10-24] MEDS: ASPIRIN 81 MG ENTERIC TABLET PO (08:35)
[2025-10-24] MEDS: CALCIUM ACETATE 667 MG TABLET BY MOUTH ×3 (08:35→17:15)
[2025-10-24] MEDS: INSULIN HUMAN ISOPHAN/REGULAR 70/30 (*BKC) 100 UNITS/ML 17 UNITS SUB-Q ×2 (08:35→17:16)
[2025-10-24] MEDS: SEVELAMER CARBONATE 800 MG TABLET PO ×3 (08:35→17:16)
--- NOTE | 2025-10-24 15:48 | P.PNIM_ITS ---
Assessment and Plan Assessment and Plan (1) Systolic and diastolic CHF, acute on chronic: Code(s): I50.43 - Acute on chronic combined systolic (congestive) and diastolic (congestive) heart failure Status: Acute Assessment and Plan: -the patient is on 60 mg of Lasix at home. However the patient may not be fully compliant with this Lasix at home. The patient stated that he hates to take at home because it makes him cramps so much. -Lasix has been changed to 60 mg IV b.i.d.. And continue with potassium supplement. -continue to monitor electrolytes and renal function closely with the Lasix. Continue with Lasix. -continue with Coreg and Jardiance. Verquvo is non formulary but may use from home. -cardiology consult greatly be appreciated. -last echo on 09/08/2022 estimated GF at 25-35%. With severe pulmonary hypertension, estimated pulmonary arterial systolic pressure is 75 mmHg. -continue with isosorbide -Discussed with Cardiology and patient needs close follow up with EP,CTS for structural heart disease (severe TR), and ICD placement. -Patient also need close follow-up with the Nephrology. Switched to oral Lasix in a.m. - Repeated echo 10/22/2025 shows: 1. Definity contrast administered improved wall motion interpretation. 2. Left ventricular chamber dimension is severely enlarged. 3. Left ventricular systolic function is severely globally reduced, estimated at 20-25. 4. The left ventricular diastolic function is abnormal. 5. E/e' 34 is significantly elevated. 6. Right ventricular chamber dimension is mildly enlarged. 7. Right ventricular systolic function is at least moderately reduced and with abnormal TAPSE 0.7 cm. 8. Left atrial chamber dimension is severely enlarged. 9. Right atrial chamber dimension is moderately enlarged. 10. There is mild aortic valve sclerosis. 11. There is mild aortic valve regurgitation. 12. There is moderate mitral valve regurgitation. 13. There is severe tricuspid valve regurgitation. 14. Severe pulmonary hypertension, estimated pulmonary arterial systolic pressure is 62 mmHg. 15. There is trace pulmonic regurgitation. 16. Dilated inferior vena cava with >50% collapse upon inspiration consistent with elevated right atrial pressure, 10 mmHg. 17. There is small circumferential pericardial effusion. (2) Cardiac enzymes elevated: Code(s): R74.8 - Abnormal levels of other serum enzymes Status: Acute Assessment and Plan: -troponins were mildly elevated 0.69 and 0.084 with a 3rd troponin is pending. -patient denies any chest pain at this time. -cardiology has been consulted. -this could be related to either the elevated hypertension, this CHF, chronic renal disease, demand ischemia, or coronary artery disease. (3) Essential hypertension: Code(s): I10 - Essential (primary) hypertension Status: Acute Assessment and Plan: -patient's blood pressure was initially elevated 173/98 and then come back down to 159/74. The patient was given his home medications at [facility]. -continue with Coreg if blood pressure allows. (4) Hyperlipidemia: Code(s): E78.5 - Hyperlipidemia, unspecified Status: Acute Assessment and Plan: -continue with atorvastatin (5) Diabetes mellitus type 2, controlled: Code(s): E11.9 - Type 2 diabetes mellitus without complications Status: Acute Assessment and Plan: -Accu-Cheks a.c. in H as was sliding scale insulin and hypoglycemic protocol -diabetic diet -continue with Jardiance -pharmacy to adjust 20% of home insulin -A1c 7.3 today with a previous A1c of 7.1 last month. Repeat A1c was performed as his last A1c was not therapeutic. (6) Hypothyroidism (acquired): Code(s): E03.9 - Hypothyroidism, unspecified Status: Acute Assessment and Plan: -continue levothyroxine (7) Chronic kidney disease, stage 4 (severe): Code(s): N18.4 - Chronic kidney disease, stage 4 (severe) Status: Acute Assessment and Plan: -nephrology has seen the patient in the past. May consider Nephrology consult if renal function worsens. -the patient is currently at baseline. BUN is 62, creatinine 3.71 with GFR of 16. -continue with Jardiance -continue with Renvela (8) BPH (benign prostatic hyperplasia): Code(s): N40.0 - Benign prostatic hyperplasia without lower urinary tract symptoms Status: Acute Assessment and Plan: -continue with finasteride Subjective Date/time seen: 10/24/25 15:48 Interval history: Admitted in the setting of CHF exacerbation and severe pulmonary HTN. Ech ocardiogram performed on 09/08/2022 shows EF 25-30% and severe pulmonary hypertension.Patient reports he follows with . Has remote hx of cardiac cath but no stents placed. 12/18: Discussed with cardiology. Patient needs outpatient follow-up with EP and CTS for structural heart disease (severe TR), and ICD placement. Patient also need close follow-up with the Nephrology. 10/24/2025: No overnight events. Feels better. Denies any shortness of breath or chest pain. Discussed with family at bedside. Review of Systems Review of Systems: All systems reviewed & are unremarkable except as noted in HPI and below Constitutional: Constitutional: Reports as per HPI and Reports no additional constitutional complaints Eyes: Eyes: Reports as per HPI and Reports no additional eye complaints ENT: Reports system reviewed and no additional complaints, except as documented and Reports Normal hearing present Cardiovascular: Cardiovascular: Reports no additional cardiovascular complaints Respiratory: Respiratory: Reports as per HPI and Reports no additional respiratory complaints Gastrointestinal: Gastrointestinal: Reports as per HPI and Reports no additional gastrointestinal complaints Musculoskeletal: Musculoskeletal: Reports no additional musculoskeletal complaints Integumentary/Breasts: Skin/Breast: Reports system reviewed and no additional complaints, except as docu Neurologic: Reports system reviewed and no additional complaints, except as documented and Reports Normal hearing present Psychiatric: Psychiatric: Reports no additional psychiatric complaints and Reports as per HPI Hematologic/Lymphatic: Hematologic/Lymphatic: Reports no additional hematologic/lymphatic complaints Allergic/Immunologic: Allergic/Immunologic: Reports no additional allergic/immunologic complaints Exam Const: General: cooperative, healthy appearing, comfortable, no acute distress, well developed, awake, Physically active, average body habitus and well nourished Nutritional Appearance: average body habitus and well nourished Orientation/consciousness: oriented to person, oriented to place, oriented to time and patient oriented x3 Limitations: no limitations HENMT: Head: normal to inspection, No palpable skull fracture present, normocephalic, atraumatic and abrasion Ears: hearing grossly normal bilaterally Face/Nose/Sinus: Normal nares present Eyes: General: appearance normal, both eyes and all related structures Alignment and Position: alignment normal Periorbital: periorbital findings normal Eyelids: eyelids normal Conjunctivae: conjunctivae normal Pupils: Pupil accommodation reflex normal EOM: EOMs intact bilaterally Neck: Neck: normal visual inspection, full ROM, no lymphadenopathy and trachea midline Chest: Chest palpation & inspection: normal inspection of the chest Resp: Effort & Inspection: normal respiratory effort Auscultation: clear to auscultation bilaterally Cardio: Palpation: normal PMI Rate: regular rate Rhythm: regular rhythm Peripheral pulses: Peripheral pulses 2+ throughout GI: Inspection: normal to inspection Auscultation: normal bowel sounds Rectal Exam: deferred : General: Yes no CVA tenderness Back/Spine/Pelvis: Back: no CVA tenderness Cervical Spine: cervical ROM normal Skin: General skin exam: normal color Lesions: no lesions Rashes: no rashes Trauma: no lacerations or abrasions Wounds: no wounds Hair: normal Nails: normal Neuro: General: oriented to person, oriented to place, oriented to time and patient oriented x3 Cranial nerves: Yes Normal hearing present Cognition (Neuro): normal cognition Speech: normal speech Gait exam (Neuro): Normal gait present Motor exam (neuro): 5/5 motor strength present throughout Sensory Exam: normal sensation Extrem: General: normal to inspection Right upper extremity: normal to inspection and shoulder/upper arm Left upper extremity: normal to inspection and shoulder/upper arm Right lower extremity: normal to inspection Left lower extremity: normal to inspection Psych: Appearance: grossly normal Mental Status: mental status grossly normal Speech and movement: Normal speech and movement present Affect: normal affect Attitude: cooperative Thought process: Normal thought process present Insight: Good insight present (Psych) Judgement: Good judgement present (Psych) Objective Data Vital Signs Vital Signs: Vital Signs - 24 hr 10/23/25 16:00 10/23/25 16:00 10/23/25 16:00 Temperature 97.7 F Pulse Rate 76 76 75 Respiratory Rate 18 18 Blood Pressure 140/66 Pulse Oximetry 99 99 Oxygen Delivery Room Air 10/23/25 20:00 10/23/25 20:00 10/23/25 20:00 Temperature 98.3 F Pulse Rate 76 66 66 Respiratory Rate 16 16 Blood Pressure 137/87 Pulse Oximetry 99 99 Oxygen Delivery Room Air 10/23/25 20:42 10/23/25 21:52 10/23/25 23:40 Temperature 99.6 F Pulse Rate 74 76 68 Respiratory Rate 16 Blood Pressure 114/59 L Pulse Oximetry 100 Oxygen Delivery 10/24/25 00:00 10/24/25 00:00 10/24/25 02:00 Temperature Pulse Rate 70 70 68 Respiratory Rate 16 Blood Pressure Pulse Oximetry 100 Oxygen Delivery Room Air 10/24/25 03:19 10/24/25 04:00 10/24/25 04:00 Temperature 98.5 F Pulse Rate 67 60 60 Respiratory Rate 16 16 Blood Pressure 143/90 H Pulse Oximetry 94 94 Oxygen Delivery Room Air 10/24/25 06:00 10/24/25 08:00 10/24/25 08:00 Temperature 97.6 F Pulse Rate 66 60 60 Respiratory Rate 16 Blood Pressure 135/63 Pulse Oximetry 99 Oxygen Delivery 10/24/25 08:34 10/24/25 08:44 10/24/25 10:00 Temperature Pulse Rate 67 65 Respiratory Rate Blood Pressure Pulse Oximetry Oxygen Delivery Room Air 10/24/25 12:00 10/24/25 12:00 10/24/25 12:00 Temperature 97.6 F Pulse Rate 68 58 L Respiratory Rate 20 Blood Pressure 127/66 Pulse Oximetry 99 Oxygen Delivery Room Air 10/24/25 14:00 Temperature Pulse Rate 57 L Respiratory Rate Blood Pressure Pulse Oximetry Oxygen Delivery Intake/Output Intake/Output: Intake & Output 10/21/25 10/22/25 10/23/25 10/24/25 23:59 23:59 23:59 23:59 Intake Total 1100 1580 790 Output Total 1275 1900 1375 [facility] -[phone] Meds/Results Medications: Active Medications Generic Name Dose Route Start Last Admin Trade Name Freq PRN Reason Stop Dose Admin Acetaminophen 650 mg 10/22/25 02:31 Acetaminophen 325 Mg Tablet PO Q4H PRN Mild Pain (1-3) or Fever Allopurinol 100 mg 10/22/25 08:00 10/24/25 08:35 Allopurinol 100 Mg Tablet PO 100 mg BIDWM JOE Administration Aspirin 81 mg 10/22/25 09:00 10/24/25 08:35 Aspirin 81 Mg Enteric Tablet PO 81 mg QAM JOE Administration Atorvastatin Calcium 40 mg 10/22/25 21:00 10/23/25 20:42 Atorvastatin 40 Mg Tablet PO 40 mg HS JOE Administration Benzonatate 100 mg 10/22/25 21:15 10/23/25 20:42 Benzonatate 100 Mg Capsule PO 100 mg Q8H PRN Administration Cough Calcitriol 0.25 mcg 10/22/25 09:00 10/24/25 08:35 Calcitriol 0.25 Mcg Capsule BY MOUTH 0.25 mcg QAM JOE Administration Calcium Acetate 667 mg 10/22/25 08:00 10/24/25 12:38 Calcium Acetate 667 Mg Tablet BY MOUTH 667 mg TIDWM JOE Administration Carvedilol 12.5 mg 10/22/25 09:00 10/24/25 08:34 Carvedilol 12.5 Mg Tablet BY MOUTH 12.5 mg Q12HR JOE Administration Dextrose 12.5 gm 10/22/25 02:35 Dextrose 50% 25 Gm/50 Ml Syringe IV PUSH PRN PRN Hypoglycemia Protocol Empagliflozin 10 mg 10/22/25 09:00 10/24/25 08:34 Empagliflozin 10 Mg Tablet PO 10 mg DAILY JOE Administration Finasteride 5 mg 10/22/25 09:00 10/24/25 08:34 Finasteride 5 Mg Tablet PO 5 mg QAM JOE Administration Furosemide 60 mg 10/22/25 09:00 10/24/25 08:34 Furosemide Inj 40 Mg/4 Ml Vial IV PUSH 60 mg BID JOE Administration Glucagon 1 mg 10/22/25 02:35 Glucagon For Inj 1 Mg Vial IM PRN PRN Hypoglycemia Protocol Glucose 15 gm 10/22/25 02:35 Glucose Oral Gel 15 Gm Of Glucse In 37.5 Gm Tube PO PRN PRN Hypoglycemia Protocol Hydralazine HCl 25 mg 10/22/25 09:00 10/24/25 12:38 Hydralazine Hcl 25 Mg Tablet PO 25 mg TID JOE Administration Hydralazine HCl 12.5 mg 10/22/25 09:00 10/24/25 12:37 Hydralazine 12.5 Mg Tablet PO 12.5 mg TID JOE Administration Dextrose 1,000 mls @ 100 mls/hr 10/22/25 02:35 Dextrose 5% 1,000 Ml IVPB PRN PRN Hypoglycemia Protocol Insulin Aspart 2 - 5 units 10/22/25 08:00 10/24/25 11:59 Insulin Aspart (*Bkc) 100 Units/Ml SUB-Q Not Given TIDWM [facility] Protocol Insulin Human Isoph/Insulin Regular 17 units 10/22/25 09:35 10/24/25 08:35 Insulin Human Isophan/Regular 70/30 (*Bkc) 100 Units/Ml SUB-Q 17 units BIDWM JOE Administration Isosorbide Dinitrate 20 mg 10/22/25 09:00 10/24/25 12:37 Isosorbide Dinitrate 20 Mg Tablet PO 20 mg TID JOE Administration Levothyroxine Sodium 150 mcg 10/22/25 06:30 10/24/25 06:15 Levothyroxine Sodium 150 Mcg Tablet PO 150 mcg Kitty@0630 JOE Administration Home Medication: 1 each 10/23/25 14:05 10/24/25 08:33 Verquvo (Vericiguat PO 11/22/25 14:04 1 each 10 Mg Oral Tablet) DAILY JOE Administration Potassium Chloride 20 meq 10/22/25 08:00 10/24/25 08:35 Potassium Chloride 20 Meq Er Tablet PO 20 meq BIDWM JOE Administration Sevelamer Carbonate 800 mg 10/22/25 08:00 10/24/25 12:37 Sevelamer Carbonate 800 Mg Tablet PO 800 mg TIDWM JOE Administration Vitamin D 125 mcg 10/22/25 09:00 10/24/25 08:34 Cholecalciferol (Vitamin D3) 125 Mcg (5,000 Units) Tablet PO 125 mcg DAILY JOE Administration Labs Labs: Laboratory Results - last 24 hr 10/23/25 10/23/25 10/24/25 16:05 19:44 04:14 WBC 5.3 RBC 4.06 L Hgb 10.8 L Hct 34.2 L MCV 84.2 MCH 26.6 MCHC 31.6 L RDW 18.7 H Plt Count 119 L MPV 10.9 H Sodium 136 L Potassium 3.4 Chloride 105 Carbon Dioxide 23 Anion Gap 8 BUN 75 H Creatinine 3.13 H Estim Creat Clear Calc 18 Estimated GFR 19 L Glucose 86 POC Capillary Glucose 210 H 154 H Calcium 9.1 Total Bilirubin 0.5 AST 38 ALT 31 Alkaline Phosphatase 72 Total Protein 6.0 L Albumin 3.3 L 10/24/25 10/24/25 07:47 11:34 WBC RBC Hgb Hct MCV MCH MCHC RDW Plt Count MPV Sodium Potassium Chloride Carbon Dioxide Anion Gap BUN Creatinine Estim Creat Clear Calc Estimated GFR Glucose POC Capillary Glucose 141 H 137 H Calcium Total Bilirubin AST ALT Alkaline Phosphatase Total Protein Albumin Quality VTE Prophylaxis VTE prophylaxis: mechanical ordered Hospitalist MIPS Advance Care Plan I have confirmed that the patient's Advanced Care Plan is present, code status is documented, or surrogate decision maker is listed in patient medical record.: Yes Medication Reconciliation I have utilized all available resources to obtain, update and review the patients current medications (includes all prescriptions, OTC, herbals, cannabis, and nutritional supplements).: Yes
[2025-10-24] MEDS: BENZONATATE 100 MG CAPSULE PO (20:45)
[2025-10-24] MEDS: ATORVASTATIN 40 MG TABLET PO (20:45)
[2025-10-25] VITALS: PULSE 81
[2025-10-25 04:00] VITALS: PULSE 69
[2025-10-25 04:31] LABS: Hematocrit 36.9 % (42.0-52.0); Hemoglobin 11.7 g/dL (14.0-18.0); Immature Granulocyte Percent A 0.4 % (0-0.5); Lymphocytes Absolute Auto 0.75 K/mm3 (0.9-3.2); Mean Corpuscular HGB Conc 31.7 g/dl (32-36); Mean Corpuscular Hemoglobin 27.2 pg (26-34); Mean Corpuscular Volume 85.8 fl (80-100); Nucleated Red Blood Cells Absolute Auto 0.000 K/mm3 (0.0-0.012); Nucleated Red Blood Cells Perc 0.0 % (0.0-0.2); Platelet Count Result 131 k/mm3 (150-375); Red Blood Count 4.30 M/mm3 (4.6-6.20); White Blood Count 5.2 K/mm3 (4.5-10.0)
[2025-10-25 04:53] LABS: Anion Gap 10 mmol/L (4-12); Blood Urea Nitrogen 70 mg/dL (9-20); Calcium 9.2 mg/dL (8.4-10.2); Carbon Dioxide 25 mmol/L (22-30); Chloride 103 mmol/L (98-107); Estimated CRCL calculation 18 ml/min; Estimated Glomerular Filt Rate 19; Glucose 122 mg/dL (65-110); Magnesium 2.4 mg/dL (1.6-2.3); Potassium 3.5 mmol/L (3.4-5.0); Sodium 138 mmol/L (137-145)
[2025-10-25 08:00] VITALS: BP 140/74; PULSE 66; PULSE 67; RESP 20; TEMP 36.6; O2SAT 99
[2025-10-25] MEDS: CALCIUM ACETATE 667 MG TABLET BY MOUTH (08:36)
[2025-10-25] MEDS: POTASSIUM CHLORIDE 20 MEQ ER TABLET PO (08:38)
[2025-10-25] MEDS: FUROSEMIDE 20 MG TABLET 60 MG PO (08:38)
[2025-10-25 08:39] VITALS: PULSE 62
[2025-10-25] MEDS: ISOSORBIDE DINITRATE 20 MG TABLET PO (08:39)
[2025-10-25] MEDS: ASPIRIN 81 MG ENTERIC TABLET PO (08:39)
[2025-10-25] MEDS: CHOLECALCIFEROL (VITAMIN D3) 125 MCG (5,000 UNITS) TABLET PO (08:39)
[2025-10-25] MEDS: EMPAGLIFLOZIN 10 MG TABLET PO (08:39)
[2025-10-25] MEDS: hydrALAZINE 12.5 MG TABLET PO (08:39)
[2025-10-25] MEDS: SEVELAMER CARBONATE 800 MG TABLET PO (08:40)
[2025-10-25] MEDS: INSULIN HUMAN ISOPHAN/REGULAR 70/30 (*BKC) 100 UNITS/ML 17 UNITS SUB-Q (08:40)
[2025-10-25] MEDS: FINASTERIDE 5 MG TABLET PO (08:41)
--- NOTE | 2025-10-25 09:05 | P.DS_ITS ---
DS: Admitting Diagnosis Discharge Date 10/25/2025 Admitting Diagnosis Shortness of breath DS: Discharge Diagnosis Discharge Diagnosis (1) Systolic and diastolic CHF, acute on chronic: Code(s): I50.43 - Acute on chronic combined systolic (congestive) and diastolic (congestive) heart failure Status: Acute Assessment and Plan: -the patient is on 60 mg of Lasix at home. However the patient may not be fully compliant with this Lasix at home. The patient stated that he hates to take at home because it makes him cramps so much. -Lasix has been changed to 60 mg IV b.i.d.. And continue with potassium supplement. -continue to monitor electrolytes and renal function closely with the Lasix. Continue with Lasix. -continue with Coreg and Jardiance. Verquvo is non formulary but may use from home. -cardiology consult greatly be appreciated. -last echo on 09/08/2022 estimated GF at 25-35%. With severe pulmonary hypertension, estimated pulmonary arterial systolic pressure is 75 mmHg. -continue with isosorbide -Discussed with Cardiology and patient needs close follow up with EP,CTS for structural heart disease (severe TR), and ICD placement. -Patient also need close follow-up with the Nephrology. Switched to oral Lasix in a.m. - Repeated echo 10/22/2025 shows: 1. Definity contrast administered improved wall motion interpretation. 2. Left ventricular chamber dimension is severely enlarged. 3. Left ventricular systolic function is severely globally reduced, estimated at 20-25. 4. The left ventricular diastolic function is abnormal. 5. E/e' 34 is significantly elevated. 6. Right ventricular chamber dimension is mildly enlarged. 7. Right ventricular systolic function is at least moderately reduced and with abnormal TAPSE 0.7 cm. 8. Left atrial chamber dimension is severely enlarged. 9. Right atrial chamber dimension is moderately enlarged. 10. There is mild aortic valve sclerosis. 11. There is mild aortic valve regurgitation. 12. There is moderate mitral valve regurgitation. 13. There is severe tricuspid valve regurgitation. 14. Severe pulmonary hypertension, estimated pulmonary arterial systolic pressure is 62 mmHg. 15. There is trace pulmonic regurgitation. 16. Dilated inferior vena cava with >50% collapse upon inspiration consistent with elevated right atrial pressure, 10 mmHg. 17. There is small circumferential pericardial effusion. (2) Cardiac enzymes elevated: Code(s): R74.8 - Abnormal levels of other serum enzymes Status: Acute Assessment and Plan: -troponins were mildly elevated 0.69 and 0.084 with a 3rd troponin is pending. -patient denies any chest pain at this time. -cardiology has been consulted. -this could be related to either the elevated hypertension, this CHF, chronic renal disease, demand ischemia, or coronary artery disease. (3) Essential hypertension: Code(s): I10 - Essential (primary) hypertension Status: Acute Assessment and Plan: -patient's blood pressure was initially elevated 173/98 and then come back down to 159/74. The patient was given his home medications at [facility]. -continue with Coreg if blood pressure allows. (4) Hyperlipidemia: Code(s): E78.5 - Hyperlipidemia, unspecified Status: Acute Assessment and Plan: -continue with atorvastatin (5) Diabetes mellitus type 2, controlled: Code(s): E11.9 - Type 2 diabetes mellitus without complications Status: Acute Assessment and Plan: -Accu-Cheks a.c. in H as was sliding scale insulin and hypoglycemic protocol -diabetic diet -continue with Jardiance -pharmacy to adjust 20% of home insulin -A1c 7.3 today with a previous A1c of 7.1 last month. Repeat A1c was performed as his last A1c was not therapeutic. (6) Hypothyroidism (acquired): Code(s): E03.9 - Hypothyroidism, unspecified Status: Acute Assessment and Plan: -continue levothyroxine (7) Chronic kidney disease, stage 4 (severe): Code(s): N18.4 - Chronic kidney disease, stage 4 (severe) Status: Acute Assessment and Plan: -nephrology has seen the patient in the past. May consider Nephrology consult if renal function worsens. -the patient is currently at baseline. BUN is 62, creatinine 3.71 with GFR of 16. -continue with Jardiance -continue with Renvela (8) BPH (benign prostatic hyperplasia): Code(s): N40.0 - Benign prostatic hyperplasia without lower urinary tract symptoms Status: Acute Assessment and Plan: -continue with finasteride DS: Summary Hospital Course Reason for hospitalization: Shortness of breath Hospital Course: 80 years old male with history of chronic systolic and diastolic heart failure was admitted with complaint of having shortness of breath. Patient was found to have acute on chronic systolic and diastolic heart failure. Patient was diuresed and continued on home medication. Today patient is feeling better and was discharged home stable condition. Will repeat BMP as an outpatient. Patient went to see Cardiology Renal and primary care as an outpatient. Status at Discharge Cognitive/behavioral status at discharge: Stable Time Spent with Patient Time attestation: Total time spent providing and/or coordinating discharge services: 30 minutes Exam Const: General: cooperative, healthy appearing, comfortable, no acute distress, well developed, awake, Physically active, average body habitus and well nourished Nutritional Appearance: average body habitus and well nourished Orientation/consciousness: oriented to person, oriented to place, oriented to time and patient oriented x3 Limitations: no limitations HENMT: Head: normal to inspection, No palpable skull fracture present, normocephalic, atraumatic and abrasion Ears: hearing grossly normal bilaterally Face/Nose/Sinus: Normal nares present Eyes: General: appearance normal, both eyes and all related structures Alignment and Position: alignment normal Periorbital: periorbital findings normal Eyelids: eyelids normal Conjunctivae: conjunctivae normal Pupils: Pupil accommodation reflex normal EOM: EOMs intact bilaterally Neck: Neck: normal visual inspection, full ROM, no lymphadenopathy and trachea midline Chest: Chest palpation & inspection: normal inspection of the chest Resp: Effort & Inspection: normal respiratory effort Auscultation: clear to auscultation bilaterally Cardio: Palpation: normal PMI Rate: regular rate Rhythm: regular rhythm Peripheral pulses: Peripheral pulses 2+ throughout GI: Inspection: normal to inspection Auscultation: normal bowel sounds Rectal Exam: deferred : General: Yes no CVA tenderness Back/Spine/Pelvis: Back: no CVA tenderness Cervical Spine: cervical ROM normal Skin: General skin exam: normal color Lesions: no lesions Rashes: no rashes Trauma: no lacerations or abrasions Wounds: no wounds Hair: normal Nails: normal Neuro: General: oriented to person, oriented to place, oriented to time and patient oriented x3 Cranial nerves: Yes Normal hearing present Cognition (Neuro): normal cognition Speech: normal speech Gait exam (Neuro): Normal gait present Motor exam (neuro): 5/5 motor strength present throughout Sensory Exam: normal sensation Extrem: General: normal to inspection Right upper extremity: normal to inspection and shoulder/upper arm Left upper extremity: normal to inspection and shoulder/upper arm Right lower extremity: normal to inspection Left lower extremity: normal to inspection Psych: Appearance: grossly normal Mental Status: mental status grossly normal Speech and movement: Normal speech and movement present Affect: normal affect Attitude: cooperative Thought process: Normal thought process present Insight: Good insight present (Psych) Judgement: Good judgement present (Psych) DS: Data Data Completed and Pending Labs on day of discharge: Labs from last 24 hours 10/25/25 10/25/25 10/24/25 07:53 04:03 20:53 WBC 5.2 RBC 4.30 L Hgb 11.7 L Hct 36.9 L MCV 85.8 MCH 27.2 MCHC 31.7 L RDW 19.4 H Plt Count 131 L MPV 11.2 H Immature Gran % (Auto) 0.4 Neut % (Auto) 68.3 Lymph % (Auto) 14.5 L [place] % (Auto) 13.5 H Eos % (Auto) 2.7 Baso % (Auto) 0.6 Lymph # (Auto) 0.75 L [place] # (Auto) 0.7 H Eos # (Auto) 0.1 Baso # (Auto) 0.0 Abs Immat Gran (auto) 0.02 Absolute Neuts (auto) 3.5 Absolute Nucleated RBC 0.000 Nucleated RBC % 0.0 Sodium 138 Potassium 3.5 Chloride 103 Carbon Dioxide 25 Anion Gap 10 BUN 70 H Creatinine 3.13 H Estim Creat Clear Calc 18 Estimated GFR 19 L Glucose 122 H POC Capillary Glucose 177 H 204 H Calcium 9.2 Magnesium 2.4 H 10/24/25 10/24/25 16:22 11:34 WBC RBC Hgb Hct MCV MCH MCHC RDW Plt Count MPV Immature Gran % (Auto) Neut % (Auto) Lymph % (Auto) [place] % (Auto) Eos % (Auto) Baso % (Auto) Lymph # (Auto) [place] # (Auto) Eos # (Auto) Baso # (Auto) Abs Immat Gran (auto) Absolute Neuts (auto) Absolute Nucleated RBC Nucleated RBC % Sodium Potassium Chloride Carbon Dioxide Anion Gap BUN Creatinine Estim Creat Clear Calc Estimated GFR Glucose POC Capillary Glucose 200 H 137 H Calcium Magnesium Discharge Plan Discharge Attending physician on discharge: Simba Fox Consulting providers: Alia Villa Discharging Clinician: Simba Fox Patient Disposition: Home Activity: as tolerated Diet: heart healthy Patient Instructions: Antibiotic Form, Heart Failure (DC), Heart Failure (GEN) Patient Language: Kosovan Stand Alone Forms: General Discharge Information Follow-up/Referrals: [facility] [Outside, Electrophysiology] - 11/13/25 Referral Note: Patient with LVEF<35% on GDMT for more than 3 months. Need to evaluate for ICD Lasala,David Beckwith MD [Non-Staff, Unknown] - 11/20/25 Referral Note: Severe TR, moderate MR, depressed LVEF on GDMT with recurrent hospital admissions for heart failure, also has pHTN on Vericiguat at home- for evaluation if candidate for valve therapies? Robert Taylor MD [Primary Care Provider, Internal Medicine] Alia Villa MD [Physician, Cardiology] Discharge Medications: New vericiguat 10 mg Tablet 10 mg PO DAILY Qty: 30 0RF Continued cholecalciferol (vitamin D3) [Vitamin D3] 125 mcg (5,000 unit) Tablet 125 mcg PO DAILY insulin asp prt-insulin aspart [Novolog Mix 70-30FlexPen U-100] 100 unit/mL (70-30) insulin pen 22 unit subcut BID potassium chloride 20 mEq tablet,ER particles/crystals 20 meq PO BID Verquvo 10 mg tablet 10 mg PO DAILY allopurinol 100 mg tablet 100 mg PO BID finasteride 5 mg tablet 5 mg PO QAM furosemide 20 mg tablet 60 mg PO BID Jardiance 10 mg tablet 10 mg PO DAILY atorvastatin 40 mg tablet 40 mg PO HS aspirin 81 mg tablet 81 mg PO DAILY PreserVision AREDS-2 250-90-40-1 mg tablet,chewable 1 tablet PO QAM AND QPM sevelamer carbonate 800 mg tablet 800 mg PO TID Qty: 90 3RF Rx Instructions: must administer with a meal/food isosorbide-hydralazine 20-37.5 mg tablet 1 tablet PO TID (DME) lancets [TRUEplus Lancets] 28 gauge misc See Rx Instructions .ROUTE .MEDSUPPLY Qty: 300 3RF Rx Instructions: Use to check BS 3 times daily (DME) pen needle, diabetic [Pen Needle] 32 gauge x 5/32 needle See Rx Instructions .ROUTE .MEDSUPPLY Qty: 300 1RF Rx Instructions: Use with insulin (Novolin 70/30) injections 2 times daily (DME) True Metrix Glucose Test Strip Strip See Rx Instructions .ROUTE .MEDSUPPLY Qty: 300 3RF Rx Instructions: Use to check BS 3 times daily carvedilol 12.5 mg tablet See Rx Instructions .ROUTE .COMPLEX Qty: 180 3RF Dose Instruction: TAKE 1 TABLET BY MOUTH EVERY 12 HOURS WITH FOOD Rx Instructions: TAKE 1 TABLET BY MOUTH EVERY 12 HOURS WITH FOOD calcitriol 0.25 mcg capsule See Rx Instructions .ROUTE .COMPLEX Qty: 90 3RF Dose Instruction: TAKE 1 CAPSULE BY MOUTH EVERY DAY Rx Instructions: TAKE 1 CAPSULE BY MOUTH EVERY DAY calcium acetate(phosphat bind) 667 mg tablet See Rx Instructions .ROUTE .COMPLEX Qty: 270 3RF Dose Instruction: TAKE 1 TABLET 3 TIMES DAILY WITH MEALS Rx Instructions: TAKE 1 TABLET 3 TIMES DAILY WITH MEALS levothyroxine [Synthroid] 150 mcg tablet 150 mcg PO DAILY Qty: 90 1RF Rx Instructions: take 6 days a week skip Sundays Discontinued Verquvo 5 mg Tablet 10 mg PO DAILY Rx Instructions: must administer with a meal/food Other Ambulatory Orders: Cardiopulmonary Rehabilitation (Routine) Timeframe: 2 Weeks Location: Determined by Patient Ordered By: Alia Villa Date of admission: 10/22/25 10:52 Primary Care Provider: Robert Taylor Admitting Provider: Jose Rivera Attending physician on admission: Jose Rivera Condition: Stable Quality VTE Prophylaxis VTE prophylaxis: mechanical ordered
== END 2025-10-25 10:35 | disposition home or self-care (01) | DRG 291 ==
PROVIDERS: Internal Medicine; Nurse Practitioner; Admitting Provider General Practice; PCP Internal Medicine; Visit Provider Internal Medicine
DX: I13.0 Hypertensive heart and chronic kidney disease with heart failure and stage 1 through stage 4 chronic kidney disease, or unspecified chronic kidney disease (principal); I50.43 Acute on chronic combined systolic (congestive) and diastolic (congestive) heart failure; N18.4 Chronic kidney disease, stage 4 (severe); E11.22 Type 2 diabetes mellitus with diabetic chronic kidney disease; I27.20 Pulmonary hypertension, unspecified; I34.0 Nonrheumatic mitral (valve) insufficiency; I44.0 Atrioventricular block, first degree; I36.1 Nonrheumatic tricuspid (valve) insufficiency; I49.3 Ventricular premature depolarization; I45.10 Unspecified right bundle-branch block; E78.5 Hyperlipidemia, unspecified; I25.10 Atherosclerotic heart disease of native coronary artery without angina pectoris; E03.9 Hypothyroidism, unspecified; N40.0 Benign prostatic hyperplasia without lower urinary tract symptoms; Z85.22 Personal history of malignant neoplasm of nasal cavities, middle ear, and accessory sinuses; Z91.148 Patient's other noncompliance with medication regimen for other reason; I25.2 Old myocardial infarction; Z79.82 Long term (current) use of aspirin; Z79.4 Long term (current) use of insulin; Z87.891 Personal history of nicotine dependence
CPT/HCPCS: 36415; 80048; 80053; 82948; 83036; 83735; 84484; 85025; 85027; 93005; A9270; C8929; G0378; J1815; J1938; Q9957